=== PATIENT | male | born 1940 | race Caucasian/White ===

== ENCOUNTER 2017-10-04 17:34 | Inpatient (IN) | payer OTHER ==
[2017-10-04 19:08] LABS: BASO % 0.5 % (0-2.0); EOS % 2.7 % (0-4.5); HEMATOCRIT 28.8 % (35.4-49); HEMOGLOBIN 9.5 GM/dL (11.7-16.9); LYMPH % 7.9 % (8-40); MCH 29.4 pg (25.7-33.7); MCHC 32.9 g/dl (32.0-35.9); MEAN CELL VOLUME 89.5 fl (80-96); MEAN PLT VOLUME 11.4 fl (7.5-11.1); MONO % 5.2 % (3.8-10.2); NEUT % 83.7 % (42.8-82.8); PLATELET COUNT 150 K/MM3 (134-434); RBC 3.22 M/mm3 (4.00-5.60); RDW 16.4 % (11.9-15.9); WHITE BLOOD COUNT 11.2 K/mm3 (4.0-10.0)
[2017-10-04] MEDS ORDERED: SODIUM CHLORIDE 0.9% 500 ML INFUS.BAG IV ONE (19:17)
[2017-10-04] MEDS ORDERED: ONDANSETRON 4 MG/2 ML VIAL IVPUSH ONE (19:17)
[2017-10-04] MEDS ORDERED: ONDANSETRON 4 MG/2 ML VIAL ONE (19:27)
[2017-10-04 19:29] LABS: ALBUMIN 3.8 g/dl (3.4-5.0); ALK PHOS 107 U/L (45-117); ANION GAP 17 (8-16); BILIRUBIN,TOTAL 0.6 mg/dL (0.2-1.0); CALCIUM 8.6 mg/dL (8.5-10.1); CHLORIDE 103 mmol/L (98-107); CO2 15 mmol/L (21-32); GLUCOSE,RANDOM 229 mg/dL (74-106); SGOT/AST 9 U/L (15-37); SGPT/ALT 28 U/L (12-78); SODIUM 135 mmol/L (136-145); TOT PROT 6.6 g/dl (6.4-8.2)
[2017-10-04 19:33] LABS: LIPASE 502 U/L (73-393)
[2017-10-04 19:35] LABS: BLOOD UREA NITROGEN 137 mg/dL (7-18); CREATININE 8.1 mg/dL (0.7-1.3); POTASSIUM 6.2 mmol/L (3.5-5.1)
--- NOTE | 2017-10-04 19:49 | PDOC ---
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 Pt states he has had heartburn, worse during the nights, which has improved with OTC Prilosec. He has also had RUQ abdominal pain , over the same time period, with associated abdominal distension. The pain is mild, constant, but has worsened with the increasing distension. The pain is worsened with palpation, and there are no alleviating factors. He has not experienced this pain before. He denies fevers/chills, headache, chest pain, SOB , nausea/vomiting, diarrhea/constipation, rectal bleeding, urinary symptoms, joint pain, or leg swelling. Pt initially did not tell us about renal history. Son-in-law came to bedside and gave us additional history. Pt sees Dr. Parada ([facility] [[email or web address] for renal care, and was previously in transplant list. He has not received dialysis in the past. 10/05/17 00:09 Past History - Travel Traveled outside of the country in the last 30 days: No Close contact w/someone who was outside of country & ill: No - Past Medical History Allergies/Adverse Reactions: Allergies Allergy/AdvReac Type Severity Reaction Status Date / Time No Known Allergies Allergy Verified 10/04/17 17:44 Home Medications: Ambulatory Orders Alfuzosin HCl [Alfuzosin HCl ER] 10 mg PO DAILY 10/04/17 Amlodipine Besylate 10 mg PO DAILY 10/04/17 Aspirin [ASA -] 81 mg PO DAILY 10/04/17 Bumetanide 0.5 mg PO DAILY 10/04/17 Carvedilol [Coreg -] 6.25 mg PO ONCE 10/04/17 Glipizide [Glipizide ER] 2.5 mg PO DAILY 10/04/17 Levothyroxine [Synthroid -] 75 mcg PO DAILY 10/04/17 Losartan Potassium 100 mg PO DAILY 10/04/17 Saxagliptin HCl [Onglyza] 2.5 mg PO DAILY 10/04/17 Cardiac Disorders: Yes COPD: No Diabetes: Yes HTN: Yes Hypercholesterolemia: Yes Thyroid Disease: Yes - Surgical History Cardiac Surgery: Yes (4 vessel CABG) - Suicide/Smoking/Psychosocial Hx Smoking History: Never smoked Review of Systems - Review of Systems Able to Perform ROS?: Yes Is the patient limited Hungarian proficient: No Constitutional: Yes: Weight Stable. No: Chills, Diaphoresis, Fever, Loss of Appetite, Weakness HEENTM: No: Recent change in vision, Nose Congestion, Difficulty Swallowing Respiratory: No: Cough, Orthopnea, Shortness of Breath Cardiac (ROS): No: Chest Pain, Edema, Irregular Heart Rate, Lightheadedness, Palpitations, Syncope, Chest Tightness ABD/GI: Yes: Abdominal Distended, Indigestion. No: Abd. Pain w/ defecation, Blood Streaked Bowels, Constipated, Diarrhea, Difficulty Swallowing, Nausea, Poor Appetite, Poor Fluid Intake, Rectal Bleeding, Vomiting, Abdominal cramping , Tarry Stools : No: Burning, Dysuria, Frequency, Flank Pain, Hematuria, Pain, Urgency Integumentary: No: Change in Color, Rash Neurological: No: Headache, Numbness, Seizure, Weakness, Unsteady Gait, Ataxia, Dizziness Psychiatric: No: Sleep Pattern Change, Change in Appetite Endocrine: No: Increased Thirst, Increased Urine, Change in Weight Hematologic/Lymphatic: No: Anemia, Blood Clots, Easy Bleeding All Other Systems: Reviewed and Negative *Physical Exam - Vital Signs Last Vital Signs Temp Pulse Resp BP Pulse Ox 98.7 F 49 L 18 113/50 98 10/04/17 17:44 10/04/17 17:44 10/04/17 17:44 10/04/17 17:44 10/04/17 18:19 - Physical Exam General Appearance: Yes: Nourished, Appropriately Dressed. No: Apparent Distress HEENT: positive: EOMI, ELISEO, Normal ENT Inspection, Normal Voice, Symmetrical, Pharynx Normal, Hearing Grossly Normal. negative: Scleral Icterus (R), Scleral Icterus (L), Pharyngeal Erythema, Tonsillar Exudate, Tonsillar Erythema, Rhinorrhea Neck: positive: Trachea midline, Normal Thyroid, Supple. negative: Tender, Rigid, Stridor, Lymphadenopathy (R), Lymphadenopathy (L) Respiratory/Chest: positive: Lungs Clear, Normal Breath Sounds. negative: Chest Tender, Respiratory Distress, Accessory Muscle Use, Crackles, Wheezing Cardiovascular: positive: Regular Rhythm, S1, S2, Bradycardia. negative: Regular Rate, Edema, JVD, Murmur Vascular Pulses: Carotid (R): 4+, Carotid (L): 4+ Gastrointestinal/Abdominal: positive: Normal Bowel Sounds, Tender (RUQ tenderness), Soft, Distended (slightly distened. no fluid wave. ). negative: Flat, Organomegaly, Pulsatile Mass, Protuberent, Guarding, Rebound, Hernia, Mass , Hepatomegaly, Spleenomegaly Rectal Exam: positive: deferred Lymphatic: negative: Adenopathy, Tenderness Musculoskeletal: positive: Normal Inspection. negative: CVA Tenderness Extremity: positive: Normal Capillary Refill, Normal Inspection, Normal Range of Motion, Pelvis Stable. negative: Tender Integumentary: positive: Normal Color, Dry, Warm Neurologic: positive: echocardiography technologist II-XII NML intact, Fully Oriented, Alert, Normal Mood/ Affect, Normal Response, Motor Strength 5/5. negative: Numbness, Sensory Deficit Heart Score/ECG Review - History History: Moderately suspicious (4- vessel CABG. No current chest pain.) - Electrocardiogram EKG: Normal - Age Age: >/= 65 - Risk Factors Risk Factors Heart Score: Yes Hx Hypertension Based on the list above the patient has:: 1-2 risk factors - [place]: Normal - P and OK Delta Wave(s) Present: No WPW: No - ECG Impressions Comment:: sinus bradycardia. ST changes look relatively unchanged from prior ECG. No current peaked T waves. Rate 30 bpm, intervals normal. 10/05/17 00:34 ED Treatment Course - LABORATORY CBC & Chemistry Diagram: 10/04/17 19:04 10/04/17 19:04 - ADDITIONAL ORDERS Additional order review: Laboratory Results 10/04/17 19:04 Sodium 135 L Potassium 6.2 H* Chloride 103 Carbon Dioxide 15 L Anion Gap 17 H BUN 137 H* Creatinine 8.1 H* Creat Clearance w eGFR 6.48 Random Glucose 229 H Calcium 8.6 Total Bilirubin 0.6 AST 9 L ALT 28 Alkaline Phosphatase 107 Total Protein 6.6 Albumin 3.8 Lipase 502 H 10/04/17 19:04 RBC 3.22 L MCV 89.5 MCHC 32.9 RDW 16.4 H MPV 11.4 H Neutrophils % 83.7 H Lymphocytes % 7.9 L Monocytes % 5.2 Eosinophils % 2.7 Basophils % 0.5 - Medications Given in the ED: ED Medications Discontinued Medications Generic Name Dose Route Start Last Admin Trade Name Adeel PRN Reason Stop Dose Admin Ondansetron HCl 4 mg 10/04/17 19:17 10/04/17 19:43 Zofran Injection IVPUSH 10/04/17 19:18 4 mg ONCE ONE Administration Sodium Chloride 1,000 ml 10/04/17 19:17 10/04/17 19:42 Normal Saline - IV 10/04/17 19:18 1,000 ml ONCE ONE Administration Medical Decision Making - Medical Decision Making (entered later) Pt was seen at bedside, also seen by Dr. Ly. Pt was complaining of RUQ abdominal pain and distension, along with acid reflux x3 days. No chest pain or palpitations. Ordered basic labs on pt, considering cholelithiasis vs reflux vs pancreatitis. Pt did not mention history of kidney failure in the past. Pt HR in 40s. PCP: Dr. Roque Mold Cutting Machine Operator: Dr. Gan K 6.2, BUN 137, Cr 8.1, Cr Clearance 6.48, Gluc 229, lipase 502 Provided 1 L NS bolus ECG showed sinus bradycardia: provided 1 mg IV glucagon Son-in-law arrived. States pt had renal failure in the past, and was on transplant list at one point. Sees Dr. Parada at [facility]. 10/04/17 20:33 I performed bedside US. No gallstones appreciated, although pt very distended. Dr. Ly speaking to hospitalist now for admission to ICU (for dialysis). Pt continues to be bradycardic in 40s. Will page Dr. Gan again. Provided additional 1 mg glucagon (2 mg total) Spoke to Dr. Gan, who did not recognize pt by name, and was unsure of pt cardiac baseline. Agreed with plan for treatment and admit to ICU. 10/04/17 20:44 Provided 10 units insulin and D5 to improve HR and decrease K. 10/04/17 21:[address] Kulkarni (nephrology) who recommended NS (1 L NS bolus already provided) and maintenance fluid of 84-100 cc per hour. He also suggested UA, urine legionella, and repeat K level. 10/04/17 21:51 Son-in-law insists that pt has psychological component to illness. He states the pt has been irritable and "does not take care of himself, with lots of self- prescribed medications" since his 4-vessel CABG [address] psych consult so they can see him during inpatient stay. 10/04/17 22:00 Pt complaining of acid reflux. Providing 30 mg PO maalox. Sent urine for UA and legionella. 10/04/17 22:47 [id number] CT/ABDOMEN & PELVIS CT W/O CONTR Abdomen and pelvis CT (without contrast) Clinical information: evaluate for ileus, obstruction; right upper quadrant distention, elevated lipase, acute renal insufficiency Multiplanar imaging was performed. No intravenous contrast was administered. A small amount of oral contrast is seen within the gastric lumen. The partially imaged lower chest demonstrate small right-sided and very small left-sided pleural effusions layering posteriorly. There is mild fluid-filled gastric distention. A small amount of perihepatic free fluid is noted. There is also a small amount of free fluid within the paracolic spaces bilaterally and within the rectovesical space of the lower pelvis. A small amount of pericholecystic fluid accumulation is seen without associated gallbladder distention or obvious gallbladder calculi. There is no definite biliary tract dilatation. Mild mesenteric edema is seen. There is also mild bilateral thickening of the pararenal fasciae and mild bilateral perirenal soft tissue stranding. There is no hydronephrosis. The kidneys appear unremarkable in position and size each measuring approximately 9.7 cm in length. No evidence of urolithiasis. There is no definite cortical scarring. No evidence of pneumoperitoneum or bowel obstruction. There is minimal to mild peripancreatic soft tissue stranding. The liver, spleen, and adrenal glands demonstrate no discrete noncontrast pathology. There is no aortic aneurysm. No obvious lymphadenopathy is seen. The appendix is not definitely visualized along their no obvious indirect CT signs of acute appendicitis allowing for partially obstructing nonopacified small bowel loops. Colonic diverticulosis is seen without definite evidence of acute diverticulitis. No gross small bowel pathology is identified. There is marked prostate enlargement. IMPRESSION: No hydronephrosis is identified. The kidneys demonstrate no discrete noncontrast pathology. Prominent prostate enlargement is noted. Small right-sided and very small left-sided pleural effusions are seen. A small amount of free intraperitoneal fluid is noted within the abdomen and pelvis. Note is also made of mild mesenteric soft tissue edema. Note is also made of mild bilateral pararenal and perirenal soft tissue soft tissue thickening probably also on the basis of edema. Minimal to mild peripancreatic soft tissue stranding is seen. On the basis of this exam it is uncertain whether this latter appearance is secondary to mild acute pancreatitis versus representing a part of the more generalized mild mesenteric edema described previously. Consider follow-up CT. Small amount of free fluid, likely from edema (pancreatitis vs acute on chronic RF). Will repeat CMP and lipase. 10/04/17 22:56 Pt HR 40-48. Will receive additional 1 mg glucagon (3 mg given so far). Pt going to US. Sent repeat CMP and lipase labs. 10/04/17 23:21 Repeat lipase 538. Maintenance fluids started by ICU team. CMP pending. Pt awaiting admission. Waiting on official US results. Signed out to Dr. Carty who will check-in until pt admitted. 10/05/17 00:07 *DC/Admit/Observation/Transfer Diagnosis at time of Disposition: Bradycardia Renal failure (ARF), acute on chronic Qualifiers: Acute renal failure type: unspecified Chronic kidney disease stage: unspecified stage Qualified Code(s): N17.9 - Acute kidney failure, unspecified - Discharge Dispostion Condition at time of disposition: Stable Decision to Admit order: Yes - Referrals - Patient Instructions - Post Discharge Activity
[2017-10-04] MEDS ORDERED: GLUCAGON 1 MG KIT IVPUSH ONE ×3 (19:55→23:00)
[2017-10-04] MEDS ORDERED: SODIUM POLYSTYRENE SULFONATE 15 GM/60 ML BOTTLE PO ONE (19:55)
[2017-10-04] MEDS ORDERED: SODIUM POLYSTYRENE SULFONATE 15 GM/60 ML BOTTLE ONE (19:57)
[2017-10-04] MEDS ORDERED: GlUCAGON HUMAN RECOMBINANT 1 MG/VIAL ONE ×4 (19:57→23:17)
--- NOTE | 2017-10-04 20:12 | PDOC ---
Attending Attestation - HPI HPI: 10/04/17 23:11 The patient is a 77 year old male with a significant PMH of diabetes, , hypertension, hypercholesterolemia, and open heart surgery who presents to the emergency department with right upper quadrant abdominal pain for 3 days. The patient reports some associated abdominal distension and acid reflux with his abdominal pain. He states that even with his pain he has been able to eat. He denies any other symptoms. He denies any fever, chills, nausea, vomit, diarrhea , constipation or urinary symptoms. He denies any chest pain, shortness of breath, headache and dizziness. The patient denies any other complaints. PCP: Dr. Crouch Documentation prepared by Luz Marina Graves, acting as medical writer for Licha Ly MD. <Luz Marina Graves - Last Filed: 10/04/17 23:11> - Resident Resident Name: Roseann Miller - ED Attending Attestation I have performed the following: I have examined & evaluated the patient, The case was reviewed & discussed with the resident, I agree w/resident's findings & plan - HPI HPI: 10/04/17 20:10 Pt comes with renal failure and RUQ pain. Kidney tests are elevated. Lipase elevated. Pt has neither gallstones, not alcohol use. Dr. Hightower in [place] is his renal specialist. PMD is Waldo Crouch; hospitalist is gloria CROUCH today. 10/04/17 23:05 Pt has perhepatic fluid and stranding around the pancreas. - Physicial Exam PE: 10/04/17 23:01 Pt has gas in the RUQ and some distension. Afebrile. Pt is in NAD. He appears well. Pt has no SOB and no chest discomfort. Pt has no fluid overload. - Medical Decision Making 10/04/17 20:15 Pt will have sono abd to eval his distension 10/04/17 22:[address] are pending 10/04/17 23:06 Dr. Kulkarni of renal is aware of the patient and his acute renal failure. Pt's strategic planner is in [place] (not affilialted with us) Dr. Gan is aware of the patient. We have been treating the bradycardia with Calcium as well as glucagon, as pt is on beta blockers and calcium channel blockers. 10/05/17 04:44 Patient Name: TAL ASCENCIO THIS IS A PRELIMINARY REPORT FROM [facility] DATE OF SERVICE: 2017-10-04 23:33:58 IMAGES: 46 EXAM: ABDOMEN US -LIMITED HISTORY: Right upper quadrant pain COMPARISON: None. FINDINGS: Right pleural effusion No gallstones. Mild ascites Circumferential gallbladder wall thickening that may be secondary to the ascites No gallstones No echogenic calculi or hydronephrosis within the right kidney Tiny cyst within the superior pole of the left kidney Common bile duct measures 0.8 cm. THIS DOCUMENT HAS BEEN ELECTRONICALLY SIGNED <Licha Ly - Last Filed: 10/05/17 04:46> Heart Score/ECG Review - ST and T Early Repolarization: No Non Specific ST-T Wave changes: No Flattened T Waves: No Prolonged Q-T Interval: No - ECG Impressions Normal ECG: No Non-specific ST Elevation: No Ischemic Changes: No Bradycardia: Yes <Licha Ly - Last Filed: 10/05/17 04:46>
[2017-10-04] MEDS ORDERED: INSULIN REGULAR HUMAN 100 UNITS/ML *VIAL IVPUSH ONE (20:53)
[2017-10-04] MEDS ORDERED: DEXTROSE 50%-WATER - 25 GM/50 ML VIAL IVPUSH ONE (20:53)
--- NOTE | 2017-10-04 20:57 | HP ---
CHIEF COMPLAINT: RUQ Pain PCP: Dr. Roque Nephrology: Dr.Andrew Parada ([facility], ) HISTORY OF PRESENT ILLNESS: This is a 77 y/o man with significant medical history of CKD Stage 4/5, CAD s/p CABG, HTN, HLD, DM. Who presents to the ED with his family for RUQ pain and dizziness x 2 days. Patient is Maori speaking [employer] line used Name Nichole, # [id number], family and son in law were at bedside. Patient reports seeing his churn driller Dr. Sunday Parada, last Saturday and was told that his labs were fine. Patient reports having sharp RUQ pain with nausea, his last BM was today- hard and brown. Patient denies back/flank pain. Patient denies recent NSAID use , Patient denies fall or trauma. Patient denies fever, chills, cough, SOB, CP, vomiting, diarrhea ER course was notable for: (1) ARF- BUN 137, Cr 8.1 (2) K 6.2 (hyperkalemia protocol given) (3) Asymptomatic Bradycardia 30-40s Recent Travel: None PAST MEDICAL HISTORY: See HPI PAST SURGICAL HISTORY: CABG Social History: Smoking: Former 20 yrs ago Alcohol: Denies Drugs: Denies Lives with spouse, Independent Family History: Mother: DM Allergies No Known Allergies Allergy (Verified 10/04/17 17:44) HOME MEDICATIONS: Home Medications Medication Instructions Recorded Alfuzosin HCl [Alfuzosin HCl ER] 10 mg PO DAILY 10/04/17 Amlodipine Besylate 10 mg PO DAILY 10/04/17 Aspirin [ASA -] 81 mg PO DAILY 10/04/17 Bumetanide 0.5 mg PO DAILY 10/04/17 Carvedilol [Coreg -] 6.25 mg PO ONCE 10/04/17 Glipizide [Glipizide ER] 2.5 mg PO DAILY 10/04/17 Levothyroxine [Synthroid -] 75 mcg PO DAILY 10/04/17 Losartan Potassium 100 mg PO DAILY 10/04/17 Saxagliptin HCl [Onglyza] 2.5 mg PO DAILY 10/04/17 REVIEW OF SYSTEMS CONSTITUTIONAL: Absent: fever, chills, diaphoresis, generalized weakness, malaise, loss of appetite, weight change HEENT: Absent: rhinorrhea, nasal congestion, throat pain, throat swelling, difficulty swallowing, mouth swelling, ear pain, eye pain, visual changes CARDIOVASCULAR: Absent: chest pain, syncope, palpitations, irregular heart rate, lightheadedness , peripheral edema RESPIRATORY: Absent: cough, shortness of breath, dyspnea with exertion, orthopnea, wheezing, stridor, hemoptysis GASTROINTESTINAL:abdominal pain, abdominal distension, nausea, Absent: vomiting, diarrhea, constipation, melena, hematochezia GENITOURINARY: Absent: dysuria, frequency, urgency, hesitancy, hematuria, flank pain, genital pain MUSCULOSKELETAL: Absent: myalgia, arthralgia, joint swelling, back pain, neck pain SKIN: Absent: rash, itching, pallor HEMATOLOGIC/IMMUNOLOGIC: Absent: easy bleeding, easy bruising, lymphadenopathy, frequent infections ENDOCRINE: Absent: unexplained weight gain, unexplained weight loss, heat intolerance, cold intolerance NEUROLOGIC: dizziness Absent: headache, focal weakness or paresthesias, unsteady gait, seizure, mental status changes, bladder or bowel incontinence PSYCHIATRIC: Absent: anxiety, depression, suicidal or homicidal ideation, hallucinations. PHYSICAL EXAMINATION Vital Signs - 24 hr 10/04/17 10/04/17 10/04/17 17:44 18:19 20:06 Temperature 98.7 F Pulse Rate 49 L Pulse Rate [ 30 L Left Radial] Respiratory 18 20 Rate Blood Pressure 113/50 Blood Pressure 135/61 [Left Arm] O2 Sat by Pulse 98 98 99 Oximetry (%) 10/04/17 20:23 Temperature Pulse Rate Pulse Rate [ 43 L Left Radial] Respiratory 17 Rate Blood Pressure Blood Pressure 133/57 [Left Arm] O2 Sat by Pulse 98 Oximetry (%) GENERAL: Awake, alert, and fully oriented, in no acute distress. HEAD: Normal with no signs of trauma. EYES: Pupils equal, round and reactive to light, extraocular movements intact, sclera anicteric, conjunctiva clear. No lid lag. EARS, NOSE, THROAT: Ears normal, nares patent, oropharynx clear without exudates. Dry mucous membranes. NECK: Normal range of motion, supple without lymphadenopathy, JVD, or masses. LUNGS: Breath sounds equal, clear to auscultation bilaterally. No wheezes, and no crackles. No accessory muscle use. HEART: Regular rate and rhythm, normal S1 and S2 without murmur, rub or gallop. ABDOMEN: Soft, nontender,+distended, hypoactive bowel sounds, no guarding, no rebound, no masses. No hepatomegaly or splenomegaly. MUSCULOSKELETAL: Normal range of motion at all joints. No bony deformities or tenderness. No CVA tenderness. UPPER EXTREMITIES: 2+ pulses, warm, well-perfused. No cyanosis. No clubbing. No peripheral edema. LOWER EXTREMITIES: 2+ pulses, warm, well-perfused. No calf tenderness. No peripheral edema. NEUROLOGICAL: Cranial nerves II-XII intact. Normal speech. Gait not observed. PSYCHIATRIC: Cooperative. Good eye contact. Appropriate mood and affect. SKIN: Warm, dry, normal turgor, no rashes or lesions noted, normal capillary refill. Laboratory Results - last 24 hr 10/04/17 10/04/17 10/04/17 19:02 19:04 19:04 WBC 11.2 H RBC 3.22 L Hgb 9.5 L Hct 28.8 L MCV 89.5 MCH 29.4 MCHC 32.9 RDW 16.4 H Plt Count 150 MPV 11.4 H Absolute Neuts (auto) 9.4 H Neutrophils % 83.7 H Lymphocytes % 7.9 L Monocytes % 5.2 Eosinophils % 2.7 Basophils % 0.5 Nucleated RBC % 0 Sodium 135 L Potassium 6.2 H* Chloride 103 Carbon Dioxide 15 L Anion Gap 17 H BUN 137 H* Creatinine 8.1 H* Creat Clearance w eGFR 6.48 Random Glucose 229 H Calcium 8.6 Total Bilirubin 0.6 AST 9 L ALT 28 Alkaline Phosphatase 107 Creatine Kinase 117 Troponin I 0.38 H Total Protein 6.6 Albumin 3.8 Lipase 502 H ASSESSMENT/PLAN: This is a 77 y/o man with a PMHx of CKD stage 4/5, DM, CAD s/p CABG, HTN, HLD. Admitted to ICU for Acute on Chronic Renal Failure, Hyperkalemia, Abdominal Pain for further evaluation of their emergent condition. FEN - NS@83ml/hr - Replete lytes, monitor K 6.2~4.2 - NPO DVT ppx - OOB - SCDs - Heparin SQ Code Status: Full Code Dispo: Requires Inpatient Care Problem List - Problem (1) Renal failure (ARF), acute on chronic Assessment/Plan: - BUN 138, Cr 8.1, no other results available to compare - Admit to ICU- for possible emergent dialysis - Appreciate Nephrology consult - Appreciate Fiber Drier Operator consult - Will need to have day team discuss renal function hx, recent labs with Dr. Parada, ([facility]) - NS bolus given in ED - Will continue IVF per Nephrology recommendations - Will trend CMP - Continue cardiac monitoring - Urine lytes, osmo - Renal US - Avoid nephrotoxic agents Code(s): N17.9 - ACUTE KIDNEY FAILURE, UNSPECIFIED; N18.9 - CHRONIC KIDNEY DISEASE, UNSPECIFIED Qualifiers: Acute renal failure type: unspecified Chronic kidney disease stage: unspecified stage Qualified Code(s): N17.9 - Acute kidney failure, unspecified ; N18.9 - Chronic kidney disease, unspecified (2) Bradycardia Assessment/Plan: - Likely secondary to ARF vs Medications - Cardiac monitoring - Glucagon given in ED - HR 50's - Appreciate Cardiology consult - Hold BP meds - On exam patient is asymptomatic - Fall Precautions - Pacer Pads prn Code(s): R00.1 - BRADYCARDIA, UNSPECIFIED (3) HTN (hypertension) Assessment/Plan: - Monitor BP - Hold meds secondary to Bradycardia - Maintain MAP > 65 Code(s): I10 - ESSENTIAL (PRIMARY) HYPERTENSION (4) CAD (coronary artery disease) Assessment/Plan: - s/p CABG - Continue Asa, Statin - Will hold BB, ARB secondary to bradycardia, ARF Code(s): I25.10 - ATHSCL HEART DISEASE OF [place] CORONARY ARTERY W/O ANG PCTRS (5) Diabetes mellitus Assessment/Plan: - stable - BGMs - ISS when diet resumed Code(s): E11.9 - TYPE 2 DIABETES MELLITUS WITHOUT COMPLICATIONS (6) HLD (hyperlipidemia) Assessment/Plan: - Continue statin Code(s): E78.5 - HYPERLIPIDEMIA, UNSPECIFIED (7) Depression Assessment/Plan: - Patient's and son in law report a change in patient's behavior more aggressive, mood swings, and depression since having CABG. - Appreciate Psych consult Code(s): F32.9 - MAJOR DEPRESSIVE DISORDER, SINGLE EPISODE, UNSPECIFIED (8) Agitation Assessment/Plan: - See Above Code(s): R45.1 - RESTLESSNESS AND AGITATION Visit type - Emergency Visit Emergency Visit: Yes ED Registration Date: 10/04/17 Care time: The patient presented to the Emergency Department on the above date and was hospitalized for further evaluation of their emergent condition. - New Patient This patient is new to me today: Yes Date on this admission: 10/04/17 - Critical Care Critical Care patient: Yes Total Critical Care Time (in minutes): 40 Critical Care Statement: The care of this patient involved high complexity decision making to prevent further life threatening deterioration of the patient 's condition and/or to evaluate & treat vital organ system(s) failure or risk of failure. Hospitalist Screening - Colonoscopy Questionnaire Colonoscopy Questionnaire: Colonoscopy Questionnaire - Patient: 50 - 75 years old and never had a screening colonoscopy: Unknown History of colon or rectal polyps, or CA: Unknown History of IBD, Crohn's disease or UC: Unknown History of abdominal radiation therapy as a child: Unknown - Relative: 1 with colon or rectal CA, or polyps at age 60 or younger: Unknown Colon or rectal CA diagnosed at age 45 or younger: Unknown Multiple relatives with colon or rectal CA: Unknown - Outcome: Screening Result: Negative Screen
[2017-10-04] MEDS ORDERED: DEXTROSE 50%-WATER 25 GM/50 ML DISP.SYRIN ONE (21:15)
[2017-10-04] MEDS ORDERED: INSULIN REGULAR HUMAN 100 UNITS/ML *VIAL ONE (21:16)
[2017-10-04] MEDS ORDERED: HEPARIN NA (PORCINE) 5,000 UNITS/ML 1ML VIAL ONE (22:15)
[2017-10-04] MEDS: HEPARIN NA (PORCINE) 5,000 UNITS/ML 1ML VIAL SQ SCH (22:25)
--- NOTE | 2017-10-04 22:30 | CONSULT ---
Consult - text type - Consultation Consultation Note: Renal consult for ROBIN on CKD This is a 77 year old gentleman with hx of CKD Stage 4/5, DM, CAD s/p CABG, Hyperlipidemia, Hypertension who presented with complaints of abd pain and found to have BUN/Cr of 140/8.2 and K of 6. Pt follows with his own manager distribution center Dr. Sunday Parada [phone]. Was seen last week and was told that everything was stable. Denies any NSIAD use. Is on ARB and Bumex at home. Denies any N/V/D or change in diet. No flank pain, hematuria, dysuria. No recent Abx use. No skin rash. No muscle weakness, Abd pain, confusion, lethargy or weakness. PMhx: as above Allergies: NKDA Family Hx: NC Social Hx: No T/A/D ROS: as per HPI Home Medications Medication Instructions Recorded Alfuzosin HCl [Alfuzosin HCl ER] 10 mg PO DAILY 10/04/17 Amlodipine Besylate 10 mg PO DAILY 10/04/17 Aspirin [ASA -] 81 mg PO DAILY 10/04/17 Bumetanide 0.5 mg PO DAILY 10/04/17 Carvedilol [Coreg -] 6.25 mg PO ONCE 10/04/17 Glipizide [Glipizide ER] 2.5 mg PO DAILY 10/04/17 Levothyroxine [Synthroid -] 75 mcg PO DAILY 10/04/17 Losartan Potassium 100 mg PO DAILY 10/04/17 Saxagliptin HCl [Onglyza] 2.5 mg PO DAILY 10/04/17 Vital Signs Temperature 98.7 F 10/04/17 17:44 Pulse Rate 48 L 10/04/17 21:44 Respiratory Rate 15 10/04/17 21:44 Blood Pressure 132/56 10/04/17 21:44 O2 Sat by Pulse Oximetry (%) 99 10/04/17 21:44 Intake & Output 10/02/17 10/03/17 10/04/17 10/05/17 23:59 23:59 23:59 23:59 Weight 66.224 kg NAD awake and alert Neck supple, no JVD RRR, No M/R CTA, no rales or wheeze soft NT/ND No LE edema, clubbing or cyanosis on bladder distension CBC, BMP 10/04/17 19:04 10/04/17 23:05 Current Medications Chlorhexidine Gluconate (Hibiclens For Decolonization -) 1 applic TP HS FABIEN Heparin Sodium (Porcine) (Heparin -) 5,000 unit SQ BID FABIEN Last Admin: 10/04/17 22:25 Dose: 5,000 unit Sodium Chloride (Normal Saline -) 1,000 mls @ 83 mls/hr IV ASDIR FABIEN Last Admin: 10/05/17 00:05 Dose: 83 mls/hr Mupirocin (Bactroban Ointment (For Decolonization) -) 1 applic NS BID [facility] Stop: 10/09/17 21:59 77 year old gentleman with hx of CKD Stage 4/5, DM, CAD s/p CABG, Hyperlipidemia , Hypertension who presented with complaints of abd pain and found to have BUN/ Cr of 140/8.2 and K of 6. #Acute Renal Injury secondary to volume depletion vs. normotensive ATN vs. progressive CKD #CKD Stage 4/5 #CAD s/p CABG #Metabolic acidosis #Hyperkalemia #Anemia Check Urine studies and renal imaging no emergent indication for BUSINESS LEADER as K is improved with medical management Will need to obtain baseline renal function form primary manager distribution center Trial of IV fluid hydration Stat Oral bicarb 650mg BID Trend renal function and electrolytes Check iron studies if no significant improvement in renal function in 24 hours may warrant dialysis thank you Will follow Rambo Kulkarni DO
[2017-10-04] MEDS ORDERED: SODIUM CHLORIDE 1,000 ML IV SCH (22:45)
[2017-10-04] MEDS ORDERED: MAG HYDROX/AL HYDROX/SIMETH 30 ML UNIT-DOSE CUP PO ONE (22:46)
[2017-10-04 22:50] LABS: URINE APPEARANCE SLCLOUDY; URINE BILIRUBIN NEGATIVE (<2.0 mg/dL); URINE COLOR YELLOW; URINE GLUCOSE (UA) 1+ (NEGATIVE); URINE KETONE NEGATIVE (NEGATIVE); URINE LEUK ESTERASE NEGATIVE (NEGATIVE); URINE NITRITE NEGATIVE (NEGATIVE); URINE UROBILINOGEN NEGATIVE mg/dL (0.2-1.0)
[2017-10-04 22:55] LABS: URINE PROTEIN 2+ (NEGATIVE)
[2017-10-04 23:02] LABS: EPI CELLS RARE /HPF (FEW); URINE HYALINE CAST 18 /lpf
[2017-10-04] MEDS ORDERED: MAG HYDROX/AL HYDROX/SIMETH 30 ML UNIT-DOSE CUP ONE (23:35)
[2017-10-05 00:12] LABS: ALBUMIN 3.5 g/dl (3.4-5.0); ALK PHOS 96 U/L (45-117); ANION GAP 17 (8-16); BILIRUBIN,TOTAL 0.6 mg/dL (0.2-1.0); CALCIUM 8.6 mg/dL (8.5-10.1); CHLORIDE 103 mmol/L (98-107); CO2 16 mmol/L (21-32); GLUCOSE,RANDOM 247 mg/dL (74-106); POTASSIUM 4.7 mmol/L (3.5-5.1); SGOT/AST 14 U/L (15-37); SGPT/ALT 28 U/L (12-78); SODIUM 136 mmol/L (136-145); TOT PROT 6.2 g/dl (6.4-8.2)
[2017-10-05 00:24] LABS: BLOOD UREA NITROGEN 141 mg/dL (7-18)
[2017-10-05 00:25] LABS: CREATININE 8.2 mg/dL (0.7-1.3)
--- NOTE | 2017-10-05 02:05 | PN ---
Progress Note (short form) - Note Progress Note: Renal consult for ROBIN on CKD This is a 77 year old gentleman with hx of CKD Stage 4/5, DM, CAD s/p CABG, Hyperlipidemia, Hypertension who presented with complaints of abd pain and found to have BUN/Cr of 140/8.2 and K of 6. Pt follows with his own earth auger operator Dr. Sunday Parada [phone]. Was seen last week and was told that everything was stable. Denies any NSIAD use. Is on ARB and Bumex at home. Denies any N/V/D or change in diet. No flank pain, hematuria, dysuria. No recent Abx use. No skin rash. No muscle weakness, Abd pain, confusion, lethargy or weakness. 77 year old male with a significant PMH of diabetes, ,hypertension, hypercholesterolemia, and open heart surgery who presents to the emergency department with right upper quadrant abdominal pain for 3 days.
--- NOTE | 2017-10-05 04:49 | CONSULT ---
Consultation: REQUESTING PROVIDER: CONSULT REQUEST: We have been asked to medically evaluate this patient for (CKD) . HISTORY OF PRESENT ILLNESS: Pt is a 77 y/o gentleman (B. florenciadocarlos) with a pmh of CKD Stage 4/5, DM, CAD s/p CABG, Hyperlipidemia, Hypertension who initially presented to [facility] c/o RUQ right upper quadrant abdominal pain for the past 3 days. The patient endorses having abdominal distension and acid reflux with his abdominal pain. On admission, pt found to have a Bun/Cr of 137/8.1, potassium was at 6, and a lipase of 502.. Pt is following a Data Analytics Architect in [place], Dr. Sunday Parada [phone], and states that he has never required dialysis. Pt states he does not want to undergo dialysis at this time. Pt in ED had an ECG which showed sinus bradycardia, 2 mg IV glucagon was administered. Bedside ultrasound was negative for any gallstones. 10 units insulin and D5W were given to improve his HR and decrease his K. Pt denies cp, sob, batres, nausea, vomiting, chills, or fever. REVIEW OF SYSTEMS: CONSTITUTIONAL: Absent: fever, chills, diaphoresis, generalized weakness, malaise, loss of appetite, weight change HEENT: Absent: rhinorrhea, nasal congestion, throat pain, throat swelling, difficulty swallowing, mouth swelling, ear pain, eye pain, visual changes CARDIOVASCULAR: PRESENT: palpitations, irregular heart rate RESPIRATORY: Absent: cough, shortness of breath, dyspnea with exertion, orthopnea, wheezing, stridor, hemoptysis GASTROINTESTINAL: PRESENT: abdominal pain, abdominal distension, GENITOURINARY: Absent: dysuria, frequency, urgency, hesitancy, hematuria, flank pain, genital pain MUSCULOSKELETAL: Absent: myalgia, arthralgia, joint swelling, back pain, neck pain SKIN: Absent: rash, itching, pallor HEMATOLOGIC/IMMUNOLOGIC: Absent: easy bleeding, easy bruising, lymphadenopathy, frequent infections ENDOCRINE: Absent: unexplained weight gain, unexplained weight loss, heat intolerance, cold intolerance NEUROLOGIC: Absent: headache, focal weakness or paresthesias, dizziness, unsteady gait, seizure, mental status changes, bladder or bowel incontinence PSYCHIATRIC: Absent: anxiety, depression, suicidal or homicidal ideation, hallucinations. PHYSICAL EXAMINATION Vital Signs - 24 hr 10/04/17 10/04/17 10/04/17 17:44 18:19 20:06 Temperature 98.7 F Pulse Rate 49 L Pulse Rate [ 30 L Left Radial] Respiratory 18 20 Rate Blood Pressure 113/50 Blood Pressure 135/61 [Left Arm] O2 Sat by Pulse 98 98 99 Oximetry (%) 10/04/17 10/04/17 10/05/17 20:23 21:44 02:50 Temperature 98 F Pulse Rate Pulse Rate [ 43 L 48 L 51 L Left Radial] Respiratory 17 15 16 Rate Blood Pressure Blood Pressure 133/57 132/56 127/56 [Left Arm] O2 Sat by Pulse 98 99 96 Oximetry (%) 10/05/17 03:30 Temperature 98.1 F Pulse Rate 47 L Pulse Rate [ Left Radial] Respiratory 16 Rate Blood Pressure 149/56 Blood Pressure [Left Arm] O2 Sat by Pulse 99 Oximetry (%) GENERAL: PLEASENT, NAD HEAD: NC/AT EYES: EOMI. EARS, NOSE, THROAT: MMM NECK: No JVD. Supple LUNGS: CTA B/L HEART: Regular rate and rhythm, normal S1 and S2 without murmur, rub or gallop. ABDOMEN: Tender, slighty distended, MUSCULOSKELETAL: ROM intact throughout UPPER EXTREMITIES: No CCE LOWER EXTREMITIES: No CCE NEUROLOGICAL: No Neuro Deficits PSYCHIATRIC: Cooperative. Good eye contact. Appropriate mood and affect. SKIN: Warm, dry, normal turgor, no rashes or lesions noted. Laboratory Results - last 24 hr 10/04/17 10/04/17 10/04/17 19:02 19:04 19:04 WBC 11.2 H RBC 3.22 L Hgb 9.5 L Hct 28.8 L MCV 89.5 MCH 29.4 MCHC 32.9 RDW 16.4 H Plt Count 150 MPV 11.4 H Absolute Neuts (auto) 9.4 H Neutrophils % 83.7 H Lymphocytes % 7.9 L Monocytes % 5.2 Eosinophils % 2.7 Basophils % 0.5 Nucleated RBC % 0 Sodium 135 L Potassium 6.2 H* Chloride 103 Carbon Dioxide 15 L Anion Gap 17 H BUN 137 H* Creatinine 8.1 H* Creat Clearance w eGFR 6.48 Random Glucose 229 H Calcium 8.6 Total Bilirubin 0.6 AST 9 L ALT 28 Alkaline Phosphatase 107 Creatine Kinase 117 Troponin I 0.38 H Total Protein 6.6 Albumin 3.8 Lipase 502 H Urine Color Urine Appearance Urine pH Ur Specific [place] Urine Protein Urine Glucose (UA) Urine Ketones Urine Blood Urine Nitrite Urine Bilirubin Urine Urobilinogen Ur Leukocyte Esterase Urine WBC (Auto) Urine RBC (Auto) Ur Epithelial Cells Hyaline Casts 10/04/17 10/04/17 10/04/17 22:35 23:05 23:05 WBC RBC Hgb Hct MCV MCH MCHC RDW Plt Count MPV Absolute Neuts (auto) Neutrophils % Lymphocytes % Monocytes % Eosinophils % Basophils % Nucleated RBC % Sodium 136 Potassium 4.7 D Chloride 103 Carbon Dioxide 16 L Anion Gap 17 H BUN 141 H* Creatinine 8.2 H* Creat Clearance w eGFR 6.39 Random Glucose 247 H Calcium 8.6 Total Bilirubin 0.6 AST 14 L D ALT 28 Alkaline Phosphatase 96 D Creatine Kinase Troponin I Total Protein 6.2 L Albumin 3.5 Lipase 538 H Urine Color Yellow Urine Appearance Slcloudy Urine pH 5.0 Ur Specific [place] 1.013 Urine Protein 2+ H Urine Glucose (UA) 1+ H Urine Ketones Negative Urine Blood Negative Urine Nitrite Negative Urine Bilirubin Negative Urine Urobilinogen Negative Ur Leukocyte Esterase Negative Urine WBC (Auto) 3 Urine RBC (Auto) None Ur Epithelial Cells Rare Hyaline Casts 18 10/05/17 00:46 WBC RBC Hgb Hct MCV MCH MCHC RDW Plt Count MPV Absolute Neuts (auto) Neutrophils % Lymphocytes % Monocytes % Eosinophils % Basophils % Nucleated RBC % Sodium Potassium Chloride Carbon Dioxide Anion Gap BUN Creatinine Creat Clearance w eGFR Random Glucose Calcium Total Bilirubin AST ALT Alkaline Phosphatase Creatine Kinase 122 Troponin I 0.33 H Total Protein Albumin Lipase Urine Color Urine Appearance Urine pH Ur Specific [place] Urine Protein Urine Glucose (UA) Urine Ketones Urine Blood Urine Nitrite Urine Bilirubin Urine Urobilinogen Ur Leukocyte Esterase Urine WBC (Auto) Urine RBC (Auto) Ur Epithelial Cells Hyaline Casts Active Medications Generic Name Dose Route Start Last Admin Trade Name Freq PRN Reason Stop Dose Admin Chlorhexidine Gluconate 1 applic 10/05/17 22:00 Hibiclens For Decolonization - TP HS FABIEN Heparin Sodium (Porcine) 5,000 unit 10/04/17 22:00 10/04/17 22:25 Heparin - SQ 5,000 unit BID FABIEN Administration Sodium Chloride 1,000 mls @ 83 mls/hr 10/04/17 22:45 10/05/17 00:05 Normal Saline - IV 83 mls/hr ASDIR FABIEN Administration Mupirocin 1 applic 10/05/17 10:00 Bactroban Ointment (For Decolonization) - NS 10/10/17 09:59 BID FABIEN ASSESSMENT/PLAN: Acute Renal Injury 2/2 volume depletion vs. normotensive ATN vs. progressive CKD -IN FL[employer]W MEMBER not emergent as Potassium has been improving--> 6.2 on admission, now 4.7 - Baseline Cr from Dr Khalil - Oral bicarb 650mg BID -Trend renal function and electrolytes -Monitor Renal fucntion for 24 hr's--> If Bun/Cr continue to rise---> IN FLIGHT CREW MEMBER -Trial of IV fluid hydration HTN, CAD Losartan 100 mg Daily Amlodipine 10 mg Daily Carvedilol 6.25 mg Daily Diabetes Glipizide 5 mg Daily Onglyzia 2.5 mg Daily Hypothyroidism Levothyroxine BPH Alfuzosin FEN No Fluids Monitor Potassium NPO Dispo: We will continue to follow the patient. Thank you for this consultative opportunity. Visit type - Emergency Visit Emergency Visit: Yes ED Registration Date: 10/04/17 Care time: The patient presented to the Emergency Department on the above date and was hospitalized for further evaluation of their emergent condition. - New Patient This patient is new to me today: Yes Date on this admission: 10/05/17 - Critical Care Critical Care patient: Yes Total Critical Care Time (in minutes): 35 Critical Care Statement: The care of this patient involved high complexity decision making to prevent further life threatening deterioration of the patient 's condition and/or to evaluate & treat vital organ system(s) failure or risk of failure.
[2017-10-05 06:13] LABS: BASO % 0.4 % (0-2.0); EOS % 2.5 % (0-4.5); HEMATOCRIT 25.6 % (35.4-49); HEMOGLOBIN 8.7 GM/dL (11.7-16.9); MEAN CELL VOLUME 88.2 fl (80-96); MEAN PLT VOLUME 11.6 fl (7.5-11.1); MONO % 6.7 % (3.8-10.2); NEUT % 83.4 % (42.8-82.8); PLATELET COUNT 123 K/MM3 (134-434); RBC 2.91 M/mm3 (4.00-5.60); RDW 16.7 % (11.9-15.9); WHITE BLOOD COUNT 9.8 K/mm3 (4.0-10.0)
[2017-10-05 06:43] LABS: CHLORIDE 106 mmol/L (98-107); POTASSIUM 4.8 mmol/L (3.5-5.1); SODIUM 139 mmol/L (136-145)
[2017-10-05 06:58] LABS: ALBUMIN 3.4 g/dl (3.4-5.0); ALK PHOS 96 U/L (45-117); AMYLASE 121 U/L (25-115); ANION GAP 17 (8-16); BILIRUBIN,TOTAL 0.6 mg/dL (0.2-1.0); CALCIUM 8.3 mg/dL (8.5-10.1); CO2 16 mmol/L (21-32); GLUCOSE,RANDOM 109 mg/dL (74-106); MAGNESIUM 2.1 mg/dL (1.8-2.4); PHOSPHOROUS 5.5 mg/dL (2.5-4.9); SGOT/AST 11 U/L (15-37); SGPT/ALT 26 U/L (12-78)
[2017-10-05 07:01] LABS: BLOOD UREA NITROGEN 139 mg/dL (7-18)
[2017-10-05 07:02] LABS: CREATININE 7.8 mg/dL (0.7-1.3)
[2017-10-05] MEDS: CALCIUM ACETATE 667 MG CAPSULE (FP) PO SCH ×3 (08:24→17:40)
--- NOTE | 2017-10-05 09:35 | CON.CARD ---
Consult Consult Specialty:: cardio - History of Present Illness Chief Complaint: abd pain History of Present Illness: 77 M here with abd pain. c/o RUQ pain and dizziness x2d. noted to be bradycardic in ER with HR 40s (sinus leeann), no sx's, hemodynamically stable he c/o ongoing RUQ pain though resolves with analgesia here. presently no pain, but remains tender. denies any cp at all, no sob. was a little dizzy at home, no presyncope or syncope no palpit PMH: -s/p CABG -CKD Stage 4/5 -HTN -HLD -DM - Smoking History Smoking history: Never smoked Home Medications - Allergies Allergies/Adverse Reactions: Allergies Allergy/AdvReac Type Severity Reaction Status Date / Time No Known Allergies Allergy Verified 10/04/17 17:44 - Home Medications Home Medications: Ambulatory Orders Alfuzosin HCl [Alfuzosin HCl ER] 10 mg PO DAILY 10/04/17 Amlodipine Besylate 10 mg PO DAILY 10/04/17 Aspirin [ASA -] 81 mg PO DAILY 10/04/17 Bumetanide 0.5 mg PO DAILY 10/04/17 Carvedilol [Coreg -] 6.25 mg PO ONCE 10/04/17 Glipizide [Glipizide ER] 2.5 mg PO DAILY 10/04/17 Levothyroxine [Synthroid -] 75 mcg PO DAILY 10/04/17 Losartan Potassium 100 mg PO DAILY 10/04/17 Saxagliptin HCl [Onglyza] 2.5 mg PO DAILY 10/04/17 Review of Systems - Review of Systems Constitutional: denies: Chills, Fever Eyes: denies: Eye Pain HENT: denies: Nasal Congestion Neck: denies: Stiffness Cardiovascular: denies: Palpitations Respiratory: denies: Orthopnea, PND Gastrointestinal: denies: Diarrhea, Rectal Bleeding Genitourinary: denies: Burning, Hematuria Musculoskeletal: denies: Muscle Pain Integumentary: denies: Rash Neurological: denies: Numbness, Seizure, Syncope Endocrine: denies: Excessive Sweating Hematology/Lymphatic: denies: Excessive Bleeding Vital Signs: Vital Signs Temperature 98.4 F 10/05/17 08:00 Pulse Rate 54 L 10/05/17 08:00 Respiratory Rate 14 10/05/17 08:00 Blood Pressure 121/49 10/05/17 08:00 O2 Sat by Pulse Oximetry (%) 99 10/05/17 03:30 Constitutional: Yes: Well Nourished, No Distress Eyes: No: Sclera Icterus HENT: No: Nasal Congestion Neck: No: Decreased ROM Respiratory: Yes: CTA Bilaterally. No: Accessory Muscle Use, Rales, Wheezes Gastrointestinal: Yes: Normal Bowel Sounds. No: Distention, Hepatomegaly, Palpable Mass, Tenderness Cardiovascular: Yes: Regular Rate and Rhythm JVD: No Carotid Bruit: Yes PMI: Non-Displaced Heart Sounds: Yes: S1, S2. No: Gallop Murmur: No: Systolic Murmur, Diastolic Murmur Musculoskeletal: Yes: Other (No kyphosis) Extremities: No: Cool, Cyanosis Edema: No Peripheral Pulses: 2+ Left Carotid, 2+ Right Carotid, 2+ Left Doralis Pedis, 2+ Right Dorsalis Pedis Integumentary: No: Jaundice Neurological: Yes: Alert, Oriented (x3) Psychiatric: No: Agitated - Other Data Labs, Other Data: CBC, BMP 10/05/17 05:30 10/05/17 05:30 Troponin, BNP 10/04/17 10/05/17 10/05/17 19:02 00:46 05:30 Troponin I 0.38 H 0.33 H 0.32 H Troponin, BNP 10/04/17 10/05/17 10/05/17 19:02 00:46 05:30 Troponin I 0.38 H 0.33 H 0.32 H Laboratory Tests 10/04/17 10/05/17 10/05/17 19:02 00:46 05:30 WBC 9.8 Hgb 8.7 L Plt Count 123 L Sodium Potassium BUN Creatinine AST ALT Troponin I 0.38 H 0.33 H 10/05/17 10/05/17 05:30 05:30 WBC Hgb Plt Count Sodium 139 Potassium 4.8 BUN 139 H* Creatinine 7.8 H* AST 11 L D ALT 26 Troponin I 0.32 H Assessment/Plan ECG: sinus leeann at 30 bpm, normal axis/intervals; no ST-T abn, no q waves tele: sinus leeann 30s-40s RUQ abd pain and tenderness: -w/u per critical care, hospitalist ROBIN on CKD: -creat 8s on admit, with K 6--s/p urgent HD -renal fxn slightly improved, K stable -plans per renal -holding home losartan sinus bradycardia: -in setting of acute metabolic abnormalities--renal failure, hyperkalemia, acidosis -? also related to abdominal process with abd pain -tele stable, HRs 40s this am--expect rates to normalize as metabolic perturbations are corrected -no indication for temporary pacing -holding home carvedilol bilat carotid bruits: -check dopplers h/o CAD s/p CABG, elevated troponin: -trop intermediate range, flat trend (0.3 x 3)--not c/w ACS. no isch ecg changes -cont home aspirin -home meds need reconciliation re: home statin regimen--no change to prior plan HTN: -hold BB, ARB as above -bp currently controlled, observe trend DM: -per crit care, hospitalist
[2017-10-05] MEDS: LEVOTHYROXINE SODIUM 100 MCG VIAL IM SCH (10:02)
[2017-10-05] MEDS: HEPARIN NA (PORCINE) 5,000 UNITS/ML 1ML VIAL SQ SCH ×2 (10:02→22:06)
[2017-10-05] MEDS: MUPIROCIN 2% TOPICAL OINTMENT FOR DECOLONIZATION NS SCH ×2 (10:02→22:06)
--- NOTE | 2017-10-05 10:13 | PN ---
Progress Note, Physician History of Present Illness: 77 y/o man with a PMHx of CKD stage 4/5, DM, CAD s/p CABG, HTN, HLD. Admitted to ICU for Acute on Chronic Renal Failure, Hyperkalemia, Abdominal Pain for further evaluation of their emergent condition. - Current Medication List Current Medications: Active Medications Calcium Acetate (Phoslo -) 667 mg PO TIDCM [facility] Last Admin: 10/05/17 08:24 Dose: Not Given Chlorhexidine Gluconate (Hibiclens For Decolonization -) 1 applic TP HS [facility] Heparin Sodium (Porcine) (Heparin -) 5,000 unit SQ BID [facility] Last Admin: 10/05/17 10:02 Dose: 5,000 unit Sodium Chloride (Normal Saline -) 1,000 mls @ 83 mls/hr IV ASDIR [facility] Last Admin: 10/05/17 00:05 Dose: 83 mls/hr Insulin Aspart (Novolog Vial Sliding Scale -) 1 vial SQ TIDAC [facility]; Protocol Levothyroxine Sodium (Synthroid Injection -) 37 mcg IM DAILY [facility] Last Admin: 10/05/17 10:02 Dose: 37 mcg Mupirocin (Bactroban Ointment (For Decolonization) -) 1 applic NS BID [facility] Stop: 10/10/17 09:59 Last Admin: 10/05/17 10:02 Dose: 1 applic - Objective Vital Signs: Vital Signs Temperature 98.4 F 10/05/17 08:00 Pulse Rate 54 L 10/05/17 08:00 Respiratory Rate 14 10/05/17 08:00 Blood Pressure 121/49 10/05/17 08:00 O2 Sat by Pulse Oximetry (%) 99 10/05/17 09:00 Elderly man comfortable, not in distress HEENT; Mm moist, no anemia, PERRLA EOMI NECK: No JVd No Bruit CHEST: shilley at place, CTA B/L CVS: S1S2 R ABD: No distention, non tender Bs + EXT: Trace edema, Pulses + [employer]: AOx3 non focal Labs: CBC, BMP 10/05/17 05:30 10/05/17 05:30 Problem List - Problems (1) Renal failure (ARF), acute on chronic Assessment/Plan: Evaluted by Renal consult now on HD , F/U BMP rest management as per Renal consult. Code(s): N17.9 - ACUTE KIDNEY FAILURE, UNSPECIFIED; N18.9 - CHRONIC KIDNEY DISEASE, UNSPECIFIED Qualifiers: Acute renal failure type: unspecified Chronic kidney disease stage: unspecified stage Qualified Code(s): N17.9 - Acute kidney failure, unspecified ; N18.9 - Chronic kidney disease, unspecified (2) Bradycardia Assessment/Plan: Resolved in the setting of Hyperkalemia off BP meds and B Blockers Code(s): R00.1 - BRADYCARDIA, UNSPECIFIED (3) Diabetes mellitus Assessment/Plan: Cont current management, optimize Glycemic control. Code(s): E11.9 - TYPE 2 DIABETES MELLITUS WITHOUT COMPLICATIONS (4) HTN (hypertension) Assessment/Plan: Well controlled at present off Meds Code(s): I10 - ESSENTIAL (PRIMARY) HYPERTENSION (5) CAD (coronary artery disease) Assessment/Plan: S/P CABG on ASA off BB due to bradycardia plateau elevation of troponin I F/U Cardiology recommondaytions. Code(s): I25.10 - ATHSCL HEART DISEASE OF [place] CORONARY ARTERY W/O ANG PCTRS (6) HLD (hyperlipidemia) Assessment/Plan: Cont home meds Code(s): E78.5 - HYPERLIPIDEMIA, UNSPECIFIED (7) Agitation Assessment/Plan: Resolved Code(s): R45.1 - RESTLESSNESS AND AGITATION (8) Depression Code(s): F32.9 - MAJOR DEPRESSIVE DISORDER, SINGLE EPISODE, UNSPECIFIED
--- NOTE | 2017-10-05 10:44 | PN ---
Physical Exam: SUBJECTIVE: Patient seen and examined Patient resting in bed nad. aac x 3. no acute events. has been bradycardic overnight 30's-40's but hemodynamically stable. denies cp, sob, cough, dizziness. states abd pain is improved, does complain of diffuse gas pain. reports 6 episodes of watery brown diarrhea since admission. also complains of mild heartburn. OBJECTIVE: Vital Signs Period Temp Pulse Resp BP Sys/Ramos Pulse Ox Last 24 Hr 98 F-98.7 F 30-54 14-20 113-149/47-61 96-99 GENERAL: The patient is awake, alert, and fully oriented, in no acute distress. HEAD: Normal with no signs of trauma. EYES: PERRL, extraocular movements intact, sclera anicteric, conjunctiva clear. No ptosis. ENT:moist mucous membranes. NECK: supple. LUNGS: Breath sounds equal, clear to auscultation bilaterally HEART: leeann rate and regular rhythm, S1, S2 ABDOMEN: Soft, mildly tender RUQ, nondistended, globally reduced bowel sounds, no guarding, no rebound, no masses. EXTREMITIES: 2+ pulses, warm, well-perfused, no edema. NEUROLOGICAL: Cranial nerves II through XII grossly intact. Normal speech, gait not observed. PSYCH: Normal mood, normal affect. SKIN: Warm, dry Laboratory Results - last 24 hr 10/04/17 10/04/17 10/04/17 19:02 19:04 19:04 WBC 11.2 H RBC 3.22 L Hgb 9.5 L Hct 28.8 L MCV 89.5 MCH 29.4 MCHC 32.9 RDW 16.4 H Plt Count 150 MPV 11.4 H Absolute Neuts (auto) 9.4 H Neutrophils % 83.7 H Lymphocytes % 7.9 L Monocytes % 5.2 Eosinophils % 2.7 Basophils % 0.5 Nucleated RBC % 0 Sodium 135 L Potassium 6.2 H* Chloride 103 Carbon Dioxide 15 L Anion Gap 17 H BUN 137 H* Creatinine 8.1 H* Creat Clearance w eGFR 6.48 Random Glucose 229 H Hemoglobin A1c % Calcium 8.6 Phosphorus Magnesium Total Bilirubin 0.6 AST 9 L ALT 28 Alkaline Phosphatase 107 Creatine Kinase 117 Troponin I 0.38 H Total Protein 6.6 Albumin 3.8 Total Amylase Lipase 502 H Urine Color Urine Appearance Urine pH Ur Specific [place] Urine Protein Urine Glucose (UA) Urine Ketones Urine Blood Urine Nitrite Urine Bilirubin Urine Urobilinogen Ur Leukocyte Esterase Urine WBC (Auto) Urine RBC (Auto) Ur Epithelial Cells Hyaline Casts 10/04/17 10/04/17 10/04/17 22:35 23:05 23:05 WBC RBC Hgb Hct MCV MCH MCHC RDW Plt Count MPV Absolute Neuts (auto) Neutrophils % Lymphocytes % Monocytes % Eosinophils % Basophils % Nucleated RBC % Sodium 136 Potassium 4.7 D Chloride 103 Carbon Dioxide 16 L Anion Gap 17 H BUN 141 H* Creatinine 8.2 H* Creat Clearance w eGFR 6.39 Random Glucose 247 H Hemoglobin A1c % Calcium 8.6 Phosphorus Magnesium Total Bilirubin 0.6 AST 14 L D ALT 28 Alkaline Phosphatase 96 D Creatine Kinase Troponin I Total Protein 6.2 L Albumin 3.5 Total Amylase Lipase 538 H Urine Color Yellow Urine Appearance Slcloudy Urine pH 5.0 Ur Specific [place] 1.013 Urine Protein 2+ H Urine Glucose (UA) 1+ H Urine Ketones Negative Urine Blood Negative Urine Nitrite Negative Urine Bilirubin Negative Urine Urobilinogen Negative Ur Leukocyte Esterase Negative Urine WBC (Auto) 3 Urine RBC (Auto) None Ur Epithelial Cells Rare Hyaline Casts 18 10/05/17 10/05/17 10/05/17 00:46 05:30 05:30 WBC 9.8 RBC 2.91 L Hgb 8.7 L Hct 25.6 L MCV 88.2 MCH 30.0 MCHC 34.0 RDW 16.7 H Plt Count 123 L MPV 11.6 H Absolute Neuts (auto) 8.2 H Neutrophils % 83.4 H Lymphocytes % 7.0 L Monocytes % 6.7 Eosinophils % 2.5 Basophils % 0.4 Nucleated RBC % 0 Sodium 139 Potassium 4.8 Chloride 106 Carbon Dioxide 16 L Anion Gap 17 H BUN 139 H* Creatinine 7.8 H* Creat Clearance w eGFR 6.77 Random Glucose 109 H D Hemoglobin A1c % Calcium 8.3 L Phosphorus 5.5 H Magnesium 2.1 Total Bilirubin 0.6 AST 11 L D ALT 26 Alkaline Phosphatase 96 Creatine Kinase 122 Troponin I 0.33 H Total Protein 6.0 L Albumin 3.4 Total Amylase 121 H Lipase Urine Color Urine Appearance Urine pH Ur Specific [place] Urine Protein Urine Glucose (UA) Urine Ketones Urine Blood Urine Nitrite Urine Bilirubin Urine Urobilinogen Ur Leukocyte Esterase Urine WBC (Auto) Urine RBC (Auto) Ur Epithelial Cells Hyaline Casts 10/05/17 10/05/17 05:30 05:30 WBC RBC Hgb Hct MCV MCH MCHC RDW Plt Count MPV Absolute Neuts (auto) Neutrophils % Lymphocytes % Monocytes % Eosinophils % Basophils % Nucleated RBC % Sodium Potassium Chloride Carbon Dioxide Anion Gap BUN Creatinine Creat Clearance w eGFR Random Glucose Hemoglobin A1c % 6.8 H Calcium Phosphorus Magnesium Total Bilirubin AST ALT Alkaline Phosphatase Creatine Kinase 141 Troponin I 0.32 H Total Protein Albumin Total Amylase Lipase Urine Color Urine Appearance Urine pH Ur Specific [place] Urine Protein Urine Glucose (UA) Urine Ketones Urine Blood Urine Nitrite Urine Bilirubin Urine Urobilinogen Ur Leukocyte Esterase Urine WBC (Auto) Urine RBC (Auto) Ur Epithelial Cells Hyaline Casts Active Medications Generic Name Dose Route Start Last Admin Trade Name Freq PRN Reason Stop Dose Admin Calcium Acetate 667 mg 10/05/17 08:00 10/05/17 08:24 Phoslo - PO Not Given TIDCM [facility] Chlorhexidine Gluconate 1 applic 10/05/17 22:00 Hibiclens For Decolonization - TP HS [facility] Heparin Sodium (Porcine) 5,000 unit 10/04/17 22:00 10/05/17 10:02 Heparin - SQ 5,000 unit BID [facility] Administration Lactated Ringer's 1,000 ml in 1,000 mls @ 83 mls/hr 10/05/17 10:45 Lactated Ringers Solution IV ASDIR [facility] Insulin Aspart 1 vial 10/05/17 11:00 Novolog Vial Sliding Scale - SQ TIDAC [facility] Protocol Levothyroxine Sodium 37 mcg 10/05/17 10:00 10/05/17 10:02 Synthroid Injection - IM 37 mcg DAILY [facility] Administration Mupirocin 1 applic 10/05/17 10:00 10/05/17 10:02 Bactroban Ointment (For Decolonization) - NS 10/10/17 09:59 1 applic BID [facility] Administration ASSESSMENT/PLAN: Pt is a 77 y/o gentleman (B[employer]) with a pmh of CKD Stage 4/5, DM, CAD s/p CABG, Hyperlipidemia, Hypertension who initially presented to [facility] c/o RUQ right upper quadrant abdominal pain for the past 3 days, found to be uremic, hyperkalemic, bradycardic neuro -aaox3, improved pulm -stable CV bradycardia -likely due to metabolic derangement, uremia, hyperkalemia. -has received hyper k cocktail and kayexalate in ED CAD s/p CABG -judicious fluid use -troponemia likely due to renal failure Anemia -likley due to renal failure -follow h/h HTN normotensive w/o meds GI possible mild acute pancreatitis as seen in CT -lipase 538, f/u triglycerides -LR @ 82, carefult not to fluid overload -npo now, should feed tomorrow diarrhea -send c diff acid reflux -ppi Renal Acute on Chronic Renal Failure with hyperkalemia, hyperphosphatemia -lyte imbalance treated as above -renal consult appreciated; HD today -monitor urine output, creatinine Endo NIDDM -iss, bgm. hold home meds FEN LR @ 82 f/u labs s/p HD npo scds ppi ICU care Problem List - Problems (1) Bradycardia Code(s): R00.1 - BRADYCARDIA, UNSPECIFIED (2) CAD (coronary artery disease) Code(s): I25.10 - ATHSCL HEART DISEASE OF [place] CORONARY ARTERY W/O ANG PCTRS (3) Diabetes mellitus Code(s): E11.9 - TYPE 2 DIABETES MELLITUS WITHOUT COMPLICATIONS (4) HLD (hyperlipidemia) Code(s): E78.5 - HYPERLIPIDEMIA, UNSPECIFIED (5) HTN (hypertension) Code(s): I10 - ESSENTIAL (PRIMARY) HYPERTENSION (6) Renal failure (ARF), acute on chronic Code(s): N17.9 - ACUTE KIDNEY FAILURE, UNSPECIFIED; N18.9 - CHRONIC KIDNEY DISEASE, UNSPECIFIED Qualifiers: Acute renal failure type: unspecified Chronic kidney disease stage: unspecified stage Qualified Code(s): N17.9 - Acute kidney failure, unspecified ; N18.9 - Chronic kidney disease, unspecified Visit type - Emergency Visit Emergency Visit: Yes ED Registration Date: 10/04/17 Care time: The patient presented to the Emergency Department on the above date and was hospitalized for further evaluation of their emergent condition. - New Patient This patient is new to me today: Yes Date on this admission: 10/05/17 - Critical Care Critical Care patient: Yes Total Critical Care Time (in minutes): 45 Critical Care Statement: The care of this patient involved high complexity decision making to prevent further life threatening deterioration of the patient 's condition and/or to evaluate & treat vital organ system(s) failure or risk of failure. - Discharge Referral Referred to [facility] Med P.C.: No
[2017-10-05] MEDS: LACTATED RINGERS SOLUTION 1,000 ML/1,000 ML INFUS.BAG IV SCH (11:00)
--- NOTE | 2017-10-05 11:21 | PN ---
Teaching Attending Note Name of Resident: Kelsey Garcia ATTENDING PHYSICIAN STATEMENT I saw and evaluated the patient. I reviewed the resident's note and discussed the case with the resident. I agree with the resident's findings and plan as documented. SUBJECTIVE: Pt seen and examined in the ICU. Denies shortness of breath or chest pain. Still with RUQ pain. No nausea or vomiting. Remains bradycardic. OBJECTIVE: Last Vital Signs Temp Pulse Resp BP Pulse Ox 98.0 F 47 L 14 129/49 99 10/05/17 10:00 10/05/17 10:00 10/05/17 10:00 10/05/17 10:00 10/05/17 09:00 Intake & Output 10/02/17 10/03/17 10/04/17 10/05/17 23:59 23:59 23:59 23:59 Intake Total 332 Balance 332 Weight 66.224 kg 66.706 kg Gen: NAD at rest Heart: RRR Lung: decreased breath sounds at the bases Abd: soft, RUQ tenderness, no rebound/guarding Ext: no edema CBC, BMP 10/05/17 05:30 10/05/17 05:30 Active Medications Calcium Acetate (Phoslo -) 667 mg PO TIDCM [facility] Last Admin: 10/05/17 08:24 Dose: Not Given Chlorhexidine Gluconate (Hibiclens For Decolonization -) 1 applic TP HS [facility] Heparin Sodium (Porcine) (Heparin -) 5,000 unit SQ BID [facility] Last Admin: 10/05/17 10:02 Dose: 5,000 unit Lactated Ringer's (Lactated Ringers Solution) 1,000 ml in 1,000 mls @ 83 mls/ hr IV ASDIR [facility] Insulin Aspart (Novolog Vial Sliding Scale -) 1 vial SQ TIDAC [facility]; Protocol Levothyroxine Sodium (Synthroid Injection -) 37 mcg IM DAILY [facility] Last Admin: 10/05/17 10:02 Dose: 37 mcg Mupirocin (Bactroban Ointment (For Decolonization) -) 1 applic NS BID [facility] Stop: 10/10/17 09:59 Last Admin: 10/05/17 10:02 Dose: 1 applic ASSESSMENT AND PLAN: r/o Mild Acute Pancreatitis Acute on Chronic Renal Failure Bradycardia Hyperkalemia resolved CAD s/p CABG +Troponins likely Demand Ischemia Anemia/Thrombocytopenia HTN DM - IVF - monitor urine output, creatinine - NPO - monitor lytes - may need HD - monitor H/H - abdominal ultrasound - DVT prophylaxis - can monitor on telemetry
[2017-10-05] MEDS: INSULIN SLIDING SCALE (NOVOLOG) 1 VIAL SQ SCH ×2 (11:25→17:00)
[2017-10-05] MEDS: PANTOPRAZOLE SODIUM 40 MG VIAL IVPUSH SCH (11:28)
--- NOTE | 2017-10-05 13:10 | PN ---
Progress Note (short form) - Note Progress Note: Renal Follow up for ROBIN on CKD Pt seen in the ICU awake and alert no acute complaints making urine no cp, abd pain, N/V feels tired Vital Signs Temperature 97.9 F 10/05/17 12:00 Pulse Rate 49 L 10/05/17 12:00 Respiratory Rate 16 10/05/17 12:00 Blood Pressure 125/49 10/05/17 12:00 O2 Sat by Pulse Oximetry (%) 99 10/05/17 09:00 Intake & Output 10/02/17 10/03/17 10/04/17 10/05/17 23:59 23:59 23:59 23:59 Intake Total 664 Balance 664 Weight 66.224 kg 66.706 kg NAD awake and alert MMM, no JVD RRR, No M/R CTA soft NT/ND trace LE edema CBC, BMP 10/05/17 05:30 10/05/17 05:30 Current Medications Calcium Acetate (Phoslo -) 667 mg PO TIDCM [facility] Last Admin: 10/05/17 08:24 Dose: Not Given Chlorhexidine Gluconate (Hibiclens For Decolonization -) 1 applic TP HS [facility] Heparin Sodium (Porcine) (Heparin -) 5,000 unit SQ BID [facility] Last Admin: 10/05/17 10:02 Dose: 5,000 unit Lactated Ringer's (Lactated Ringers Solution) 1,000 ml in 1,000 mls @ 83 mls/ hr IV ASDIR [facility] Last Admin: 10/05/17 11:00 Dose: 83 mls/hr Insulin Aspart (Novolog Vial Sliding Scale -) 1 vial SQ TIDAC [facility]; Protocol Last Admin: 10/05/17 11:25 Dose: Not Given Levothyroxine Sodium (Synthroid Injection -) 37 mcg IM DAILY [facility] Last Admin: 10/05/17 10:02 Dose: 37 mcg Mupirocin (Bactroban Ointment (For Decolonization) -) 1 applic NS BID [facility] Stop: 10/10/17 09:59 Last Admin: 10/05/17 10:02 Dose: 1 applic Pantoprazole Sodium (Protonix Iv) 40 mg IVPUSH DAILY [facility] Last Admin: 10/05/17 11:28 Dose: 40 mg 77 year old gentleman with hx of CKD Stage 4/5, DM, CAD s/p CABG, Hyperlipidemia , Hypertension who presented with complaints of abd pain and found to have BUN/ Cr of 140/8.2 and K of 6. #Acute Renal Injury secondary to volume depletion vs. normotensive ATN vs. progressive CKD #CKD Stage 4/5 #CAD s/p CABG #Metabolic acidosis #Hyperkalemia #Anemia Urine studies show sub-nephrotic proteinuira and FeUrea of 19% indicating preserved tubular function However pt w/o any significant improvement in renal function within the first 12 hours Will plan for urgent HD today via temporary catheter in the ICU given Uremia and metabolic acidosis Attempted to contact primary apple sorter but no answer, will attempt again on Saturday continue isotonic IVF at moderate rate iron studies pending Rambo Kulkarni DO
[2017-10-05] MEDS ORDERED: SODIUM CHLORIDE 250 ML IV PRN ×3 (13:12→16:51)
[2017-10-05] MEDS ORDERED: EPOETIN ALFA 20,000 UNIT/1 ML VIAL IVPUSH ONE (13:13)
--- NOTE | 2017-10-05 13:59 | PROC ---
Procedure Note Procedure: R IJ Trialysis cath placed under sterile technique using ultrasound. 1% lidocaine was used. CXR ordered. Done under indirect supervision of Dr Andino
--- NOTE | 2017-10-05 19:01 | EKG ---
Test Reason : Blood Pressure : / mmHG Vent. Rate : 030 BPM Atrial Rate : 030 BPM P-R Int : 146 ms QRS Dur : 084 ms QT Int : 510 ms P-R-T Axes : 002 064 064 degrees QTc Int : 360 ms MARKED SINUS BRADYCARDIA CANNOT RULE OUT ANTERIOR INFARCT , AGE UNDETERMINED ABNORMAL ECG NO PREVIOUS ECGS AVAILABLE Confirmed by MD LAYA, MICH ([id number]) on 10/05/2017 7:01:01 PM Referred By: Confirmed By:MICH ASIF MD
[2017-10-05] MEDS ORDERED: CHLORHEXIDINE GLUCONATE 4% CLEANSER FOR DECOLONIZATION TP SCH (22:00)
[2017-10-06] MEDS: INSULIN SLIDING SCALE (NOVOLOG) 1 VIAL SQ SCH ×3 (06:21→17:30)
[2017-10-06 07:14] LABS: BASO % 0.4 % (0-2.0); EOS % 3.2 % (0-4.5); HEMATOCRIT 25.4 % (35.4-49); HEMOGLOBIN 8.7 GM/dL (11.7-16.9); LYMPH % 8.2 % (8-40); MCHC 34.3 g/dl (32.0-35.9); MEAN CELL VOLUME 87.7 fl (80-96); MEAN PLT VOLUME 12.3 fl (7.5-11.1); MONO % 9.1 % (3.8-10.2); NEUT % 79.1 % (42.8-82.8); PLATELET COUNT 143 K/MM3 (134-434); RDW 17.2 % (11.9-15.9); WHITE BLOOD COUNT 8.1 K/mm3 (4.0-10.0)
[2017-10-06 07:31] LABS: ALK PHOS 91 U/L (45-117); ANION GAP 13 (8-16); BLOOD UREA NITROGEN 69 mg/dL (7-18); CALCIUM 8.1 mg/dL (8.5-10.1); CHLORIDE 108 mmol/L (98-107); CO2 24 mmol/L (21-32); CREATININE 4.7 mg/dL (0.7-1.3); GLUCOSE,RANDOM 58 mg/dL (74-106); MAGNESIUM 1.7 mg/dL (1.8-2.4); PHOSPHOROUS 3.8 mg/dL (2.5-4.9); POTASSIUM 3.9 mmol/L (3.5-5.1); SGOT/AST 12 U/L (15-37); SGPT/ALT 21 U/L (12-78); SODIUM 145 mmol/L (136-145); TOT PROT 5.5 g/dl (6.4-8.2)
[2017-10-06] MEDS: CALCIUM ACETATE 667 MG CAPSULE (FP) PO SCH ×3 (09:00→17:17)
[2017-10-06] MEDS ORDERED: PT OWN MED DRAWER 7, Y5N ONE (09:40)
[2017-10-06] MEDS: LEVOTHYROXINE SODIUM 100 MCG VIAL IM SCH (09:53)
[2017-10-06] MEDS: PANTOPRAZOLE SODIUM 40 MG VIAL IVPUSH SCH (09:53)
[2017-10-06] MEDS: HEPARIN NA (PORCINE) 5,000 UNITS/ML 1ML VIAL SQ SCH ×2 (09:53→22:13)
[2017-10-06] MEDS: MUPIROCIN 2% TOPICAL OINTMENT FOR DECOLONIZATION NS SCH ×2 (09:53→22:12)
[2017-10-06] MEDS: LACTATED RINGERS SOLUTION 1,000 ML/1,000 ML INFUS.BAG IV SCH (10:07)
--- NOTE | 2017-10-06 10:19 | PN ---
Progress Note, Physician Chief Complaint: abd pain History of Present Illness: no more abd pain denies dizziness no cp, sob, palpit no cigs - Current Medication List Current Medications: Active Medications Calcium Acetate (Phoslo -) 667 mg PO TIDCM [facility] Last Admin: 10/06/17 09:00 Dose: 667 mg Chlorhexidine Gluconate (Hibiclens For Decolonization -) 1 applic TP HS [facility] Last Admin: 10/05/17 22:06 Dose: 1 applic Heparin Sodium (Porcine) (Heparin -) 5,000 unit SQ BID [facility] Last Admin: 10/06/17 09:53 Dose: 5,000 unit Lactated Ringer's (Lactated Ringers Solution) 1,000 ml in 1,000 mls @ 83 mls/ hr IV ASDIR [facility] Last Admin: 10/06/17 10:07 Dose: 83 mls/hr Sodium Chloride (Normal Saline -) 250 mls @ 3,000 mls/hr IV PRN PRN PRN Reason: Hypotension during Dialysis Stop: 10/06/17 23:53 Insulin Aspart (Novolog Vial Sliding Scale -) 1 vial SQ TIDAC [facility]; Protocol Last Admin: 10/06/17 06:21 Dose: Not Given Levothyroxine Sodium (Synthroid Injection -) 37 mcg IM DAILY [facility] Last Admin: 10/06/17 09:53 Dose: 37 mcg Mupirocin (Bactroban Ointment (For Decolonization) -) 1 applic NS BID [facility] Stop: 10/10/17 09:59 Last Admin: 10/06/17 09:53 Dose: 1 applic Pantoprazole Sodium (Protonix Iv) 40 mg IVPUSH DAILY [facility] Last Admin: 10/06/17 09:53 Dose: 40 mg - Objective Vital Signs: Vital Signs Temperature 98.4 F 10/06/17 10:14 Pulse Rate 60 10/06/17 10:14 Respiratory Rate 17 10/06/17 10:14 Blood Pressure 153/69 10/06/17 10:14 O2 Sat by Pulse Oximetry (%) 99 10/06/17 08:00 Constitutional: Yes: Well Nourished, No Distress, Calm Eyes: No: Sclera Icterus HENT: No: Nasal Congestion Cardiovascular: Yes: Regular Rate and Rhythm, S1, S2, Other (PMI non diplaced). No: Gallop, Murmur Respiratory: Yes: CTA Bilaterally. No: Accessory Muscle Use, Rales, Wheezes Gastrointestinal: Yes: Normal Bowel Sounds, Soft. No: Tenderness Musculoskeletal: Yes: Other (No kyphosis) Extremities: No: Cold Edema: No Integumentary: No: Jaundice Neurological: Yes: Alert, Oriented (x3) Psychiatric: No: Agitated Labs: CBC, BMP 10/06/17 05:30 10/06/17 05:30 Assessment/Plan ECG: sinus leeann at 30 bpm, normal axis/intervals; no ST-T abn, no q waves CT abdomen: small effusions, small ascites with soft tissue edema, mild fabio- pancreatic soft tissue stranding consider mild pancreatitis tele: sinus leeann 40s-50s RUQ abd pain and tenderness: -mild fabio-pancreatic soft tissue findings on CT, mild amylase/lipase elevations -w/u per critical care, hospitalist ROBIN on CKD: -creat 8s on admit, with K 6--s/p urgent HD -renal fxn slightly improved, K stable -plans per renal -holding home losartan sinus bradycardia: -in setting of acute metabolic abnormalities--renal failure, hyperkalemia, acidosis -? also related to abdominal process with abd pain -tele stable, HR trend improved slightly vs yest (40s-50s now) -holding home carvedilol bilat carotid bruits: -f/u dopplers result h/o CAD s/p CABG, elevated troponin: -trop intermediate range, flat trend (0.3 x 3)--not c/w ACS. no isch ecg changes -cont home aspirin -home meds need reconciliation re: home statin regimen--no change to prior plan HTN: -hold BB, ARB as above -bp ranging to 150s at times -observe trend--start amlodipine 5 if consistently 150s-160s over next 24-48 hrs DM: -per crit care, hospitalist
--- NOTE | 2017-10-06 10:28 | PN ---
Progress Note (short form) - Note Progress Note: Renal Follow up for ROBIN on CKD Pt seen in the ICU awake and alert s/p dialysis yesterday, tolerated it well no acute complaints today denies any sob, cp, abd pain, N/V/D Vital Signs Temperature 98.4 F 10/06/17 10:14 Pulse Rate 60 10/06/17 10:14 Respiratory Rate 17 10/06/17 10:14 Blood Pressure 153/69 10/06/17 10:14 O2 Sat by Pulse Oximetry (%) 99 10/06/17 08:00 Intake & Output 10/03/17 10/04/17 10/05/17 10/06/17 23:59 23:59 23:59 23:59 Intake Total 1328 Output Total 300 200 Balance 1028 -200 Weight 66.224 kg 66.706 kg 68.294 kg NAD awake and alert MMM, no JVD RRR, No M/R CTA soft NT/ND trace LE edema CBC, BMP 10/06/17 05:30 10/06/17 05:30 Laboratory Tests 10/04/17 10/05/17 10/06/17 23:05 00:46 05:30 Calcium 8.6 8.1 L Phosphorus 3.8 D Magnesium 1.7 L Albumin 3.0 L Triglycerides Pending Current Medications Calcium Acetate (Phoslo -) 667 mg PO TIDCM [facility] Last Admin: 10/06/17 09:00 Dose: 667 mg Chlorhexidine Gluconate (Hibiclens For Decolonization -) 1 applic TP HS [facility] Last Admin: 10/05/17 22:06 Dose: 1 applic Heparin Sodium (Porcine) (Heparin -) 5,000 unit SQ BID [facility] Last Admin: 10/06/17 09:53 Dose: 5,000 unit Lactated Ringer's (Lactated Ringers Solution) 1,000 ml in 1,000 mls @ 83 mls/ hr IV ASDIR [facility] Last Admin: 10/06/17 10:07 Dose: 83 mls/hr Sodium Chloride (Normal Saline -) 250 mls @ 3,000 mls/hr IV PRN PRN PRN Reason: Hypotension during Dialysis Stop: 10/06/17 23:53 Insulin Aspart (Novolog Vial Sliding Scale -) 1 vial SQ TIDAC [facility]; Protocol Last Admin: 08/19/18 06:21 Dose: Not Given Levothyroxine Sodium (Synthroid Injection -) 37 mcg IM DAILY [facility] Last Admin: 10/06/17 09:53 Dose: 37 mcg Mupirocin (Bactroban Ointment (For Decolonization) -) 1 applic NS BID [facility] Stop: 10/10/17 09:59 Last Admin: 10/06/17 09:53 Dose: 1 applic Pantoprazole Sodium (Protonix Iv) 40 mg IVPUSH DAILY [facility] Last Admin: 10/06/17 09:53 Dose: 40 mg 77 year old gentleman with hx of CKD Stage 4/5, DM, CAD s/p CABG, Hyperlipidemia , Hypertension who presented with complaints of abd pain and found to have BUN/ Cr of 140/8.2 and K of 6. #Acute Renal Injury secondary to volume depletion vs. normotensive ATN vs. progressive CKD #CKD Stage 4/5 #CAD s/p CABG #Metabolic acidosis #Hyperkalemia #Anemia s/p dialysis yesterday, next session of dialysis today Urine studies show sub-nephrotic proteinuira and FeUrea of 19% indicating preserved tubular function will need to obtain baseline renal function from primary clock and watch hands mounter continue IVF for now Renal diet cardiology follow up Rambo Kulkarni DO
--- NOTE | 2017-10-06 10:38 | PN ---
Progress Note, Physician History of Present Illness: 77 y/o man with a PMHx of CKD stage 4/5, DM, CAD s/p CABG, HTN, HLD. Admitted to ICU for Acute on Chronic Renal Failure, Hyperkalemia, Abdominal Pain for further evaluation of their emergent condition. - Current Medication List Current Medications: Active Medications Calcium Acetate (Phoslo -) 667 mg PO TIDCM [facility] Last Admin: 10/06/17 09:00 Dose: 667 mg Chlorhexidine Gluconate (Hibiclens For Decolonization -) 1 applic TP HS [facility] Last Admin: 10/05/17 22:06 Dose: 1 applic Heparin Sodium (Porcine) (Heparin -) 5,000 unit SQ BID [facility] Last Admin: 10/06/17 09:53 Dose: 5,000 unit Lactated Ringer's (Lactated Ringers Solution) 1,000 ml in 1,000 mls @ 83 mls/ hr IV ASDIR [facility] Last Admin: 10/06/17 10:07 Dose: 83 mls/hr Sodium Chloride (Normal Saline -) 250 mls @ 3,000 mls/hr IV PRN PRN PRN Reason: Hypotension during Dialysis Stop: 10/06/17 23:53 Insulin Aspart (Novolog Vial Sliding Scale -) 1 vial SQ TIDAC [facility]; Protocol Last Admin: 10/06/17 06:21 Dose: Not Given Levothyroxine Sodium (Synthroid Injection -) 37 mcg IM DAILY [facility] Last Admin: 10/06/17 09:53 Dose: 37 mcg Mupirocin (Bactroban Ointment (For Decolonization) -) 1 applic NS BID [facility] Stop: 10/10/17 09:59 Last Admin: 10/06/17 09:53 Dose: 1 applic Pantoprazole Sodium (Protonix Iv) 40 mg IVPUSH DAILY [facility] Last Admin: 10/06/17 09:53 Dose: 40 mg - Objective Vital Signs: Vital Signs Temperature 98.4 F 10/06/17 10:14 Pulse Rate 60 10/06/17 10:14 Respiratory Rate 17 10/06/17 10:14 Blood Pressure 153/69 10/06/17 10:14 O2 Sat by Pulse Oximetry (%) 99 10/06/17 08:00 Elderly man comfortable, not in distress HEENT; Mm moist, no anemia, PERRLA EOMI NECK: No JVd No Bruit CHEST: shilley at place, CTA B/L CVS: S1S2 R ABD: No distention, non tender Bs + EXT: Trace edema, Pulses + IT QUALITY ANALYST: AOx3 non focal Labs: CBC, BMP 10/06/17 05:30 10/06/17 05:30 Problem List - Problems (1) Renal failure (ARF), acute on chronic Assessment/Plan: Evaluted by Renal consult received HD yesterday , F/U BMP rest management as per Renal consult. Code(s): N17.9 - ACUTE KIDNEY FAILURE, UNSPECIFIED; N18.9 - CHRONIC KIDNEY DISEASE, UNSPECIFIED Qualifiers: Acute renal failure type: unspecified Chronic kidney disease stage: unspecified stage Qualified Code(s): N17.9 - Acute kidney failure, unspecified ; N18.9 - Chronic kidney disease, unspecified (2) Bradycardia Assessment/Plan: Resolved in the setting of Hyperkalemia off BP meds and B Blockers Code(s): R00.1 - BRADYCARDIA, UNSPECIFIED (3) Diabetes mellitus Assessment/Plan: Cont current management, optimize Glycemic control. Code(s): E11.9 - TYPE 2 DIABETES MELLITUS WITHOUT COMPLICATIONS (4) HTN (hypertension) Assessment/Plan: Well controlled at present off Meds Code(s): I10 - ESSENTIAL (PRIMARY) HYPERTENSION (5) CAD (coronary artery disease) Assessment/Plan: S/P CABG on ASA off BB due to bradycardia plateau elevation of troponin I F/U Cardiology recommondaytions. Code(s): I25.10 - ATHSCL HEART DISEASE OF [place] CORONARY ARTERY W/O ANG PCTRS (6) HLD (hyperlipidemia) Assessment/Plan: Cont home meds Code(s): E78.5 - HYPERLIPIDEMIA, UNSPECIFIED (7) Agitation Assessment/Plan: Resolved Code(s): R45.1 - RESTLESSNESS AND AGITATION (8) Depression Code(s): F32.9 - MAJOR DEPRESSIVE DISORDER, SINGLE EPISODE, UNSPECIFIED
[2017-10-06] MEDS ORDERED: MAGNESIUM SULF 50% (8.12 MEQ/2 ML-1 GM VIAL) IVPB ONE (11:20)
--- NOTE | 2017-10-06 11:34 | PN ---
Teaching Attending Note Name of Resident: Jerod Jordan ATTENDING PHYSICIAN STATEMENT I saw and evaluated the patient. I reviewed the resident's note and discussed the case with the resident. I agree with the resident's findings and plan as documented. SUBJECTIVE: Pt seen and examined in the ICU. Tolerated HD yesterday. Feels better today. Abdominal pain resolved. Remains bradycardic. OBJECTIVE: Vital Signs Period Temp Pulse Resp BP Sys/Ramos Pulse Ox Last 24 Hr 97.9 F-98.4 F 44-61 10-20 125-164/40-73 97-99 Intake & Output 10/03/17 10/04/17 10/05/17 10/06/17 23:59 23:59 23:59 23:59 Intake Total 1328 Output Total 300 350 Balance 1028 -350 Weight 66.224 kg 66.706 kg 68.294 kg Gen: NAD at rest Heart: RRR Lung: decreased breath sounds at the bases Abd: soft, nontender Ext: no edema CBC, BMP 10/06/17 05:30 10/06/17 05:30 Active Medications Calcium Acetate (Phoslo -) 667 mg PO TIDCM [facility] Last Admin: 10/06/17 09:00 Dose: 667 mg Chlorhexidine Gluconate (Hibiclens For Decolonization -) 1 applic TP HS [facility] Last Admin: 10/05/17 22:06 Dose: 1 applic Heparin Sodium (Porcine) (Heparin -) 5,000 unit SQ BID [facility] Last Admin: 10/06/17 09:53 Dose: 5,000 unit Lactated Ringer's (Lactated Ringers Solution) 1,000 ml in 1,000 mls @ 83 mls/ hr IV ASDIR [facility] Last Admin: 10/06/17 10:07 Dose: 83 mls/hr Sodium Chloride (Normal Saline -) 250 mls @ 3,000 mls/hr IV PRN PRN PRN Reason: Hypotension during Dialysis Stop: 10/06/17 23:53 Insulin Aspart (Novolog Vial Sliding Scale -) 1 vial SQ TIDAC [facility]; Protocol Last Admin: 10/06/17 11:07 Dose: 2 units Levothyroxine Sodium (Synthroid Injection -) 37 mcg IM DAILY [facility] Last Admin: 10/06/17 09:53 Dose: 37 mcg Magnesium Sulfate (Magnesium Sulfate) 2 gm IVPB ONCE ONE Stop: 10/06/17 11:21 Mupirocin (Bactroban Ointment (For Decolonization) -) 1 applic NS BID [facility] Stop: 10/10/17 09:59 Last Admin: 10/06/17 09:53 Dose: 1 applic Pantoprazole Sodium (Protonix Iv) 40 mg IVPUSH DAILY [facility] Last Admin: 10/06/17 09:53 Dose: 40 mg ASSESSMENT AND PLAN: r/o Mild Acute Pancreatitis Acute on Chronic Renal Failure Bradycardia Hyperkalemia resolved CAD s/p CABG +Troponins likely Demand Ischemia Anemia/Thrombocytopenia HTN DM - monitor urine output, creatinine - HD per renal - monitor lytes - monitor H/H - PO as tolerated - DVT prophylaxis - can monitor on telemetry
--- NOTE | 2017-10-06 13:39 | PN ---
Physical Exam: SUBJECTIVE: Patient seen and examined at bedside. Feels better. No pain in abdomen, no fevers, chills, nausea. No acute events overnight. OBJECTIVE: Vital Signs Temperature 98.1 F 10/06/17 12:00 Pulse Rate 51 L 10/06/17 12:00 Respiratory Rate 17 10/06/17 12:00 Blood Pressure 147/60 10/06/17 12:00 O2 Sat by Pulse Oximetry (%) 99 10/06/17 08:00 GENERAL: The patient is awake, alert, and fully oriented, in no acute distress. HEAD: Normal with no signs of trauma. EYES: extraocular movements intact, sclera anicteric, conjunctiva clear. ENT: Ears normal, nares patent NECK: Trachea midline, full range of motion, supple. LUNGS: Breath sounds equal, clear to auscultation bilaterally HEART: Regular rate and rhythm, S1, S2. ABDOMEN: Soft, nontender, nondistended, normoactive bowel sounds EXTREMITIES:warm, well-perfused NEUROLOGICAL: Cranial nerves II through XII grossly intact. Normal speech, gait not observed. PSYCH: Normal mood, normal affect. SKIN: Warm, dry Laboratory Results - last 24 hr 10/05/17 10/05/17 10/05/17 11:25 15:00 17:22 WBC RBC Hgb Hct MCV MCH MCHC RDW Plt Count MPV Absolute Neuts (auto) Neutrophils % Lymphocytes % Monocytes % Eosinophils % Basophils % Nucleated RBC % Sodium Potassium Chloride Carbon Dioxide Anion Gap BUN Creatinine Creat Clearance w eGFR POC Glucometer 88.01896 160.17346 Random Glucose Calcium Phosphorus Magnesium Total Bilirubin AST ALT Alkaline Phosphatase Total Protein Albumin Blood Type A POSITIVE Antibody Screen Negative 10/05/17 10/06/17 10/06/17 20:50 05:30 05:30 WBC 8.1 RBC 2.90 L Hgb 8.7 L Hct 25.4 L MCV 87.7 MCH 30.0 MCHC 34.3 RDW 17.2 H Plt Count 143 MPV 12.3 H Absolute Neuts (auto) 6.4 Neutrophils % 79.1 Lymphocytes % 8.2 Monocytes % 9.1 Eosinophils % 3.2 Basophils % 0.4 Nucleated RBC % 0 Sodium 145 Potassium 3.9 Chloride 108 H Carbon Dioxide 24 D Anion Gap 13 BUN 69 H D Creatinine 4.7 H Creat Clearance w eGFR 12.15 POC Glucometer Random Glucose 58 L D Calcium 8.1 L Phosphorus 3.8 D Magnesium 1.7 L Total Bilirubin 1.0 AST 12 L ALT 21 Alkaline Phosphatase 91 Total Protein 5.5 L Albumin 3.0 L Blood Type A POSITIVE Antibody Screen 10/06/17 06:08 WBC RBC Hgb Hct MCV MCH MCHC RDW Plt Count MPV Absolute Neuts (auto) Neutrophils % Lymphocytes % Monocytes % Eosinophils % Basophils % Nucleated RBC % Sodium Potassium Chloride Carbon Dioxide Anion Gap BUN Creatinine Creat Clearance w eGFR POC Glucometer [phone] Random Glucose Calcium Phosphorus Magnesium Total Bilirubin AST ALT Alkaline Phosphatase Total Protein Albumin Blood Type Antibody Screen Active Medications Generic Name Dose Route Start Last Admin Trade Name Freq PRN Reason Stop Dose Admin Calcium Acetate 667 mg 10/05/17 08:00 10/06/17 13:00 Phoslo - PO 667 mg TIDCM [facility] Administration Chlorhexidine Gluconate 1 applic 10/05/17 22:00 10/05/17 22:06 Hibiclens For Decolonization - TP 1 applic HS [facility] Administration Heparin Sodium (Porcine) 5,000 unit 10/04/17 22:00 10/06/17 09:53 Heparin - SQ 5,000 unit BID [facility] Administration Lactated Ringer's 1,000 ml in 1,000 mls @ 83 mls/hr 10/05/17 10:45 10/06/17 10:07 Lactated Ringers Solution IV 83 mls/hr ASDIR [facility] Administration Sodium Chloride 250 mls @ 3,000 mls/hr 10/05/17 23:53 Normal Saline - IV 10/06/17 23:53 PRN PRN Hypotension during Dialysis Insulin Aspart 1 vial 10/05/17 11:00 10/06/17 11:07 Novolog Vial Sliding Scale - SQ 2 units TIDAC [facility] Administration Protocol Levothyroxine Sodium 37 mcg 10/05/17 10:00 10/06/17 09:53 Synthroid Injection - IM 37 mcg DAILY [facility] Administration Mupirocin 1 applic 10/05/17 10:00 10/06/17 09:53 Bactroban Ointment (For Decolonization) - NS 10/10/17 09:59 1 applic BID [facility] Administration Pantoprazole Sodium 40 mg 10/05/17 11:30 10/06/17 09:53 Protonix Iv IVPUSH 40 mg DAILY [facility] Administration ASSESSMENT/PLAN: 77 y/o M w/ pmh of CKD Stage 4/5, DM, CAD s/p CABG, Hyperlipidemia, Hypertension who initially presented to [facility] c/o RUQ right upper quadrant abdominal pain for the past 3 days, found to be uremic, hyperkalemic, bradycardic and admitted to the ICU Neuro -aaox3 CV bradycardia -likely secondary to electrolyte and metabolic abnl with ESRD. -cardio consulted CAD s/p CABG -troponemia likely due to renal failure -unlikely due to ACS -trops peaked at 0.33 Anemia -likley due to renal failure -monitor h/h HTN -hold antihypertensives, pt is normotensive GI -Abdominal pain -now improving, pt reports no more pain -is hungry and diet restarted -c/w LR @ 83 ml/hr Renal -Acute on chronic kidney failure -HD today as per renal -c/w LR @ 83 ml/hr -monitor urine output -monitor BUN/Cr -c/w phoslo Endo NIDDM -iss, bgm. hold home meds Hypothyroidism -c/w synthroid 37 mg IV qd -DVT ppx -Heparin bid -FEN -LR @ 83 ml/hr -monitor electrolytes -Advanced to renal diet -Dispo: Transfer to tele Visit type - Emergency Visit Emergency Visit: Yes ED Registration Date: 10/04/17 Care time: The patient presented to the Emergency Department on the above date and was hospitalized for further evaluation of their emergent condition. - New Patient This patient is new to me today: No - Critical Care Critical Care patient: Yes Total Critical Care Time (in minutes): 40 Critical Care Statement: The care of this patient involved high complexity decision making to prevent further life threatening deterioration of the patient 's condition and/or to evaluate & treat vital organ system(s) failure or risk of failure.
[2017-10-06] MEDS ORDERED: LACTATED RINGERS SOLUTION 1,000 ML/1,000 ML INFUS.BAG IV SCH (18:19)
[2017-10-06] MEDS ORDERED: CHLORHEXIDINE GLUCONATE 4% CLEANSER FOR DECOLONIZATION TP SCH (22:00)
[2017-10-07 06:27] LABS: BASO % 0.3 % (0-2.0); EOS % 4.7 % (0-4.5); HEMATOCRIT 27.9 % (35.4-49); HEMOGLOBIN 9.7 GM/dL (11.7-16.9); LYMPH % 14.5 % (8-40); MCH 30.6 pg (25.7-33.7); MCHC 34.6 g/dl (32.0-35.9); MEAN CELL VOLUME 88.3 fl (80-96); MEAN PLT VOLUME 11.1 fl (7.5-11.1); MONO % 11.2 % (3.8-10.2); NEUT % 69.3 % (42.8-82.8); PLATELET COUNT 142 K/MM3 (134-434); RBC 3.16 M/mm3 (4.00-5.60); WHITE BLOOD COUNT 10.6 K/mm3 (4.0-10.0)
[2017-10-07] MEDS: INSULIN SLIDING SCALE (NOVOLOG) 1 VIAL SQ SCH ×3 (06:31→18:41)
[2017-10-07] MEDS ORDERED: PT OWN MED DRAWER 7, Y5N ONE (06:32)
[2017-10-07 06:50] LABS: ALBUMIN 3.2 g/dl (3.4-5.0); ANION GAP 11 (8-16); BLOOD UREA NITROGEN 37 mg/dL (7-18); CALCIUM 8.2 mg/dL (8.5-10.1); CHLORIDE 107 mmol/L (98-107); CO2 27 mmol/L (21-32); GLUCOSE,RANDOM 88 mg/dL (74-106); MAGNESIUM 1.8 mg/dL (1.8-2.4); POTASSIUM 3.7 mmol/L (3.5-5.1); SODIUM 145 mmol/L (136-145)
[2017-10-07 06:54] LABS: ALK PHOS 96 U/L (45-117); BILIRUBIN,TOTAL 0.9 mg/dL (0.2-1.0); CREATININE 3.2 mg/dL (0.7-1.3); PHOSPHOROUS 2.3 mg/dL (2.5-4.9); SGOT/AST 14 U/L (15-37); SGPT/ALT 22 U/L (12-78); TOT PROT 5.9 g/dl (6.4-8.2)
[2017-10-07] MEDS ORDERED: LEVOTHYROXINE SODIUM 100 MCG VIAL IVPUSH SCH (07:00)
[2017-10-07] MEDS ORDERED: CALCIUM ACETATE 667 MG CAPSULE (FP) PO SCH (08:00)
--- NOTE | 2017-10-07 09:07 | PN ---
Progress Note, Physician Chief Complaint: abd pain History of Present Illness: no more abd pain. tolerating PO. no cp, sob, dizzy no cigs - Current Medication List Current Medications: Active Medications Calcium Acetate (Phoslo -) 667 mg PO TIDCM [facility] Last Admin: 10/07/17 08:35 Dose: 667 mg Chlorhexidine Gluconate (Hibiclens For Decolonization -) 1 applic TP HS [facility] Last Admin: 10/06/17 22:12 Dose: 1 applic Heparin Sodium (Porcine) (Heparin -) 5,000 unit SQ BID [facility] Last Admin: 10/06/17 22:13 Dose: 5,000 unit Lactated Ringer's (Lactated Ringers Solution) 1,000 ml in 1,000 mls @ 83 mls/ hr IV ASDIR [facility] Last Admin: 10/06/17 18:20 Dose: Not Given Insulin Aspart (Novolog Vial Sliding Scale -) 1 vial SQ TIDAC [facility]; Protocol Last Admin: 10/07/17 06:31 Dose: Not Given Levothyroxine Sodium (Synthroid Injection -) 37 mcg IVPUSH 0700 [facility] Last Admin: 10/07/17 07:01 Dose: 37 mcg Mupirocin (Bactroban Ointment (For Decolonization) -) 1 applic NS BID [facility] Stop: 10/10/17 09:59 Last Admin: 10/06/17 22:12 Dose: 1 applic Pantoprazole Sodium (Protonix Iv) 40 mg IVPUSH DAILY [facility] - Objective Vital Signs: Vital Signs Temperature 8.2 F L 10/07/17 06:00 Pulse Rate 45 L 10/07/17 08:00 Respiratory Rate 14 10/07/17 09:00 Blood Pressure 129/46 10/07/17 08:00 O2 Sat by Pulse Oximetry (%) 99 10/07/17 09:00 Constitutional: Yes: No Distress, Calm Eyes: No: Sclera Icterus HENT: No: Nasal Congestion Cardiovascular: Yes: Regular Rate and Rhythm, S1, S2, Other (PMI non diplaced). No: Gallop, Murmur Respiratory: Yes: CTA Bilaterally. No: Accessory Muscle Use, Rales, Wheezes Gastrointestinal: Yes: Normal Bowel Sounds, Soft. No: Tenderness Musculoskeletal: Yes: Other (No kyphosis) Extremities: No: Cold, Cyanosis Edema: No Integumentary: No: Jaundice Neurological: Yes: Alert, Oriented (x3) Psychiatric: No: Agitated Labs: CBC, BMP 10/07/17 05:30 10/07/17 05:30 Assessment/Plan ECG: sinus leeann at 30 bpm, normal axis/intervals; no ST-T abn, no q waves CT abdomen: small effusions, small ascites with soft tissue edema, mild fabio- pancreatic soft tissue stranding consider mild pancreatitis carotid dopplers: could not be completed due to neck venous catheter tele: sinus leeann 40s-50s RUQ abd pain and tenderness: -mild fabio-pancreatic soft tissue findings on CT, mild amylase/lipase elevations -w/u per critical care, hospitalist ROBIN on CKD: -creat 8s on admit, with K 6--s/p urgent HD -etiology unclear, renal following -renal fxn improved significantly -holding home losartan sinus bradycardia: -in setting of acute metabolic abnormalities--renal failure, hyperkalemia, acidosis -? also related to abdominal process with abd pain -remains with resting HR 40s-50s (sinus leeann) -holding home carvedilol -monitor tele -no attributable sx's. once pt recovers and is ambulatory, will do monitor and ETT--if blunted chronotropic behavior with sx's, will consider elective PPM bilat carotid bruits: -dopplers not able to be completed due to indwelling venous catheter in neck. -pt asymptomatic. -rpt study once recovers from acute illness h/o CAD s/p CABG, elevated troponin: -trop intermediate range, flat trend (0.3 x 3)--not c/w ACS. no isch ecg changes -cont home aspirin -home meds need reconciliation re: home statin regimen--no change to prior plan HTN: -hold BB, ARB as above -bp well controlled at present -observe trend--start amlodipine 5 if consistently 150s-160s over next 24-48 hrs DM: -per crit care, hospitalist
[2017-10-07] MEDS: MUPIROCIN 2% TOPICAL OINTMENT FOR DECOLONIZATION NS SCH (09:18)
[2017-10-07] MEDS: HEPARIN NA (PORCINE) 5,000 UNITS/ML 1ML VIAL SQ SCH ×2 (09:20→22:00)
[2017-10-07] MEDS ORDERED: LEVOTHYROXINE SODIUM 100 MCG VIAL IM SCH (10:00)
[2017-10-07] MEDS ORDERED: PANTOPRAZOLE SODIUM 40 MG VIAL IVPUSH SCH (10:00)
--- NOTE | 2017-10-07 10:50 | PN ---
Teaching Attending Note Name of Resident: Rosendo Banuelos ATTENDING PHYSICIAN STATEMENT I saw and evaluated the patient. I reviewed the resident's note and discussed the case with the resident. I agree with the resident's findings and plan as documented. SUBJECTIVE: Pt seen and examined in the ICU. No current complaints. No abdominal pain. Tolerating HD. OBJECTIVE: Vital Signs Period Temp Pulse Resp BP Sys/Ramos Pulse Ox Last 24 Hr 8.2 F-98.9 F 45-60 14-24 129-164/46-82 99-99 Intake & Output 10/04/17 10/05/17 10/06/17 10/07/17 23:59 23:59 23:59 23:59 Intake Total 1328 1586 640 Output Total 300 350 300 Balance 1028 1236 340 Weight 66.224 kg 66.706 kg 68.039 kg Gen: NAD at rest Heart: RRR Lung: decreased breath sounds at the bases Abd: soft, nontender Ext: no edema CBC, BMP 10/07/17 05:30 10/07/17 05:30 Active Medications Calcium Acetate (Phoslo -) 667 mg PO TIDCM [facility] Last Admin: 10/07/17 08:35 Dose: 667 mg Chlorhexidine Gluconate (Hibiclens For Decolonization -) 1 applic TP HS [facility] Last Admin: 10/06/17 22:12 Dose: 1 applic Heparin Sodium (Porcine) (Heparin -) 5,000 unit SQ BID [facility] Last Admin: 10/07/17 09:20 Dose: 5,000 unit Lactated Ringer's (Lactated Ringers Solution) 1,000 ml in 1,000 mls @ 83 mls/ hr IV ASDIR [facility] Last Admin: 10/06/17 18:20 Dose: Not Given Insulin Aspart (Novolog Vial Sliding Scale -) 1 vial SQ TIDAC [facility]; Protocol Last Admin: 10/07/17 06:31 Dose: Not Given Levothyroxine Sodium (Synthroid Injection -) 37 mcg IVPUSH 0700 [facility] Last Admin: 10/07/17 07:01 Dose: 37 mcg Mupirocin (Bactroban Ointment (For Decolonization) -) 1 applic NS BID [facility] Stop: 10/10/17 09:59 Last Admin: 10/07/17 09:18 Dose: 1 applic Pantoprazole Sodium (Protonix Iv) 40 mg IVPUSH DAILY [facility] Last Admin: 10/07/17 09:17 Dose: 40 mg ASSESSMENT AND PLAN: r/o Mild Acute Pancreatitis Acute on Chronic Renal Failure Bradycardia Hyperkalemia resolved CAD s/p CABG +Troponins likely Demand Ischemia Anemia/Thrombocytopenia HTN DM - monitor urine output, creatinine - HD per renal - monitor lytes - monitor H/H - PO as tolerated - DVT prophylaxis - can monitor on telemetry or floor if heart rates improved
--- NOTE | 2017-10-07 12:39 | PN ---
Progress Note (short form) - Note Progress Note: Renal Follow up for ROBIN on CKD Pt seen in the ICU awake and alert no acute complaints s/p 2nd dialysis yesterday w/o complication remains oliguric despite IVF Vital Signs Temperature 98.9 F 10/07/17 10:00 Pulse Rate 58 L 10/07/17 10:00 Respiratory Rate 24 10/07/17 10:00 Blood Pressure 149/58 10/07/17 10:00 O2 Sat by Pulse Oximetry (%) 99 10/07/17 09:00 Intake & Output 10/04/17 10/05/17 10/06/17 10/07/17 23:59 23:59 23:59 23:59 Intake Total 1328 1586 640 Output Total 300 350 300 Balance 1028 1236 340 Weight 66.224 kg 66.706 kg 68.039 kg NAD awake and alert MMM, no JVD RRR, No M/R CTA soft NT/ND trace LE edema CBC, BMP 10/07/17 05:30 10/07/17 05:30 Current Medications Chlorhexidine Gluconate (Hibiclens For Decolonization -) 1 applic TP HS [facility] Last Admin: 10/06/17 22:12 Dose: 1 applic Heparin Sodium (Porcine) (Heparin -) 5,000 unit SQ BID [facility] Last Admin: 10/07/17 09:20 Dose: 5,000 unit Insulin Aspart (Novolog Vial Sliding Scale -) 1 vial SQ TIDAC [facility]; Protocol Last Admin: 10/07/17 06:31 Dose: Not Given Levothyroxine Sodium (Synthroid Injection -) 37 mcg IVPUSH 0700 [facility] Last Admin: 10/07/17 07:01 Dose: 37 mcg Mupirocin (Bactroban Ointment (For Decolonization) -) 1 applic NS BID [facility] Stop: 10/10/17 09:59 Last Admin: 10/07/17 09:18 Dose: 1 applic Pantoprazole Sodium (Protonix Iv) 40 mg IVPUSH DAILY [facility] Last Admin: 10/07/17 09:17 Dose: 40 mg 77 year old gentleman with hx of CKD Stage 4/5, DM, CAD s/p CABG, Hyperlipidemia , Hypertension who presented with complaints of abd pain and found to have BUN/ Cr of 140/8.2 and K of 6. #Acute Renal Injury secondary to volume depletion vs. normotensive ATN vs. progressive CKD #CKD Stage 4/5 #CAD s/p CABG #Metabolic acidosis #Hyperkalemia #Anemia baseline BUN/Cr as of 09/30 was 107/4.7 from primary kitchen cleaner office his primary kitchen cleaner was not available to discuss case Urine studies show sub-nephrotic proteinuira and FeUrea of 19% indicating preserved tubular function s/p 2 sessions of dialysis, no FACILITY SERVICE ASSOCIATE today will D/c IVF as pt has now shown improved urine output despite the IVF may attempt diuretic trial tomorrow given advanced CKD at baseline will likely need moth exterminator dialysis will discuss with patient and family Rambo Kulkarni DO
[2017-10-07] MEDS ORDERED: INSULIN (NOVOLOG) ASPART 100 UNITS/ML 10ML VIAL ONE (12:46)
--- NOTE | 2017-10-07 15:39 | PN ---
Progress Note, Physician Chief Complaint: Mr Harry is without complaint. No cp, sob, n/v. - Current Medication List Current Medications: Active Medications Chlorhexidine Gluconate (Hibiclens For Decolonization -) 1 applic TP HS [facility] Last Admin: 10/06/17 22:12 Dose: 1 applic Heparin Sodium (Porcine) (Heparin -) 5,000 unit SQ BID [facility] Last Admin: 10/07/17 09:20 Dose: 5,000 unit Insulin Aspart (Novolog Vial Sliding Scale -) 1 vial SQ TIDAC [facility]; Protocol Last Admin: 10/07/17 11:45 Dose: 4 units Levothyroxine Sodium (Synthroid Injection -) 37 mcg IVPUSH 0700 [facility] Last Admin: 10/07/17 07:01 Dose: 37 mcg Mupirocin (Bactroban Ointment (For Decolonization) -) 1 applic NS BID [facility] Stop: 10/10/17 09:59 Last Admin: 10/07/17 09:18 Dose: 1 applic Pantoprazole Sodium (Protonix Iv) 40 mg IVPUSH DAILY [facility] Last Admin: 10/07/17 09:17 Dose: 40 mg - Objective Vital Signs: Vital Signs Temperature 37.2 C 10/07/17 10:00 Pulse Rate 61 10/07/17 14:00 Respiratory Rate 18 10/07/17 14:00 Blood Pressure 150/60 10/07/17 14:00 O2 Sat by Pulse Oximetry (%) 99 10/07/17 09:00 Constitutional: Yes: Well Nourished, No Distress, Calm Cardiovascular: Yes: Regular Rate and Rhythm. No: Gallop, Murmur, Rub Respiratory: Yes: Regular, CTA Bilaterally. No: Rales, Rhonchi, Wheezes Gastrointestinal: Yes: Normal Bowel Sounds, Soft. No: Distention, Tenderness Extremities: Yes: WNL Edema: No Labs: CBC, BMP 10/07/17 05:30 10/07/17 05:30 Problem List - Problems (1) Renal failure (ARF), acute on chronic Assessment/Plan: -appreciate nephrology assistance and note reviewed -s/p HD x2 -no HD today -creatinine at baseline -IVF stopped Code(s): N17.9 - ACUTE KIDNEY FAILURE, UNSPECIFIED; N18.9 - CHRONIC KIDNEY DISEASE, UNSPECIFIED Qualifiers: Acute renal failure type: unspecified Chronic kidney disease stage: stage 4 (severe) Qualified Code(s): N17.9 - Acute kidney failure, unspecified; N18.4 - Chronic kidney disease, stage 4 (severe) (2) Bradycardia Assessment/Plan: -cardiology following -improving -suspect secondary to CKD/hyperkalemia -transfer to telemetry Code(s): R00.1 - BRADYCARDIA, UNSPECIFIED (3) CAD (coronary artery disease) Assessment/Plan: -no chest pain -cardiology following Code(s): I25.10 - ATHSCL HEART DISEASE OF [place] CORONARY ARTERY W/O ANG PCTRS (4) Diabetes mellitus Assessment/Plan: -continue FSBS and SSI Code(s): E11.9 - TYPE 2 DIABETES MELLITUS WITHOUT COMPLICATIONS (5) HTN (hypertension) Assessment/Plan: -elevated as medications are being held -diuretic trial tomorrow Code(s): I10 - ESSENTIAL (PRIMARY) HYPERTENSION (6) Pancreatitis, acute Assessment/Plan: -tolerating diet and no longer having abdominal pain -recheck lipase in am -patient on losartan which is class 1a -losartan stopped secondary to renal failure, multiple reasons not to restart Code(s): K85.90 - ACUTE PANCREATITIS WITHOUT NECROSIS OR INFECTION, UNSP Qualifiers: Pancreatitis type: drug induced Acute pancreatitis complication: no infection or necrosis Qualified Code(s): K85.30 - Drug induced acute pancreatitis without necrosis or infection
--- NOTE | 2017-10-07 19:24 | PN ---
Physical Exam: SUBJECTIVE: Patient seen and examined this am in icu. Pt resting comfortably in bed, denies cp or sob, or abdominal pain. Received HD yesterday. Will most likely require longterm HD per Renal. OBJECTIVE: Vital Signs Period Temp Pulse Resp BP Sys/Ramos Pulse Ox Last 24 Hr 8.2 F-98.9 F 45-61 14-24 129-158/46-81 99-99 GENERAL: PLEASENT, NAD HEAD: NC/AT EYES: EOMI. EARS, NOSE, THROAT: MMM NECK: No JVD. Supple LUNGS: CTA B/L HEART: RRR ABDOMEN: ND, ND MUSCULOSKELETAL: ROM intact throughout UPPER EXTREMITIES: No CCE LOWER EXTREMITIES: No CCE NEUROLOGICAL: No Neuro Deficits SKIN: No Rashes or lesions observed Laboratory Results - last 24 hr 10/05/17 10/05/17 10/06/17 11:00 15:00 11:03 WBC RBC Hgb Hct MCV MCH MCHC RDW Plt Count MPV Absolute Neuts (auto) Neutrophils % Lymphocytes % Monocytes % Eosinophils % Basophils % Nucleated RBC % Sodium Potassium Chloride Carbon Dioxide Anion Gap BUN Creatinine Creat Clearance w eGFR POC Glucometer [phone] Random Glucose Calcium Phosphorus Magnesium Total Bilirubin AST ALT Alkaline Phosphatase Total Protein Albumin Urine Eosinophils None seen Hep C Ab Diagnostic <0.1 Liver Fibrosis Interp 10/06/17 10/07/17 10/07/17 17:25 05:30 05:30 WBC 10.6 H RBC 3.16 L Hgb 9.7 L Hct 27.9 L MCV 88.3 MCH 30.6 MCHC 34.6 RDW 17.0 H Plt Count 142 MPV 11.1 Absolute Neuts (auto) 7.4 Neutrophils % 69.3 Lymphocytes % 14.5 D Monocytes % 11.2 H Eosinophils % 4.7 H Basophils % 0.3 Nucleated RBC % 0 Sodium 145 Potassium 3.7 Chloride 107 Carbon Dioxide 27 Anion Gap 11 BUN 37 H D Creatinine 3.2 H Creat Clearance w eGFR 18.93 POC Glucometer [phone] Random Glucose 88 D Calcium 8.2 L Phosphorus 2.3 L D Magnesium 1.8 Total Bilirubin 0.9 AST 14 L ALT 22 Alkaline Phosphatase 96 Total Protein 5.9 L Albumin 3.2 L Urine Eosinophils Hep C Ab Diagnostic Liver Fibrosis Interp 10/07/17 10/07/17 10/07/17 06:14 11:38 17:31 WBC RBC Hgb Hct MCV MCH MCHC RDW Plt Count MPV Absolute Neuts (auto) Neutrophils % Lymphocytes % Monocytes % Eosinophils % Basophils % Nucleated RBC % Sodium Potassium Chloride Carbon Dioxide Anion Gap BUN Creatinine Creat Clearance w eGFR POC Glucometer [phone] 192 Random Glucose Calcium Phosphorus Magnesium Total Bilirubin AST ALT Alkaline Phosphatase Total Protein Albumin Urine Eosinophils Hep C Ab Diagnostic Liver Fibrosis Interp Active Medications Generic Name Dose Route Start Last Admin Trade Name Freq PRN Reason Stop Dose Admin Heparin Sodium (Porcine) 5,000 unit 10/07/17 22:00 Heparin - SQ BID [facility] Insulin Aspart 1 vial 10/07/17 16:30 10/07/17 18:41 Novolog Vial Sliding Scale - SQ Not Given TIDAC [facility] Protocol Levothyroxine Sodium 37 mcg 10/08/17 07:00 Synthroid Injection - IVPUSH 0700 [facility] Pantoprazole Sodium 40 mg 10/08/17 10:00 Protonix Iv IVPUSH DAILY [facility] ASSESSMENT/PLAN: Acute Renal Injury 2/2 volume depletion vs. normotensive ATN vs. progressive CKD -S/P 2 sessions HD - Baseline Cr from Dr Khalil---> 107/4.7 -Trend renal function and electrolytes -Dr Kulkarni on board - Urine studies--> sub-nephrotic proteinuira. FeUrea --> 19%. Tubular function preserved. BUN/Cr today---> 37/3.2 CV: -Dr Gan on board -Bradycardia likely 2.2 electrolytes abnormalities with ESRD-->renal failure, hyperkalemia, acidosis -Carvedilol on hold HTN, CAD Losartan 100 mg Daily Amlodipine 10 mg Daily Carvedilol 6.25 mg Daily-on hold Diabetes Glipizide 5 mg Daily Onglyzia 2.5 mg Daily Hypothyroidism Levothyroxine BPH Alfuzosin FEN No Fluids Monitor Electrolytes Renal Diet Visit type - Emergency Visit Emergency Visit: Yes ED Registration Date: 10/04/17 Care time: The patient presented to the Emergency Department on the above date and was hospitalized for further evaluation of their emergent condition. - New Patient This patient is new to me today: No - Critical Care Critical Care patient: Yes Total Critical Care Time (in minutes): 35 Critical Care Statement: The care of this patient involved high complexity decision making to prevent further life threatening deterioration of the patient 's condition and/or to evaluate & treat vital organ system(s) failure or risk of failure.
[2017-10-08] MEDS: INSULIN SLIDING SCALE (NOVOLOG) 1 VIAL SQ SCH ×3 (06:41→17:17)
[2017-10-08 06:43] LABS: BASO % 0.3 % (0-2.0); EOS % 3.2 % (0-4.5); HEMATOCRIT 26.9 % (35.4-49); HEMOGLOBIN 8.9 GM/dL (11.7-16.9); LYMPH % 12.6 % (8-40); MCH 29.2 pg (25.7-33.7); MCHC 33.1 g/dl (32.0-35.9); MEAN CELL VOLUME 88.1 fl (80-96); MEAN PLT VOLUME 10.8 fl (7.5-11.1); NEUT % 73.9 % (42.8-82.8); PLATELET COUNT 134 K/MM3 (134-434); RBC 3.05 M/mm3 (4.00-5.60); RDW 16.9 % (11.9-15.9); WHITE BLOOD COUNT 13.5 K/mm3 (4.0-10.0)
[2017-10-08] MEDS: LEVOTHYROXINE SODIUM 100 MCG VIAL IVPUSH SCH (06:48)
[2017-10-08 07:24] LABS: ANION GAP 11 (8-16); BLOOD UREA NITROGEN 38 mg/dL (7-18); CALCIUM 8.2 mg/dL (8.5-10.1); CHLORIDE 105 mmol/L (98-107); CO2 27 mmol/L (21-32); CREATININE 3.2 mg/dL (0.7-1.3); GLUCOSE,RANDOM 118 mg/dL (74-106); MAGNESIUM 1.7 mg/dL (1.8-2.4); POTASSIUM 3.7 mmol/L (3.5-5.1); SODIUM 143 mmol/L (136-145)
[2017-10-08 07:25] LABS: LIPASE 402 U/L (73-393)
[2017-10-08] MEDS: HEPARIN NA (PORCINE) 5,000 UNITS/ML 1ML VIAL SQ SCH ×2 (09:19→21:20)
[2017-10-08] MEDS: PANTOPRAZOLE SODIUM 40 MG VIAL IVPUSH SCH (09:20)
--- NOTE | 2017-10-08 10:51 | PN ---
Progress Note (short form) - Note Progress Note: cc: abd pain s: no abd pain, cp, sob, dizzy no cigs tele;sinus 60s-70s, overnight high 40s-50s Current Medications Heparin Sodium (Porcine) (Heparin -) 5,000 unit SQ BID [facility] Last Admin: 10/08/17 09:19 Dose: 5,000 unit Insulin Aspart (Novolog Vial Sliding Scale -) 1 vial SQ TIDAC [facility]; Protocol Last Admin: 10/08/17 06:41 Dose: Not Given Levothyroxine Sodium (Synthroid Injection -) 37 mcg IVPUSH 0700 [facility] Last Admin: 10/08/17 06:48 Dose: 37 mcg Pantoprazole Sodium (Protonix Iv) 40 mg IVPUSH DAILY [facility] Last Admin: 10/08/17 09:20 Dose: 40 mg - Objective Vital Signs Period Temp Pulse Resp BP Sys/Ramos Pulse Ox Last 24 Hr 97.8 F-100.7 F 57-74 18-19 140-167/58-70 98-98 Constitutional: Yes: No Distress, Calm Eyes: No: Sclera Icterus HENT: No: Nasal Congestion Cardiovascular: Yes: Regular Rate and Rhythm, S1, S2, Other (PMI non diplaced). No: Gallop, Murmur Respiratory: Yes: CTA Bilaterally. No: Accessory Muscle Use, Rales, Wheezes Gastrointestinal: Yes: Normal Bowel Sounds, Soft. No: Tenderness Musculoskeletal: Yes: Other (No kyphosis) Extremities: No: Cold, Cyanosis Edema: No Integumentary: No: Jaundice Neurological: Yes: Alert, Oriented (x3) Psychiatric: No: Agitated Labs: CBC, BMP 10/07/17 05:30 10/07/17 05:30 Assessment/Plan ECG: sinus leeann at 30 bpm, normal axis/intervals; no ST-T abn, no q waves CT abdomen: small effusions, small ascites with soft tissue edema, mild fabio- pancreatic soft tissue stranding consider mild pancreatitis carotid dopplers: could not be completed due to neck venous catheter RUQ abd pain and tenderness: -mild fabio-pancreatic soft tissue findings on CT, mild amylase/lipase elevations -w/u per critical care, hospitalist ROBIN on CKD: -creat 8s on admit, with K 6--s/p urgent HD, Cr improved -etiology unclear, renal following -renal fxn improved significantly -holding home losartan sinus bradycardia: -likely was in setting of acute metabolic abnormalities--renal failure, hyperkalemia, acidosis, may also be related to acute abd process, abd pain -HR now 60s-70s, bradycardia during sleep -holding home carvedilol, if continues to have episodes will consider ETT to monitor chronotropic response -continue to monitor tele bilat carotid bruits: -dopplers not able to be completed due to indwelling venous catheter in neck. -pt asymptomatic. -rpt study once recovers from acute illness h/o CAD s/p CABG, elevated troponin: -trop intermediate range, flat trend (0.3 x 3)--not c/w ACS. no isch ecg changes -cont home aspirin -home meds need reconciliation re: home statin regimen--no change to prior plan HTN: -hold BB, ARB as above -bp well controlled at present -observe trend--start amlodipine 5 if consistently 150s-160s over next 24-48 hrs DM: -per crit care, hospitalist
--- NOTE | 2017-10-08 12:14 | PN ---
Progress Note (short form) - Note Progress Note: Renal Follow up for ROBIN on CKD Pt seen at the bedside awake and alert no acute complaints making urine, deneis any sob, cp, abd pain, N/V/D Vital Signs Temperature 99.4 F 10/08/17 09:00 Pulse Rate 74 10/08/17 09:00 Respiratory Rate 18 10/08/17 09:00 Blood Pressure 156/70 10/08/17 09:00 O2 Sat by Pulse Oximetry (%) 98 10/08/17 09:00 Intake & Output 10/05/17 10/06/17 10/07/17 10/08/17 23:59 23:59 23:59 23:59 Intake Total 1328 1586 1489 100 Output Total 300 350 800 150 Balance 1028 1236 689 -50 Weight 66.706 kg 68.039 kg 70.579 kg NAD awake and alert MMM, no JVD RRR, No M/R CTA soft NT/ND trace LE edema CBC, BMP 10/08/17 05:30 10/08/17 05:30 Current Medications Heparin Sodium (Porcine) (Heparin -) 5,000 unit SQ BID [facility] Last Admin: 10/08/17 09:19 Dose: 5,000 unit Insulin Aspart (Novolog Vial Sliding Scale -) 1 vial SQ TIDAC [facility]; Protocol Last Admin: 10/08/17 11:18 Dose: Not Given Levothyroxine Sodium (Synthroid Injection -) 37 mcg IVPUSH 0700 [facility] Last Admin: 10/08/17 06:48 Dose: 37 mcg Pantoprazole Sodium (Protonix Iv) 40 mg IVPUSH DAILY [facility] Last Admin: 10/08/17 09:20 Dose: 40 mg 77 year old gentleman with hx of CKD Stage 4/5, DM, CAD s/p CABG, Hyperlipidemia , Hypertension who presented with complaints of abd pain and found to have BUN/ Cr of 140/8.2 and K of 6. #Acute Renal Injury secondary to volume depletion vs. normotensive ATN vs. progressive CKD #CKD Stage 4/5 #CAD s/p CABG #Metabolic acidosis #Hyperkalemia #Anemia Renal function improved and stable s/p dialyiss no indication for CERTIFIED NURSE AIDE today will remove dialysis catheter today as pt with fever this am to have blood cultures drawn from catheter continue renal diet Trend H/H, s/p EPOGEN with HD this weekend still attempting to discuss case with primary tram operator Rambo Kulkarni DO
--- NOTE | 2017-10-08 12:18 | PN ---
Progress Note, Physician Chief Complaint: Mr Harry says he is feeling much better. Denies cp, sob, n/v. However confirms he had a fever and is having gas pain. - Current Medication List Current Medications: Active Medications Heparin Sodium (Porcine) (Heparin -) 5,000 unit SQ BID [facility] Last Admin: 10/08/17 09:19 Dose: 5,000 unit Insulin Aspart (Novolog Vial Sliding Scale -) 1 vial SQ TIDAC [facility]; Protocol Last Admin: 10/08/17 11:18 Dose: Not Given Levothyroxine Sodium (Synthroid Injection -) 37 mcg IVPUSH 0700 [facility] Last Admin: 10/08/17 06:48 Dose: 37 mcg Pantoprazole Sodium (Protonix Iv) 40 mg IVPUSH DAILY [facility] Last Admin: 10/08/17 09:20 Dose: 40 mg - Objective Vital Signs: Vital Signs Temperature 37.4 C 10/08/17 09:00 Pulse Rate 74 10/08/17 09:00 Respiratory Rate 18 10/08/17 09:00 Blood Pressure 156/70 10/08/17 09:00 O2 Sat by Pulse Oximetry (%) 98 10/08/17 09:00 Constitutional: Yes: Well Nourished, No Distress, Calm Cardiovascular: Yes: Regular Rate and Rhythm. No: Gallop, Murmur, Rub Respiratory: Yes: Regular, CTA Bilaterally. No: Rales, Rhonchi, Wheezes Gastrointestinal: Yes: Normal Bowel Sounds, Soft. No: Distention, Tenderness Extremities: Yes: WNL Edema: No Labs: CBC, BMP 10/08/17 05:30 10/08/17 05:30 Problem List - Problems (1) Renal failure (ARF), acute on chronic Code(s): N17.9 - ACUTE KIDNEY FAILURE, UNSPECIFIED; N18.9 - CHRONIC KIDNEY DISEASE, UNSPECIFIED Qualifiers: Acute renal failure type: unspecified Chronic kidney disease stage: stage 4 (severe) Qualified Code(s): N17.9 - Acute kidney failure, unspecified; N18.4 - Chronic kidney disease, stage 4 (severe) (2) Bradycardia Code(s): R00.1 - BRADYCARDIA, UNSPECIFIED (3) CAD (coronary artery disease) Code(s): I25.10 - ATHSCL HEART DISEASE OF [place] CORONARY ARTERY W/O ANG PCTRS (4) Diabetes mellitus Code(s): E11.9 - TYPE 2 DIABETES MELLITUS WITHOUT COMPLICATIONS (5) HTN (hypertension) Code(s): I10 - ESSENTIAL (PRIMARY) HYPERTENSION (6) Pancreatitis, acute Code(s): K85.90 - ACUTE PANCREATITIS WITHOUT NECROSIS OR INFECTION, UNSP Qualifiers: Pancreatitis type: drug induced Acute pancreatitis complication: no infection or necrosis Qualified Code(s): K85.30 - Drug induced acute pancreatitis without necrosis or infection Assessment/Plan (1) Renal failure (ARF), acute on chronic Assessment/Plan: -case d/w nephrology -at baseline -restart diuretics -monitor Code(s): N17.9 - ACUTE KIDNEY FAILURE, UNSPECIFIED; N18.9 - CHRONIC KIDNEY DISEASE, UNSPECIFIED Qualifiers: Acute renal failure type: unspecified Chronic kidney disease stage: stage 4 (severe) Qualified Code(s): N17.9 - Acute kidney failure, unspecified; N18.4 - Chronic kidney disease, stage 4 (severe) (2) Bradycardia Assessment/Plan -resolved -cardiology following -continue telemetry Code(s): R00.1 - BRADYCARDIA, UNSPECIFIED (3) CAD (coronary artery disease) Assessment/Plan: -no chest pain -cardiology following Code(s): I25.10 - ATHSCL HEART DISEASE OF [place] CORONARY ARTERY W/O ANG PCTRS (4) Diabetes mellitus Assessment/Plan: -continue FSBS and SSI Code(s): E11.9 - TYPE 2 DIABETES MELLITUS WITHOUT COMPLICATIONS (5) HTN (hypertension) Assessment/Plan: -diuretic trial today -will d/w nephrology better blood pressure control Code(s): I10 - ESSENTIAL (PRIMARY) HYPERTENSION (6) Pancreatitis, acute Assessment/Plan: -tolerating diet and no longer having abdominal pain but with gas pain -lipase still elevated -patient on losartan as an outpatient which is class 1a -losartan stopped secondary to renal failure, multiple reasons not to restart -consult GI Code(s): K85.90 - ACUTE PANCREATITIS WITHOUT NECROSIS OR INFECTION, UNSP Qualifiers: Pancreatitis type: drug induced Acute pancreatitis complication: no infection or necrosis Qualified Code(s): K85.30 - Drug induced acute pancreatitis without necrosis or infection (7) Fever -unclear source -however with leukocytosis -check blood cultures, urinalysis and culture, and chest x-ray
[2017-10-08 15:01] LABS: URINE APPEARANCE CLEAR; URINE BILIRUBIN NEGATIVE (<2.0 mg/dL); URINE COLOR YELLOW; URINE GLUCOSE (UA) 1+ (NEGATIVE); URINE KETONE NEGATIVE (NEGATIVE); URINE LEUK ESTERASE NEGATIVE (NEGATIVE); URINE NITRITE NEGATIVE (NEGATIVE); URINE UROBILINOGEN NEGATIVE mg/dL (0.2-1.0)
[2017-10-08 15:05] LABS: URINE PROTEIN 3+ (NEGATIVE)
[2017-10-08 15:17] LABS: EPI CELLS RARE /HPF (FEW); GRANULAR CASTS 5 /lpf
[2017-10-08] MEDS: ACETAMINOPHEN 325 MG TABLET (FP) PO PRN (15:55)
--- NOTE | 2017-10-08 21:24 | CON.GI ---
Consult Consult Specialty:: Gastroenterology Referred by:: Dr Duong Reason for Consultation:: Pancreatitis - History of Present Illness Chief Complaint: RUQ pain, abdominal bloating and acid reflux History of Present Illness: 77M diabetic presents with ARF with c/o RUQ pain, abdominal distension, nausea and acid reflux. Despite this he was able to eat and has been moving his bowels. He denies vomiting. The pain radiated to the right flank but not directly into his back. He denies any h/o pancreatitis, gallstone disease, regular alcohol usage. He has passed renal stones in the past. He denies any preceding weight loss. He reminds me that he had a colonoscopy with me remotely and believes that it was normal. His CT scan reveals fluid in the mesentery, perihepatically, in the paracolic gutters and rectovesical space. Only mild stranding is found in the peripancreatic region. The GB is not thickened. There is no blood in his urine. He has CKD. Despite this his amylase is normal alongside elevated lipase levels. His TGY was 90. - History Source History Provided By: Patient Limitations to Obtaining History: No Limitations - Past Medical History Cardio/Vascular: Yes: CAD (s/p CABG 2009 at [facility]), HTN, Hyperlipdemia Renal/: Yes: Renal Failure, Renal Calculi Heme/Onc: Yes: Anemia Endocrine: Yes: Diabetes Mellitus, Hypothyroidism - Past Surgical History Past Surgical History: Yes: None, CABG (2009 at [facility]) - Alcohol/Substance Use Hx Alcohol Use: Yes (rare) History of Substance Use: reports: None - Smoking History Smoking history: Never smoked - Social History Usual Living Arrangement: With Spouse ADL: Independent 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 (year[place] age 25 History of Recent Travel: No Home Medications - Allergies Allergies/Adverse Reactions: Allergies Allergy/AdvReac Type Severity Reaction Status Date / Time No Known Allergies Allergy Verified 10/04/17 17:44 - Home Medications Home Medications: Ambulatory Orders Alfuzosin HCl [Alfuzosin HCl ER] 10 mg PO DAILY 10/04/17 Amlodipine Besylate 10 mg PO DAILY 10/04/17 Aspirin [ASA -] 81 mg PO DAILY 10/04/17 Bumetanide 0.5 mg PO DAILY 10/04/17 Carvedilol [Coreg -] 6.25 mg PO ONCE 10/04/17 Glipizide [Glipizide ER] 2.5 mg PO DAILY 10/04/17 Levothyroxine [Synthroid -] 75 mcg PO DAILY 10/04/17 Losartan Potassium 100 mg PO DAILY 10/04/17 Saxagliptin HCl [Onglyza] 2.5 mg PO DAILY 10/04/17 Family Disease History - Family Disease History Family Disease History: Diabetes: Mother (lived to 84,. had asthma), Other: Father (lived to 96) Other Family History: no cancer, pancreatitis, liver or GB disease Review of Systems - Review of Systems Constitutional: reports: No Symptoms Eyes: reports: No Symptoms HENT: reports: No Symptoms Neck: reports: No Symptoms Cardiovascular: reports: No Symptoms Respiratory: reports: No Symptoms Gastrointestinal: reports: No Symptoms Genitourinary: reports: No Symptoms Musculoskeletal: reports: No Symptoms Physical Exam-GI Vital Signs: Vital Signs Temperature 100.2 F H 10/08/17 17:00 Pulse Rate 65 10/08/17 17:00 Respiratory Rate 18 10/08/17 17:00 Blood Pressure 153/60 10/08/17 17:00 O2 Sat by Pulse Oximetry (%) 98 10/08/17 09:00 CBC,CMP WBC 13.5 K/mm3 (4.0-10.0) H 10/08/17 05:30 RBC 3.05 M/mm3 (4.00-5.60) L 10/08/17 05:30 Hgb 8.9 GM/dL (11.7-16.9) L 10/08/17 05:30 Hct 26.9 % (35.4-49) L 10/08/17 05:30 MCV 88.1 fl (80-96) 10/08/17 05:30 MCH 29.2 pg (25.7-33.7) 10/08/17 05:30 MCHC 33.1 g/dl (32.0-35.9) 10/08/17 05:30 RDW 16.9 % (11.9-15.9) H 10/08/17 05:30 Plt Count 134 K/MM3 (134-434) 10/08/17 05:30 MPV 10.8 fl (7.5-11.1) 10/08/17 05:30 Absolute Neuts (auto) 10.0 K/mm3 (1.5-8.0) H 10/08/17 05:30 Neutrophils % 73.9 % (42.8-82.8) 10/08/17 05:30 Lymphocytes % 12.6 % (8-40) 10/08/17 05:30 Monocytes % 10.0 % (3.8-10.2) 10/08/17 05:30 Eosinophils % 3.2 % (0-4.5) 10/08/17 05:30 Basophils % 0.3 % (0-2.0) 10/08/17 05:30 Nucleated RBC % 0 % (0-0) 10/08/17 05:30 Sodium 143 mmol/L (136-145) 10/08/17 05:30 Potassium 3.7 mmol/L (3.5-5.1) 10/08/17 05:30 Chloride 105 mmol/L (98-107) 10/08/17 05:30 Carbon Dioxide 27 mmol/L (21-32) 10/08/17 05:30 Anion Gap 11 (8-16) 10/08/17 05:30 BUN 38 mg/dL (7-18) H 10/08/17 05:30 Creatinine 3.2 mg/dL (0.7-1.3) H 10/08/17 05:30 Creat Clearance w eGFR 18.93 (>60) 10/08/17 05:30 POC Glucometer 211 UNITS (80-120) 10/08/17 17:16 Random Glucose 118 mg/dL (74-106) H D 10/08/17 05:30 Hemoglobin A1c % 6.8 % (4.8-6.0) H 10/05/17 05:30 Calcium 8.2 mg/dL (8.5-10.1) L 10/08/17 05:30 Phosphorus 2.0 mg/dL (2.5-4.9) L 10/08/17 05:30 Magnesium 1.7 mg/dL (1.8-2.4) L 10/08/17 05:30 Total Bilirubin 0.9 mg/dL (0.2-1.0) 10/07/17 05:30 AST 14 U/L (15-37) L 10/07/17 05:30 ALT 22 U/L (12-78) 10/07/17 05:30 Alkaline Phosphatase 96 U/L (45-117) 10/07/17 05:30 Creatine Kinase 141 IU/L (39-308) 10/05/17 05:30 Troponin I 0.32 ng/ml (0.00-0.05) H 10/05/17 05:30 Total Protein 5.9 g/dl (6.4-8.2) L 10/07/17 05:30 Albumin 3.2 g/dl (3.4-5.0) L 10/07/17 05:30 Triglycerides Cancelled 10/05/17 05:30 Total Amylase 121 U/L (25-115) H 10/05/17 05:30 Lipase 402 U/L (73-393) H 10/08/17 05:30 Current Medications Generic Name Dose Route Start Last Admin Trade Name Freq PRN Reason Stop Dose Admin Acetaminophen 650 mg 10/08/17 14:54 10/08/17 15:55 Tylenol - PO 650 mg Q4H PRN Administration FEVER Heparin Sodium (Porcine) 5,000 unit 10/07/17 22:00 10/08/17 21:20 Heparin - SQ 5,000 unit BID FABIEN Administration Insulin Aspart 1 vial 10/07/17 16:30 10/08/17 17:17 Novolog Vial Sliding Scale - SQ 4 units TIDAC FABIEN Administration Protocol Levothyroxine Sodium 37 mcg 10/08/17 07:00 10/08/17 06:48 Synthroid Injection - IVPUSH 37 mcg 0700 FABIEN Administration Pantoprazole Sodium 40 mg 10/08/17 10:00 10/08/17 09:20 Protonix Iv IVPUSH 40 mg DAILY FABIEN Administration Constitutional: Yes: Calm Eyes: Yes: Conjunctiva Clear HENT: Yes: Atraumatic Neck: Yes: Supple, Other (RIJ catheter) Cardiovascular: Yes: Regular Rate and Rhythm, S1 (WNL), S2 (WNL), Other (healed median sternotomy incision) Respiratory: Yes: CTA Bilaterally Gastrointestinal Inspection: Yes: Distention (softly distended) ...Auscultate: Yes: Normoactive Bowel Sounds ...Palpate: Yes: Soft, Other (nontender) ...Percussion: Yes: Tympanitic ...Rectal Exam: Yes: Guaiac Negative (no rectal mass, 2+ prostate) Edema: No Peripheral Pulses WNL: Yes Neurological: Yes: Alert, Oriented Labs: CBC, BMP 10/08/17 05:30 10/08/17 05:30 Laboratory Tests 10/04/17 10/04/17 10/05/17 19:04 23:05 05:30 Creatinine 8.1 H* Total Bilirubin AST ALT Alkaline Phosphatase Albumin 3.8 Total Amylase 121 H Lipase 502 H 538 H 10/07/17 10/08/17 05:30 05:30 Creatinine 3.2 H Total Bilirubin 0.9 AST 14 L ALT 22 Alkaline Phosphatase 96 Albumin 3.2 L Total Amylase Lipase 402 H Imaging - Results Cat Scan: Report Reviewed (Christin Masters Name: [facility] DEPARTMENT OF RADIOLOGY Phys: Licha Ly MD : 1940 Age: 77 Sex: M [facility] Acct: [id number] Loc: [address] Exam Date: 10/04/17 Status: [place] [address] Unit Number: [id number] EXAM#: TYPE/EXAM: RESULT: [id number] CT/ABDOMEN PELVIS CT W/O CONTR Abdomen and pelvis CT (without contrast) Clinical information: evaluate for ileus, obstruction; right upper quadrant distention, elevated lipase, acute renal insufficiency Multiplanar imaging was performed. No intravenous contrast was administered. A small amount of oral contrast is seen within the gastric lumen. The partially imaged lower chest demonstrate small right-sided and very small left- sided pleural effusions layering posteriorly. There is mild fluid-filled gastric distention. A small amount of perihepatic free fluid is noted. There is also a small amount of free fluid within the paracolic spaces bilaterally and within the rectovesical space of the lower pelvis. A small amount of pericholecystic fluid accumulation is seen without associated gallbladder distention or obvious gallbladder calculi. There is no definite biliary tract dilatation. Mild mesenteric edema is seen. There is also mild bilateral thickening of the pararenal fasciae and mild bilateral perirenal soft tissue stranding. There is no hydronephrosis. The kidneys appear unremarkable in position and size each measuring approximately 9.7 cm in length. No evidence of urolithiasis. There is no definite cortical scarring. No evidence of pneumoperitoneum or bowel obstruction. There is minimal to mild peripancreatic soft tissue stranding. The liver, spleen, and adrenal glands demonstrate no discrete noncontrast pathology. There is no aortic aneurysm. No obvious lymphadenopathy is seen. The appendix is not definitely visualized along their no obvious indirect CT signs of acute appendicitis allowing for partially obstructing nonopacified small bowel loops. Colonic diverticulosis is seen without definite evidence of acute diverticulitis. No gross small bowel pathology is identified. There is marked prostate enlargement. The urinary bladder demonstrates no obvious intrinsic CT abnormality. IMPRESSION: No hydronephrosis is identified. The kidneys demonstrate no discrete noncontrast pathology. Prominent prostate enlargement is noted. Small right-sided and very small left-sided pleural effusions are seen. A small amount of free intraperitoneal fluid is noted within the abdomen and pelvis. Note is also made of mild mesenteric soft tissue edema. Note is also made of mild bilateral pararenal and perirenal soft tissue soft tissue thickening probably also on the basis of edema. Minimal to mild peripancreatic soft tissue stranding is seen. On the basis of this exam it is uncertain whether this latter appearance is secondary to mild acute pancreatitis versus representing a part of the more generalized mild mesenteric edema described previously. Consider follow-up CT. Reported By: Candelario Arreola MD 10/04/172223 Licha Ly Technologist: Tamiko Schwarz Transcribed Date/Time: 10/04/172223 [employer] Home Economist: Candelario Arreola) Problem List - Problems (1) Abdominal pain Assessment/Plan: If it weren't for the lack of microscopic hematuria given his h/o nephrolithiasis and the RUQ/flank pain I would have suspected a urinoma due to a stone penetrating the right ureter as the cause of this presentation. The case for pancreatitis is difficult to make given his lack of vomiting, his ability to eat, rapid pain resolution, the paucity of CT pancreatic findings and the normal amylase despite CKD and normal triglyceride level. A pancreatic neoplasm could however present in this fashion. I will order a noncontrast MRI/ MRCP to absolutely exclude gallstone passage and to look for evidence of a pancreatic neoplasm. He does not appear to have cirrhosis or right sided heart failure to explain his abdominal fluid and there is not enough for an easy aspiration. If the fluid increases a paracentesis for chemical analysis, cell count, AFB and cytology should be pursued. Mesenteric ischemia cannot be excluded in the setting of ATN perhaps due to a bradycardic hypotensive episode. His TFTs will be checked. Consider a urology consultation. Code(s): R10.9 - UNSPECIFIED ABDOMINAL PAIN Qualifiers: Abdominal location: right lower quadrant Qualified Code(s): R10.31 - Right lower quadrant pain (2) Ascites Assessment/Plan: see above discussion Code(s): R18.8 - OTHER ASCITES Qualifiers: Ascites type: other type Qualified Code(s): R18.8 - Other ascites (3) History of nephrolithiasis Code(s): Z87.442 - PERSONAL HISTORY OF URINARY CALCULI (4) Acid reflux Code(s): K21.9 - GASTRO-ESOPHAGEAL REFLUX DISEASE WITHOUT ESOPHAGITIS Qualifiers: Esophagitis presence: esophagitis presence not specified Qualified Code(s) : K21.9 - Gastro-esophageal reflux disease without esophagitis (5) History of coronary artery bypass graft Code(s): Z95.1 - PRESENCE OF AORTOCORONARY BYPASS GRAFT (6) Renal failure (ARF), acute on chronic Code(s): N17.9 - ACUTE KIDNEY FAILURE, UNSPECIFIED; N18.9 - CHRONIC KIDNEY DISEASE, UNSPECIFIED Qualifiers: Acute renal failure type: unspecified Chronic kidney disease stage: stage 4 (severe) Qualified Code(s): N17.9 - Acute kidney failure, unspecified; N18.4 - Chronic kidney disease, stage 4 (severe)
[2017-10-09 00:07] LABS: HBSAG SCREEN Negative (Negative); HEP A AB, IGM Negative (Negative); HEP B CORE AB, TOT Negative (Negative)
[2017-10-09] MEDS: LEVOTHYROXINE SODIUM 100 MCG VIAL IVPUSH SCH (06:25)
[2017-10-09] MEDS: INSULIN SLIDING SCALE (NOVOLOG) 1 VIAL SQ SCH ×3 (06:27→17:36)
[2017-10-09 06:59] LABS: BASO % 0.4 % (0-2.0); EOS % 1.2 % (0-4.5); HEMATOCRIT 24.9 % (35.4-49); HEMOGLOBIN 8.2 GM/dL (11.7-16.9); LYMPH % 9.2 % (8-40); MCH 29.5 pg (25.7-33.7); MCHC 32.9 g/dl (32.0-35.9); MEAN CELL VOLUME 89.6 fl (80-96); MEAN PLT VOLUME 10.8 fl (7.5-11.1); NEUT % 79.2 % (42.8-82.8); PLATELET COUNT 134 K/MM3 (134-434); RBC 2.78 M/mm3 (4.00-5.60); RDW 17.3 % (11.9-15.9); WHITE BLOOD COUNT 14.1 K/mm3 (4.0-10.0)
[2017-10-09 07:36] LABS: ANION GAP 11 MMOL/L (8-16); BLOOD UREA NITROGEN 41 mg/dL (7-18); CALCIUM 8.2 mg/dL (8.5-10.1); CHLORIDE 104 mmol/L (98-107); CO2 27 mmol/L (21-32); CREATININE 3.4 mg/dL (0.7-1.3); GLUCOSE,RANDOM 122 mg/dL (74-106); LDH 225 U/L (87-241); MAGNESIUM 1.8 mg/dL (1.8-2.4); PHOSPHOROUS 1.9 mg/dL (2.5-4.9); POTASSIUM 3.8 mmol/L (3.5-5.1); SODIUM 142 mmol/L (136-145)
[2017-10-09 07:40] LABS: LIPASE 283 U/L (73-393)
[2017-10-09] MEDS: ACETAMINOPHEN 325 MG TABLET (FP) PO PRN (08:20)
--- NOTE | 2017-10-09 09:19 | PN ---
Progress Note (short form) - Note Progress Note: cc: abd pain s: no abd pain, cp, sob, dizzy no cigs tele;sinus 60s-70s, no episodes bradycardia Current Medications Acetaminophen (Tylenol -) 650 mg PO Q4H PRN PRN Reason: FEVER Last Admin: 10/09/17 08:20 Dose: 650 mg Heparin Sodium (Porcine) (Heparin -) 5,000 unit SQ BID [facility] Last Admin: 10/08/17 21:20 Dose: 5,000 unit Insulin Aspart (Novolog Vial Sliding Scale -) 1 vial SQ TIDAC [facility]; Protocol Last Admin: 10/09/17 06:27 Dose: Not Given Levothyroxine Sodium (Synthroid Injection -) 37 mcg IVPUSH 0700 [facility] Last Admin: 10/09/17 06:25 Dose: 37 mcg Pantoprazole Sodium (Protonix Iv) 40 mg IVPUSH DAILY [facility] Last Admin: 10/08/17 09:20 Dose: 40 mg - Objective Vital Signs Period Temp Pulse Resp BP Sys/Ramos Pulse Ox Last 24 Hr 98.1 F-100.2 F 58-69 18-18 147-161/60-72 98 Constitutional: Yes: No Distress, Calm Eyes: No: Sclera Icterus HENT: No: Nasal Congestion Cardiovascular: Yes: Regular Rate and Rhythm, S1, S2, Other (PMI non diplaced). No: Gallop, Murmur Respiratory: Yes: CTA Bilaterally. No: Accessory Muscle Use, Rales, Wheezes Gastrointestinal: Yes: Normal Bowel Sounds, Soft. No: Tenderness Musculoskeletal: Yes: Other (No kyphosis) Extremities: No: Cold, Cyanosis Edema: No Integumentary: No: Jaundice Neurological: Yes: Alert, Oriented (x3) Psychiatric: No: Agitated Assessment/Plan ECG: sinus leeann at 30 bpm, normal axis/intervals; no ST-T abn, no q waves CT abdomen: small effusions, small ascites with soft tissue edema, mild fabio- pancreatic soft tissue stranding consider mild pancreatitis carotid dopplers: could not be completed due to neck venous catheter RUQ abd pain and tenderness: - per GI will undergo MRI/MRCP to exclude gallstones, pancreatic neoplasm ROBIN on CKD: -creat 8s on admit, with K 6--s/p urgent HD, Cr improved -etiology unclear, renal following -renal fxn improved significantly, Cr remains elevated 3.4 -holding home losartan sinus bradycardia: -likely was in setting of acute metabolic abnormalities--renal failure, hyperkalemia, acidosis, may also be related to acute abd process, abd pain - resolved with holding carvedilol bilat carotid bruits: -dopplers not able to be completed due to indwelling venous catheter in neck. -pt asymptomatic. -rpt study once recovers from acute illness h/o CAD s/p CABG, elevated troponin: -trop intermediate range, flat trend (0.3 x 3)--not c/w ACS. no isch ecg changes -cont home aspirin -home meds need reconciliation re: home statin regimen--no change to prior plan HTN: -hold BB, ARB as above -bp well controlled at present -observe trend--start amlodipine 5 if consistently 150s-160s over next 24-48 hrs DM: -per hospitalist
[2017-10-09] MEDS: HEPARIN NA (PORCINE) 5,000 UNITS/ML 1ML VIAL SQ SCH ×2 (10:10→22:24)
[2017-10-09] MEDS: PANTOPRAZOLE SODIUM 40 MG VIAL IVPUSH SCH (10:10)
--- NOTE | 2017-10-09 12:08 | PN ---
Progress Note, Physician Chief Complaint: Mr Harry is without complaint and saying he feels well. Denies cp, sob, n/v, or gas pain. RN says he is having arthritic pain in his legs and ? history of gout. - Current Medication List Current Medications: Active Medications Acetaminophen (Tylenol -) 650 mg PO Q4H PRN PRN Reason: FEVER Last Admin: 10/09/17 08:20 Dose: 650 mg Heparin Sodium (Porcine) (Heparin -) 5,000 unit SQ BID [facility] Last Admin: 10/09/17 10:10 Dose: 5,000 unit Insulin Aspart (Novolog Vial Sliding Scale -) 1 vial SQ TIDAC [facility]; Protocol Last Admin: 10/09/17 11:43 Dose: 4 units Pantoprazole Sodium (Protonix Iv) 40 mg IVPUSH DAILY [facility] Last Admin: 10/09/17 10:10 Dose: 40 mg - Objective Vital Signs: Vital Signs Temperature 37.1 C 10/09/17 05:00 Pulse Rate 68 10/09/17 05:00 Respiratory Rate 18 10/09/17 05:00 Blood Pressure 161/72 10/09/17 05:00 O2 Sat by Pulse Oximetry (%) 98 10/08/17 21:00 Constitutional: Yes: Well Nourished, No Distress, Calm Cardiovascular: Yes: Regular Rate and Rhythm. No: Gallop, Murmur, Rub Respiratory: Yes: Regular, CTA Bilaterally. No: Rales, Rhonchi, Wheezes Gastrointestinal: Yes: Normal Bowel Sounds, Soft. No: Tenderness Extremities: Yes: WNL Edema: No Labs: CBC, BMP 10/09/17 06:30 10/09/17 06:30 Problem List - Problems (1) Renal failure (ARF), acute on chronic Code(s): N17.9 - ACUTE KIDNEY FAILURE, UNSPECIFIED; N18.9 - CHRONIC KIDNEY DISEASE, UNSPECIFIED Qualifiers: Acute renal failure type: unspecified Chronic kidney disease stage: stage 4 (severe) Qualified Code(s): N17.9 - Acute kidney failure, unspecified; N18.4 - Chronic kidney disease, stage 4 (severe) (2) Bradycardia Code(s): R00.1 - BRADYCARDIA, UNSPECIFIED (3) CAD (coronary artery disease) Code(s): I25.10 - ATHSCL HEART DISEASE OF [place] CORONARY ARTERY W/O [facility] PCTRS (4) Diabetes mellitus Code(s): E11.9 - TYPE 2 DIABETES MELLITUS WITHOUT COMPLICATIONS (5) HTN (hypertension) Code(s): I10 - ESSENTIAL (PRIMARY) HYPERTENSION (6) Pancreatitis, acute Code(s): K85.90 - ACUTE PANCREATITIS WITHOUT NECROSIS OR INFECTION, UNSP Qualifiers: Pancreatitis type: drug induced Acute pancreatitis complication: no infection or necrosis Qualified Code(s): K85.30 - Drug induced acute pancreatitis without necrosis or infection Assessment/Plan (1) Renal failure (ARF), acute on chronic Assessment/Plan: -at baseline -defer to nephrology when to restart diuretics Code(s): N17.9 - ACUTE KIDNEY FAILURE, UNSPECIFIED; N18.9 - CHRONIC KIDNEY DISEASE, UNSPECIFIED Qualifiers: Acute renal failure type: unspecified Chronic kidney disease stage: stage 4 (severe) Qualified Code(s): N17.9 - Acute kidney failure, unspecified; N18.4 - Chronic kidney disease, stage 4 (severe) (2) Bradycardia Assessment/Plan -resolved -cardiology following -continue telemetry Code(s): R00.1 - BRADYCARDIA, UNSPECIFIED (3) CAD (coronary artery disease) Assessment/Plan: -no chest pain -cardiology following Code(s): I25.10 - ATHSCL HEART DISEASE OF [place] CORONARY ARTERY W/O [facility] PCTRS (4) Diabetes mellitus Assessment/Plan: -continue FSBS and SSI -add back glipizide and onglyza Code(s): E11.9 - TYPE 2 DIABETES MELLITUS WITHOUT COMPLICATIONS (5) HTN (hypertension) Assessment/Plan: -will restart amlodipine Code(s): I10 - ESSENTIAL (PRIMARY) HYPERTENSION (6) Pancreatitis, acute Assessment/Plan: -appreciate GI assistance -agree with MRCP -much improved today and tolerating diet Code(s): K85.90 - ACUTE PANCREATITIS WITHOUT NECROSIS OR INFECTION, UNSP Qualifiers: Pancreatitis type: drug induced Acute pancreatitis complication: no infection or necrosis Qualified Code(s): K85.30 - Drug induced acute pancreatitis without necrosis or infection (7) Fever -awaiting blood and urine cultures (8) Arthritis -RN says has possible history of gout -will check uric acid -may need prednisone (9) Hypothyroidism -change levothyroxine to oral
--- NOTE | 2017-10-09 13:00 | PN ---
GI Progress Note Subjective: GI NOte: Tolerating solids. No pain or vomiting. MRCP pending. I have told Jose and his family that he should ideally undergo an EHD and colonoscopy to exclude a GI contributor to his anemia but that this will need to be deferred until his renal function stabilizes. He is willing to followup as an outpatient. - Objective Vital Signs: Vital Signs Temperature 101 F H 10/09/17 09:00 Pulse Rate 70 10/09/17 09:00 Respiratory Rate 18 10/09/17 09:00 Blood Pressure 143/50 10/09/17 09:00 O2 Sat by Pulse Oximetry (%) 98 10/09/17 09:00 Laboratory Tests 10/08/17 10/09/17 10/09/17 14:13 06:30 06:30 WBC 14.1 H Hgb 8.2 L LD Total 225 C-Reactive Protein Total Amylase Lipase 283 CA 19-9 Antigen TSH 3.95 H Urine Blood 1+ H 10/09/17 10/09/17 06:30 06:30 WBC Hgb LD Total C-Reactive Protein 5.8 H Total Amylase 72 D Lipase CA 19-9 Antigen Pending TSH Urine Blood Constitutional: Calm ...Auscultate: Yes: Normoactive Bowel Sounds ...Palpate: Yes: Soft, Other (nontender) Labs: CBC, BMP 10/09/17 06:30 10/09/17 06:30 Problem List - Problems (1) Abdominal pain Assessment/Plan: No symptoms of pancreatitis at this time. Await MRCP and doppler studies. Code(s): R10.9 - UNSPECIFIED ABDOMINAL PAIN Qualifiers: Abdominal location: right lower quadrant Qualified Code(s): R10.31 - Right lower quadrant pain (2) Ascites Code(s): R18.8 - OTHER ASCITES Qualifiers: Ascites type: other type Qualified Code(s): R18.8 - Other ascites (3) History of nephrolithiasis Code(s): Z87.442 - PERSONAL HISTORY OF URINARY CALCULI (4) Acid reflux Code(s): K21.9 - GASTRO-ESOPHAGEAL REFLUX DISEASE WITHOUT ESOPHAGITIS Qualifiers: Esophagitis presence: esophagitis presence not specified Qualified Code(s) : K21.9 - Gastro-esophageal reflux disease without esophagitis (5) History of coronary artery bypass graft Code(s): Z95.1 - PRESENCE OF AORTOCORONARY BYPASS GRAFT (6) Renal failure (ARF), acute on chronic Code(s): N17.9 - ACUTE KIDNEY FAILURE, UNSPECIFIED; N18.9 - CHRONIC KIDNEY DISEASE, UNSPECIFIED Qualifiers: Acute renal failure type: unspecified Chronic kidney disease stage: stage 4 (severe) Qualified Code(s): N17.9 - Acute kidney failure, unspecified; N18.4 - Chronic kidney disease, stage 4 (severe) (7) Anemia Assessment/Plan: GI tract evaluation deferred until more stable Code(s): D64.9 - ANEMIA, UNSPECIFIED
--- NOTE | 2017-10-09 13:24 | PN ---
Progress Note (short form) - Note Progress Note: Renal Follow up for ROBIN on CKD Pt seen at the bedside complains of pain on the base of both his feet no cp, sob, abd pain, N/V/D making urine Vital Signs Temperature 101 F H 10/09/17 09:00 Pulse Rate 70 10/09/17 09:00 Respiratory Rate 18 10/09/17 09:00 Blood Pressure 143/50 10/09/17 09:00 O2 Sat by Pulse Oximetry (%) 98 10/09/17 09:00 Intake & Output 10/06/17 10/07/17 10/08/17 10/09/17 23:59 23:59 23:59 23:59 Intake Total 1586 1489 460 400 Output Total 350 800 350 Balance 1236 689 110 400 Weight 68.039 kg 70.579 kg 71.214 kg NAD awake and alert MMM, no JVD RRR, No M/R CTA soft NT/ND trace LE edema CBC, BMP 10/09/17 06:30 10/09/17 06:30 Current Medications Acetaminophen (Tylenol -) 650 mg PO Q4H PRN PRN Reason: FEVER Last Admin: 10/09/17 08:20 Dose: 650 mg Amlodipine Besylate (Norvasc -) 10 mg PO DAILY [facility] Glipizide (Glucotrol Xl -) 2.5 mg PO ACBK [facility] Heparin Sodium (Porcine) (Heparin -) 5,000 unit SQ BID [facility] Last Admin: 10/09/17 10:10 Dose: 5,000 unit Insulin Aspart (Novolog Vial Sliding Scale -) 1 vial SQ TIDAC [facility]; Protocol Last Admin: 10/09/17 11:43 Dose: 4 units Levothyroxine Sodium (Synthroid -) 75 mcg PO ACBK [facility] Pantoprazole Sodium (Protonix Iv) 40 mg IVPUSH DAILY [facility] Last Admin: 10/09/17 10:10 Dose: 40 mg Sitagliptin Phosphate (Januvia -) 25 mg PO ACBK [facility] 77 year old gentleman with hx of CKD Stage 4/5, DM, CAD s/p CABG, Hyperlipidemia , Hypertension who presented with complaints of abd pain and found to have BUN/ Cr of 140/8.2 and K of 6. #Acute Renal Injury secondary to volume depletion vs. normotensive ATN vs. progressive CKD #CKD Stage 4/5 #CAD s/p CABG #Metabolic acidosis #Hyperkalemia #Anemia Renal function stable at this time no indication for further dialysis right IJ dialysis catheter removed using trendelenburg position. Pressure held over site for 5 minutes. No overt bleeding noted. will start Lasix 40mg PO daily, can titrate as needed as outpatient would not restart ARB or HCTZ at this time f/u cultures, no growth thus far Renal diet Rambo Kulkarni DO
[2017-10-09] MEDS: GABAPENTIN 100 MG CAPSULE (FP) PO SCH (14:20)
[2017-10-09] MEDS: FUROSEMIDE 40 MG TABLET (FP) PO SCH (14:20)
[2017-10-09] MEDS ORDERED: EPOETIN ALFA 20,000 UNIT/1 ML VIAL SQ ONE (14:45)
[2017-10-10] MEDS ORDERED: PT OWN MED DRAWER 7, Y5N ONE (05:33)
[2017-10-10] MEDS: LEVOTHYROXINE NA 75 MCG TABLET (FP) PO SCH (06:08)
[2017-10-10] MEDS: sitaGLIPtin PHOSPHATE 25 MG TABLET (FP) PO SCH (06:08)
[2017-10-10] MEDS: glipiZIDE-XL 2.5 MG TAB.ER.24 PO SCH (06:08)
[2017-10-10] MEDS: INSULIN SLIDING SCALE (NOVOLOG) 1 VIAL SQ SCH ×3 (06:08→18:42)
[2017-10-10 07:46] LABS: HEMATOCRIT 23.2 % (35.4-49); HEMOGLOBIN 7.7 GM/dL (11.7-16.9); MCH 29.7 pg (25.7-33.7); MCHC 33.3 g/dl (32.0-35.9); MEAN CELL VOLUME 89.2 fl (80-96); MEAN PLT VOLUME 10.3 fl (7.5-11.1); PLATELET COUNT 127 K/MM3 (134-434); RDW 17.3 % (11.9-15.9); WHITE BLOOD COUNT 11.8 K/mm3 (4.0-10.0)
[2017-10-10 08:19] LABS: ANION GAP 9 MMOL/L (8-16); BLOOD UREA NITROGEN 46 mg/dL (7-18); CALCIUM 7.8 mg/dL (8.5-10.1); CHLORIDE 102 mmol/L (98-107); CO2 28 mmol/L (21-32); CREATININE 3.7 mg/dL (0.7-1.3); GLUCOSE,RANDOM 113 mg/dL (74-106); MAGNESIUM 1.6 mg/dL (1.8-2.4); PHOSPHOROUS 2.8 mg/dL (2.5-4.9); POTASSIUM 3.6 mmol/L (3.5-5.1); SODIUM 139 mmol/L (136-145)
[2017-10-10 10:23] LABS: ANISOCYTOSIS 1+; MACROCYTOSIS 0; OVALOCYTE 1+; PLATELET ESTIMATE DECREASED; TEAR DROP CELLS 1+
[2017-10-10] MEDS: HEPARIN NA (PORCINE) 5,000 UNITS/ML 1ML VIAL SQ SCH ×2 (10:55→22:40)
[2017-10-10] MEDS: PANTOPRAZOLE SODIUM 40 MG VIAL IVPUSH SCH (10:56)
[2017-10-10] MEDS: amLODIPine BESYLATE 10 MG TABLET (FP) PO SCH (10:56)
[2017-10-10] MEDS: GABAPENTIN 100 MG CAPSULE (FP) PO SCH (10:56)
[2017-10-10] MEDS: FUROSEMIDE 40 MG TABLET (FP) PO SCH (10:56)
[2017-10-10] MEDS ORDERED: POTASSIUM CHLORIDE TABS 20 MEQ TABLET.ER (FP) PO ONE (11:00)
[2017-10-10] MEDS ORDERED: MAGNESIUM SULF 50% (8.12 MEQ/2 ML-1 GM VIAL) IVPB ONE (11:00)
[2017-10-10] MEDS: ACETAMINOPHEN 325 MG TABLET (FP) PO PRN (11:30)
[2017-10-10] MEDS ORDERED: PATIENT'S OWN MEDICATION (NON-FORMULARY) (Alfuzosin Hcl [Alfuzosin Hcl Er] 10 MG) PO SCH (11:45)
[2017-10-10] MEDS ORDERED: PIPERACILLIN/TAZOB 2.25 GM 2.25 GM in DEXTROSE 5%-WATER - 50 ML IVPB ONE (12:30)
[2017-10-10] MEDS ORDERED: VANCOMYCIN 1 GM PREMIX - 1 GM/200 ML BAG IVPB ONE (12:30)
--- NOTE | 2017-10-10 12:38 | PN ---
Progress Note, Physician Chief Complaint: abd pain History of Present Illness: no abd pain. no cp, sob, palpitations. obstruction last night--menchaca placed - Current Medication List Current Medications: Active Medications Acetaminophen (Tylenol -) 650 mg PO Q4H PRN PRN Reason: FEVER Last Admin: 10/10/17 11:30 Dose: 650 mg Amlodipine Besylate (Norvasc -) 10 mg PO DAILY [facility] Last Admin: 10/10/17 10:56 Dose: 10 mg Furosemide (Lasix -) 40 mg PO DAILY [facility] Last Admin: 10/10/17 10:56 Dose: 40 mg Gabapentin (Neurontin -) 100 mg PO DAILY [facility] Last Admin: 10/10/17 10:56 Dose: 100 mg Glipizide (Glucotrol Xl -) 2.5 mg PO ACBK [facility] Last Admin: 10/10/17 06:08 Dose: 2.5 mg Heparin Sodium (Porcine) (Heparin -) 5,000 unit SQ BID [facility] Last Admin: 10/10/17 10:55 Dose: 5,000 unit Vancomycin HCl (Vancomycin 1 Gm Premix -) 1 gm in 200 mls @ 133.333 mls/hr IVPB ONCE ONE; Protocol Stop: 10/10/17 13:59 Piperacillin Sod/Tazobactam (Sod 2.25 gm/ Dextrose) 50 mls @ 100 mls/hr IVPB 1230 ONE; Protocol Stop: 10/10/17 12:59 Insulin Aspart (Novolog Vial Sliding Scale -) 1 vial SQ TIDAC [facility]; Protocol Last Admin: 10/10/17 06:08 Dose: Not Given Levothyroxine Sodium (Synthroid -) 75 mcg PO ACBK [facility] Last Admin: 10/10/17 06:08 Dose: 75 mcg Non-Formulary Medication (Alfuzosin Hcl [Alfuzosin Hcl Er]) 10 mg PO DAILY [facility] Pantoprazole Sodium (Protonix Iv) 40 mg IVPUSH DAILY [facility] Last Admin: 10/10/17 10:56 Dose: 40 mg Sitagliptin Phosphate (Januvia -) 25 mg PO ACBK [facility] Last Admin: 10/10/17 06:08 Dose: 25 mg - Objective Vital Signs: Vital Signs Temperature 98.5 F 10/10/17 06:00 Pulse Rate 70 10/10/17 06:00 Respiratory Rate 17 10/10/17 06:00 Blood Pressure 153/70 10/10/17 06:00 O2 Sat by Pulse Oximetry (%) 98 10/09/17 21:00 Constitutional: Yes: Well Nourished, No Distress, Calm Cardiovascular: Yes: Regular Rate and Rhythm, S1, S2. No: Gallop, Murmur Respiratory: Yes: Regular. No: CTA Bilaterally, Accessory Muscle Use, Rales, Wheezes Extremities: No: Cold Edema: No Neurological: Yes: Alert, Oriented Psychiatric: No: Agitated Labs: CBC, BMP 10/10/17 07:00 10/10/17 07:00 Assessment/Plan ECG: sinus leeann at 30 bpm, normal axis/intervals; no ST-T abn, no q waves CT abdomen: small effusions, small ascites with soft tissue edema, mild fabio- pancreatic soft tissue stranding consider mild pancreatitis carotid dopplers: could not be completed due to neck venous catheter tele: NSR 50s-70s RUQ abd pain and tenderness: - GI eval ongoing, no etiology found/suspected yet. - to have MRI/MRCP to exclude gallstones, pancreatic neoplasm ROBIN on CKD: -creat 8s on admit, with K 6--s/p urgent HD, Cr improved -etiology unclear, renal following--? progression of advanced CKD at baseline, per d/w dr hankins -renal fxn improved significantly, Cr remains elevated 3.4 -holding home losartan sinus bradycardia: -likely was in setting of acute metabolic abnormalities--renal failure, hyperkalemia, acidosis, may also be related to acute abd process, abd pain -resolved -carvedilol held (of note: this agent is not felt to accumulate significantly in the bloodstream in low GFR pts) -if tele remains WNL tomorrow will plan to d/c tele bilat carotid bruits: -dopplers not able to be completed due to indwelling venous catheter in neck. -pt asymptomatic. -rpt study as outpt h/o CAD s/p CABG, elevated troponin: -trop intermediate range, flat trend (0.3 x 3)--not c/w ACS. no isch ecg changes -cont home aspirin -home meds need reconciliation re: home statin regimen--no change to prior plan HTN: -held BB, ARB as above -bp 150s-170s the past 24 hrs, amlodipine 10mg qd to start today DM: -per hospitalist
--- NOTE | 2017-10-10 12:40 | PN ---
Progress Note, Physician Chief Complaint: Mr Harry says he is having urinary retention and burning on urination that started last night. Denies cp, sob, n/v. - Current Medication List Current Medications: Active Medications Acetaminophen (Tylenol -) 650 mg PO Q4H PRN PRN Reason: FEVER Last Admin: 10/10/17 11:30 Dose: 650 mg Amlodipine Besylate (Norvasc -) 10 mg PO DAILY [facility] Last Admin: 10/10/17 10:56 Dose: 10 mg Furosemide (Lasix -) 40 mg PO DAILY [facility] Last Admin: 10/10/17 10:56 Dose: 40 mg Gabapentin (Neurontin -) 100 mg PO DAILY [facility] Last Admin: 10/10/17 10:56 Dose: 100 mg Glipizide (Glucotrol Xl -) 2.5 mg PO ACBK [facility] Last Admin: 10/10/17 06:08 Dose: 2.5 mg Heparin Sodium (Porcine) (Heparin -) 5,000 unit SQ BID [facility] Last Admin: 10/10/17 10:55 Dose: 5,000 unit Vancomycin HCl (Vancomycin 1 Gm Premix -) 1 gm in 200 mls @ 133.333 mls/hr IVPB ONCE ONE; Protocol Stop: 10/10/17 13:59 Piperacillin Sod/Tazobactam (Sod 2.25 gm/ Dextrose) 50 mls @ 100 mls/hr IVPB 1230 ONE; Protocol Stop: 10/10/17 12:59 Insulin Aspart (Novolog Vial Sliding Scale -) 1 vial SQ TIDAC [facility]; Protocol Last Admin: 10/10/17 06:08 Dose: Not Given Levothyroxine Sodium (Synthroid -) 75 mcg PO ACBK [facility] Last Admin: 10/10/17 06:08 Dose: 75 mcg Non-Formulary Medication (Alfuzosin Hcl [Alfuzosin Hcl Er]) 10 mg PO DAILY [facility] Pantoprazole Sodium (Protonix Iv) 40 mg IVPUSH DAILY [facility] Last Admin: 10/10/17 10:56 Dose: 40 mg Sitagliptin Phosphate (Januvia -) 25 mg PO ACBK [facility] Last Admin: 10/10/17 06:08 Dose: 25 mg - Objective Vital Signs: Vital Signs Temperature 36.9 C 10/10/17 06:00 Pulse Rate 70 10/10/17 06:00 Respiratory Rate 17 10/10/17 06:00 Blood Pressure 153/70 10/10/17 06:00 O2 Sat by Pulse Oximetry (%) 98 10/09/17 21:00 Constitutional: Yes: Well Nourished, No Distress, Calm Cardiovascular: Yes: Regular Rate and Rhythm. No: Gallop, Murmur, Rub Respiratory: Yes: Regular, CTA Bilaterally. No: Rales, Rhonchi, Wheezes Gastrointestinal: Yes: Normal Bowel Sounds, Soft. No: Distention, Tenderness Extremities: Yes: WNL Edema: No Labs: CBC, BMP 10/10/17 07:00 10/10/17 07:00 Problem List - Problems (1) Renal failure (ARF), acute on chronic Code(s): N17.9 - ACUTE KIDNEY FAILURE, UNSPECIFIED; N18.9 - CHRONIC KIDNEY DISEASE, UNSPECIFIED Qualifiers: Qualified Code(s): N17.9 - Acute kidney failure, unspecified; N18.4 - Chronic kidney disease, stage 4 (severe) (2) Bradycardia Code(s): R00.1 - BRADYCARDIA, UNSPECIFIED (3) CAD (coronary artery disease) Code(s): I25.10 - ATHSCL HEART DISEASE OF [place] CORONARY ARTERY W/O ANG PCTRS (4) Diabetes mellitus Code(s): E11.9 - TYPE 2 DIABETES MELLITUS WITHOUT COMPLICATIONS (5) HTN (hypertension) Code(s): I10 - ESSENTIAL (PRIMARY) HYPERTENSION (6) Pancreatitis, acute Code(s): K85.90 - ACUTE PANCREATITIS WITHOUT NECROSIS OR INFECTION, UNSP Qualifiers: Qualified Code(s): K85.30 - Drug induced acute pancreatitis without necrosis or infection Assessment/Plan (1) Renal failure (ARF), acute on chronic Assessment/Plan: -still at baseline -diuretics restarted -monitor Code(s): N17.9 - ACUTE KIDNEY FAILURE, UNSPECIFIED; N18.9 - CHRONIC KIDNEY DISEASE, UNSPECIFIED Qualifiers: Acute renal failure type: unspecified Chronic kidney disease stage: stage 4 (severe) Qualified Code(s): N17.9 - Acute kidney failure, unspecified; N18.4 - Chronic kidney disease, stage 4 (severe) (2) Bradycardia Assessment/Plan -resolved -cardiology following -continue telemetry Code(s): R00.1 - BRADYCARDIA, UNSPECIFIED (3) CAD (coronary artery disease) Assessment/Plan: -no chest pain -cardiology following Code(s): I25.10 - ATHSCL HEART DISEASE OF [place] CORONARY ARTERY W/O ANG PCTRS (4) Diabetes mellitus Assessment/Plan: -continue FSBS and SSI -continue glipizide and onglyza -well controlled Code(s): E11.9 - TYPE 2 DIABETES MELLITUS WITHOUT COMPLICATIONS (5) HTN (hypertension) Assessment/Plan: -continue lasix and amlodipine -remains elevated -may need further addition Code(s): I10 - ESSENTIAL (PRIMARY) HYPERTENSION (6) Pancreatitis, acute Assessment/Plan: -appreciate GI assistance -MRCP done and reviewed Code(s): K85.90 - ACUTE PANCREATITIS WITHOUT NECROSIS OR INFECTION, UNSP Qualifiers: Pancreatitis type: drug induced Acute pancreatitis complication: no infection or necrosis Qualified Code(s): K85.30 - Drug induced acute pancreatitis without necrosis or infection (7) Sepsis -one set from the central line sent, peripheral cultures not obtained -aerobic bottle growing bacteria -will recheck cultures today -? if staph from line, give dose of vancomycin -with retention and dysuria, could be UTI -also with changes on CT/MRCP, ? abdominal source -will also give dose of zosyn -ID consulted (8) Arthritis -uric acid normal -no complaints of pain today (9) Hypothyroidism -oral levothyroxine
[2017-10-10] MEDS ORDERED: PIPERACILLIN/TAZOBACTAM 2.25 GM VIAL IVPB ONE (14:41)
[2017-10-10] MEDS ORDERED: DEXTROSE 5%-WATER - 50 ML IVPB ONE (14:41)
--- NOTE | 2017-10-10 15:45 | CON.ID ---
Consult Consult Specialty:: infectious diseases Reason for Consultation:: positive blood cx - History of Present Illness Chief Complaint: weakness History of Present Illness: This is a 77 year old gentleman with hx of CKD Stage 4/5, DM, CAD s/p CABG, Hyperlipidemia, Hypertension who presented with complaints of abd pain and found to have BUN/Cr of 140/8.2 and K of 6. Pt follows with his own biomedical equipment tech Dr. Sunday Parada [phone]. Was seen last week and was told that everything was stable. Denies any NSIAD use. Is on ARB and Bumex at home. Denies any N/V/D or change in diet. No flank pain, hematuria, dysuria. No recent Abx use. No skin rash. No muscle weakness, Abd pain, confusion, lethargy or weaknes patient then was c/o of back pain and was worked up by gi.currently when asked patient does not have any complaints says he is 80 percent better i was called in because patient is growing gm positive bacteria from his central line patient denies any fever or chills or any other issues except pain at the penile site and he has foleys in place patients central line was removed and he got one dose of vanco and recx have been ordered - History Source History Provided By: Patient, Family Member Limitations to Obtaining History: Language Barrier - Past Medical History Cardio/Vascular: Yes: CAD (s/p CABG 2009 at [facility]), HTN, Hyperlipdemia Renal/: Yes: Renal Failure, Renal Calculi Endocrine: Yes: Diabetes Mellitus, Hypothyroidism - Past Surgical History Past Surgical History: Yes: None, CABG (2009 at [facility]) - Alcohol/Substance Use Hx Alcohol Use: Yes (rare) History of Substance Use: reports: None - Smoking History Smoking history: Never smoked - Social History Usual Living Arrangement: With Spouse ADL: Independent 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) ) History of Recent Travel: No Home Medications - Allergies Allergies/Adverse Reactions: Allergies Allergy/AdvReac Type Severity Reaction Status Date / Time No Known Allergies Allergy Verified 10/04/17 17:44 - Home Medications Home Medications: Ambulatory Orders Alfuzosin HCl [Alfuzosin HCl ER] 10 mg PO DAILY 10/04/17 Aspirin [ASA -] 81 mg PO DAILY 10/04/17 Carvedilol [Coreg -] 6.25 mg PO ONCE 10/04/17 Glipizide [Glipizide ER] 2.5 mg PO DAILY 10/04/17 Levothyroxine [Synthroid -] 75 mcg PO DAILY 10/04/17 RX: Amlodipine Besylate 10 mg PO DAILY 10/04/17 RX: Bumetanide 0.5 mg PO DAILY 10/04/17 RX: Losartan Potassium 100 mg PO DAILY 10/04/17 Saxagliptin HCl [Onglyza] 2.5 mg PO DAILY 10/04/17 Family Disease History - Family Disease History Family Disease History: Diabetes: Mother (lived to 84,. had asthma), Other: Father (lived to 96) Other Family History: no cancer, pancreatitis, liver or GB disease Review of Systems - Review of Systems Constitutional: reports: No Symptoms Eyes: reports: No Symptoms HENT: reports: No Symptoms Neck: reports: No Symptoms Cardiovascular: reports: No Symptoms Respiratory: reports: No Symptoms Gastrointestinal: reports: No Symptoms Genitourinary: reports: No Symptoms Musculoskeletal: reports: No Symptoms Integumentary: reports: No Symptoms Neurological: reports: No Symptoms Endocrine: reports: No Symptoms Hematology/Lymphatic: reports: No Symptoms Psychiatric: reports: No Symptoms Physical Exam Vital Signs: Vital Signs Temperature 98.3 F 10/10/17 14:00 Pulse Rate 66 10/10/17 14:00 Respiratory Rate 20 10/10/17 14:00 Blood Pressure 134/69 10/10/17 14:00 O2 Sat by Pulse Oximetry (%) 98 10/09/17 21:00 Constitutional: Yes: Well Nourished, No Distress, Calm Eyes: Yes: Conjunctiva Clear Cardiovascular: Yes: Regular Rate and Rhythm Respiratory: Yes: Regular, CTA Bilaterally Gastrointestinal: Yes: Normal Bowel Sounds, Soft Renal/: Yes: Johnston Present Musculoskeletal: Yes: WNL Extremities: Yes: WNL Wound/Incision: Yes: Clean/Dry Neurological: Yes: Alert, Oriented Labs: CBC, BMP 10/10/17 07:00 10/10/17 07:00 Imaging - Results Chest X-ray: Report Reviewed, Image Reviewed Cat Scan: Report Reviewed, Image Reviewed MRI: Report Reviewed, Image Reviewed Assessment/Plan Problem List - Problems (1) Renal failure (ARF), acute on chronic Code(s): N17.9 - ACUTE KIDNEY FAILURE, UNSPECIFIED; N18.9 - CHRONIC KIDNEY DISEASE, UNSPECIFIED Qualifiers: Acute renal failure type: unspecified Chronic kidney disease stage: stage 4 (severe) Qualified Code(s): N17.9 - Acute kidney failure, unspecified; N18.4 - Chronic kidney disease, stage 4 (severe) (2) Bradycardia Code(s): R00.1 - BRADYCARDIA, UNSPECIFIED (3) CAD (coronary artery disease) Code(s): I25.10 - ATHSCL HEART DISEASE OF [place] CORONARY ARTERY W/O ANG PCTRS (4) Diabetes mellitus Code(s): E11.9 - TYPE 2 DIABETES MELLITUS WITHOUT COMPLICATIONS (5) HTN (hypertension) Code(s): I10 - ESSENTIAL (PRIMARY) HYPERTENSION (6) Pancreatitis, acute Code(s): K85.90 - ACUTE PANCREATITIS WITHOUT NECROSIS OR INFECTION, UNSP Qualifiers: Pancreatitis type: drug induced Acute pancreatitis complication: no infection or necrosis Qualified Code(s): K85.30 - Drug induced acute pancreatitis without necrosis or infection (7) Urinary retention Code(s): R33.9 - RETENTION OF URINE, UNSPECIFIED Assessment/Plan will continue patient on vanco will await for repeat blood cx once we have all the cx reports then we will decide the final plan patient stable
--- NOTE | 2017-10-10 17:40 | PN ---
Progress Note (short form) - Note Progress Note: Renal Follow up for ROBIN on CKD Pt seen at the bedside no fevers, chills, sob, abd pain had menchaca inserted overnight for urinary retention no dysuria no sob Vital Signs Temperature 98.3 F 10/10/17 14:00 Pulse Rate 66 10/10/17 14:00 Respiratory Rate 20 10/10/17 14:00 Blood Pressure 134/69 10/10/17 14:00 O2 Sat by Pulse Oximetry (%) 98 10/09/17 21:00 Intake & Output 10/07/17 10/08/17 10/09/17 10/10/17 23:59 23:59 23:59 23:59 Intake Total 1489 460 760 250 Output Total 800 843 061 9123 Balance 689 110 510 -1030 Weight 70.579 kg 71.214 kg 70.398 kg NAD awake and alert MMM, no JVD RRR, No M/R CTA soft NT/ND trace LE edema CBC, BMP 10/10/17 07:00 10/10/17 07:00 Current Medications Acetaminophen (Tylenol -) 650 mg PO Q4H PRN PRN Reason: FEVER Last Admin: 10/10/17 11:30 Dose: 650 mg Amlodipine Besylate (Norvasc -) 10 mg PO DAILY [facility] Last Admin: 10/10/17 10:56 Dose: 10 mg Furosemide (Lasix -) 40 mg PO DAILY [facility] Last Admin: 10/10/17 10:56 Dose: 40 mg Gabapentin (Neurontin -) 100 mg PO DAILY [facility] Last Admin: 10/10/17 10:56 Dose: 100 mg Glipizide (Glucotrol Xl -) 2.5 mg PO ACBK [facility] Last Admin: 10/10/17 06:08 Dose: 2.5 mg Heparin Sodium (Porcine) (Heparin -) 5,000 unit SQ BID [facility] Last Admin: 10/10/17 10:55 Dose: 5,000 unit Vancomycin HCl (Vancomycin 1 Gm Premix -) 1 gm in 200 mls @ 133.333 mls/hr IVPB Q24H [facility]; Protocol Insulin Aspart (Novolog Vial Sliding Scale -) 1 vial SQ TIDAC [facility]; Protocol Last Admin: 10/10/17 12:48 Dose: Not Given Levothyroxine Sodium (Synthroid -) 75 mcg PO ACBK [facility] Last Admin: 10/10/17 06:08 Dose: 75 mcg Pantoprazole Sodium (Protonix -) 40 mg PO DAILY [facility] Sitagliptin Phosphate (Januvia -) 25 mg PO ACBK [facility] Last Admin: 10/10/17 06:08 Dose: 25 mg Tamsulosin HCl (Flomax -) 0.4 mg PO DAILY@0830 [facility] 77 year old gentleman with hx of CKD Stage 4/5, DM, CAD s/p CABG, Hyperlipidemia , Hypertension who presented with complaints of abd pain and found to have BUN/ Cr of 140/8.2 and K of 6. #Acute Renal Injury secondary to volume depletion vs. normotensive ATN vs. progressive CKD #CKD Stage 4/5 #CAD s/p CABG #Metabolic acidosis #Hyperkalemia #Anemia #Fever/Bacteremia Renal function stable thus far no need for additional HD continue Menchaca, add proscar and titrate flomax blood culture positive, ? due to catheter related infection Abx as per ID repeat cultures collected Trend CBC, s/p epogen yesterday would defer IV iron given bacteremia Rambo Kulkarni DO
--- NOTE | 2017-10-10 23:11 | PN ---
GI Progress Note Subjective: GI NOte; MRI reveals no evidence of stones that would cause biliary pancreatitis. The pancreas is unremarkable on MRI. - Objective Vital Signs: Vital Signs Temperature 98.2 F 10/10/17 17:00 Pulse Rate 62 10/10/17 17:00 Respiratory Rate 18 10/10/17 17:00 Blood Pressure 140/65 10/10/17 17:00 O2 Sat by Pulse Oximetry (%) 98 10/09/17 21:00 Laboratory Tests 10/05/17 10/05/17 10/09/17 15:00 15:00 06:30 CA 19-9 Antigen 17 Hep A IgM Ab Confirm Negative Hepatitis A Ab Total Positive H Hep Bs Antigen Negative Hep Bs Antibody Non reactive Hep B Core Total Ab Negative Hep C Ab Diagnostic <0.1 Constitutional: No Distress ...Auscultate: Yes: Normoactive Bowel Sounds ...Palpate: Yes: Soft, Other (nontender) Labs: CBC, BMP 10/10/17 07:00 10/10/17 07:00 Problem List - Problems (1) Abdominal pain Assessment/Plan: No symptoms of pancreatitis at this time. No MRCP evidence for pancreatitis. NO evidence for Budd Chiari syndrome by Doppler. Tolerating diet Code(s): R10.9 - UNSPECIFIED ABDOMINAL PAIN Qualifiers: Abdominal location: right lower quadrant Qualified Code(s): R10.31 - Right lower quadrant pain (2) Ascites Code(s): R18.8 - OTHER ASCITES Qualifiers: Ascites type: other type Qualified Code(s): R18.8 - Other ascites (3) History of nephrolithiasis Code(s): Z87.442 - PERSONAL HISTORY OF URINARY CALCULI (4) Acid reflux Code(s): K21.9 - GASTRO-ESOPHAGEAL REFLUX DISEASE WITHOUT ESOPHAGITIS Qualifiers: Esophagitis presence: esophagitis presence not specified Qualified Code(s) : K21.9 - Gastro-esophageal reflux disease without esophagitis (5) History of coronary artery bypass graft Code(s): Z95.1 - PRESENCE OF AORTOCORONARY BYPASS GRAFT (6) Renal failure (ARF), acute on chronic Code(s): N17.9 - ACUTE KIDNEY FAILURE, UNSPECIFIED; N18.9 - CHRONIC KIDNEY DISEASE, UNSPECIFIED Qualifiers: Acute renal failure type: unspecified Chronic kidney disease stage: stage 4 (severe) Qualified Code(s): N17.9 - Acute kidney failure, unspecified; N18.4 - Chronic kidney disease, stage 4 (severe) (7) Anemia Code(s): D64.9 - ANEMIA, UNSPECIFIED
[2017-10-11] MEDS ORDERED: PT OWN MED DRAWER 7, Y5N ONE ×2 (06:01→09:28)
[2017-10-11] MEDS: LEVOTHYROXINE NA 75 MCG TABLET (FP) PO SCH (06:51)
[2017-10-11] MEDS: INSULIN SLIDING SCALE (NOVOLOG) 1 VIAL SQ SCH ×3 (06:52→17:49)
[2017-10-11] MEDS: sitaGLIPtin PHOSPHATE 25 MG TABLET (FP) PO SCH (06:52)
[2017-10-11] MEDS: glipiZIDE-XL 2.5 MG TAB.ER.24 PO SCH (06:52)
[2017-10-11 07:57] LABS: BASO % 0.5 % (0-2.0); EOS % 3.8 % (0-4.5); HEMATOCRIT 23.4 % (35.4-49); HEMOGLOBIN 7.7 GM/dL (11.7-16.9); LYMPH % 7.1 % (8-40); MCH 29.4 pg (25.7-33.7); MCHC 33.1 g/dl (32.0-35.9); MEAN CELL VOLUME 88.9 fl (80-96); MEAN PLT VOLUME 10.7 fl (7.5-11.1); MONO % 8.5 % (3.8-10.2); NEUT % 80.1 % (42.8-82.8); PLATELET COUNT 152 K/MM3 (134-434); RBC 2.63 M/mm3 (4.00-5.60); RDW 17.2 % (11.9-15.9); WHITE BLOOD COUNT 12.3 K/mm3 (4.0-10.0)
[2017-10-11 08:46] LABS: ANION GAP 8 MMOL/L (8-16); BLOOD UREA NITROGEN 53 mg/dL (7-18); CALCIUM 7.9 mg/dL (8.5-10.1); CHLORIDE 102 mmol/L (98-107); CO2 28 mmol/L (21-32); GLUCOSE,RANDOM 66 mg/dL (74-106); POTASSIUM 3.8 mmol/L (3.5-5.1); SODIUM 138 mmol/L (136-145)
[2017-10-11 08:49] LABS: CREATININE 3.7 mg/dL (0.7-1.3); MAGNESIUM 1.7 mg/dL (1.8-2.4); PHOSPHOROUS 2.9 mg/dL (2.5-4.9)
[2017-10-11] MEDS: FUROSEMIDE 40 MG TABLET (FP) PO SCH (09:29)
[2017-10-11] MEDS: TAMSULOSIN HCL 0.4 MG CAP.ER.24H (FP) PO SCH (09:29)
[2017-10-11] MEDS: GABAPENTIN 100 MG CAPSULE (FP) PO SCH (09:29)
[2017-10-11] MEDS: HEPARIN NA (PORCINE) 5,000 UNITS/ML 1ML VIAL SQ SCH ×2 (09:29→21:20)
[2017-10-11] MEDS: amLODIPine BESYLATE 10 MG TABLET (FP) PO SCH (09:29)
[2017-10-11] MEDS: PANTOPRAZOLE 40 MG TABLET (FP) PO SCH (09:29)
--- NOTE | 2017-10-11 09:50 | PN ---
Progress Note (short form) - Note Progress Note: cc: abd pain s: no abd pain, cp, sob, palps. has bilateral lower ext edema since yesterday afternoon Current Medications Acetaminophen (Tylenol -) 650 mg PO Q4H PRN PRN Reason: FEVER Last Admin: 10/10/17 11:30 Dose: 650 mg Amlodipine Besylate (Norvasc -) 10 mg PO DAILY [facility] Last Admin: 10/11/17 09:29 Dose: 10 mg Furosemide (Lasix -) 40 mg PO DAILY [facility] Last Admin: 10/11/17 09:29 Dose: 40 mg Gabapentin (Neurontin -) 100 mg PO DAILY [facility] Last Admin: 10/11/17 09:29 Dose: 100 mg Glipizide (Glucotrol Xl -) 2.5 mg PO ACBK [facility] Last Admin: 10/11/17 06:52 Dose: 2.5 mg Heparin Sodium (Porcine) (Heparin -) 5,000 unit SQ BID [facility] Last Admin: 10/11/17 09:29 Dose: 5,000 unit Vancomycin HCl (Vancomycin 1 Gm Premix -) 1 gm in 200 mls @ 133.333 mls/hr IVPB Q24H [facility]; Protocol Insulin Aspart (Novolog Vial Sliding Scale -) 1 vial SQ TIDAC [facility]; Protocol Last Admin: 10/11/17 06:52 Dose: Not Given Levothyroxine Sodium (Synthroid -) 75 mcg PO ACBK [facility] Last Admin: 10/11/17 06:51 Dose: 75 mcg Magnesium Sulfate (Magnesium Sulfate) 2 gm IVPB ONCE ONE Stop: 10/11/17 09:52 Pantoprazole Sodium (Protonix -) 40 mg PO DAILY [facility] Last Admin: 10/11/17 09:29 Dose: 40 mg Sitagliptin Phosphate (Januvia -) 25 mg PO ACBK [facility] Last Admin: 10/11/17 06:52 Dose: 25 mg Tamsulosin HCl (Flomax -) 0.4 mg PO DAILY@0830 [facility] Last Admin: 10/11/17 09:29 Dose: 0.4 mg - Objective Vital Signs Period Temp Pulse Resp BP Sys/Ramos Pulse Ox Last 24 Hr 97.6 F-100.1 F 62-86 18-20 134-172/56-94 96 Constitutional: Yes: Well Nourished, No Distress, Calm Cardiovascular: Yes: Regular Rate and Rhythm, S1, S2. No: Gallop, Murmur Respiratory: Yes: Regular. No: CTA Bilaterally, Accessory Muscle Use, Rales, Wheezes Extremities: No: Cold Edema: No Neurological: Yes: Alert, Oriented Psychiatric: No: Agitated Assessment/Plan ECG: sinus leeann at 30 bpm, normal axis/intervals; no ST-T abn, no q waves CT abdomen: small effusions, small ascites with soft tissue edema, mild fabio- pancreatic soft tissue stranding consider mild pancreatitis carotid dopplers: could not be completed due to neck venous catheter tele: NSR 50s-70s RUQ abd pain and tenderness: - GI eval ongoing, no etiology found/suspected yet. - MRI/MRCP no gallstones ROBIN on CKD: -creat 8s on admit, with K 6--s/p urgent HD, Cr improved -etiology unclear, renal following--? progression of advanced CKD at baseline, per d/w dr hankins -renal fxn improved significantly, Cr remains elevated, menchaca placed for obstruction, -holding home losartan - lasix 40 mg daily restarted, appreciate renal recs sinus bradycardia: -likely was in setting of acute metabolic abnormalities--renal failure, hyperkalemia, acidosis, may also be related to acute abd process, abd pain -resolved, carvedilol was stopped - DC tele edema - may be in setting of ROBIN - now back on home lasix per renal, weight decreasing, no dyspnea, has been stable - also recently started amlodipine which may cause edema - monitor, would consider IV lasix if develops dyspnea bilat carotid bruits: -dopplers not able to be completed due to indwelling venous catheter in neck. -pt asymptomatic. -rpt study as outpt h/o CAD s/p CABG, elevated troponin: -trop intermediate range, flat trend (0.3 x 3)--not c/w ACS. no isch ecg changes -cont home aspirin -home meds need reconciliation re: home statin regimen--no change to prior plan HTN: -held BB, ARB as above -bp 150s-170s the past 24 hrs, continue amlodipine DM: -per hospitalist
--- NOTE | 2017-10-11 09:53 | PN ---
Progress Note, Physician Chief Complaint: Pt sitting in chair in no acute distress. Reports feeling well. Denies any chest pain, sob, n/v/d - Current Medication List Current Medications: Active Medications Acetaminophen (Tylenol -) 650 mg PO Q4H PRN PRN Reason: FEVER Last Admin: 10/10/17 11:30 Dose: 650 mg Amlodipine Besylate (Norvasc -) 10 mg PO DAILY [facility] Last Admin: 10/11/17 09:29 Dose: 10 mg Furosemide (Lasix -) 40 mg PO DAILY [facility] Last Admin: 10/11/17 09:29 Dose: 40 mg Gabapentin (Neurontin -) 100 mg PO DAILY [facility] Last Admin: 10/11/17 09:29 Dose: 100 mg Glipizide (Glucotrol Xl -) 2.5 mg PO ACBK [facility] Last Admin: 10/11/17 06:52 Dose: 2.5 mg Heparin Sodium (Porcine) (Heparin -) 5,000 unit SQ BID [facility] Last Admin: 10/11/17 09:29 Dose: 5,000 unit Vancomycin HCl (Vancomycin 1 Gm Premix -) 1 gm in 200 mls @ 133.333 mls/hr IVPB Q24H [facility]; Protocol Insulin Aspart (Novolog Vial Sliding Scale -) 1 vial SQ TIDAC [facility]; Protocol Last Admin: 10/11/17 06:52 Dose: Not Given Levothyroxine Sodium (Synthroid -) 75 mcg PO ACBK [facility] Last Admin: 10/11/17 06:51 Dose: 75 mcg Magnesium Sulfate (Magnesium Sulfate) 2 gm IVPB ONCE ONE Stop: 10/11/17 09:52 Pantoprazole Sodium (Protonix -) 40 mg PO DAILY [facility] Last Admin: 10/11/17 09:29 Dose: 40 mg Sitagliptin Phosphate (Januvia -) 25 mg PO ACBK [facility] Last Admin: 10/11/17 06:52 Dose: 25 mg Tamsulosin HCl (Flomax -) 0.4 mg PO DAILY@0830 [facility] Last Admin: 10/11/17 09:29 Dose: 0.4 mg - Objective Vital Signs: Vital Signs Temperature 99.0 F 10/11/17 08:52 Pulse Rate 74 10/11/17 08:52 Respiratory Rate 20 10/11/17 08:52 Blood Pressure 137/70 10/11/17 08:52 O2 Sat by Pulse Oximetry (%) 96 08/23/18 21:00 Constitutional: Yes: Well Nourished, No Distress, Calm Cardiovascular: Yes: WNL, Regular Rate and Rhythm. No: Gallop, Murmur Respiratory: Yes: WNL, Regular, CTA Bilaterally. No: Rhonchi, SOB, Tachypnea, Wheezes Gastrointestinal: Yes: WNL, Normal Bowel Sounds, Soft. No: Distention, Tenderness Genitourinary: Yes: [place] Present Edema: Yes (pedal ankle edema ) Edema: LLE: 1+, RLE: 1+ Neurological: Yes: WNL, Alert, Oriented Psychiatric: Yes: WNL, Alert, Oriented Labs: CBC, BMP 10/11/17 06:30 10/11/17 06:30 Assessment/Plan (1) Renal failure (ARF), acute on chronic Assessment/Plan: -improved, at baseline -continue lasix per nephrology -monitor Code(s): N17.9 - ACUTE KIDNEY FAILURE, UNSPECIFIED; N18.9 - CHRONIC KIDNEY DISEASE, UNSPECIFIED Qualifiers: Acute renal failure type: unspecified Chronic kidney disease stage: stage 4 (severe) Qualified Code(s): N17.9 - Acute kidney failure, unspecified; N18.4 - Chronic kidney disease, stage 4 (severe) (2) Bradycardia Assessment/Plan -resolved -tele monitoring -cardiology following Code(s): R00.1 - BRADYCARDIA, UNSPECIFIED (3) CAD (coronary artery disease) Assessment/Plan: -no acute ACS -cardiology following Code(s): I25.10 - ATHSCL HEART DISEASE OF [place] CORONARY ARTERY W/O ANG PCTRS (4) Diabetes mellitus Assessment/Plan: -controlled -continue BGM -Insulin sliding scale -continue glipizide and onglyza Code(s): E11.9 - TYPE 2 DIABETES MELLITUS WITHOUT COMPLICATIONS (5) HTN (hypertension) Assessment/Plan: - mild elevation trends - continue lasix, amlodipine - monitor Code(s): I10 - ESSENTIAL (PRIMARY) HYPERTENSION (6) Pancreatitis, acute Assessment/Plan: -ruled out by GI -No MRCP evidence for pancreatitis. Code(s): K85.90 - ACUTE PANCREATITIS WITHOUT NECROSIS OR INFECTION, UNSP Qualifiers: Pancreatitis type: drug induced Acute pancreatitis complication: no infection or necrosis Qualified Code(s): K85.30 - Drug induced acute pancreatitis without necrosis or infection (7) Sepsis -aerobic bottle growing bacteria -repeat blood cultures pending -febrile overnight, UA neg, source unknown -ID following -Antibx per ID (8) Arthritis Assessment/Plan: stable (9) Hypothyroidism Assessment/Plan: stable continue levothyroxine (10)Acute urinary retention Assessment/Plan: denies any dysuria today menchaca in place TOV per nephrology monitor
[2017-10-11] MEDS ORDERED: PATIENT'S OWN MEDICATION (NON-FORMULARY) (Alfuzosin Hcl [Alfuzosin Hcl Er] 10 MG) PO SCH (10:00)
[2017-10-11] MEDS ORDERED: BISACODYL 10 MG SUPP.RECT PR PRN (10:04)
[2017-10-11] MEDS ORDERED: MAGNESIUM 2GM/50ML STERILE WATER IVPB IVPB ONE (10:15)
[2017-10-11] MEDS: POLYETHYLENE GLYCOL 3350 119 GM BTL PO SCH ×2 (11:43→21:20)
[2017-10-11] MEDS ORDERED: INSULIN (NOVOLOG) ASPART 100 UNITS/ML 10ML VIAL ONE (12:59)
--- NOTE | 2017-10-11 14:41 | PN ---
Progress Note, Physician History of Present Illness: patient doing well stable no new - Current Medication List Current Medications: Active Medications Acetaminophen (Tylenol -) 650 mg PO Q4H PRN PRN Reason: FEVER Last Admin: 10/10/17 11:30 Dose: 650 mg Amlodipine Besylate (Norvasc -) 10 mg PO DAILY [facility] Last Admin: 10/11/17 09:29 Dose: 10 mg Bisacodyl (Dulcolax Suppository -) 10 mg [place] PRN PRN PRN Reason: CONSTIPATION Docusate Sodium (Colace -) 100 mg PO TID [facility] Furosemide (Lasix -) 40 mg PO DAILY [facility] Last Admin: 10/11/17 09:29 Dose: 40 mg Gabapentin (Neurontin -) 100 mg PO DAILY [facility] Last Admin: 10/11/17 09:29 Dose: 100 mg Glipizide (Glucotrol Xl -) 2.5 mg PO ACBK [facility] Last Admin: 10/11/17 06:52 Dose: 2.5 mg Heparin Sodium (Porcine) (Heparin -) 5,000 unit SQ BID [facility] Last Admin: 10/11/17 09:29 Dose: 5,000 unit Vancomycin HCl (Vancomycin 1 Gm Premix -) 1 gm in 200 mls @ 133.333 mls/hr IVPB Q24H [facility]; Protocol Insulin Aspart (Novolog Vial Sliding Scale -) 1 vial SQ TIDAC [facility]; Protocol Last Admin: 10/11/17 11:44 Dose: Not Given Levothyroxine Sodium (Synthroid -) 75 mcg PO ACBK [facility] Last Admin: 10/11/17 06:51 Dose: 75 mcg Pantoprazole Sodium (Protonix -) 40 mg PO DAILY [facility] Last Admin: 10/11/17 09:29 Dose: 40 mg Polyethylene Glycol (Miralax (For Daily Use) -) 17 gm PO BID [facility] Last Admin: 10/11/17 11:43 Dose: 17 grams Senna (Senna -) 2 tab PO HS [facility] Sitagliptin Phosphate (Januvia -) 25 mg PO ACBK [facility] Last Admin: 10/11/17 06:52 Dose: 25 mg Tamsulosin HCl (Flomax -) 0.4 mg PO DAILY@0830 [facility] Last Admin: 10/11/17 09:29 Dose: 0.4 mg - Objective Vital Signs: Vital Signs Temperature 98.8 F 10/11/17 13:53 Pulse Rate 68 10/11/17 13:53 Respiratory Rate 20 10/11/17 13:53 Blood Pressure 133/63 10/11/17 13:53 O2 Sat by Pulse Oximetry (%) 96 10/10/17 21:00 Constitutional: Yes: No Distress, Calm Cardiovascular: Yes: Regular Rate and Rhythm Respiratory: Yes: Regular, CTA Bilaterally Gastrointestinal: Yes: Normal Bowel Sounds, Soft Musculoskeletal: Yes: WNL Extremities: Yes: WNL Neurological: Yes: Alert, Oriented Psychiatric: Yes: Alert, Oriented Labs: CBC, BMP 10/11/17 06:30 10/11/17 06:30 Assessment/Plan Problem List - Problems (1) Renal failure (ARF), acute on chronic Code(s): N17.9 - ACUTE KIDNEY FAILURE, UNSPECIFIED; N18.9 - CHRONIC KIDNEY DISEASE, UNSPECIFIED Qualifiers: Acute renal failure type: unspecified Chronic kidney disease stage: stage 4 (severe) Qualified Code(s): N17.9 - Acute kidney failure, unspecified; N18.4 - Chronic kidney disease, stage 4 (severe) (2) Bradycardia Code(s): R00.1 - BRADYCARDIA, UNSPECIFIED (3) CAD (coronary artery disease) Code(s): I25.10 - ATHSCL HEART DISEASE OF [place] CORONARY ARTERY W/O ANG PCTRS (4) Diabetes mellitus Code(s): E11.9 - TYPE 2 DIABETES MELLITUS WITHOUT COMPLICATIONS (5) HTN (hypertension) Code(s): I10 - ESSENTIAL (PRIMARY) HYPERTENSION (6) Pancreatitis, acute Code(s): K85.90 - ACUTE PANCREATITIS WITHOUT NECROSIS OR INFECTION, UNSP Qualifiers: Pancreatitis type: drug induced Acute pancreatitis complication: no infection or necrosis Qualified Code(s): K85.30 - Drug induced acute pancreatitis without necrosis or infection (7) Urinary retention Code(s): R33.9 - RETENTION OF URINE, UNSPECIFIED Assessment/Plan cx report noted will stop vanco will await for repeat cx rest as per the team
[2017-10-11] MEDS: DOCUSATE SODIUM 100 MG CAPSULE (FP) PO SCH ×2 (15:11→21:20)
[2017-10-11] MEDS ORDERED: VANCOMYCIN 1 GM PREMIX - 1 GM/200 ML BAG IVPB SCH (17:00)
--- NOTE | 2017-10-11 17:32 | PN ---
Progress Note (short form) - Note Progress Note: Renal Follow up for ROBIN on CKD Pt seen at the bedside no acute complaints no sob, cp, abd pain, fever, chills Vital Signs Temperature 98.8 F 10/11/17 13:53 Pulse Rate 68 10/11/17 13:53 Respiratory Rate 20 10/11/17 13:53 Blood Pressure 133/63 10/11/17 13:53 O2 Sat by Pulse Oximetry (%) 96 10/10/17 21:00 Intake & Output 10/08/17 10/09/17 10/10/17 10/11/17 23:59 23:59 23:59 23:59 Intake Total 376 939 3315 250 Output Total 445 345 0527 800 Balance 110 510 -1150 -550 Weight 70.579 kg 71.214 kg 70.398 kg 70.035 kg NAD awake and alert MMM, no JVD RRR, No M/R CTA soft NT/ND trace LE edema CBC, BMP 10/11/17 06:30 10/11/17 06:30 Current Medications Acetaminophen (Tylenol -) 650 mg PO Q4H PRN PRN Reason: FEVER Last Admin: 10/10/17 11:30 Dose: 650 mg Amlodipine Besylate (Norvasc -) 10 mg PO DAILY [facility] Last Admin: 10/11/17 09:29 Dose: 10 mg Bisacodyl (Dulcolax Suppository -) 10 mg [place] PRN PRN PRN Reason: CONSTIPATION Docusate Sodium (Colace -) 100 mg PO TID [facility] Last Admin: 10/11/17 15:11 Dose: 100 mg Furosemide (Lasix -) 40 mg PO DAILY [facility] Last Admin: 10/11/17 09:29 Dose: 40 mg Gabapentin (Neurontin -) 100 mg PO DAILY [facility] Last Admin: 10/11/17 09:29 Dose: 100 mg Glipizide (Glucotrol Xl -) 2.5 mg PO ACBK [facility] Last Admin: 10/11/17 06:52 Dose: 2.5 mg Heparin Sodium (Porcine) (Heparin -) 5,000 unit SQ BID [facility] Last Admin: 10/11/17 09:29 Dose: 5,000 unit Insulin Aspart (Novolog Vial Sliding Scale -) 1 vial SQ TIDAC [facility]; Protocol Last Admin: 10/11/17 11:44 Dose: Not Given Levothyroxine Sodium (Synthroid -) 75 mcg PO ACBK [facility] Last Admin: 10/11/17 06:51 Dose: 75 mcg Pantoprazole Sodium (Protonix -) 40 mg PO DAILY [facility] Last Admin: 10/11/17 09:29 Dose: 40 mg Polyethylene Glycol (Miralax (For Daily Use) -) 17 gm PO BID [facility] Last Admin: 10/11/17 11:43 Dose: 17 grams Senna (Senna -) 2 tab PO [facility] Sitagliptin Phosphate (Januvia -) 25 mg PO ACBK [facility] Last Admin: 10/11/17 06:52 Dose: 25 mg Tamsulosin HCl (Flomax -) 0.4 mg PO DAILY@0830 [facility] Last Admin: 10/11/17 09:29 Dose: 0.4 mg 77 year old gentleman with hx of CKD Stage 4/5, DM, CAD s/p CABG, Hyperlipidemia , Hypertension who presented with complaints of abd pain and found to have BUN/ Cr of 140/8.2 and K of 6. #Acute Renal Injury secondary to volume depletion vs. normotensive ATN vs. 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
[2017-10-11] MEDS ORDERED: Darbepoetin Alfa in Polysorbat 40 MCG/0.4 DISP.SYRIN SQ SCH (18:30)
[2017-10-11] MEDS: SENNOSIDES 8.6MG TABLET (FP) PO SCH (21:20)
[2017-10-12] MEDS: DOCUSATE SODIUM 100 MG CAPSULE (FP) PO SCH ×3 (06:25→21:48)
[2017-10-12] MEDS: INSULIN SLIDING SCALE (NOVOLOG) 1 VIAL SQ SCH ×3 (06:28→17:29)
[2017-10-12] MEDS: LEVOTHYROXINE NA 75 MCG TABLET (FP) PO SCH (06:28)
[2017-10-12] MEDS ORDERED: INSULIN (NOVOLOG) ASPART 100 UNITS/ML 10ML VIAL ONE ×3 (07:12→18:13)
[2017-10-12 07:32] LABS: BASO % 0.6 % (0-2.0); EOS % 5.4 % (0-4.5); LYMPH % 6.8 % (8-40); MCH 29.7 pg (25.7-33.7); MCHC 33.1 g/dl (32.0-35.9); MEAN CELL VOLUME 89.7 fl (80-96); MEAN PLT VOLUME 10.2 fl (7.5-11.1); MONO % 8.4 % (3.8-10.2); NEUT % 78.8 % (42.8-82.8); PLATELET COUNT 176 K/MM3 (134-434); RBC 2.68 M/mm3 (4.00-5.60); RDW 17.6 % (11.9-15.9); WHITE BLOOD COUNT 9.9 K/mm3 (4.0-10.0)
[2017-10-12 07:56] LABS: ALBUMIN 2.6 g/dl (3.4-5.0); ANION GAP 11 MMOL/L (8-16); BLOOD UREA NITROGEN 59 mg/dL (7-18); CALCIUM 8.1 mg/dL (8.5-10.1); CHLORIDE 103 mmol/L (98-107); CO2 27 mmol/L (21-32); CREATININE 3.7 mg/dL (0.7-1.3); GLUCOSE,RANDOM 99 mg/dL (74-106); MAGNESIUM 2.2 mg/dL (1.8-2.4); PHOSPHOROUS 3.4 mg/dL (2.5-4.9); POTASSIUM 3.9 mmol/L (3.5-5.1); SGOT/AST 26 U/L (15-37); SGPT/ALT 33 U/L (12-78); SODIUM 141 mmol/L (136-145)
[2017-10-12 07:58] LABS: ALK PHOS 103 U/L (45-117); BILIRUBIN,TOTAL 1.2 mg/dL (0.2-1.0); TOT PROT 5.3 g/dl (6.4-8.2)
[2017-10-12] MEDS: TAMSULOSIN HCL 0.4 MG CAP.ER.24H (FP) PO SCH (08:28)
[2017-10-12] MEDS: glipiZIDE-XL 2.5 MG TAB.ER.24 PO SCH (08:28)
[2017-10-12] MEDS: sitaGLIPtin PHOSPHATE 25 MG TABLET (FP) PO SCH (08:29)
[2017-10-12] MEDS: GABAPENTIN 100 MG CAPSULE (FP) PO SCH (09:33)
[2017-10-12] MEDS: amLODIPine BESYLATE 10 MG TABLET (FP) PO SCH (09:33)
[2017-10-12] MEDS: HEPARIN NA (PORCINE) 5,000 UNITS/ML 1ML VIAL SQ SCH ×2 (09:33→21:49)
[2017-10-12] MEDS: PANTOPRAZOLE 40 MG TABLET (FP) PO SCH (09:33)
[2017-10-12] MEDS: FUROSEMIDE 40 MG TABLET (FP) PO SCH (09:33)
[2017-10-12] MEDS: FINASTERIDE 5 MG TABLET (FP) PO SCH (09:36)
[2017-10-12] MEDS: POLYETHYLENE GLYCOL 3350 119 GM BTL PO SCH ×2 (09:36→21:48)
--- NOTE | 2017-10-12 11:56 | PN ---
Progress Note, Physician History of Present Illness: 77 y/o man with a PMHx of CKD stage 4/5, DM, CAD s/p CABG, HTN, HLD. Admitted to ICU for Acute on Chronic Renal Failure, Hyperkalemia, Abdominal Pain for further evaluation of their emergent condition. recived HD , ROBIN resolved - Current Medication List Current Medications: Active Medications Acetaminophen (Tylenol -) 650 mg PO Q4H PRN PRN Reason: FEVER Last Admin: 10/10/17 11:30 Dose: 650 mg Amlodipine Besylate (Norvasc -) 10 mg PO DAILY [facility] Last Admin: 10/12/17 09:33 Dose: 10 mg Bisacodyl (Dulcolax Suppository -) 10 mg [place] PRN PRN PRN Reason: CONSTIPATION Darbepoetin Sam (Aranesp -) 40 mcg SQ Q7D@1000 [facility] Last Admin: 10/11/17 21:19 Dose: 40 mcg Docusate Sodium (Colace -) 100 mg PO TID [facility] Last Admin: 10/12/17 06:25 Dose: 100 mg Finasteride (Proscar -) 5 mg PO DAILY [facility] Last Admin: 10/12/17 09:36 Dose: 5 mg Furosemide (Lasix -) 40 mg PO DAILY [facility] Last Admin: 10/12/17 09:33 Dose: 40 mg Gabapentin (Neurontin -) 100 mg PO DAILY [facility] Last Admin: 10/12/17 09:33 Dose: 100 mg Glipizide (Glucotrol Xl -) 2.5 mg PO ACBK [facility] Last Admin: 10/12/17 08:28 Dose: 2.5 mg Heparin Sodium (Porcine) (Heparin -) 5,000 unit SQ BID [facility] Last Admin: 10/12/17 09:33 Dose: 5,000 unit Insulin Aspart (Novolog Vial Sliding Scale -) 1 vial SQ TIDAC [facility]; Protocol Last Admin: 10/12/17 06:28 Dose: Not Given Levothyroxine Sodium (Synthroid -) 75 mcg PO ACBK [facility] Last Admin: 10/12/17 06:28 Dose: 75 mcg Pantoprazole Sodium (Protonix -) 40 mg PO DAILY [facility] Last Admin: 10/12/17 09:33 Dose: 40 mg Polyethylene Glycol (Miralax (For Daily Use) -) 17 gm PO BID [facility] Last Admin: 10/12/17 09:36 Dose: 17 grams Senna (Senna -) 2 tab PO HS [facility] Last Admin: 10/11/17 21:20 Dose: 2 tab Sitagliptin Phosphate (Januvia -) 25 mg PO ACBK [facility] Last Admin: 10/12/17 08:29 Dose: 25 mg Tamsulosin HCl (Flomax -) 0.4 mg PO DAILY@0830 [facility] Last Admin: 10/12/17 08:28 Dose: 0.4 mg - Objective Vital Signs: Vital Signs Temperature 98.4 F 10/12/17 09:00 Pulse Rate 61 10/12/17 09:00 Respiratory Rate 18 10/12/17 09:00 Blood Pressure 117/59 10/12/17 09:00 O2 Sat by Pulse Oximetry (%) 96 10/11/17 21:00 Elderly man comfortable, not in distress HEENT: Mm moist, no anemia, PERRLA EOMI NECK: No JVd No Bruit CHEST: CTA B/L CVS: S1S2 R ABD: No distention, non tender Bs + EXT: Trace edema, Pulses + 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 Code(s): N17.9 - ACUTE KIDNEY FAILURE, UNSPECIFIED; N18.9 - CHRONIC KIDNEY DISEASE, UNSPECIFIED Qualifiers: Acute renal failure type: unspecified Chronic kidney disease stage: stage 4 (severe) Qualified Code(s): N17.9 - Acute kidney failure, unspecified; N18.4 - Chronic kidney disease, stage 4 (severe) (2) Bradycardia Assessment/Plan: Resolved in the setting of Hyperkalemia off B Blockers Code(s): R00.1 - BRADYCARDIA, UNSPECIFIED (3) Diabetes mellitus Assessment/Plan: Cont current management, optimize Glycemic control. Code(s): E11.9 - TYPE 2 DIABETES MELLITUS WITHOUT COMPLICATIONS (4) HTN (hypertension) Assessment/Plan: Well controlled at present off Meds Code(s): I10 - ESSENTIAL (PRIMARY) HYPERTENSION (5) CAD (coronary artery disease) Assessment/Plan: S/P CABG on ASA off BB due to bradycardia plateau elevation of troponin I Code(s): I25.10 - ATHSCL HEART DISEASE OF [place] CORONARY ARTERY W/O ANG PCTRS (6) HLD (hyperlipidemia) Assessment/Plan: Cont home meds Code(s): E78.5 - HYPERLIPIDEMIA, UNSPECIFIED (7) Depression Code(s): F32.9 - MAJOR DEPRESSIVE DISORDER, SINGLE EPISODE, UNSPECIFIED (8) Sepsis Assessment/Plan: Unknown Grew Staphlococcus on Vanco by level Code(s): A41.9 - SEPSIS, UNSPECIFIED ORGANISM
--- NOTE | 2017-10-12 15:04 | PN ---
Progress Note (short form) - Note Progress Note: ckd 4/5 s/p alison 2/2 volume depletion pancreatitis s/p bacteremia 2/2 catheter Current Medications Acetaminophen (Tylenol -) 650 mg PO Q4H PRN PRN Reason: FEVER Last Admin: 10/10/17 11:30 Dose: 650 mg Amlodipine Besylate (Norvasc -) 10 mg PO DAILY [facility] Last Admin: 10/12/17 09:33 Dose: 10 mg Bisacodyl (Dulcolax Suppository -) 10 mg [place] PRN PRN PRN Reason: CONSTIPATION Darbepoetin Sam (Aranesp -) 40 mcg SQ Q7D@1000 [facility] Last Admin: 10/11/17 21:19 Dose: 40 mcg Docusate Sodium (Colace -) 100 mg PO TID [facility] Last Admin: 10/12/17 14:47 Dose: 100 mg Finasteride (Proscar -) 5 mg PO DAILY [facility] Last Admin: 10/12/17 09:36 Dose: 5 mg Furosemide (Lasix -) 40 mg PO DAILY [facility] Last Admin: 10/12/17 09:33 Dose: 40 mg Gabapentin (Neurontin -) 100 mg PO DAILY [facility] Last Admin: 10/12/17 09:33 Dose: 100 mg Glipizide (Glucotrol Xl -) 2.5 mg PO ACBK [facility] Last Admin: 10/12/17 08:28 Dose: 2.5 mg Heparin Sodium (Porcine) (Heparin -) 5,000 unit SQ BID [facility] Last Admin: 10/12/17 09:33 Dose: 5,000 unit Insulin Aspart (Novolog Vial Sliding Scale -) 1 vial SQ TIDAC [facility]; Protocol Last Admin: 10/12/17 12:09 Dose: Not Given Levothyroxine Sodium (Synthroid -) 75 mcg PO ACBK [facility] Last Admin: 10/12/17 06:28 Dose: 75 mcg Pantoprazole Sodium (Protonix -) 40 mg PO DAILY [facility] Last Admin: 10/12/17 09:33 Dose: 40 mg Polyethylene Glycol (Miralax (For Daily Use) -) 17 gm PO BID [facility] Last Admin: 10/12/17 09:36 Dose: 17 grams Senna (Senna -) 2 tab PO HS [facility] Last Admin: 10/11/17 21:20 Dose: 2 tab Sitagliptin Phosphate (Januvia -) 25 mg PO ACBK [facility] Last Admin: 10/12/17 08:29 Dose: 25 mg Tamsulosin HCl (Flomax -) 0.4 mg PO DAILY@0830 [facility] Last Admin: 10/12/17 08:28 Dose: 0.4 mg Last Vital Signs Temp Pulse Resp BP Pulse Ox 98.4 F 61 18 117/59 95 10/12/17 09:00 10/12/17 09:00 10/12/17 09:00 10/12/17 09:00 10/12/17 10:00 CBC, BMP 10/12/17 06:00 10/12/17 06:00 IMP- s/p alison requiring HD recovering renal function Plan- monitor labs hydrate
[2017-10-12] MEDS ORDERED: PT OWN MED DRAWER 7, Y5N ONE (18:14)
[2017-10-12] MEDS: SENNOSIDES 8.6MG TABLET (FP) PO SCH (21:48)
[2017-10-13] MEDS: INSULIN SLIDING SCALE (NOVOLOG) 1 VIAL SQ SCH ×3 (06:16→16:47)
[2017-10-13] MEDS: DOCUSATE SODIUM 100 MG CAPSULE (FP) PO SCH ×3 (06:16→21:34)
[2017-10-13] MEDS: LEVOTHYROXINE NA 75 MCG TABLET (FP) PO SCH (06:18)
[2017-10-13 07:30] LABS: BASO % 0.5 % (0-2.0); EOS % 6.1 % (0-4.5); HEMATOCRIT 23.3 % (35.4-49); HEMOGLOBIN 7.8 GM/dL (11.7-16.9); MCH 29.8 pg (25.7-33.7); MCHC 33.4 g/dl (32.0-35.9); MEAN CELL VOLUME 89.2 fl (80-96); MEAN PLT VOLUME 9.9 fl (7.5-11.1); MONO % 10.9 % (3.8-10.2); NEUT % 71.5 % (42.8-82.8); PLATELET COUNT 181 K/MM3 (134-434); RBC 2.61 M/mm3 (4.00-5.60); RDW 17.4 % (11.9-15.9); WHITE BLOOD COUNT 8.9 K/mm3 (4.0-10.0)
[2017-10-13 07:48] LABS: ALBUMIN 2.6 g/dl (3.4-5.0); ANION GAP 11 MMOL/L (8-16); BLOOD UREA NITROGEN 66 mg/dL (7-18); CALCIUM 8.4 mg/dL (8.5-10.1); CHLORIDE 103 mmol/L (98-107); CO2 27 mmol/L (21-32); GLUCOSE,RANDOM 64 mg/dL (74-106); POTASSIUM 3.9 mmol/L (3.5-5.1); SODIUM 141 mmol/L (136-145)
[2017-10-13 07:51] LABS: ALK PHOS 111 U/L (45-117); BILIRUBIN,TOTAL 0.9 mg/dL (0.2-1.0); CREATININE 3.8 mg/dL (0.7-1.3); SGOT/AST 25 U/L (15-37); SGPT/ALT 34 U/L (12-78); TOT PROT 5.3 g/dl (6.4-8.2)
[2017-10-13] MEDS ORDERED: PT OWN MED DRAWER 7, Y5N ONE (08:44)
[2017-10-13] MEDS: TAMSULOSIN HCL 0.4 MG CAP.ER.24H (FP) PO SCH (08:46)
[2017-10-13] MEDS: sitaGLIPtin PHOSPHATE 25 MG TABLET (FP) PO SCH (08:46)
[2017-10-13] MEDS: glipiZIDE-XL 2.5 MG TAB.ER.24 PO SCH (08:47)
[2017-10-13] MEDS: FINASTERIDE 5 MG TABLET (FP) PO SCH (09:31)
[2017-10-13] MEDS: HEPARIN NA (PORCINE) 5,000 UNITS/ML 1ML VIAL SQ SCH ×2 (09:31→21:33)
[2017-10-13] MEDS: amLODIPine BESYLATE 10 MG TABLET (FP) PO SCH (09:31)
[2017-10-13] MEDS: GABAPENTIN 100 MG CAPSULE (FP) PO SCH (09:31)
[2017-10-13] MEDS: FUROSEMIDE 40 MG TABLET (FP) PO SCH (09:31)
[2017-10-13] MEDS: PANTOPRAZOLE 40 MG TABLET (FP) PO SCH (09:31)
[2017-10-13] MEDS: POLYETHYLENE GLYCOL 3350 119 GM BTL PO SCH ×2 (09:32→21:34)
--- NOTE | 2017-10-13 11:30 | PN ---
Progress Note, Physician - Current Medication List Current Medications: Active Medications Acetaminophen (Tylenol -) 650 mg PO Q4H PRN PRN Reason: FEVER Last Admin: 10/10/17 11:30 Dose: 650 mg Amlodipine Besylate (Norvasc -) 10 mg PO DAILY [facility] Last Admin: 10/13/17 09:31 Dose: 10 mg Bisacodyl (Dulcolax Suppository -) 10 mg [place] PRN PRN PRN Reason: CONSTIPATION Darbepoetin Sam (Aranesp -) 40 mcg SQ Q7D@1000 [facility] Last Admin: 10/11/17 21:19 Dose: 40 mcg Docusate Sodium (Colace -) 100 mg PO TID [facility] Last Admin: 10/13/17 06:16 Dose: Not Given Finasteride (Proscar -) 5 mg PO DAILY [facility] Last Admin: 10/13/17 09:31 Dose: 5 mg Furosemide (Lasix -) 40 mg PO DAILY [facility] Last Admin: 10/13/17 09:31 Dose: 40 mg Gabapentin (Neurontin -) 100 mg PO DAILY [facility] Last Admin: 10/13/17 09:31 Dose: 100 mg Glipizide (Glucotrol Xl -) 2.5 mg PO ACBK [facility] Last Admin: 10/13/17 08:47 Dose: 2.5 mg Heparin Sodium (Porcine) (Heparin -) 5,000 unit SQ BID [facility] Last Admin: 10/13/17 09:31 Dose: 5,000 unit Insulin Aspart (Novolog Vial Sliding Scale -) 1 vial SQ TIDAC [facility]; Protocol Last Admin: 10/13/17 06:16 Dose: Not Given Levothyroxine Sodium (Synthroid -) 75 mcg PO ACBK [facility] Last Admin: 10/13/17 06:18 Dose: 75 mcg Pantoprazole Sodium (Protonix -) 40 mg PO DAILY [facility] Last Admin: 10/13/17 09:31 Dose: 40 mg Polyethylene Glycol (Miralax (For Daily Use) -) 17 gm PO BID [facility] Last Admin: 10/13/17 09:32 Dose: Not Given Senna (Senna -) 2 tab PO HS [facility] Last Admin: 10/12/17 21:48 Dose: Not Given Sitagliptin Phosphate (Januvia -) 25 mg PO ACBK [facility] Last Admin: 10/13/17 08:46 Dose: 25 mg Tamsulosin HCl (Flomax -) 0.4 mg PO DAILY@0830 [facility] Last Admin: 10/13/17 08:46 Dose: 0.4 mg - Objective Vital Signs: Vital Signs Temperature 99.3 F 10/13/17 09:00 Pulse Rate 66 10/13/17 09:00 Respiratory Rate 18 10/13/17 09:00 Blood Pressure 137/62 10/13/17 09:00 O2 Sat by Pulse Oximetry (%) 93 L 10/13/17 09:00 Labs: CBC, BMP 10/13/17 06:00 10/13/17 06:00 Problem List - Problems (1) Renal failure (ARF), acute on chronic Assessment/Plan: Improved Renal functions are at base line/U BMP rest management as per Renal consult. Code(s): N17.9 - ACUTE KIDNEY FAILURE, UNSPECIFIED; N18.9 - CHRONIC KIDNEY DISEASE, UNSPECIFIED Qualifiers: Acute renal failure type: unspecified Chronic kidney disease stage: stage 4 (severe) Qualified Code(s): N17.9 - Acute kidney failure, unspecified; N18.4 - Chronic kidney disease, stage 4 (severe) (2) Bradycardia Assessment/Plan: Resolved in the setting of Hyperkalemia off B Blockers Code(s): R00.1 - BRADYCARDIA, UNSPECIFIED (3) Diabetes mellitus Assessment/Plan: Cont current management, optimize Glycemic control. Code(s): E11.9 - TYPE 2 DIABETES MELLITUS WITHOUT COMPLICATIONS (4) HTN (hypertension) Assessment/Plan: Well controlled at present off Meds Code(s): I10 - ESSENTIAL (PRIMARY) HYPERTENSION (5) CAD (coronary artery disease) Assessment/Plan: S/P CABG on ASA off BB due to bradycardia plateau elevation of troponin I Code(s): I25.10 - ATHSCL HEART DISEASE OF [place] CORONARY ARTERY W/O ANG PCTRS (6) HLD (hyperlipidemia) Assessment/Plan: Cont home meds Code(s): E78.5 - HYPERLIPIDEMIA, UNSPECIFIED (7) Depression Code(s): F32.9 - MAJOR DEPRESSIVE DISORDER, SINGLE EPISODE, UNSPECIFIED (8) Sepsis Assessment/Plan: Unknown Grew Staphlococcus completed abx. Code(s): A41.9 - SEPSIS, UNSPECIFIED ORGANISM
--- NOTE | 2017-10-13 11:41 | PN ---
Progress Note, Physician History of Present Illness: patient doing well stable no new issues repeat blood cx result noted - Current Medication List Current Medications: Active Medications Acetaminophen (Tylenol -) 650 mg PO Q4H PRN PRN Reason: FEVER Last Admin: 10/10/17 11:30 Dose: 650 mg Amlodipine Besylate (Norvasc -) 10 mg PO DAILY [facility] Last Admin: 10/13/17 09:31 Dose: 10 mg Bisacodyl (Dulcolax Suppository -) 10 mg [place] PRN PRN PRN Reason: CONSTIPATION Darbepoetin Sam (Aranesp -) 40 mcg SQ Q7D@1000 [facility] Last Admin: 10/11/17 21:19 Dose: 40 mcg Docusate Sodium (Colace -) 100 mg PO TID [facility] Last Admin: 10/13/17 06:16 Dose: Not Given Finasteride (Proscar -) 5 mg PO DAILY [facility] Last Admin: 10/13/17 09:31 Dose: 5 mg Furosemide (Lasix -) 40 mg PO DAILY [facility] Last Admin: 10/13/17 09:31 Dose: 40 mg Gabapentin (Neurontin -) 100 mg PO DAILY [facility] Last Admin: 10/13/17 09:31 Dose: 100 mg Glipizide (Glucotrol Xl -) 2.5 mg PO ACBK [facility] Last Admin: 10/13/17 08:47 Dose: 2.5 mg Heparin Sodium (Porcine) (Heparin -) 5,000 unit SQ BID [facility] Last Admin: 10/13/17 09:31 Dose: 5,000 unit Insulin Aspart (Novolog Vial Sliding Scale -) [facility]; Protocol Last Admin: 10/13/17 06:16 Dose: Not Given Levothyroxine Sodium (Synthroid -) 75 mcg PO ACBK [facility] Last Admin: 10/13/17 06:18 Dose: 75 mcg Pantoprazole Sodium (Protonix -) 40 mg PO DAILY [facility] Last Admin: 10/13/17 09:31 Dose: 40 mg Polyethylene Glycol (Miralax (For Daily Use) -) 17 gm PO BID [facility] Last Admin: 10/13/17 09:32 Dose: Not Given Senna (Senna -) 2 tab PO [facility] Last Admin: 10/12/17 21:48 Dose: Not Given Sitagliptin Phosphate (Januvia -) 25 mg PO ACBK [facility] Last Admin: 10/13/17 08:46 Dose: 25 mg Tamsulosin HCl (Flomax -) 0.4 mg PO DAILY@0830 [facility] Last Admin: 10/13/17 08:46 Dose: 0.4 mg - Objective Vital Signs: Vital Signs Temperature 99.3 F 10/13/17 09:00 Pulse Rate 66 10/13/17 09:00 Respiratory Rate 18 10/13/17 09:00 Blood Pressure 137/62 10/13/17 09:00 O2 Sat by Pulse Oximetry (%) 93 L 10/13/17 09:00 Constitutional: Yes: No Distress, Calm Eyes: Yes: Conjunctiva Clear HENT: Yes: Atraumatic, Normocephalic Neck: Yes: Supple, Trachea Midline Cardiovascular: Yes: Regular Rate and Rhythm Respiratory: Yes: Regular, CTA Bilaterally Gastrointestinal: Yes: Normal Bowel Sounds, Soft Musculoskeletal: Yes: WNL Extremities: Yes: WNL Neurological: Yes: Alert, Oriented Psychiatric: Yes: Alert, Oriented Labs: CBC, BMP 10/13/17 06:00 10/13/17 06:00 Assessment/Plan Problem List - Problems (1) Renal failure (ARF), acute on chronic Code(s): N17.9 - ACUTE KIDNEY FAILURE, UNSPECIFIED; N18.9 - CHRONIC KIDNEY DISEASE, UNSPECIFIED Qualifiers: Acute renal failure type: unspecified Chronic kidney disease stage: stage 4 (severe) Qualified Code(s): N17.9 - Acute kidney failure, unspecified; N18.4 - Chronic kidney disease, stage 4 (severe) (2) Bradycardia Code(s): R00.1 - BRADYCARDIA, UNSPECIFIED (3) CAD (coronary artery disease) Code(s): I25.10 - ATHSCL HEART DISEASE OF [place] CORONARY ARTERY W/O ANG PCTRS (4) Diabetes mellitus Code(s): E11.9 - TYPE 2 DIABETES MELLITUS WITHOUT COMPLICATIONS (5) HTN (hypertension) Code(s): I10 - ESSENTIAL (PRIMARY) HYPERTENSION (6) Pancreatitis, acute Code(s): K85.90 - ACUTE PANCREATITIS WITHOUT NECROSIS OR INFECTION, UNSP Qualifiers: Pancreatitis type: drug induced Acute pancreatitis complication: no infection or necrosis Qualified Code(s): K85.30 - Drug induced acute pancreatitis without necrosis or infection (7) Urinary retention Code(s): R33.9 - RETENTION OF URINE, UNSPECIFIED Assessment/Plan continue current mgmt patient stable no new issues doing well
[2017-10-13] MEDS ORDERED: INSULIN (NOVOLOG) ASPART 100 UNITS/ML 10ML VIAL ONE (12:09)
--- NOTE | 2017-10-13 14:00 | CON.PSY ---
Psychiatry Consult Chief Complaint: 77 year old male with a history of SEvere chronic medical problems, been in ICU. Patient seen for Faye nam for behaviour disturbances. staff report that patients behaviouir has improved significantly. Symptoms: reports: Memory Impairment - Previous Psychiatric Treatment Outpatient: None Inpatient: None - Previous Substance Abuse Treatment Outpatient: None - Reason for Previous Treatment Reason for Previous Treatment: Major Depression - Current Medications Current Medications: Active Medications Acetaminophen (Tylenol -) 650 mg PO Q4H PRN PRN Reason: FEVER Last Admin: 10/10/17 11:30 Dose: 650 mg Amlodipine Besylate (Norvasc -) 10 mg PO DAILY [facility] Last Admin: 10/13/17 09:31 Dose: 10 mg Bisacodyl (Dulcolax Suppository -) 10 mg [place] PRN PRN PRN Reason: CONSTIPATION Darbepoetin Sam (Aranesp -) 40 mcg SQ Q7D@1000 [facility] Last Admin: 10/11/17 21:19 Dose: 40 mcg Docusate Sodium (Colace -) 100 mg PO TID [facility] Last Admin: 10/13/17 06:16 Dose: Not Given Finasteride (Proscar -) 5 mg PO DAILY [facility] Last Admin: 10/13/17 09:31 Dose: 5 mg Furosemide (Lasix -) 40 mg PO DAILY [facility] Last Admin: 10/13/17 09:31 Dose: 40 mg Gabapentin (Neurontin -) 100 mg PO DAILY [facility] Last Admin: 10/13/17 09:31 Dose: 100 mg Glipizide (Glucotrol Xl -) 2.5 mg PO ACBK [facility] Last Admin: 10/13/17 08:47 Dose: 2.5 mg Heparin Sodium (Porcine) (Heparin -) 5,000 unit SQ BID [facility] Last Admin: 10/13/17 09:31 Dose: 5,000 unit Insulin Aspart (Novolog Vial Sliding Scale -) 1 vial SQ TIDAC [facility]; Protocol Last Admin: 10/13/17 12:11 Dose: 2 units Levothyroxine Sodium (Synthroid -) 75 mcg PO ACBK [facility] Last Admin: 10/13/17 06:18 Dose: 75 mcg Pantoprazole Sodium (Protonix -) 40 mg PO DAILY [facility] Last Admin: 10/13/17 09:31 Dose: 40 mg Polyethylene Glycol (Miralax (For Daily Use) -) 17 gm PO BID [facility] Last Admin: 10/13/17 09:32 Dose: Not Given Senna (Senna -) 2 tab PO HS [facility] Last Admin: 10/12/17 21:48 Dose: Not Given Sitagliptin Phosphate (Januvia -) 25 mg PO ACBK [facility] Last Admin: 10/13/17 08:46 Dose: 25 mg Tamsulosin HCl (Flomax -) 0.4 mg PO DAILY@0830 [facility] Last Admin: 10/13/17 08:46 Dose: 0.4 mg - Allergies Allergies: Allergies Allergy/AdvReac Type Severity Reaction Status Date / Time No Known Allergies Allergy Verified 10/04/17 17:44 - Current Living Status Usual Living Arrangement: With Significant Other - Current Mental Status Evaluation Appearance: Well Groomed Attitude: Cooperative - Affect Affect: Constrictive Appropriateness: Appropriate to Content - Mood Mood: Euthymic - Speech/Language Expressive: Delayed - Psychomotor Activity Psychomotor Activity: Normal - Thought Process Thought Process: Intact - Thought Content Hallucinations: Absent Delusions: Absent - Self Perception Self Perception: No Impairment - Cognition Attention: Alert Orientation: Time Memory, Short Term: 2/3 Memory, Remote with Promptin/3 - Concentration Serial Sevens Intact: No Simple Calculations Intact: No - Abstraction Proverb Interpretation: [place] Judgement: Intact - Insight Insight: Impaired - Impulse Control Impulse Control: Minimally Impaired - Suicidal Ideation Suicidal Ideation: No - Homicidal Ideation Homicidal Ideation: No Assessment/Plan 1) No need for any psych meds for Behaviour problems. 2) Discharge home when medically stable.
--- NOTE | 2017-10-13 20:35 | PN ---
Progress Note (short form) - Note Progress Note: problems ckd 4/5 s/p alison 2/2 volume depletion pancreatitis s/p bacteremia 2/2 catheter Current Medications Acetaminophen (Tylenol -) 650 mg PO Q4H PRN PRN Reason: FEVER Last Admin: 10/10/17 11:30 Dose: 650 mg Amlodipine Besylate (Norvasc -) 10 mg PO DAILY [facility] Last Admin: 10/13/17 09:31 Dose: 10 mg Bisacodyl (Dulcolax Suppository -) 10 mg [place] PRN PRN PRN Reason: CONSTIPATION Darbepoetin Sam (Aranesp -) 40 mcg SQ Q7D@1000 [facility] Last Admin: 10/11/17 21:19 Dose: 40 mcg Docusate Sodium (Colace -) 100 mg PO TID [facility] Last Admin: 10/13/17 14:25 Dose: Not Given Finasteride (Proscar -) 5 mg PO DAILY [facility] Last Admin: 10/13/17 09:31 Dose: 5 mg Furosemide (Lasix -) 40 mg PO DAILY [facility] Last Admin: 10/13/17 09:31 Dose: 40 mg Gabapentin (Neurontin -) 100 mg PO DAILY [facility] Last Admin: 10/13/17 09:31 Dose: 100 mg Glipizide (Glucotrol Xl -) 2.5 mg PO ACBK [facility] Last Admin: 10/13/17 08:47 Dose: 2.5 mg Heparin Sodium (Porcine) (Heparin -) 5,000 unit SQ BID [facility] Last Admin: 10/13/17 09:31 Dose: 5,000 unit Insulin Aspart (Novolog Vial Sliding Scale -) 1 vial SQ TIDAC [facility]; Protocol Last Admin: 10/13/17 16:47 Dose: Not Given Levothyroxine Sodium (Synthroid -) 75 mcg PO ACBK [facility] Last Admin: 10/13/17 06:18 Dose: 75 mcg Pantoprazole Sodium (Protonix -) 40 mg PO DAILY [facility] Last Admin: 10/13/17 09:31 Dose: 40 mg Polyethylene Glycol (Miralax (For Daily Use) -) 17 gm PO BID [facility] Last Admin: 10/13/17 09:32 Dose: Not Given Senna (Senna -) 2 tab PO HS [facility] Last Admin: 10/12/17 21:48 Dose: Not Given Sitagliptin Phosphate (Januvia -) 25 mg PO ACBK [facility] Last Admin: 10/13/17 08:46 Dose: 25 mg Tamsulosin HCl (Flomax -) 0.4 mg PO DAILY@0830 [facility] Last Admin: 10/13/17 08:46 Dose: 0.4 mg Last Vital Signs Temp Pulse Resp BP Pulse Ox 98.5 F 66 18 137/60 93 L 10/13/17 18:00 10/13/17 18:00 10/13/17 18:00 10/13/17 18:00 10/13/17 09:00 lungs clear heart reg abd soft nontender ext no edema CBC, BMP 10/13/17 06:00 10/13/17 06:00 IMP- s/p alison requiring HD recovering renal function Plan- monitor labs hydrate
[2017-10-13] MEDS: SENNOSIDES 8.6MG TABLET (FP) PO SCH (21:34)
[2017-10-14] MEDS: LEVOTHYROXINE NA 75 MCG TABLET (FP) PO SCH (06:28)
[2017-10-14] MEDS: ACETAMINOPHEN 325 MG TABLET (FP) PO PRN ×2 (06:28→22:32)
[2017-10-14] MEDS: DOCUSATE SODIUM 100 MG CAPSULE (FP) PO SCH ×3 (06:28→22:27)
[2017-10-14] MEDS: INSULIN SLIDING SCALE (NOVOLOG) 1 VIAL SQ SCH ×3 (06:29→16:44)
[2017-10-14] MEDS ORDERED: PT OWN MED DRAWER 7, Y5N ONE (08:55)
[2017-10-14] MEDS: TAMSULOSIN HCL 0.4 MG CAP.ER.24H (FP) PO SCH (08:59)
[2017-10-14] MEDS: glipiZIDE-XL 2.5 MG TAB.ER.24 PO SCH (09:00)
[2017-10-14] MEDS: sitaGLIPtin PHOSPHATE 25 MG TABLET (FP) PO SCH (09:00)
[2017-10-14] MEDS: FUROSEMIDE 40 MG TABLET (FP) PO SCH (09:03)
[2017-10-14] MEDS: PANTOPRAZOLE 40 MG TABLET (FP) PO SCH (09:03)
[2017-10-14] MEDS: GABAPENTIN 100 MG CAPSULE (FP) PO SCH (09:03)
[2017-10-14] MEDS: amLODIPine BESYLATE 10 MG TABLET (FP) PO SCH (09:03)
[2017-10-14] MEDS: FINASTERIDE 5 MG TABLET (FP) PO SCH (09:03)
[2017-10-14] MEDS: POLYETHYLENE GLYCOL 3350 119 GM BTL PO SCH ×2 (09:09→22:27)
[2017-10-14] MEDS: HEPARIN NA (PORCINE) 5,000 UNITS/ML 1ML VIAL SQ SCH (11:47)
--- NOTE | 2017-10-14 13:34 | PN ---
Progress Note, Physician History of Present Illness: patient doing well stable no new issues repeat blood cx result noted - Current Medication List Current Medications: Active Medications Acetaminophen (Tylenol -) 650 mg PO Q4H PRN PRN Reason: FEVER Last Admin: 10/14/17 06:28 Dose: 650 mg Amlodipine Besylate (Norvasc -) 10 mg PO DAILY [facility] Last Admin: 10/14/17 09:03 Dose: 10 mg Bisacodyl (Dulcolax Suppository -) 10 mg [place] PRN PRN PRN Reason: CONSTIPATION Darbepoetin Sam (Aranesp -) 40 mcg SQ Q7D@1000 [facility] Last Admin: 10/11/17 21:19 Dose: 40 mcg Docusate Sodium (Colace -) 100 mg PO TID [facility] Last Admin: 10/14/17 06:28 Dose: 100 mg Finasteride (Proscar -) 5 mg PO DAILY [facility] Last Admin: 10/14/17 09:03 Dose: 5 mg Furosemide (Lasix -) 40 mg PO DAILY [facility] Last Admin: 10/14/17 09:03 Dose: 40 mg Gabapentin (Neurontin -) 100 mg PO DAILY [facility] Last Admin: 10/14/17 09:03 Dose: 100 mg Glipizide (Glucotrol Xl -) 2.5 mg PO ACBK [facility] Last Admin: 10/14/17 09:00 Dose: 2.5 mg Heparin Sodium (Porcine) (Heparin -) 5,000 unit SQ BID [facility] Last Admin: 10/14/17 11:47 Dose: 5,000 unit Insulin Aspart (Novolog Vial Sliding Scale -) [facility]; Protocol Last Admin: 10/14/17 11:51 Dose: 2 units Levothyroxine Sodium (Synthroid -) 75 mcg PO ACBK [facility] Last Admin: 10/14/17 06:28 Dose: 75 mcg Pantoprazole Sodium (Protonix -) 40 mg PO DAILY [facility] Last Admin: 10/14/17 09:03 Dose: 40 mg Polyethylene Glycol (Miralax (For Daily Use) -) 17 gm PO BID [facility] Last Admin: 10/14/17 09:09 Dose: Not Given Senna (Senna -) 2 tab PO [facility] Last Admin: 10/13/17 21:34 Dose: Not Given Sitagliptin Phosphate (Januvia -) 25 mg PO ACBK [facility] Last Admin: 10/14/17 09:00 Dose: 25 mg Tamsulosin HCl (Flomax -) 0.4 mg PO DAILY@0830 [facility] Last Admin: 10/14/17 08:59 Dose: 0.4 mg - Objective Vital Signs: Vital Signs Temperature 98.8 F 10/14/17 10:00 Pulse Rate 68 10/14/17 10:00 Respiratory Rate 18 10/14/17 10:00 Blood Pressure 141/66 10/14/17 10:00 O2 Sat by Pulse Oximetry (%) 96 10/13/17 21:00 Constitutional: Yes: No Distress, Calm Cardiovascular: Yes: Regular Rate and Rhythm Respiratory: Yes: Regular, CTA Bilaterally Gastrointestinal: Yes: Normal Bowel Sounds, Soft Musculoskeletal: Yes: WNL Extremities: Yes: WNL Neurological: Yes: Alert, Oriented Psychiatric: Yes: Alert, Oriented Labs: CBC, BMP 10/13/17 06:00 10/13/17 06:00 Assessment/Plan Problem List - Problems (1) Renal failure (ARF), acute on chronic Code(s): N17.9 - ACUTE KIDNEY FAILURE, UNSPECIFIED; N18.9 - CHRONIC KIDNEY DISEASE, UNSPECIFIED Qualifiers: Acute renal failure type: unspecified Chronic kidney disease stage: stage 4 (severe) Qualified Code(s): N17.9 - Acute kidney failure, unspecified; N18.4 - Chronic kidney disease, stage 4 (severe) (2) Bradycardia Code(s): R00.1 - BRADYCARDIA, UNSPECIFIED (3) CAD (coronary artery disease) Code(s): I25.10 - ATHSCL HEART DISEASE OF [place] CORONARY ARTERY W/O ANG PCTRS (4) Diabetes mellitus Code(s): E11.9 - TYPE 2 DIABETES MELLITUS WITHOUT COMPLICATIONS (5) HTN (hypertension) Code(s): I10 - ESSENTIAL (PRIMARY) HYPERTENSION (6) Pancreatitis, acute Code(s): K85.90 - ACUTE PANCREATITIS WITHOUT NECROSIS OR INFECTION, UNSP Qualifiers: Pancreatitis type: drug induced Acute pancreatitis complication: no infection or necrosis Qualified Code(s): K85.30 - Drug induced acute pancreatitis without necrosis or infection (7) Urinary retention Code(s): R33.9 - RETENTION OF URINE, UNSPECIFIED Assessment/Plan continue current mgmt patient stable no new issues doing well
--- NOTE | 2017-10-14 14:28 | PN ---
Progress Note, Physician Chief Complaint: Mr Harry says he had gas pain last night but it has resolved. No cp, sob, n/v. - Current Medication List Current Medications: Active Medications Acetaminophen (Tylenol -) 650 mg PO Q4H PRN PRN Reason: FEVER Last Admin: 10/14/17 06:28 Dose: 650 mg Amlodipine Besylate (Norvasc -) 10 mg PO DAILY [facility] Last Admin: 10/14/17 09:03 Dose: 10 mg Bisacodyl (Dulcolax Suppository -) 10 mg [place] PRN PRN PRN Reason: CONSTIPATION Darbepoetin Sam (Aranesp -) 40 mcg SQ Q7D@1000 [facility] Last Admin: 10/11/17 21:19 Dose: 40 mcg Docusate Sodium (Colace -) 100 mg PO TID [facility] Last Admin: 10/14/17 13:49 Dose: 100 mg Finasteride (Proscar -) 5 mg PO DAILY [facility] Last Admin: 10/14/17 09:03 Dose: 5 mg Furosemide (Lasix -) 40 mg PO DAILY [facility] Last Admin: 10/14/17 09:03 Dose: 40 mg Gabapentin (Neurontin -) 100 mg PO DAILY [facility] Last Admin: 10/14/17 09:03 Dose: 100 mg Glipizide (Glucotrol Xl -) 2.5 mg PO ACBK [facility] Last Admin: 10/14/17 09:00 Dose: 2.5 mg Heparin Sodium (Porcine) (Heparin -) 5,000 unit SQ BID [facility] Last Admin: 10/14/17 11:47 Dose: 5,000 unit Insulin Aspart (Novolog Vial Sliding Scale -) 1 vial SQ TIDAC [facility]; Protocol Last Admin: 10/14/17 11:51 Dose: 2 units Levothyroxine Sodium (Synthroid -) 75 mcg PO ACBK [facility] Last Admin: 10/14/17 06:28 Dose: 75 mcg Pantoprazole Sodium (Protonix -) 40 mg PO DAILY [facility] Last Admin: 10/14/17 09:03 Dose: 40 mg Polyethylene Glycol (Miralax (For Daily Use) -) 17 gm PO BID [facility] Last Admin: 10/14/17 09:09 Dose: Not Given Senna (Senna -) 2 tab PO HS [facility] Last Admin: 10/13/17 21:34 Dose: Not Given Sitagliptin Phosphate (Januvia -) 25 mg PO ACBK [facility] Last Admin: 10/14/17 09:00 Dose: 25 mg Tamsulosin HCl (Flomax -) 0.4 mg PO DAILY@0830 [facility] Last Admin: 10/14/17 08:59 Dose: 0.4 mg - Objective Vital Signs: Vital Signs Temperature 36.9 C 10/14/17 14:16 Pulse Rate 71 10/14/17 14:16 Respiratory Rate 18 10/14/17 14:16 Blood Pressure 142/58 10/14/17 14:16 O2 Sat by Pulse Oximetry (%) 96 10/13/17 21:00 Constitutional: Yes: Well Nourished, No Distress, Calm Cardiovascular: Yes: Regular Rate and Rhythm. No: Gallop, Murmur, Rub Respiratory: Yes: Regular, CTA Bilaterally. No: Rales, Rhonchi, Wheezes Gastrointestinal: Yes: Normal Bowel Sounds, Soft. No: Distention, Tenderness Genitourinary: Yes: [place] Present Extremities: Yes: WNL Edema: No Labs: CBC, BMP 10/13/17 06:00 10/13/17 06:00 Problem List - Problems (1) Renal failure (ARF), acute on chronic Code(s): N17.9 - ACUTE KIDNEY FAILURE, UNSPECIFIED; N18.9 - CHRONIC KIDNEY DISEASE, UNSPECIFIED Qualifiers: Acute renal failure type: unspecified Chronic kidney disease stage: stage 4 (severe) Qualified Code(s): N17.9 - Acute kidney failure, unspecified; N18.4 - Chronic kidney disease, stage 4 (severe) (2) Bradycardia Code(s): R00.1 - BRADYCARDIA, UNSPECIFIED (3) CAD (coronary artery disease) Code(s): I25.10 - ATHSCL HEART DISEASE OF [place] CORONARY ARTERY W/O ANG PCTRS (4) Diabetes mellitus Code(s): E11.9 - TYPE 2 DIABETES MELLITUS WITHOUT COMPLICATIONS (5) HTN (hypertension) Code(s): I10 - ESSENTIAL (PRIMARY) HYPERTENSION (6) Pancreatitis, acute Code(s): K85.90 - ACUTE PANCREATITIS WITHOUT NECROSIS OR INFECTION, UNSP Qualifiers: Pancreatitis type: drug induced Acute pancreatitis complication: no infection or necrosis Qualified Code(s): K85.30 - Drug induced acute pancreatitis without necrosis or infection (7) Urinary retention Code(s): R33.9 - RETENTION OF URINE, UNSPECIFIED Assessment/Plan (1) Renal failure (ARF), acute on chronic Assessment/Plan: -continue lasix -at baseline Code(s): N17.9 - ACUTE KIDNEY FAILURE, UNSPECIFIED; N18.9 - CHRONIC KIDNEY DISEASE, UNSPECIFIED Qualifiers: Acute renal failure type: unspecified Chronic kidney disease stage: stage 4 (severe) Qualified Code(s): N17.9 - Acute kidney failure, unspecified; N18.4 - Chronic kidney disease, stage 4 (severe) (2) Bradycardia Assessment/Plan -resolved -cardiology following -continue telemetry Code(s): R00.1 - BRADYCARDIA, UNSPECIFIED (3) CAD (coronary artery disease) Assessment/Plan: -no chest pain -cardiology following Code(s): I25.10 - ATHSCL HEART DISEASE OF [place] CORONARY [place] W/O ANG PCTRS (4) Diabetes mellitus Assessment/Plan: -continue FSBS and SSI -continue glipizide and onglyza -well controlled Code(s): E11.9 - TYPE 2 DIABETES MELLITUS WITHOUT COMPLICATIONS (5) HTN (hypertension) Assessment/Plan: -continue current management Code(s): I10 - ESSENTIAL (PRIMARY) HYPERTENSION (6) Pancreatitis, acute Assessment/Plan: -appreciate GI assistance -MRCP done and reviewed -resolved Code(s): K85.90 - ACUTE PANCREATITIS WITHOUT NECROSIS OR INFECTION, UNSP Qualifiers: Pancreatitis type: drug induced Acute pancreatitis complication: no infection or necrosis Qualified Code(s): K85.30 - Drug induced acute pancreatitis without necrosis or infection (7) Sepsis -repeat blood cultures negative -off antibiotics (8) Arthritis -PT consult to evaluate ambulation (9) Hypothyroidism -oral levothyroxine (10) Urinary retention -menchaca placed over weekend -consult urology for further recommendations
--- NOTE | 2017-10-14 14:55 | PN ---
Progress Note (short form) - Note Progress Note: cc: abd pain s: no abd pain, cp, sob, palps. Current Medications Acetaminophen (Tylenol -) 650 mg PO Q4H PRN PRN Reason: FEVER Last Admin: 10/14/17 06:28 Dose: 650 mg Amlodipine Besylate (Norvasc -) 10 mg PO DAILY [facility] Last Admin: 10/14/17 09:03 Dose: 10 mg Bisacodyl (Dulcolax Suppository -) [address] PRN PRN PRN Reason: CONSTIPATION Darbepoetin Sam (Aranesp -) 40 mcg SQ Q7D@1000 [facility] Last Admin: 10/11/17 21:19 Dose: 40 mcg Docusate Sodium (Colace -) 100 mg PO TID [facility] Last Admin: 10/14/17 13:49 Dose: 100 mg Finasteride (Proscar -) 5 mg PO DAILY [facility] Last Admin: 10/14/17 09:03 Dose: 5 mg Furosemide (Lasix -) 40 mg PO DAILY [facility] Last Admin: 10/14/17 09:03 Dose: 40 mg Gabapentin (Neurontin -) 100 mg PO DAILY [facility] Last Admin: 10/14/17 09:03 Dose: 100 mg Glipizide (Glucotrol Xl -) 2.5 mg PO ACBK [facility] Last Admin: 10/14/17 09:00 Dose: 2.5 mg Heparin Sodium (Porcine) (Heparin -) 5,000 unit SQ BID [facility] Last Admin: 10/14/17 11:47 Dose: 5,000 unit Insulin Aspart (Novolog Vial Sliding Scale -) 1 vial SQ TIDAC [facility]; Protocol Last Admin: 10/14/17 11:51 Dose: 2 units Levothyroxine Sodium (Synthroid -) 75 mcg PO ACBK [facility] Last Admin: 10/14/17 06:28 Dose: 75 mcg Pantoprazole Sodium (Protonix -) 40 mg PO DAILY [facility] Last Admin: 10/14/17 09:03 Dose: 40 mg Polyethylene Glycol (Miralax (For Daily Use) -) 17 gm PO BID [facility] Last Admin: 10/14/17 09:09 Dose: Not Given Senna (Senna -) 2 tab PO HS [facility] Last Admin: 10/13/17 21:34 Dose: Not Given Sitagliptin Phosphate (Januvia -) 25 mg PO ACBK [facility] Last Admin: 10/14/17 09:00 Dose: 25 mg Tamsulosin HCl (Flomax -) 0.4 mg PO DAILY@0830 [facility] Last Admin: 10/14/17 08:59 Dose: 0.4 mg - Objective Vital Signs Period Temp Pulse Resp BP Sys/Ramos Pulse Ox Last 24 Hr 98.5 F-99.7 F 66-74 17-18 137-147/58-67 96 Constitutional: Yes: Well Nourished, No Distress, Calm Cardiovascular: Yes: Regular Rate and Rhythm, S1, S2. No: Gallop, Murmur Respiratory: Yes: Regular. No: CTA Bilaterally, Accessory Muscle Use, Rales, Wheezes Extremities: No: Cold Edema: No Neurological: Yes: Alert, Oriented Psychiatric: No: Agitated Assessment/Plan ECG: sinus leeann at 30 bpm, normal axis/intervals; no ST-T abn, no q waves CT abdomen: small effusions, small ascites with soft tissue edema, mild fabio- pancreatic soft tissue stranding consider mild pancreatitis carotid dopplers: could not be completed due to neck venous catheter tele: NSR 50s-70s RUQ abd pain and tenderness: - GI eval ongoing, no etiology found/suspected yet. - MRI/MRCP no gallstones ROBIN on CKD: -creat 8s on admit, with K 6-s/p urgent HD, Cr improved -etiology unclear, renal following--? progression of advanced CKD at baseline, per d/w dr hankins -renal fxn improved significantly, Cr remains elevated, mnechaca placed for obstruction, Cr at baseline -holding home losartan -cont lasix 40 mg daily per renal sinus bradycardia: -likely was in setting of acute metabolic abnormalities--renal failure, hyperkalemia, acidosis, may also be related to acute abd process, abd pain -resolved with dc carvedilol bilat carotid bruits: -dopplers not able to be completed due to indwelling venous catheter in neck. -pt asymptomatic. -rpt study as outpt h/o CAD s/p CABG, elevated troponin: -trop intermediate range, flat trend (0.3 x 3)--not c/w ACS. no isch ecg changes -cont home aspirin -home meds need reconciliation re: home statin regimen--no change to prior plan HTN: -held BB, ARB as above -bp 150s-170s the past 24 hrs, continue amlodipine DM: -per hospitalist
--- NOTE | 2017-10-14 14:59 | PN ---
Progress Note (short form) - Note Progress Note: Renal Follow up for ROBIN on CKD Pt seen at the bedside no acute complaints no sob, cp, abd pain, fever, chills has menchaca in place Vital Signs Temperature 98.5 F 10/14/17 14:16 Pulse Rate 71 10/14/17 14:16 Respiratory Rate 18 10/14/17 14:16 Blood Pressure 142/58 10/14/17 14:16 O2 Sat by Pulse Oximetry (%) 96 10/13/17 21:00 Intake & Output 10/11/17 10/12/17 10/13/17 10/14/17 23:59 23:59 23:59 23:59 Intake Total 1050 400 970 Output Total 1700 1700 2400 1850 Balance -650 -1300 -1430 -1850 Weight 70.035 kg 69.059 kg NAD awake and alert MMM, no JVD RRR, No M/R CTA soft NT/ND trace LE edema CBC, BMP 10/13/17 06:00 10/13/17 06:00 Current Medications Acetaminophen (Tylenol -) 650 mg PO Q4H PRN PRN Reason: FEVER Last Admin: 10/14/17 06:28 Dose: 650 mg Amlodipine Besylate (Norvasc -) 10 mg PO DAILY [facility] Last Admin: 10/14/17 09:03 Dose: 10 mg Bisacodyl (Dulcolax Suppository -) 10 mg [place] PRN PRN PRN Reason: CONSTIPATION Darbepoetin Sam (Aranesp -) 40 mcg SQ Q7D@1000 [facility] Last Admin: 10/11/17 21:19 Dose: 40 mcg Docusate Sodium (Colace -) 100 mg PO TID [facility] Last Admin: 10/14/17 13:49 Dose: 100 mg Finasteride (Proscar -) 5 mg PO DAILY [facility] Last Admin: 10/14/17 09:03 Dose: 5 mg Furosemide (Lasix -) 40 mg PO DAILY [facility] Last Admin: 10/14/17 09:03 Dose: 40 mg Gabapentin (Neurontin -) 100 mg PO DAILY [facility] Last Admin: 10/14/17 09:03 Dose: 100 mg Glipizide (Glucotrol Xl -) 2.5 mg PO ACBK [facility] Last Admin: 10/14/17 09:00 Dose: 2.5 mg Heparin Sodium (Porcine) (Heparin -) 5,000 unit SQ BID [facility] Last Admin: 10/14/17 11:47 Dose: 5,000 unit Insulin Aspart (Novolog Vial Sliding Scale -) 1 vial SQ TIDAC [facility]; Protocol Last Admin: 10/14/17 11:51 Dose: 2 units Levothyroxine Sodium (Synthroid -) 75 mcg PO ACBK [facility] Last Admin: 10/14/17 06:28 Dose: 75 mcg Pantoprazole Sodium (Protonix -) 40 mg PO DAILY [facility] Last Admin: 10/14/17 09:03 Dose: 40 mg Polyethylene Glycol (Miralax (For Daily Use) -) 17 gm PO BID [facility] Last Admin: 10/14/17 09:09 Dose: Not Given Senna (Senna -) 2 tab PO HS [facility] Last Admin: 10/13/17 21:34 Dose: Not Given Sitagliptin Phosphate (Januvia -) 25 mg PO ACBK [facility] Last Admin: 10/14/17 09:00 Dose: 25 mg Tamsulosin HCl (Flomax -) 0.4 mg PO DAILY@0830 [facility] Last Admin: 10/14/17 08:59 Dose: 0.4 mg 77 year old gentleman with hx of CKD Stage 4/5, DM, CAD s/p CABG, Hyperlipidemia , Hypertension who presented with complaints of abd pain and found to have BUN/ Cr of 140/8.2 and K of 6. #Acute Renal Injury secondary to volume depletion vs. normotensive ATN vs. progressive CKD #CKD Stage 4/5 #CAD s/p CABG #Metabolic acidosis #Hyperkalemia #Anemia #Fever/Bacteremia (Staph Epi) Renal function stable no need for [employer] Continue Lasix 40mg daily Abx as per ID urology follow up menchaca management trend renal function and electrolytes Rambo Kulkarni DO
[2017-10-14] MEDS: SENNOSIDES 8.6MG TABLET (FP) PO SCH (22:27)
[2017-10-15] MEDS: DOCUSATE SODIUM 100 MG CAPSULE (FP) PO SCH ×3 (06:37→21:55)
[2017-10-15] MEDS: INSULIN SLIDING SCALE (NOVOLOG) 1 VIAL SQ SCH ×3 (06:39→17:10)
[2017-10-15] MEDS: LEVOTHYROXINE NA 75 MCG TABLET (FP) PO SCH (06:40)
[2017-10-15 08:22] LABS: BASO % 0.3 % (0-2.0); HEMATOCRIT 22.6 % (35.4-49); HEMOGLOBIN 7.5 GM/dL (11.7-16.9); LYMPH % 6.7 % (8-40); MCH 29.6 pg (25.7-33.7); MEAN CELL VOLUME 89.5 fl (80-96); MEAN PLT VOLUME 9.3 fl (7.5-11.1); PLATELET COUNT 231 K/MM3 (134-434); RBC 2.52 M/mm3 (4.00-5.60); RDW 17.2 % (11.9-15.9); WHITE BLOOD COUNT 10.4 K/mm3 (4.0-10.0)
[2017-10-15] MEDS ORDERED: PT OWN MED DRAWER 7, Y5N ONE ×2 (08:35→10:13)
[2017-10-15] MEDS: sitaGLIPtin PHOSPHATE 25 MG TABLET (FP) PO SCH (08:39)
[2017-10-15] MEDS: glipiZIDE-XL 2.5 MG TAB.ER.24 PO SCH (08:40)
[2017-10-15] MEDS: TAMSULOSIN HCL 0.4 MG CAP.ER.24H (FP) PO SCH (08:40)
[2017-10-15 09:19] LABS: ANION GAP 10 MMOL/L (8-16); BLOOD UREA NITROGEN 68 mg/dL (7-18); CALCIUM 8.2 mg/dL (8.5-10.1); CHLORIDE 103 mmol/L (98-107); CO2 27 mmol/L (21-32); CREATININE 3.7 mg/dL (0.7-1.3); GLUCOSE,RANDOM 74 mg/dL (74-106); MAGNESIUM 1.8 mg/dL (1.8-2.4); SODIUM 140 mmol/L (136-145)
[2017-10-15] MEDS: FINASTERIDE 5 MG TABLET (FP) PO SCH (10:17)
[2017-10-15] MEDS: amLODIPine BESYLATE 10 MG TABLET (FP) PO SCH (10:17)
[2017-10-15] MEDS: GABAPENTIN 100 MG CAPSULE (FP) PO SCH (10:17)
[2017-10-15] MEDS: PANTOPRAZOLE 40 MG TABLET (FP) PO SCH (10:17)
[2017-10-15] MEDS: FUROSEMIDE 40 MG TABLET (FP) PO SCH (10:17)
[2017-10-15] MEDS: POLYETHYLENE GLYCOL 3350 119 GM BTL PO SCH ×2 (10:18→21:56)
[2017-10-15] MEDS ORDERED: INSULIN (NOVOLOG) ASPART 100 UNITS/ML 10ML VIAL ONE (11:40)
--- NOTE | 2017-10-15 12:18 | CON.GU ---
Consult Consult Specialty:: Referred by:: medicine Reason for Consultation:: urinary retention and renal failure - History of Present Illness Chief Complaint: urinary retention and renal failure History of Present Illness: 77 year old male admitted with urinary retention and renal failure He reports that he was voiding prior to admission. suffered from severe constipation and urinary retention. His creatinine was as high as 8, is now settled at 3.7 - History Source History Provided By: Patient - Past Medical History Cardio/Vascular: Yes: CAD (s/p CABG 2009 at [facility]), HTN, Hyperlipdemia Renal/: Yes: Renal Failure, BPH, Renal Calculi Endocrine: Yes: Diabetes Mellitus, Hypothyroidism - Past Surgical History Past Surgical History: Yes: None, CABG (2009 at [facility]) - Alcohol/Substance Use Hx Alcohol Use: Yes (rare) History of Substance Use: reports: None - Smoking History Smoking history: Never smoked - Social History Usual Living Arrangement: With Spouse ADL: Independent 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) ) History of Recent Travel: No Home Medications - Allergies Allergies/Adverse Reactions: Allergies Allergy/AdvReac Type Severity Reaction Status Date / Time No Known Allergies Allergy Verified 10/04/17 17:44 - Home Medications Home Medications: Ambulatory Orders Alfuzosin HCl [Alfuzosin HCl ER] 10 mg PO DAILY 10/04/17 Amlodipine Besylate 10 mg PO DAILY 10/04/17 Aspirin [ASA -] 81 mg PO DAILY 10/04/17 Bumetanide 0.5 mg PO DAILY 10/04/17 Carvedilol [Coreg -] 6.25 mg PO ONCE 10/04/17 Glipizide [Glipizide ER] 2.5 mg PO DAILY 10/04/17 Levothyroxine [Synthroid -] 75 mcg PO DAILY 10/04/17 Losartan Potassium 100 mg PO DAILY 10/04/17 Saxagliptin HCl [Onglyza] 2.5 mg PO DAILY 10/04/17 Family Disease History - Family Disease History Family Disease History: Diabetes: Mother (lived to 84,. had asthma), Other: Father (lived to 96) Other Family History: no cancer, pancreatitis, liver or GB disease Review of Systems - Review of Systems Gastrointestinal: reports: Constipation Genitourinary: reports: Frequency, Incontinence Physical Exam- Vital Signs: Vital Signs Temperature 99.9 F H 10/15/17 10:00 Pulse Rate 80 10/15/17 10:00 Respiratory Rate 18 10/15/17 10:00 Blood Pressure 146/69 10/15/17 10:00 O2 Sat by Pulse Oximetry (%) 98 10/15/17 09:00 Gastrointestinal: Yes: WNL, Normal Bowel Sounds Renal/: Yes: Johnston Present. No: Bladder Distention, CVA Tenderness - Left, CVA Tenderness - Right, Hematuria Labs: CBC, BMP 10/15/17 07:45 10/15/17 07:45 Problem List - Problems (1) Renal failure (ARF), acute on chronic Code(s): N17.9 - ACUTE KIDNEY FAILURE, UNSPECIFIED; N18.9 - CHRONIC KIDNEY DISEASE, UNSPECIFIED Qualifiers: Acute renal failure type: unspecified Chronic kidney disease stage: stage 4 (severe) Qualified Code(s): N17.9 - Acute kidney failure, unspecified; N18.4 - Chronic kidney disease, stage 4 (severe) (2) Urinary retention Assessment/Plan: trial of void. Code(s): R33.9 - RETENTION OF URINE, UNSPECIFIED
[2017-10-15 13:13] LABS: LDH 239 U/L (87-241)
[2017-10-15] MEDS: predniSONE 20 MG TABLET (UD) PO SCH (13:54)
[2017-10-15] MEDS: ACETAMINOPHEN 325 MG TABLET (FP) PO PRN (13:57)
--- NOTE | 2017-10-15 14:36 | PN ---
Progress Note, Physician Chief Complaint: Mr Harry says he has pain in his feet, feels just like his gout pain. No cp, sob , n/v. - Current Medication List Current Medications: Active Medications Acetaminophen (Tylenol -) 650 mg PO Q4H PRN PRN Reason: FEVER Last Admin: 10/15/17 13:57 Dose: 650 mg Amlodipine Besylate (Norvasc -) 10 mg PO DAILY [facility] Last Admin: 10/15/17 10:17 Dose: 10 mg Bisacodyl (Dulcolax Suppository -) 10 mg [place] PRN PRN PRN Reason: CONSTIPATION Darbepoetin Sam (Aranesp -) 40 mcg SQ Q7D@1000 [facility] Last Admin: 10/11/17 21:19 Dose: 40 mcg Docusate Sodium (Colace -) 100 mg PO TID [facility] Last Admin: 10/15/17 13:58 Dose: 100 mg Finasteride (Proscar -) 5 mg PO DAILY [facility] Last Admin: 10/15/17 10:17 Dose: 5 mg Furosemide (Lasix -) 40 mg PO DAILY [facility] Last Admin: 10/15/17 10:17 Dose: 40 mg Gabapentin (Neurontin -) 100 mg PO DAILY [facility] Last Admin: 10/15/17 10:17 Dose: 100 mg Glipizide (Glucotrol Xl -) 2.5 mg PO ACBK [facility] Last Admin: 10/15/17 08:40 Dose: 2.5 mg Insulin Aspart (Novolog Vial Sliding Scale -) 1 vial SQ TIDAC [facility]; Protocol Last Admin: 10/15/17 11:42 Dose: 2 units Levothyroxine Sodium (Synthroid -) 75 mcg PO ACBK [facility] Last Admin: 10/15/17 06:40 Dose: 75 mcg Pantoprazole Sodium (Protonix -) 40 mg PO DAILY [facility] Last Admin: 10/15/17 10:17 Dose: 40 mg Polyethylene Glycol (Miralax (For Daily Use) -) 17 gm PO BID [facility] Last Admin: 10/15/17 10:18 Dose: 17 grams Prednisone (Deltasone -) 20 mg PO DAILY [facility] Last Admin: 10/15/17 13:54 Dose: 20 mg Senna (Senna -) 2 tab PO HS [facility] Last Admin: 10/14/17 22:27 Dose: 2 tab Sitagliptin Phosphate (Januvia -) 25 mg PO ACBK [facility] Last Admin: 10/15/17 08:39 Dose: 25 mg Tamsulosin HCl (Flomax -) 0.4 mg PO DAILY@0830 [facility] Last Admin: 10/15/17 08:40 Dose: 0.4 mg - Objective Vital Signs: Vital Signs Temperature 37.8 C H 10/15/17 14:00 Pulse Rate 80 10/15/17 10:00 Respiratory Rate 18 10/15/17 10:00 Blood Pressure 146/69 10/15/17 10:00 O2 Sat by Pulse Oximetry (%) 98 10/15/17 09:00 Constitutional: Yes: Well Nourished, No Distress, Calm Cardiovascular: Yes: Regular Rate and Rhythm. No: Gallop, Murmur, Rub Respiratory: Yes: Regular, CTA Bilaterally. No: Rales, Rhonchi, Wheezes Gastrointestinal: Yes: Normal Bowel Sounds, Soft. No: Distention, Tenderness Extremities: Yes: WNL Edema: No Labs: CBC, BMP 10/15/17 07:45 10/15/17 07:45 Problem List - Problems (1) Renal failure (ARF), acute on chronic Code(s): N17.9 - ACUTE KIDNEY FAILURE, UNSPECIFIED; N18.9 - CHRONIC KIDNEY DISEASE, UNSPECIFIED Qualifiers: Acute renal failure type: unspecified Chronic kidney disease stage: stage 4 (severe) Qualified Code(s): N17.9 - Acute kidney failure, unspecified; N18.4 - Chronic kidney disease, stage 4 (severe) (2) Bradycardia Code(s): R00.1 - BRADYCARDIA, UNSPECIFIED (3) CAD (coronary artery disease) Code(s): I25.10 - ATHSCL HEART DISEASE OF [place] CORONARY ARTERY W/O ANG PCTRS (4) Diabetes mellitus Code(s): E11.9 - TYPE 2 DIABETES MELLITUS WITHOUT COMPLICATIONS (5) HTN (hypertension) Code(s): I10 - ESSENTIAL (PRIMARY) HYPERTENSION (6) Pancreatitis, acute Code(s): K85.90 - ACUTE PANCREATITIS WITHOUT NECROSIS OR INFECTION, UNSP Qualifiers: Pancreatitis type: drug induced Acute pancreatitis complication: no infection or necrosis Qualified Code(s): K85.30 - Drug induced acute pancreatitis without necrosis or infection (7) Urinary retention Code(s): R33.9 - RETENTION OF URINE, UNSPECIFIED Assessment/Plan (1) Renal failure (ARF), acute on chronic Assessment/Plan: -continue lasix -at baseline Code(s): N17.9 - ACUTE KIDNEY FAILURE, UNSPECIFIED; N18.9 - CHRONIC KIDNEY DISEASE, UNSPECIFIED Qualifiers: Acute renal failure type: unspecified Chronic kidney disease stage: stage 4 (severe) Qualified Code(s): N17.9 - Acute kidney failure, unspecified; N18.4 - Chronic kidney disease, stage 4 (severe) (2) Bradycardia Assessment/Plan -resolved -cardiology following -continue telemetry Code(s): R00.1 - BRADYCARDIA, UNSPECIFIED (3) CAD (coronary artery disease) Assessment/Plan: -no chest pain -cardiology following Code(s): I25.10 - ATHSCL HEART DISEASE OF [place] CORONARY ARTERY W/O ANG PCTRS (4) Diabetes mellitus Assessment/Plan: -continue FSBS and SSI -continue glipizide and onglyza -well controlled Code(s): E11.9 - TYPE 2 DIABETES MELLITUS WITHOUT COMPLICATIONS (5) HTN (hypertension) Assessment/Plan: -continue current management Code(s): I10 - ESSENTIAL (PRIMARY) HYPERTENSION (6) Pancreatitis, acute Assessment/Plan: -appreciate GI assistance -MRCP done and reviewed -resolved Code(s): K85.90 - ACUTE PANCREATITIS WITHOUT NECROSIS OR INFECTION, UNSP Qualifiers: Pancreatitis type: drug induced Acute pancreatitis complication: no infection or necrosis Qualified Code(s): K85.30 - Drug induced acute pancreatitis without necrosis or infection (7) Fevers -now with fevers -since with urine retention and menhcaca, will check u/a and urine cultures -check sputum cultures and chest x-ray (8) Gout -had elevated uric acid on previous visits -will start prednisone -? if cause of fevers (9) Hypothyroidism -oral levothyroxine (10) Urinary retention -appreciate urology consult -remove menchaca today (11) Anemia -suspect AOCD -planned for 1 unit, however now with fever -cannot transfuse at this time -anemia workup
--- NOTE | 2017-10-15 14:47 | PN ---
Progress Note, Physician History of Present Illness: patients foleys removed spiked a fever otherwise stable no complaints - Current Medication List Current Medications: Active Medications Acetaminophen (Tylenol -) 650 mg PO Q4H PRN PRN Reason: FEVER Last Admin: 10/15/17 13:57 Dose: 650 mg Amlodipine Besylate (Norvasc -) 10 mg PO DAILY [facility] Last Admin: 10/15/17 10:17 Dose: 10 mg Bisacodyl (Dulcolax Suppository -) 10 mg [place] PRN PRN PRN Reason: CONSTIPATION Darbepoetin Sam (Aranesp -) 40 mcg SQ Q7D@1000 [facility] Last Admin: 10/11/17 21:19 Dose: 40 mcg Docusate Sodium (Colace -) 100 mg PO TID [facility] Last Admin: 10/15/17 13:58 Dose: 100 mg Finasteride (Proscar -) 5 mg PO DAILY [facility] Last Admin: 10/15/17 10:17 Dose: 5 mg Furosemide (Lasix -) 40 mg PO DAILY [facility] Last Admin: 10/15/17 10:17 Dose: 40 mg Gabapentin (Neurontin -) 100 mg PO DAILY [facility] Last Admin: 10/15/17 10:17 Dose: 100 mg Glipizide (Glucotrol Xl -) 2.5 mg PO [facility] Last Admin: 10/15/17 08:40 Dose: 2.5 mg Insulin Aspart (Novolog Vial Sliding Scale -) [facility]; Protocol Last Admin: 10/15/17 11:42 Dose: 2 units Levothyroxine Sodium (Synthroid -) [facility]cg [facility] Last Admin: 10/15/17 06:40 Dose: 75 mcg Pantoprazole Sodium (Protonix -) 40 mg PO DAILY [facility] Last Admin: 10/15/17 10:17 Dose: 40 mg Polyethylene Glycol (Miralax (For Daily Use) -) 17 gm PO BID [facility] Last Admin: 10/15/17 10:18 Dose: 17 grams Prednisone (Deltasone -) 20 mg PO DAILY [facility] Last Admin: 10/15/17 13:54 Dose: 20 mg Senna (Senna -) 2 tab PO [facility] Last Admin: 10/14/17 22:27 Dose: 2 tab Sitagliptin Phosphate (Januvia -) 25 mg PO ACBK [facility] Last Admin: 10/15/17 08:39 Dose: 25 mg Tamsulosin HCl (Flomax -) 0.4 mg PO DAILY@0830 [facility] Last Admin: 10/15/17 08:40 Dose: 0.4 mg - Objective Vital Signs: Vital Signs Temperature 100.0 F H 10/15/17 14:00 Pulse Rate 80 10/15/17 10:00 Respiratory Rate 18 10/15/17 10:00 Blood Pressure 146/69 10/15/17 10:00 O2 Sat by Pulse Oximetry (%) 98 10/15/17 09:00 Constitutional: Yes: No Distress, Calm Cardiovascular: Yes: Regular Rate and Rhythm Respiratory: Yes: Regular, CTA Bilaterally Gastrointestinal: Yes: Normal Bowel Sounds, Soft Musculoskeletal: Yes: WNL Extremities: Yes: WNL Neurological: Yes: Alert, Oriented Psychiatric: Yes: Alert, Oriented Labs: CBC, BMP 10/15/17 07:45 10/15/17 07:45 Assessment/Plan Problem List - Problems (1) Renal failure (ARF), acute on chronic Code(s): N17.9 - ACUTE KIDNEY FAILURE, UNSPECIFIED; N18.9 - CHRONIC KIDNEY DISEASE, UNSPECIFIED Qualifiers: Acute renal failure type: unspecified Chronic kidney disease stage: stage 4 (severe) Qualified Code(s): N17.9 - Acute kidney failure, unspecified; N18.4 - Chronic kidney disease, stage 4 (severe) (2) Bradycardia Code(s): R00.1 - BRADYCARDIA, UNSPECIFIED (3) CAD (coronary artery disease) Code(s): I25.10 - ATHSCL HEART DISEASE OF [place] CORONARY ARTERY W/O ANG PCTRS (4) Diabetes mellitus Code(s): E11.9 - TYPE 2 DIABETES MELLITUS WITHOUT COMPLICATIONS (5) HTN (hypertension) Code(s): I10 - ESSENTIAL (PRIMARY) HYPERTENSION (6) Pancreatitis, acute Code(s): K85.90 - ACUTE PANCREATITIS WITHOUT NECROSIS OR INFECTION, UNSP Qualifiers: Pancreatitis type: drug induced Acute pancreatitis complication: no infection or necrosis Qualified Code(s): K85.30 - Drug induced acute pancreatitis without necrosis or infection (7) Urinary retention Code(s): R33.9 - RETENTION OF URINE, UNSPECIFIED Assessment/Plan continue current mgmt patient stable no new issues doing well will monitor for fevers watch for voiding
--- NOTE | 2017-10-15 15:59 | PN ---
Progress Note (short form) - Note Progress Note: Renal Follow up for ROBIN on CKD Pt seen at the bedside complains of pain on bottom of both feet no sob, cp, abd pain, voiding w/o catheter Vital Signs Temperature 100.0 F H 10/15/17 14:00 Pulse Rate 82 10/15/17 14:45 Respiratory Rate 22 10/15/17 14:45 Blood Pressure 152/75 10/15/17 14:45 O2 Sat by Pulse Oximetry (%) 98 10/15/17 09:00 Intake & Output 10/12/17 10/13/17 10/14/17 10/15/17 23:59 23:59 23:59 23:59 Intake Total 400 970 520 790 Output Total 1700 2400 1850 2000 Balance -1300 -1430 -1330 -1210 Weight 69.059 kg NAD awake and alert MMM, no JVD RRR, No M/R CTA soft NT/ND trace LE edema CBC, BMP 10/15/17 07:45 10/15/17 07:45 Current Medications Acetaminophen (Tylenol -) 650 mg PO Q4H PRN PRN Reason: FEVER Last Admin: 10/15/17 13:57 Dose: 650 mg Amlodipine Besylate (Norvasc -) 10 mg PO DAILY [facility] Last Admin: 10/15/17 10:17 Dose: 10 mg Bisacodyl (Dulcolax Suppository -) 10 mg IN PRN PRN PRN Reason: CONSTIPATION Darbepoetin Sam (Aranesp -) 40 mcg SQ Q7D@1000 [facility] Last Admin: 10/11/17 21:19 Dose: 40 mcg Docusate Sodium (Colace -) 100 mg PO TID [facility] Last Admin: 10/15/17 13:58 Dose: 100 mg Finasteride (Proscar -) 5 mg PO DAILY [facility] Last Admin: 10/15/17 10:17 Dose: 5 mg Furosemide (Lasix -) 40 mg PO DAILY [facility] Last Admin: 10/15/17 10:17 Dose: 40 mg Gabapentin (Neurontin -) 100 mg PO DAILY [facility] Last Admin: 10/15/17 10:17 Dose: 100 mg Glipizide (Glucotrol Xl -) 2.5 mg PO ACBK [facility] Last Admin: 10/15/17 08:40 Dose: 2.5 mg Insulin Aspart (Novolog Vial Sliding Scale -) 1 vial SQ TIDAC [facility]; Protocol Last Admin: 10/15/17 11:42 Dose: 2 units Levothyroxine Sodium (Synthroid -) 75 mcg PO ACBK [facility] Last Admin: 10/15/17 06:40 Dose: 75 mcg Pantoprazole Sodium (Protonix -) 40 mg PO DAILY [facility] Last Admin: 10/15/17 10:17 Dose: 40 mg Polyethylene Glycol (Miralax (For Daily Use) -) 17 gm PO BID [facility] Last Admin: 10/15/17 10:18 Dose: 17 grams Prednisone (Deltasone -) 20 mg PO DAILY [facility] Last Admin: 10/15/17 13:54 Dose: 20 mg Senna (Senna -) 2 tab PO HS [facility] Last Admin: 10/14/17 22:27 Dose: 2 tab Sitagliptin Phosphate (Januvia -) 25 mg PO ACBK [facility] Last Admin: 10/15/17 08:39 Dose: 25 mg Tamsulosin HCl (Flomax -) 0.4 mg PO DAILY@0830 [facility] Last Admin: 10/15/17 08:40 Dose: 0.4 mg 77 year old gentleman with hx of CKD Stage 4/5, DM, CAD s/p CABG, Hyperlipidemia , Hypertension who presented with complaints of abd pain and found to have BUN/ Cr of 140/8.2 and K of 6. #Acute Renal Injury secondary to volume depletion vs. normotensive ATN vs. progressive CKD #CKD Stage 4/5 #CAD s/p CABG #Metabolic acidosis #Hyperkalemia #Anemia #Fever/Bacteremia (Staph Epi) Renal function stable continue Lasix daily trial of void on going to start prednisone for possible gout trend renal function and electrolytes stable for discharge from renal perspective would not restart ARB on discharge Rambo Kulkarni DO
[2017-10-15 16:08] VITALS: BMI 25.2
[2017-10-15 16:32] LABS: URINE APPEARANCE CLEAR; URINE BILIRUBIN NEGATIVE (<2.0 mg/dL); URINE COLOR LTYELLOW; URINE GLUCOSE (UA) NEGATIVE (NEGATIVE); URINE KETONE NEGATIVE (NEGATIVE); URINE LEUK ESTERASE TRACE (NEGATIVE); URINE NITRITE NEGATIVE (NEGATIVE); URINE PROTEIN 2+ (NEGATIVE); URINE UROBILINOGEN NEGATIVE mg/dL (0.2-1.0)
[2017-10-15 16:35] LABS: EPI CELLS RARE /HPF (FEW); URINE BACTERIA RARE /hpf (NONE SEEN); URINE MUCUS RARE
[2017-10-15] MEDS: SENNOSIDES 8.6MG TABLET (FP) PO SCH (21:55)
[2017-10-16 06:06] LABS: SERUM IRON SATURATION 6 % (15-55); TOTAL IRON BINDING CAPACITY 262 ug/dL (250-450); UIBC 245 ug/dL (111-343)
[2017-10-16] MEDS: DOCUSATE SODIUM 100 MG CAPSULE (FP) PO SCH ×2 (06:53→13:53)
[2017-10-16] MEDS: LEVOTHYROXINE NA 75 MCG TABLET (FP) PO SCH (06:53)
[2017-10-16] MEDS: glipiZIDE-XL 2.5 MG TAB.ER.24 PO SCH (06:53)
[2017-10-16] MEDS: INSULIN SLIDING SCALE (NOVOLOG) 1 VIAL SQ SCH ×2 (06:54→11:20)
[2017-10-16] MEDS: sitaGLIPtin PHOSPHATE 25 MG TABLET (FP) PO SCH (06:54)
[2017-10-16] MEDS ORDERED: INSULIN (NOVOLOG) ASPART 100 UNITS/ML 10ML VIAL ONE (06:58)
[2017-10-16 07:05] LABS: BASO % 0.2 % (0-2.0); HEMATOCRIT 26.8 % (35.4-49); HEMOGLOBIN 8.9 GM/dL (11.7-16.9); LYMPH % 4.5 % (8-40); MCH 29.1 pg (25.7-33.7); MCHC 33.3 g/dl (32.0-35.9); MEAN CELL VOLUME 87.3 fl (80-96); MONO % 8.4 % (3.8-10.2); NEUT % 86.9 % (42.8-82.8); PLATELET COUNT 251 K/MM3 (134-434); RBC 3.07 M/mm3 (4.00-5.60); RDW 17.1 % (11.9-15.9); WHITE BLOOD COUNT 10.7 K/mm3 (4.0-10.0)
[2017-10-16 07:31] LABS: ANION GAP 12 MMOL/L (8-16); BLOOD UREA NITROGEN 72 mg/dL (7-18); CALCIUM 8.3 mg/dL (8.5-10.1); CHLORIDE 101 mmol/L (98-107); CO2 25 mmol/L (21-32); CREATININE 3.8 mg/dL (0.7-1.3); GLUCOSE,RANDOM 283 mg/dL (74-106); MAGNESIUM 2.1 mg/dL (1.8-2.4); PHOSPHOROUS 4.1 mg/dL (2.5-4.9); POTASSIUM 4.2 mmol/L (3.5-5.1); SODIUM 138 mmol/L (136-145)
[2017-10-16] MEDS: TAMSULOSIN HCL 0.4 MG CAP.ER.24H (FP) PO SCH (09:29)
[2017-10-16] MEDS: predniSONE 20 MG TABLET (UD) PO SCH (11:10)
[2017-10-16] MEDS: amLODIPine BESYLATE 10 MG TABLET (FP) PO SCH (11:10)
[2017-10-16] MEDS: PANTOPRAZOLE 40 MG TABLET (FP) PO SCH (11:10)
[2017-10-16] MEDS: FUROSEMIDE 40 MG TABLET (FP) PO SCH (11:10)
[2017-10-16] MEDS: FINASTERIDE 5 MG TABLET (FP) PO SCH (11:10)
[2017-10-16] MEDS: POLYETHYLENE GLYCOL 3350 119 GM BTL PO SCH (11:10)
[2017-10-16] MEDS: GABAPENTIN 100 MG CAPSULE (FP) PO SCH (11:11)
--- NOTE | 2017-10-16 12:57 | DS ---
Physical Examination Vital Signs: Vital Signs Temperature 36.5 C 10/16/17 09:28 Pulse Rate 74 10/16/17 09:28 Respiratory Rate 20 10/16/17 09:28 Blood Pressure 147/76 10/16/17 09:28 O2 Sat by Pulse Oximetry (%) 98 10/15/17 21:00 Constitutional: Yes: Well Nourished, No Distress, Calm Cardiovascular: Yes: Regular Rate and Rhythm. No: Gallop, Murmur, Rub Respiratory: Yes: Regular, CTA Bilaterally. No: Rales, Rhonchi, Wheezes Gastrointestinal: Yes: Normal Bowel Sounds, Soft. No: Distention, Tenderness Extremities: Yes: WNL Edema: No Labs: CBC, BMP 10/16/17 06:00 10/16/17 06:00 Discharge Summary Reason For Visit: BRADYCARIDA,ACUTE RENAL FAILURE SUPERIMPOSED ON Current Active Problems Abdominal pain (Acute) Acid reflux (Acute) Agitation (Acute) Anemia (Acute) Ascites (Acute) Bradycardia (Acute) CAD (coronary artery disease) (Acute) Depression (Acute) Diabetes mellitus (Acute) HLD (hyperlipidemia) (Acute) HTN (hypertension) (Acute) History of coronary artery bypass graft (Acute) History of nephrolithiasis (Acute) Pancreatitis, acute (Acute) Renal failure (ARF), acute on chronic (Acute) Sepsis (Acute) Urinary retention (Acute) Hospital Course: (1) Renal failure (ARF), acute on chronic Code(s): N17.9 - ACUTE KIDNEY FAILURE, UNSPECIFIED; N18.9 - CHRONIC KIDNEY DISEASE, UNSPECIFIED Qualifiers: Acute renal failure type: unspecified Chronic kidney disease stage: stage 4 (severe) Qualified Code(s): N17.9 - Acute kidney failure, unspecified; N18.4 - Chronic kidney disease, stage 4 (severe) (2) Bradycardia Code(s): R00.1 - BRADYCARDIA, UNSPECIFIED (3) CAD (coronary artery disease) Code(s): I25.10 - ATHSCL HEART DISEASE OF [place] CORONARY ARTERY W/O ANG PCTRS (4) Diabetes mellitus Code(s): E11.9 - TYPE 2 DIABETES MELLITUS WITHOUT COMPLICATIONS (5) HTN (hypertension) Code(s): I10 - ESSENTIAL (PRIMARY) HYPERTENSION (6) Pancreatitis, acute Code(s): K85.90 - ACUTE PANCREATITIS WITHOUT NECROSIS OR INFECTION, UNSP Qualifiers: Pancreatitis type: drug induced Acute pancreatitis complication: no infection or necrosis Qualified Code(s): K85.30 - Drug induced acute pancreatitis without necrosis or infection (7) Fevers (8) Gout (9) Hypothyroidism (10) Urinary retention (11) Anemia Mr Harry is a very pleasant 77 year old male who came in with severe ROBIN on CKD with hyperkalemia. He was admitted to the hospital and emergently dialyzed. He only needed two treatments before his renal function returned to normal. He was bradycardic and beta blockers were stopped. Bradycardia resolved after this. he was thought to have pancreatitis. GI consulted and MRCP was negative. He had fevers and a full infectious work up, further fevers should be evaluated as and outpatient. He had urinary retention with menchaca placement. He was seen by urology and medications adjusted. Menchaca removed and he is urinating. He also had a gout flare, controlled with short course of prednisone. He required 1 unit pRBCs and will be discharged on aranesp with close follow up. He is safe for discharge home. 37 minutes spent in preparation of this discharge Condition: Stable - Instructions Diet, Activity, Other Instructions: resume previous diet and activity Referrals: Rambo Kulkarni MD [Staff Physician] - Salma Vital MD [Staff Physician] - Waldo Roque MD [Primary Care Provider] - 1 Week Lee Ayala MD [Staff Physician] - Disposition: HOME - Home Medications Comprehensive Discharge Medication List: Ambulatory Orders Alfuzosin HCl [Alfuzosin HCl ER] 10 mg PO DAILY 10/04/17 Amlodipine Besylate 10 mg PO DAILY 10/04/17 Aspirin [ASA -] 81 mg PO DAILY 10/04/17 Glipizide [Glipizide ER] 2.5 mg PO DAILY 10/04/17 Levothyroxine [Synthroid -] 75 mcg PO DAILY 10/04/17 Saxagliptin HCl [Onglyza] 2.5 mg PO DAILY 10/04/17 Darbepoetin Sam [Aranesp -] 40 mcg SQ Q7D@1000 #4 disp.syrin 10/16/17 Finasteride [Proscar -] 5 mg PO DAILY #30 tablet 10/16/17 Furosemide [Lasix -] 40 mg PO DAILY #30 tablet 10/16/17 Gabapentin [Neurontin -] 100 mg PO DAILY #30 capsule 10/16/17 Tamsulosin HCl [Flomax -] 0.4 mg PO DAILY@829 #30 cap.er.24h 10/16/17 predniSONE [Deltasone -] 20 mg PO DAILY #2 tablet 10/16/17
--- NOTE | 2017-10-16 14:17 | PN ---
Progress Note, Physician History of Present Illness: patient doing well stable no new issues no complaints - Current Medication List Current Medications: Active Medications Acetaminophen (Tylenol -) 650 mg PO Q4H PRN PRN Reason: FEVER Last Admin: 10/15/17 13:57 Dose: 650 mg Amlodipine Besylate (Norvasc -) 10 mg PO DAILY [facility] Last Admin: 10/16/17 11:10 Dose: 10 mg Bisacodyl (Dulcolax Suppository -) 10 mg PA PRN PRN PRN Reason: CONSTIPATION Darbepoetin Sam (Aranesp -) 40 mcg SQ Q7D@1000 [facility] Last Admin: 10/11/17 21:19 Dose: 40 mcg Docusate Sodium (Colace -) 100 mg PO TID [facility] Last Admin: 10/16/17 13:53 Dose: 100 mg Finasteride (Proscar -) 5 mg PO DAILY [facility] Last Admin: 10/16/17 11:10 Dose: 5 mg Furosemide (Lasix -) 40 mg PO DAILY [facility] Last Admin: 10/16/17 11:10 Dose: 40 mg Gabapentin (Neurontin -) 100 mg PO DAILY [facility] Last Admin: 10/16/17 11:11 Dose: 100 mg Glipizide (Glucotrol Xl -) 2.5 mg PO [facility] Last Admin: 10/16/17 06:53 Dose: 2.5 mg Insulin Aspart (Novolog Vial Sliding Scale -) [facility] Last Admin: 10/16/17 11:20 Dose: Not Given Levothyroxine [facility] -) [facility] Last Admin: 10/16/17 06:53 Dose: 75 mcg Pantoprazole Sodium (Protonix -) 40 mg PO DAILY [facility] Last Admin: 10/16/17 11:10 Dose: 40 mg Polyethylene Glycol (Miralax (For Daily Use) -) 17 gm PO BID [facility] Last Admin: 10/16/17 11:10 Dose: 17 grams Prednisone (Deltasone -) 20 mg PO DAILY [facility] Last Admin: 10/16/17 11:10 Dose: 20 mg Senna (Senna -) 2 tab PO [facility] Last Admin: 10/15/17 21:55 Dose: 2 tab Sitagliptin Phosphate (Januvia -) 25 mg PO ACBK [facility] Last Admin: 10/16/17 06:54 Dose: 25 mg Tamsulosin HCl (Flomax -) 0.4 mg PO DAILY@0830 [facility] Last Admin: 10/16/17 09:29 Dose: 0.4 mg - Objective Vital Signs: Vital Signs Temperature 97.7 F 10/16/17 09:28 Pulse Rate 74 10/16/17 09:28 Respiratory Rate 20 10/16/17 09:28 Blood Pressure 147/76 10/16/17 09:28 O2 Sat by Pulse Oximetry (%) 98 10/15/17 21:00 Constitutional: Yes: No Distress, Calm Cardiovascular: Yes: Regular Rate and Rhythm Respiratory: Yes: Regular, CTA Bilaterally Gastrointestinal: Yes: Normal Bowel Sounds, Soft Musculoskeletal: Yes: WNL Extremities: Yes: WNL Neurological: Yes: Alert, Oriented Psychiatric: Yes: Alert, Oriented Labs: CBC, BMP 10/16/17 06:00 10/16/17 06:00 Assessment/Plan Problem List - Problems (1) Renal failure (ARF), acute on chronic Code(s): N17.9 - ACUTE KIDNEY FAILURE, UNSPECIFIED; N18.9 - CHRONIC KIDNEY DISEASE, UNSPECIFIED Qualifiers: Acute renal failure type: unspecified Chronic kidney disease stage: stage 4 (severe) Qualified Code(s): N17.9 - Acute kidney failure, unspecified; N18.4 - Chronic kidney disease, stage 4 (severe) (2) Bradycardia Code(s): R00.1 - BRADYCARDIA, UNSPECIFIED (3) CAD (coronary artery disease) Code(s): I25.10 - ATHSCL HEART DISEASE OF [place] CORONARY ARTERY W/O ANG PCTRS (4) Diabetes mellitus Code(s): E11.9 - TYPE 2 DIABETES MELLITUS WITHOUT COMPLICATIONS (5) HTN (hypertension) Code(s): I10 - ESSENTIAL (PRIMARY) HYPERTENSION (6) Pancreatitis, acute Code(s): K85.90 - ACUTE PANCREATITIS WITHOUT NECROSIS OR INFECTION, UNSP Qualifiers: Pancreatitis type: drug induced Acute pancreatitis complication: no infection or necrosis Qualified Code(s): K85.30 - Drug induced acute pancreatitis without necrosis or infection (7) Urinary retention Code(s): R33.9 - RETENTION OF URINE, UNSPECIFIED Assessment/Plan continue current mgmt patient stable no new issues doing well follow up with urology
[2017-10-16 14:23] VITALS: BP 154/80; PULSE 80; TEMP 98.6
== END 2017-10-16 15:26 | disposition home health service (06) | DRG 682 ==
LOC: JER 17:34 → JERBED 21:53 → JICU 10-05 03:07 → J4W 10-07 15:26 → J5S 10-11 20:09
PROVIDERS: ADMIT Internal Medicine; ATTEND Internal Medicine
PROC: 05HM33Z Insertion of Infusion Device into Right Internal Jugular Vein, Percutaneous Approach (ICD-10-PCS; principal; 2017-10-05)
PROC: 30233N1 Transfusion of Nonautologous Red Blood Cells into Peripheral Vein, Percutaneous Approach (ICD-10-PCS; 2017-10-05)
DX: N17.9 Acute kidney failure, unspecified (principal); K85.90 Acute pancreatitis without necrosis or infection, unspecified; E87.2 Acidosis; I24.8 Other forms of acute ischemic heart disease; R18.8 Other ascites; I12.9 Hypertensive chronic kidney disease with stage 1 through stage 4 chronic kidney disease, or unspecified chronic kidney disease; I25.10 Atherosclerotic heart disease of native coronary artery without angina pectoris; Z95.1 Presence of aortocoronary bypass graft; E78.5 Hyperlipidemia, unspecified; R00.1 Bradycardia, unspecified; E11.9 Type 2 diabetes mellitus without complications; F32.9 Major depressive disorder, single episode, unspecified; R45.1 Restlessness and agitation; D64.9 Anemia, unspecified; R33.9 Retention of urine, unspecified; N18.4 Chronic kidney disease, stage 4 (severe); M10.9 Gout, unspecified; E03.9 Hypothyroidism, unspecified; E87.5 Hyperkalemia; E11.22 Type 2 diabetes mellitus with diabetic chronic kidney disease; E86.9 Volume depletion, unspecified; N40.0 Benign prostatic hyperplasia without lower urinary tract symptoms; D69.6 Thrombocytopenia, unspecified; E83.39 Other disorders of phosphorus metabolism
CPT/HCPCS: 36415; 36430; 71045-TC-FY; 74176-TC; 74181-TC; 76705-TC; 80048; 80053; 81003; 81015; 82150; 82272; 82550; 82570; 82607; 82728; 82746; 82962; 83010; 83036; 83540; 83550; 83615; 83690; 83735; 84100; 84156; 84436; 84443; 84466; 84478; 84484; 84540; 84550; 85025; 86140; 86301; 86704; 86706; 86708; 86803; 86850; 86900; 86901; 86922; 87040; 87086; 87186; 87205; 87340; 93005; 93010; 93880-TC; 93975; 97116-GP; 97161-GP; 99284-25; J0881; J0885; J1644; J7030; P9038; P9058

== ENCOUNTER 2018-07-02 14:25 | Inpatient (IN) | payer OTHER ==
--- NOTE | 2018-07-02 14:35 | PDOC ---
Rapid Medical Evaluation Time Seen by Provider: 07/02/18 14:32 Medical Evaluation: Allergies Allergy/AdvReac Type Severity Reaction Status Date / Time No Known Allergies Allergy Verified 10/04/17 17:44 07/02/18 14:33 HPI: Sent for dialysis PE: No gross deficits Orders: Nothing pt has blood with him 07/02/18 14:34 Discharge Disposition - Diagnosis Renal failure (ARF), acute on chronic - Referrals - Patient Instructions - Post Discharge Activity
--- NOTE | 2018-07-02 15:27 | PDOC ---
History of Present Illness - General Chief Complaint: Revisit, Lab Variance Stated Complaint: LAB VARIANCE Time Seen by Provider: 07/02/18 14:32 History Source: Patient Exam Limitations: No Limitations - History of Present Illness Initial Comments: 07/02/18 15:30 PCP: Dr. Roque Mr. Harry is a 77 y/o M h/o CKD Stage 4/5, CAD s/p CABG, HTN, HLD, DM who was referred to the ER due to elevated creatinine. Pt has been in his usual state of health. He is seen by his PMD every 3 months , labs are drawn every 3 months. Pt was called because creatinine has increased He denies pain He denies fevers or chills He denies changes in medication He reports normal urine output No nausea or vomiting No diarrhea or dehydration Patient denies recent NSAID use Patient denies fall or trauma. PAST MEDICAL HISTORY: See HPI PAST SURGICAL HISTORY: CABG Social History: Smoking: Former 20 yrs ago Alcohol: Denies Drugs: Denies Lives with spouse, Independent Family History: Mother: DM Allergies: NKDA ROS: GENERAL/CONSTITUTIONAL: No: fever, chills, weakness, (+) loss of appetite. HEAD, EYES, EARS, NOSE AND THROAT: No: change in vision, ear pain, discharge, sore throat CARDIOVASCULAR: No: chest pain, lightheadedness, palpitations RESPIRATORY: No: cough, shortness of breath, wheezing GASTROINTESTINAL: No: nausea, vomiting, diarrhea, abdominal pain GENITOURINARY: No: dysuria, hematuria, frequency, urgency, flank pain. MUSCULOSKELETAL: No: back pain SKIN: No: lesions, pallor, rash or easy bruising. NEUROLOGIC: No: headache, vertigo, paresthesias, weakness ENDOCRINE: No: unexplained weight gain or loss HEMATOLOGIC/LYMPHATIC: No: anemia, easy bleeding, swelling nodes. PE: GENERAL: The patient is in no acute distress. HEAD: Normal EYES: PERRLA, EOMI, sclera anicteric, conjunctiva clear. ENT: Ears normal, nares patent, oropharynx clear without exudates. Moist mucous membranes. NECK: Normal range of motion, supple LUNGS: Breath sounds equal, clear to auscultation bilaterally. No wheezes, and no crackles. HEART:Regular rate and rhythm, normal S1 and S2 without murmur, rub or gallop. ABDOMEN: Soft, nontender, normoactive bowel sounds. No guarding, no rebound. EXTREMITIES: Normal range of motion, (+) bilateral lower extremity edema L>R NEUROLOGICAL: Cranial nerves II through XII grossly intact. Normal speech. No focal neurological deficits. MUSCULOSKELETAL: Back non-tender to palpation SKIN: Warm, Dry, normal turgor, no rashes or lesions noted. Past History - Past Medical History Allergies/Adverse Reactions: Allergies Allergy/AdvReac Type Severity Reaction Status Date / Time No Known Allergies Allergy Verified 10/04/17 17:44 Home Medications: Ambulatory Orders Amlodipine Besylate [Norvasc -] 10 mg PO DAILY 08/02/13 Glipizide [Glipizide ER] 2.5 mg PO DAILY 08/02/13 Levothyroxine [Synthroid -] 75 mcg PO DAILY 08/02/13 Rosuvastatin Calcium [Crestor] 15 mg PO DAILY 08/02/13 Tamsulosin HCl [Flomax -] 0.4 mg PO DAILY 08/02/13 Aspirin [ASA -] 81 mg PO DAILY 10/04/17 Finasteride [Proscar -] 5 mg PO DAILY #30 tablet 10/16/17 Furosemide [Lasix -] 40 mg PO DAILY #30 tablet 10/16/17 Allopurinol [Zyloprim -] 100 mg PO DAILY 07/02/18 Carvedilol [Coreg -] 12.5 mg PO BID 07/02/18 Gabapentin [Neurontin] 100 mg PO DAILY 07/02/18 Asthma: No Cancer: No Cardiac Disorders: Yes CVA: No COPD: No CHF: No Dementia: No Diabetes: Yes GI Disorders: No Disorders: No HTN: Yes Hypercholesterolemia: Yes Liver Disease: No Seizures: No Thyroid Disease: Yes - Surgical History Abdominal Surgery: No Appendectomy: No Cardiac Surgery: Yes (bypass) Cholecystectomy: No Lung Surgery: No Neurologic Surgery: No Orthopedic Surgery: No - Immunization History Td Vaccination: (unknown) Immunization Up to Date: Yes (unknown) - Suicide/Smoking/Psychosocial Hx Smoking Status: No Smoking History: Never smoked Years of Tobacco Use: 15 Have you smoked in the past 12 months: No Number of Cigarettes Smoked Daily: 2 Cigars Per Day: 0 Information on smoking cessation initiated: No Hx Alcohol Use: No Drug/Substance Use Hx: No Substance Use Type: None *Physical Exam - Vital Signs Last Vital Signs Temp Pulse Resp BP Pulse Ox 98.2 F 66 16 127/58 L 99 07/02/18 14:33 07/02/18 14:33 07/02/18 14:33 07/02/18 14:33 07/02/18 14:33 ED Treatment Course - LABORATORY CBC & Chemistry Diagram: 07/02/18 15:38 07/02/18 15:30 - RADIOLOGY Radiology Studies Ordered: Category Date Time Status CHEST X-RAY PORTABLE* [RAD] Stat Radiology 07/02/18 15:24 Ordered Medical Decision Making - Medical Decision Making 07/02/18 15:57 EKG - NSR rate of 67 bpm, axis nml, intervals nml, no ST elevation or depression , t wave flattening laterally Will do: Labs EKG CXR Consult renal 07/02/18 16:55 Laboratory Tests 07/02/18 07/02/18 07/02/18 15:30 15:38 15:38 WBC 9.5 Hgb 8.4 L Hct 26.0 L Plt Count 143 D INR 1.26 H Sodium 139 Potassium 4.2 Chloride 103 Carbon Dioxide 24 BUN 112 H* Creatinine 7.3 H Random Glucose 129 H 07/02/18 17:[address] Kulkarni Will plan to give IVF (1 L NS), obtain renal/bladder US Will re assess Will admit to hospitalist service *DC/Admit/Observation/Transfer Diagnosis at time of Disposition: Renal failure (ARF), acute on chronic Qualifiers: Acute renal failure type: unspecified Chronic kidney disease stage: unspecified stage Qualified Code(s): N17.9 - Acute kidney failure, unspecified - Discharge Dispostion Condition at time of disposition: Stable Decision to Admit order: Yes - Referrals - Patient Instructions - Post Discharge Activity
[2018-07-02 16:04] LABS: BASO % 0.5 % (0-2.0); EOS % 1.2 % (0-4.5); HEMOGLOBIN 8.4 GM/dL (11.7-16.9); LYMPH % 7.5 % (8-40); MCH 29.7 pg (25.7-33.7); MCHC 32.4 g/dl (32.0-35.9); MEAN CELL VOLUME 91.6 fl (80-96); MEAN PLT VOLUME 11.3 fl (7.5-11.1); MONO % 8.9 % (3.8-10.2); NEUT % 81.9 % (42.8-82.8); PLATELET COUNT 143 K/MM3 (134-434); RBC 2.84 M/mm3 (4.00-5.60); RDW 16.3 % (11.9-15.9); WHITE BLOOD COUNT 9.5 K/mm3 (4.0-10.0)
[2018-07-02 16:26] LABS: INR 1.26 (0.83-1.09); PROTHROMBIN TIME (PATIENT) 14.9 SEC (9.7-13.0)
[2018-07-02 16:44] LABS: ALBUMIN 3.6 g/dl (3.4-5.0); BILIRUBIN,TOTAL 1.7 mg/dL (0.2-1); CREATININE 7.3 mg/dL (0.55-1.3); MAGNESIUM 1.9 mg/dL (1.8-2.4); PHOSPHOROUS 4.1 mg/dL (2.5-4.9); POTASSIUM 4.2 mmol/L (3.5-5.1); TOT PROT 6.5 g/dl (6.4-8.2)
[2018-07-02] MEDS ORDERED: SODIUM CHLORIDE 1,000 ML IV STA (16:47)
[2018-07-02 17:36] LABS: EPI CELLS 1.5 /HPF (0-5/HPF); URINE APPEARANCE CLEAR; URINE BACTERIA 0.2 /hpf (NEGATIVE); URINE BILIRUBIN NEGATIVE (NEGATIVE); URINE CASTS 14 /lpf (0-8); URINE COLOR YELLOW; URINE GLUCOSE (UA) NEGATIVE (NEGATIVE); URINE KETONE NEGATIVE (NEGATIVE); URINE LEUK ESTERASE NEGATIVE (NEGATIVE); URINE NITRITE NEGATIVE (NEGATIVE); URINE PROTEIN 3+ (NEGATIVE); URINE RBC 2 /hpf (0-4); URINE WBC 3 /hpf (0-5)
--- NOTE | 2018-07-02 18:20 | HP ---
CHIEF COMPLAINT: Elevated Cr PCP: Dr. Roque HISTORY OF PRESENT ILLNESS: 77 y/o M w/PMH of CKD, CAD s/p CABG, HTN, HLD, DM presented to the ER after being found to have elevated Cr on routine labs. 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 He was switched from ongliza to januvia approx 3-4 weeks ago and developed abd distension and rash and was taken off januvia approx 2 weeks ago when he developed those symptoms and changed to regentra. His abd distension has decreased and his rash has improved. Over the last 2 weeks he has also noted increased LE edema and dyspnea on exertion. Denies CP, palpitations, light- headedness, dizziness, abd pain, change in urinary or bowel habits, dysuria, change in color of urine, blood in urine, sick contacts, NSAID use, recent travel. ER course was notable for: (1) NS, CXR, renal US (2) (3) Recent Travel: denies PAST MEDICAL HISTORY:CKD, CAD s/p CABG, HTN, HLD, DM PAST SURGICAL HISTORY: CABG Social History: Smoking: quit over 20 years ago Alcohol: denies Drugs: denies Family History: n-c Allergies Allergy/AdvReac Type Severity Reaction Status Date / Time sitagliptin [From ] Allergy Verified 07/02/18 20:06 HOME MEDICATIONS: Home Medications Medication Instructions Recorded Amlodipine Besylate [Norvasc -] 10 mg PO DAILY 08/02/13 Glipizide [Glipizide ER] 2.5 mg PO DAILY 08/02/13 Levothyroxine [Synthroid -] 75 mcg PO DAILY 08/02/13 Rosuvastatin Calcium [Crestor] 15 mg PO DAILY 08/02/13 Tamsulosin HCl [Flomax -] 0.4 mg PO DAILY 08/02/13 Aspirin [ASA -] 81 mg PO DAILY 10/04/17 Finasteride [Proscar -] 5 mg PO DAILY #30 tablet 10/16/17 Furosemide [Lasix -] 40 mg PO DAILY #30 tablet 10/16/17 Allopurinol [Zyloprim -] 100 mg PO DAILY 07/02/18 Carvedilol [Coreg -] 12.5 mg PO BID 07/02/18 Gabapentin [Neurontin] 100 mg PO DAILY 07/02/18 REVIEW OF SYSTEMS CONSTITUTIONAL: Absent: fever, chills, generalized weakness CARDIOVASCULAR: +peripheral edema Absent: chest pain, syncope, palpitations, lightheadedness RESPIRATORY: +BASS Absent: cough GASTROINTESTINAL: +abd distension (improving) Absent: abdominal pain, nausea, vomiting, hematochezia GENITOURINARY: Absent: dysuria, frequency, hematuria NEUROLOGIC: Absent: headache, dizziness PHYSICAL EXAMINATION Vital Signs - 24 hr 07/02/18 07/02/18 14:33 17:38 Temperature 98.2 F 98.3 F Pulse Rate 66 Pulse Rate [ 67 Left] Respiratory 16 18 Rate Blood Pressure 127/58 L Blood Pressure 129/52 L [Right Arm] O2 Sat by Pulse 99 98 Oximetry (%) GENERAL: Awake, alert, and fully oriented, in no acute distress. EYES:extraocular movements intact, sclera anicteric, conjunctiva clear. LUNGS: Breath sounds equal, clear to auscultation bilaterally. HEART: Regular rate and rhythm, normal S1 and S2 ABDOMEN: +abd distension. Soft, nontender, normoactive bowel sounds. tympanic to percussion. MUSCULOSKELETAL: No CVA tenderness. LOWER EXTREMITIES:warm, well-perfused. No calf tenderness. 1+ LLE edema. Trace RLE edema. NEUROLOGICAL: Cranial nerves II-XII intact. Normal speech. Gait not observed. PSYCHIATRIC: Cooperative. Good eye contact. Appropriate mood and affect. SKIN: Warm, dry Laboratory Results - last 24 hr 07/02/18 07/02/18 07/02/18 15:30 15:30 15:38 WBC 9.5 RBC 2.84 L Hgb 8.4 L Hct 26.0 L MCV 91.6 MCH 29.7 MCHC 32.4 RDW 16.3 H Plt Count 143 D MPV 11.3 H D Absolute Neuts (auto) 7.8 Neutrophils % 81.9 Lymphocytes % 7.5 L D Monocytes % 8.9 Eosinophils % 1.2 D Basophils % 0.5 Nucleated RBC % 0 PT with INR INR Sodium 139 Potassium 4.2 Chloride 103 Carbon Dioxide 24 Anion Gap 12 BUN 112 H* Creatinine 7.3 H Est GFR (CKD-EPI)AfAm 7.57 Est GFR (CKD-EPI)NonAf 6.53 Random Glucose 129 H Calcium 9.0 Phosphorus 4.1 Magnesium 1.9 Total Bilirubin 1.7 H AST 20 ALT 20 Alkaline Phosphatase 109 Total Protein 6.5 Albumin 3.6 Urine Color Urine Appearance Urine pH Ur Specific [place] Urine Protein Urine Glucose (UA) Urine Ketones Urine Blood Urine Nitrite Urine Bilirubin Urine Urobilinogen Ur Leukocyte Esterase Urine WBC (Auto) Urine RBC (Auto) Urine Casts (Auto) U Pathogenic Cast Auto U Epithel Cells (Auto) Urine Bacteria (Auto) Blood Type A POSITIVE Antibody Screen Negative 07/02/18 07/02/18 15:38 17:15 WBC RBC Hgb Hct MCV MCH MCHC RDW Plt Count MPV Absolute Neuts (auto) Neutrophils % Lymphocytes % Monocytes % Eosinophils % Basophils % Nucleated RBC % PT with INR 14.90 H INR 1.26 H Sodium Potassium Chloride Carbon Dioxide Anion Gap BUN Creatinine Est GFR (CKD-EPI)AfAm Est GFR (CKD-EPI)NonAf Random Glucose Calcium Phosphorus Magnesium Total Bilirubin AST ALT Alkaline Phosphatase Total Protein Albumin Urine Color Yellow Urine Appearance Clear Urine pH 5.0 Ur Specific [place] 1.013 Urine Protein 3+ H Urine Glucose (UA) Negative Urine Ketones Negative Urine Blood Trace Urine Nitrite Negative Urine Bilirubin Negative Urine Urobilinogen 1.0 Ur Leukocyte Esterase Negative Urine WBC (Auto) 3 Urine RBC (Auto) 2 Urine Casts (Auto) 14 U Pathogenic Cast Auto Review A* U Epithel Cells (Auto) 1.5 Urine Bacteria (Auto) 0.2 Blood Type Antibody Screen RENAL U/S 07/02: No hydronephrosis is seen. The kidneys demonstrate no definite sonographic abnormality. No definite interval change is identified in comparison to a prior ultrasound study of 2015. Perihepatic free intraperitoneal fluid is seen. There is also partial imaging of bilateral pleural effusions ASSESSMENT/PLAN: 77 y/o M w/PMH of CKD, CAD s/p CABG, HTN, HLD, DM presented to the ER after being found to have elevated Cr on routine labs. Admitted for ROBIN on CKD -ROBIN on CKD -Renal U/S as noted above -Januvia in recent hx with adverse effect of ARF -Urine eosinophils -FeNa -NS @ 83ml/hr -States he does not take lasix -Nephrology consulted -Hold allopurinol, avoid nephrotoxic agents -Echo -HTN -c/w norvasc 10mg, carvedilol 12.5mg -DM -ISS, BGMs ACHS -c/w gabapentin 100 mg po qd -BPH -c/w finasteride, floax -Hypothyroidism -Levothyroxine 75 mcg -Gout -no acute flare -hold allopurinol -HLD -c/w crestor 7.5mg -DVT ppx -Heparin 5000 units sq q8h -FEN -NS @ 83 ml/hr -Monitor electrolytes -Diabetic, renal diet -Dispo: Visit type - Emergency Visit Emergency Visit: Yes ED Registration Date: 07/02/18 Care time: The patient presented to the Emergency Department on the above date and was hospitalized for further evaluation of their emergent condition. - New Patient This patient is new to me today: Yes Date on this admission: 07/02/18 - Critical Care Critical Care patient: No
--- NOTE | 2018-07-02 18:22 | PN ---
Teaching Attending Note Name of Resident: Jerod Jordan ATTENDING PHYSICIAN STATEMENT I saw and evaluated the patient. I reviewed the resident's note and discussed the case with the resident. I agree with the resident's findings and plan as documented. SUBJECTIVE: Mr Harry is a very pleasant 77 year old male who was sent in from the office with elevated BUN/Cr. He had this happen last year where he received 1 round of HD and it resolved. He says that he was recently changed to januvia, but after being on it for approximately 2 weeks he had an allergic reaction including a rash and abdominal swelling. He was changed to tradjenta and the rash went away, but the swelling remained. Aside from this he is without complaints. He denies fevers, chills, lightheadedness, dizziness, passing out, chest pain, shortness of breath, nausea, vomiting, diarrhea, constipation, difficulty or pain on urination, or decreased urination. He still has abdominal and leg swelling. He went for his routine follow up appointment and was found to have a severely decreased renal function and was sent in. 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) ) FHx: noncontributory ROS: full review of systems obtained, as per HPI and otherwise negative OBJECTIVE: Gen: nad HEENT: perrla, eomi, moist mucous membranes Pulm: ctab w/o w/r/r CV: rrr w/o m/r/g Abd: +bs, s/nt/nd Ext: trace edema ASSESSMENT AND PLAN: -admit to med/surg -does not need telemetry since no electrolyte abnormalities -consult Dr Kulkarni -will hydrate overnight -continue home medications -diabetic diet -monitor for improvement Problem List - Problems (1) Renal failure (ARF), acute on chronic Code(s): N17.9 - ACUTE KIDNEY FAILURE, UNSPECIFIED; N18.9 - CHRONIC KIDNEY DISEASE, UNSPECIFIED Qualifiers: Acute renal failure type: unspecified Chronic kidney disease stage: unspecified stage Qualified Code(s): N17.9 - Acute kidney failure, unspecified ; N18.9 - Chronic kidney disease, unspecified (2) CAD (coronary artery disease) Code(s): I25.10 - ATHSCL HEART DISEASE OF [place] CORONARY ARTERY W/O ANG PCTRS (3) Diabetes mellitus Code(s): E11.9 - TYPE 2 DIABETES MELLITUS WITHOUT COMPLICATIONS (4) Gout Code(s): M10.9 - GOUT, UNSPECIFIED (5) HLD (hyperlipidemia) Code(s): E78.5 - HYPERLIPIDEMIA, UNSPECIFIED (6) HTN (hypertension) Code(s): I10 - ESSENTIAL (PRIMARY) HYPERTENSION
[2018-07-02] MEDS: SODIUM CHLORIDE 1,000 ML IV SCH (19:15)
[2018-07-02] MEDS: HEPARIN NA (PORCINE) 5,000 UNITS/ML 1ML VIAL SQ SCH (22:32)
[2018-07-02] MEDS: CARVEDILOL 12.5 MG TABLET (FP) PO SCH (22:32)
[2018-07-02] MEDS: ROSUVASTATIN CA 5 MG TABLET (FP) PO SCH (22:32)
[2018-07-02] MEDS: INSULIN SLIDING SCALE (NOVOLOG) 1 VIAL SQ SCH (22:44)
[2018-07-02 23:10] VITALS: BMI 25.2
[2018-07-03] MEDS: INSULIN SLIDING SCALE (NOVOLOG) 1 VIAL SQ SCH ×4 (06:48→21:29)
[2018-07-03] MEDS: SODIUM CHLORIDE 1,000 ML IV SCH (06:50)
[2018-07-03] MEDS: LEVOTHYROXINE NA 75 MCG TABLET (FP) PO SCH (06:50)
[2018-07-03] MEDS: HEPARIN NA (PORCINE) 5,000 UNITS/ML 1ML VIAL SQ SCH ×3 (06:50→21:29)
[2018-07-03 07:58] LABS: BASO % 0.4 % (0-2.0); EOS % 2.5 % (0-4.5); HEMATOCRIT 22.9 % (35.4-49); HEMOGLOBIN 7.7 GM/dL (11.7-16.9); LYMPH % 8.7 % (8-40); MCH 30.2 pg (25.7-33.7); MCHC 33.5 g/dl (32.0-35.9); MEAN PLT VOLUME 10.4 fl (7.5-11.1); MONO % 9.8 % (3.8-10.2); NEUT % 78.6 % (42.8-82.8); PLATELET COUNT 141 K/MM3 (134-434); RBC 2.55 M/mm3 (4.00-5.60); RDW 15.8 % (11.9-15.9); WHITE BLOOD COUNT 7.1 K/mm3 (4.0-10.0)
[2018-07-03 08:48] LABS: CALCIUM 8.5 mg/dL (8.5-10.1); CREATININE 6.8 mg/dL (0.55-1.3); PHOSPHOROUS 4.3 mg/dL (2.5-4.9); POTASSIUM 3.7 mmol/L (3.5-5.1)
[2018-07-03] MEDS ORDERED: ROSUVASTATIN CA 10 MG TABLET (FP) PO SCH (10:00)
[2018-07-03] MEDS: CARVEDILOL 12.5 MG TABLET (FP) PO SCH ×2 (10:52→21:29)
[2018-07-03] MEDS: GABAPENTIN 100 MG CAPSULE (FP) PO SCH (10:52)
[2018-07-03] MEDS: TAMSULOSIN HCL 0.4 MG CAP PO SCH (10:52)
[2018-07-03] MEDS: ASPIRIN 81 MG CHEWABLE TABLETS PO SCH (10:52)
[2018-07-03] MEDS: FINASTERIDE 5 MG TABLET (FP) PO SCH (10:52)
[2018-07-03] MEDS: amLODIPine BESYLATE 10 MG TABLET (FP) PO SCH (10:52)
--- NOTE | 2018-07-03 12:41 | CONSULT ---
Consult - text type - Consultation Consultation Note: Renal consult for ROBIN on CKD This is a 77 year old gentleman with hx of CKD stage 4 (eGFR 15), CAD s/p CABG, Hypertension, HLD, DM who presented with worsening renal function on laboratory studies. Pt only complaint is that his abd is swollen. Denies any N/V, confusion , lethargy, extremity weakness or metallic taste in the mouth. Is making urine. Was recently started on Januvia for DM but developed rash and was taken off. Was also recently started on protonix. Skin rash now improved. Denies any flank pain, dysuria, frequency or retention. PMHx: as above Allergies: januvia Family hx: NC Social Hx: No T/A/D ROS: as per HPI Home Medications Medication Instructions Recorded Amlodipine Besylate [Norvasc -] 10 mg PO DAILY 08/02/13 Glipizide [Glipizide ER] 2.5 mg PO DAILY 08/02/13 Levothyroxine [Synthroid -] 75 mcg PO DAILY 08/02/13 Rosuvastatin Calcium [Crestor] 7.5 mg PO DAILY 08/02/13 Tamsulosin HCl [Flomax -] 0.4 mg PO DAILY 08/02/13 Aspirin [ASA -] 81 mg PO DAILY 10/04/17 Finasteride [Proscar -] 5 mg PO DAILY #30 tablet 10/16/17 Furosemide [Lasix -] 40 mg PO DAILY #30 tablet 10/16/17 Allopurinol [Zyloprim -] 100 mg PO DAILY 07/02/18 Carvedilol [Coreg -] 12.5 mg PO BID 07/02/18 Gabapentin [Neurontin] 100 mg PO DAILY 07/02/18 Vital Signs Temperature 97.4 F L 07/03/18 09:48 Pulse Rate 62 07/03/18 09:48 Respiratory Rate 20 07/03/18 09:48 Blood Pressure 130/64 07/03/18 09:48 O2 Sat by Pulse Oximetry (%) 98 07/02/18 22:11 Intake & Output 06/30/18 07/01/18 07/02/18 07/03/18 23:59 23:59 23:59 23:59 Intake Total 996 Output Total 150 400 Balance -150 596 Weight 68.946 kg NAD awake and alert neck supple, no JVD RRR, no M/R CTA, no rales or wheeze soft NT, + ascities Trace LE edema, no clubbing or edema no bladder distension no asterxsis CBC, BMP 07/03/18 07:00 07/03/18 07:00 Laboratory Tests 07/02/18 07/03/18 15:30 07:00 BUN 112 H* 106 H* Creatinine 7.3 H 6.8 H Est GFR (CKD-EPI)AfAm 7.57 8.25 Current Medications Amlodipine Besylate (Norvasc -) 10 mg PO DAILY [facility] Last Admin: 07/03/18 10:52 Dose: 10 mg Aspirin (Asa -) 81 mg PO DAILY [facility] Last Admin: 07/03/18 10:52 Dose: 81 mg Carvedilol (Coreg -) 12.5 mg PO BID [facility] Last Admin: 07/03/18 10:52 Dose: 12.5 mg Finasteride (Proscar -) 5 mg PO DAILY [facility] Last Admin: 07/03/18 10:52 Dose: 5 mg Gabapentin (Neurontin -) 100 mg PO DAILY [facility] Last Admin: 07/03/18 10:52 Dose: 100 mg Heparin Sodium (Porcine) (Heparin -) 5,000 unit SQ TID [facility] Last Admin: 07/03/18 06:50 Dose: 5,000 unit Sodium Chloride (Normal Saline -) 1,000 mls @ 83 mls/hr IV ASDIR [facility] Last Admin: 07/03/18 06:50 Dose: 83 mls/hr Insulin Aspart (Novolog Vial Sliding Scale -) 1 vial SQ ACHS [facility]; Protocol Last Admin: 07/03/18 11:11 Dose: Not Given Levothyroxine Sodium (Synthroid -) 75 mcg PO DAILY@0700 [facility] Last Admin: 07/03/18 06:50 Dose: 75 mcg Rosuvastatin Calcium (Crestor -) 5 mg PO HS [facility] Last Admin: 07/02/18 22:32 Dose: 5 mg Tamsulosin HCl (Flomax -) 0.4 mg PO DAILY@0830 [facility] Last Admin: 07/03/18 10:52 Dose: 0.4 mg 77 year old gentleman with hx of CKD stage 4 (eGFR 15), CAD s/p CABG, Hypertension, HLD, DM who presented with worsening renal function on laboratory studies. #ROBIN on CKD secondary to AIN (Januvia/Protonix) vs. progressive CKD #CKD stage 4 #Abd ascities #CAD #DM UA w/o significant WBC's to correspond to AIN however reaction may be resolving and renal recovery may be slowed given he had signifncat underlying CKD. At this there is no urgent indication for LOGISTICS SOLUTION MANAGER as pt is w/o acidosis/uremia/ hyperkalemia/volume overload Urine Eosinophils pending Check Abd US to quantify ascities and also look at the liver echotexture Will give Lasix 40mg IV x 1 today Trend renal function and electrolytes would avoid Januvia or PPI's can use H2 blockers as there are unlikely to cause AIN Dose all meds for CrCl < 10 if renal function is stable and pt w/o sympotms in 24hours can consider d/c with outpatient monitoring Thank you Will follow Rambo Kulkarni DO
[2018-07-03] MEDS ORDERED: FUROSEMIDE 40 MG/4 ML INJECTABLE VIAL IVPUSH ONE (12:45)
--- NOTE | 2018-07-03 13:33 | ECHO ---
Name: ASCENCIO TAL Exam:Adult Echocardiogram Study Date: 07/03/2018 09:20 AM Age: 77 yrs Reason For Study: DYSPNEA ON EXERTION Height: 65 in Weight: 151 lb BSA: 1.8 m2 MMode/2D Measurements & Calculations IVSd: 1.1 cm Ao root diam: 3.1 cm LVIDd: 3.5 cm LA dimension: 3.8 cm LVIDs: 2.0 cm LVPWd: 0.93 cm EDV(Teich): 52.3 ml LVOT diam: 2.0 cm ESV(Teich): 12.0 ml LAV (MOD-bp): 50.0 ml Doppler Measurements & Calculations MV E max bob: 149.0 cm/sec Ao V2 max: 150.7 cm/sec MV A max bob: 101.2 cm/sec Ao max P.1 mmHg MV E/A: 1.5 MV dec time: 0.20 sec MYRIAM(V,D): 2.2 cm2 LV V1 max P.7 mmHg MR max bob: 400.4 cm/sec LV V1 max: 108.2 cm/sec MR max P.6 mmHg TR max bob: 288.6 cm/sec PA V2 max: 130.3 cm/sec TR max P.4 mmHg PA max P.8 mmHg Med Peak E' Bob: 9.5 cm/sec PI Vmax: 165.6 cm/sec Med E/e': 15.7 Lat Peak E' Bob: 8.7 cm/sec Lat E/e': 17.1 Procedure A complete two-dimensional transthoracic echocardiogram was performed (2D, M-mode, Doppler and color flow Doppler). Left Ventricle The left ventricular size, thickness and function are normal. The left ventricular ejection fraction is normal. Ejection Fraction = 55-60%. The left ventricular wall motion is normal. Right Ventricle The right ventricle is normal in size and function. Atria Normal left and right atrial size and function. Mitral Valve There is no mitral regurgitation noted. Tricuspid Valve There is mild tricuspid regurgitation. Right ventricular systolic pressure is normal. Aortic Valve No hemodynamically significant valvular aortic stenosis. No aortic regurgitation is present. Pulmonic Valve There is no pulmonic valvular regurgitation. Great Vessels The aortic root is normal size. Pericardium/Pleura There is no pericardial effusion. Interpretation Summary The left ventricular size, thickness and function are normal The right ventricle is normal in size and function. There is mild tricuspid regurgitation. MD Tony Rivera 07/03/2018 01:32 PM
--- NOTE | 2018-07-03 14:26 | EKG ---
Test Reason : Blood Pressure : / mmHG Vent. Rate : 067 BPM Atrial Rate : 067 BPM P-R Int : 140 ms QRS Dur : 076 ms QT Int : 380 ms P-R-T Axes : 059 041 054 degrees QTc Int : 401 ms NORMAL SINUS RHYTHM POSSIBLE LEFT ATRIAL ENLARGEMENT POSSIBLE INFERIOR INFARCT , AGE UNDETERMINED ABNORMAL ECG WHEN COMPARED WITH ECG OF 04-OCT-2017 19:37, VENT. RATE HAS INCREASED BY 37 BPM T WAVE INVERSION NOW EVIDENT IN ANTERIOR LEADS QT HAS LENGTHENED Confirmed by BRANDY GARRETT MD ([id number]) on 07/03/2018 2:26:18 PM Referred By: Confirmed By:BRANDY GARRETT MD
--- NOTE | 2018-07-03 18:28 | PN ---
Physical Exam: SUBJECTIVE: Patient seen and examined at bedside. Offers no complaints. OBJECTIVE: Vital Signs Temperature 98.4 F 07/03/18 17:33 Pulse Rate 64 07/03/18 17:33 Respiratory Rate 18 07/03/18 17:33 Blood Pressure 121/60 07/03/18 17:33 O2 Sat by Pulse Oximetry (%) 93 L 07/03/18 09:00 GENERAL: Awake, alert, and fully oriented, in no acute distress. EYES:extraocular movements intact, sclera anicteric, conjunctiva clear. LUNGS: Breath sounds equal, clear to auscultation bilaterally. HEART: Regular rate and rhythm, normal S1 and S2 ABDOMEN: +abd distension. Soft, nontender, normoactive bowel sounds. tympanic to percussion. MUSCULOSKELETAL: No CVA tenderness. LOWER EXTREMITIES:warm, well-perfused. No calf tenderness. 1+ LLE edema. Trace RLE edema. NEUROLOGICAL: Cranial nerves II-XII intact. Normal speech. Gait not observed. PSYCHIATRIC: Cooperative. Good eye contact. Appropriate mood and affect. SKIN: Warm, dry Laboratory Results - last 24 hr 07/02/18 07/02/18 07/02/18 17:15 17:15 22:37 WBC RBC Hgb Hct MCV MCH MCHC RDW Plt Count MPV Absolute Neuts (auto) Neutrophils % Lymphocytes % Monocytes % Eosinophils % Basophils % Nucleated RBC % Sodium Potassium Chloride Carbon Dioxide Anion Gap BUN Creatinine Est GFR (CKD-EPI)AfAm Est GFR (CKD-EPI)NonAf POC Glucometer 217 Random Glucose Calcium Phosphorus Magnesium TSH U Pathogenic Cast Auto None seen Ur Random Creatinine 116.0 Ur Random Sodium 43 Ur Random Potassium 30.0 Ur Random Chloride 48 L 07/03/18 07/03/18 07/03/18 06:47 07:00 07:00 WBC 7.1 RBC 2.55 L Hgb 7.7 L Hct 22.9 L MCV 90.0 MCH 30.2 MCHC 33.5 RDW 15.8 Plt Count 141 MPV 10.4 Absolute Neuts (auto) 5.6 Neutrophils % 78.6 Lymphocytes % 8.7 Monocytes % 9.8 Eosinophils % 2.5 D Basophils % 0.4 Nucleated RBC % 0 Sodium 140 Potassium 3.7 Chloride 106 Carbon Dioxide 22 Anion Gap 13 BUN 106 H* Creatinine 6.8 H Est GFR (CKD-EPI)AfAm 8.25 Est GFR (CKD-EPI)NonAf 7.12 POC Glucometer 74 Random Glucose 86 Calcium 8.5 Phosphorus 4.3 Magnesium 2.0 TSH 7.85 H D U Pathogenic Cast Auto Ur Random Creatinine Ur Random Sodium Ur Random Potassium Ur Random Chloride 07/03/18 07/03/18 11:09 15:59 WBC RBC Hgb Hct MCV MCH MCHC RDW Plt Count MPV Absolute Neuts (auto) Neutrophils % Lymphocytes % Monocytes % Eosinophils % Basophils % Nucleated RBC % Sodium Potassium Chloride Carbon Dioxide Anion Gap BUN Creatinine Est GFR (CKD-EPI)AfAm Est GFR (CKD-EPI)NonAf POC Glucometer 120 166 Random Glucose Calcium Phosphorus Magnesium TSH U Pathogenic Cast Auto Ur Random Creatinine Ur Random Sodium Ur Random Potassium Ur Random Chloride Active Medications Generic Name Dose Route Start Last Admin Trade Name Freq PRN Reason Stop Dose Admin Amlodipine Besylate 10 mg 07/03/18 10:00 07/03/18 10:52 Norvasc - PO 10 mg DAILY FABIEN Administration Aspirin 81 mg 07/03/18 10:00 07/03/18 10:52 Asa - PO 81 mg DAILY FABIEN Administration Carvedilol 12.5 mg 07/02/18 22:00 07/03/18 10:52 Coreg - PO 12.5 mg BID FABIEN Administration Finasteride 5 mg 07/03/18 10:00 07/03/18 10:52 Proscar - PO 5 mg DAILY FABIEN Administration Gabapentin 100 mg 07/03/18 10:00 07/03/18 10:52 Neurontin - PO 100 mg DAILY FABIEN Administration Heparin Sodium (Porcine) 5,000 unit 07/02/18 22:00 07/03/18 14:35 Heparin - SQ 5,000 unit TID FABIEN Administration Insulin Aspart 1 vial 07/02/18 22:00 07/03/18 16:10 Novolog Vial Sliding Scale - SQ 2 units ACHS FABIEN Administration Protocol Levothyroxine Sodium 75 mcg 07/03/18 07:00 07/03/18 06:50 Synthroid - PO 75 mcg DAILY@0700 FABIEN Administration Rosuvastatin Calcium 5 mg 07/02/18 22:00 07/02/18 22:32 Crestor - PO 5 mg HS FABIEN Administration Tamsulosin HCl 0.4 mg 07/03/18 08:30 07/03/18 10:52 Flomax - PO 0.4 mg DAILY@0830 FABIEN Administration ASSESSMENT/PLAN: 77 y/o M w/PMH of CKD, CAD s/p CABG, HTN, HLD, DM presented to the ER after being found to have elevated Cr on routine labs. Admitted for ROBIN on CKD -ROBIN on CKD -IV lasix 40 mg once -Januvia in recent hx with adverse effect of ARF. Avoid PPIs -Urine eosinophils -Off fluids -States he does not take lasix -Nephrology consulted -Hold allopurinol, avoid nephrotoxic agents -Echo: 07/03 Interpretation Summary The left ventricular size, thickness and function are normal The right ventricle is normal in size and function. There is mild tricuspid regurgitation -Abd distension -f/u Abd u/s -HTN -c/w norvasc 10mg, carvedilol 12.5mg -DM -ISS, BGMs ACHS -c/w gabapentin 100 mg po qd -BPH -c/w finasteride, floax -Hypothyroidism -Levothyroxine 75 mcg -Gout -no acute flare -hold allopurinol -HLD -c/w crestor 7.5mg -DVT ppx -Heparin 5000 units sq q8h -FEN -no fluids currently -Monitor electrolytes -Diabetic, renal diet -Dispo: M/S. Possible d/c tomorrow if kidney function stable and asymptomatic Visit type - Emergency Visit Emergency Visit: Yes ED Registration Date: 07/02/18 Care time: The patient presented to the Emergency Department on the above date and was hospitalized for further evaluation of their emergent condition. - New Patient This patient is new to me today: No - Critical Care Critical Care patient: No
--- NOTE | 2018-07-03 20:54 | PN ---
Teaching Attending Note Name of Resident: Jerod Jordan ATTENDING PHYSICIAN STATEMENT I saw and evaluated the patient. I reviewed the resident's note and discussed the case with the resident. I agree with the resident's findings and plan as documented. SUBJECTIVE: Mr Harry complains of swelling, particularly in his abdomen. Otherwise he is without complaint and denies cp, sob, n/v. OBJECTIVE: Gen: nad Pulm: ctab w/o w/r/r CV: rrr w/o m/r/g Abd: +bs, s/nt, slight distention Ext: trace edema ASSESSMENT AND PLAN: Problem List - Problems (1) Renal failure (ARF), acute on chronic Assessment/Plan: -improves with IVF -however still with swelling -case d/w Dr Kulkarni -will continue fluid and give a dose of lasix to help with diuresis Code(s): N17.9 - ACUTE KIDNEY FAILURE, UNSPECIFIED; N18.9 - CHRONIC KIDNEY DISEASE, UNSPECIFIED Qualifiers: Acute renal failure type: unspecified Chronic kidney disease stage: unspecified stage Qualified Code(s): N17.9 - Acute kidney failure, unspecified ; N18.9 - Chronic kidney disease, unspecified (2) CAD (coronary artery disease) Assessment/Plan: -quiescent -continue current management Code(s): I25.10 - ATHSCL HEART DISEASE OF [place] CORONARY ARTERY W/O ANG PCTRS (3) Diabetes mellitus Assessment/Plan: -continue diabetic diet and SSI Code(s): E11.9 - TYPE 2 DIABETES MELLITUS WITHOUT COMPLICATIONS (4) Gout Assessment/Plan: -no exacerbation Code(s): M10.9 - GOUT, UNSPECIFIED (5) HLD (hyperlipidemia) Assessment/Plan: -continue crestor Code(s): E78.5 - HYPERLIPIDEMIA, UNSPECIFIED (6) HTN (hypertension) Assessment/Plan: -continue current management Code(s): I10 - ESSENTIAL (PRIMARY) HYPERTENSION
[2018-07-03] MEDS ORDERED: INSULIN (NOVOLOG) ASPART 100 UNITS/ML 10ML VIAL ONE (21:07)
[2018-07-03] MEDS: ROSUVASTATIN CA 5 MG TABLET (FP) PO SCH (21:29)
[2018-07-04] MEDS: HEPARIN NA (PORCINE) 5,000 UNITS/ML 1ML VIAL SQ SCH ×2 (06:30→14:21)
[2018-07-04] MEDS: LEVOTHYROXINE NA 75 MCG TABLET (FP) PO SCH (06:31)
[2018-07-04] MEDS: INSULIN SLIDING SCALE (NOVOLOG) 1 VIAL SQ SCH ×2 (06:59→11:19)
[2018-07-04 08:02] LABS: HEMATOCRIT 22.4 % (35.4-49); HEMOGLOBIN 7.5 GM/dL (11.7-16.9); MCH 30.1 pg (25.7-33.7); MCHC 33.5 g/dl (32.0-35.9); MEAN CELL VOLUME 89.9 fl (80-96); MEAN PLT VOLUME 10.8 fl (7.5-11.1); PLATELET COUNT 146 K/MM3 (134-434); RBC 2.49 M/mm3 (4.00-5.60); RDW 15.9 % (11.9-15.9); WHITE BLOOD COUNT 6.8 K/mm3 (4.0-10.0)
[2018-07-04 08:12] LABS: ALBUMIN 3.1 g/dl (3.4-5.0); BILIRUBIN,TOTAL 1.1 mg/dL (0.2-1); CALCIUM 8.3 mg/dL (8.5-10.1); CREATININE 6.3 mg/dL (0.55-1.3); PHOSPHOROUS 3.7 mg/dL (2.5-4.9); POTASSIUM 3.7 mmol/L (3.5-5.1); TOT PROT 5.8 g/dl (6.4-8.2)
[2018-07-04] MEDS: TAMSULOSIN HCL 0.4 MG CAP PO SCH (09:29)
[2018-07-04] MEDS ORDERED: PT OWN MED DRAWER 7, Y5N ONE (10:27)
[2018-07-04] MEDS: GABAPENTIN 100 MG CAPSULE (FP) PO SCH (10:33)
[2018-07-04] MEDS: FINASTERIDE 5 MG TABLET (FP) PO SCH (10:33)
[2018-07-04] MEDS: CARVEDILOL 12.5 MG TABLET (FP) PO SCH (11:20)
[2018-07-04] MEDS: amLODIPine BESYLATE 10 MG TABLET (FP) PO SCH (11:20)
[2018-07-04] MEDS: ASPIRIN 81 MG CHEWABLE TABLETS PO SCH (12:17)
--- NOTE | 2018-07-04 14:25 | DS ---
Physical Examination Vital Signs: Vital Signs Temperature 37.3 C 07/04/18 10:00 Pulse Rate 66 07/04/18 11:26 Respiratory Rate 18 07/04/18 11:26 Blood Pressure 130/65 07/04/18 11:26 O2 Sat by Pulse Oximetry (%) 94 L 07/04/18 09:00 Constitutional: Yes: Well Nourished, No Distress, Calm Cardiovascular: Yes: Regular Rate and Rhythm. No: Gallop, Murmur, Rub Respiratory: Yes: Regular, CTA Bilaterally. No: Rales, Rhonchi, Wheezes Gastrointestinal: Yes: Normal Bowel Sounds, Soft. No: Distention, Tenderness Extremities: Yes: WNL Edema: No Labs: CBC, BMP 07/04/18 07:00 07/04/18 07:00 Discharge Summary Reason For Visit: ACUTE RENAL FAILURE; CHRONIC KIDNEY DISEASE Current Active Problems Renal failure (ARF), acute on chronic (Acute) Hospital Course: (1) Renal failure (ARF), acute on chronic Code(s): N17.9 - ACUTE KIDNEY FAILURE, UNSPECIFIED; N18.9 - CHRONIC KIDNEY DISEASE, UNSPECIFIED Qualifiers: Acute renal failure type: unspecified Chronic kidney disease stage: unspecified stage Qualified Code(s): N17.9 - Acute kidney failure, unspecified ; N18.9 - Chronic kidney disease, unspecified (2) CAD (coronary artery disease) Code(s): I25.10 - ATHSCL HEART DISEASE OF [place] CORONARY ARTERY W/O ANG PCTRS (3) Diabetes mellitus Code(s): E11.9 - TYPE 2 DIABETES MELLITUS WITHOUT COMPLICATIONS (4) Gout Code(s): M10.9 - GOUT, UNSPECIFIED (5) HLD (hyperlipidemia) Code(s): E78.5 - HYPERLIPIDEMIA, UNSPECIFIED (6) HTN (hypertension) Code(s): I10 - ESSENTIAL (PRIMARY) HYPERTENSION Mr Harry is a very pleasant 77 year old male who comes in ROBIN on CKD. He was admitted to the hospital and seen by nephrology. He was hydrated and his renal function improved, however he developed more edema. He was given a 1 time dose of IV lasix, his BUN remained elevated but his creatinine improved. Dr Kulkarni recommends that Mr Harry not use tradjenta/onglyza/januvia and also avoid PPIs. He is currently stable for discharge home with very close follow up with Dr Roque and his clinical pharmacy specialist as he made need HD in the future. 32 minutes spent in preparation of this discharge Condition: Stable - Instructions Diet, Activity, Other Instructions: resume previous activity. Diabetic/renal diet. Referrals: Waldo Roque MD [Staff Physician] - Disposition: HOME - Home Medications Comprehensive Discharge Medication List: Ambulatory Orders Amlodipine Besylate [Norvasc -] 10 mg PO DAILY 08/02/13 Glipizide [Glipizide ER] 2.5 mg PO DAILY 08/02/13 Levothyroxine [Synthroid -] 75 mcg PO DAILY 08/02/13 Rosuvastatin Calcium [Crestor] 7.5 mg PO DAILY 08/02/13 Tamsulosin HCl [Flomax -] 0.4 mg PO DAILY 08/02/13 Aspirin [ASA -] 81 mg PO DAILY 10/04/17 Finasteride [Proscar -] 5 mg PO DAILY #30 tablet 10/16/17 Allopurinol [Zyloprim -] 100 mg PO DAILY 07/02/18 Carvedilol [Coreg -] 12.5 mg PO BID 07/02/18 Gabapentin [Neurontin] 100 mg PO DAILY 07/02/18
--- NOTE | 2018-07-04 14:37 | PN ---
Progress Note (short form) - Note Progress Note: Renal follow up for ROBIN on CKD Pt seen and examined at the bedside awake and alert reports seeing spots of blood in urine last night, now resolved no flank pain, sob, cp, fever or chills Vital Signs Temperature 99.1 F 07/04/18 10:00 Pulse Rate 66 07/04/18 11:26 Respiratory Rate 18 07/04/18 11:26 Blood Pressure 130/65 07/04/18 11:26 O2 Sat by Pulse Oximetry (%) 94 L 07/04/18 09:00 Intake & Output 07/01/18 07/02/18 07/03/18 07/04/18 23:59 23:59 23:59 23:59 Intake Total 2025 210 Output Total 150 700 600 Balance -150 1326 -390 Weight 68.946 kg 68.946 kg 68.266 kg NAD RRR, no M/R CTA, no rales or wheeze soft NT, + ascities Trace LE edema, no clubbing or edema CBC, BMP 07/04/18 07:00 07/04/18 07:00 Current Medications Amlodipine Besylate (Norvasc -) 10 mg PO DAILY [facility] Last Admin: 07/04/18 11:20 Dose: 10 mg Aspirin (Asa -) 81 mg PO DAILY [facility] Last Admin: 07/04/18 12:17 Dose: 81 mg Carvedilol (Coreg -) 12.5 mg PO BID [facility] Last Admin: 07/04/18 11:20 Dose: 12.5 mg Finasteride (Proscar -) 5 mg PO DAILY [facility] Last Admin: 07/04/18 10:33 Dose: 5 mg Gabapentin (Neurontin -) 100 mg PO DAILY [facility] Last Admin: 07/04/18 10:33 Dose: 100 mg Heparin Sodium (Porcine) (Heparin -) 5,000 unit SQ TID [facility] Last Admin: 07/04/18 14:21 Dose: 5,000 unit Insulin Aspart (Novolog Vial Sliding Scale -) 1 vial SQ ACHS [facility]; Protocol Last Admin: 07/04/18 11:19 Dose: Not Given Levothyroxine Sodium (Synthroid -) 75 mcg PO DAILY@0700 [facility] Last Admin: 07/04/18 06:31 Dose: Not Given Rosuvastatin Calcium (Crestor -) 5 mg PO HS [facility] Last Admin: 07/03/18 21:29 Dose: 5 mg Tamsulosin HCl (Flomax -) 0.4 mg PO DAILY@0830 [facility] Last Admin: 07/04/18 09:29 Dose: 0.4 mg CBC, BMP 07/04/18 07:00 07/04/18 07:00 Current Medications Amlodipine Besylate (Norvasc -) 10 mg PO DAILY [facility] Last Admin: 07/04/18 11:20 Dose: 10 mg Aspirin (Asa -) 81 mg PO DAILY [facility] Last Admin: 07/04/18 12:17 Dose: 81 mg Carvedilol (Coreg -) 12.5 mg PO BID [facility] Last Admin: 07/04/18 11:20 Dose: 12.5 mg Finasteride (Proscar -) 5 mg PO DAILY [facility] Last Admin: 07/04/18 10:33 Dose: 5 mg Gabapentin (Neurontin -) 100 mg PO DAILY [facility] Last Admin: 07/04/18 10:33 Dose: 100 mg Heparin Sodium (Porcine) (Heparin -) 5,000 unit SQ TID [facility] Last Admin: 07/04/18 14:21 Dose: 5,000 unit Insulin Aspart (Novolog Vial Sliding Scale -) 1 vial SQ [facility]; Protocol Last Admin: 07/04/18 11:19 Dose: Not Given Levothyroxine Sodium (Synthroid -) 75 mcg PO DAILY@0700 [facility] Last Admin: 07/04/18 06:31 Dose: Not Given Rosuvastatin Calcium (Crestor -) 5 mg PO HS [facility] Last Admin: 07/03/18 21:29 Dose: 5 mg Tamsulosin HCl (Flomax -) 0.4 mg PO DAILY@0830 [facility] Last Admin: 07/04/18 09:29 Dose: 0.4 mg 77 year old gentleman with hx of CKD stage 4 (eGFR 15), CAD s/p CABG, Hypertension, HLD, DM who presented with worsening renal function on laboratory studies. #ROBIN on CKD secondary to AIN (Januvia/Protonix) vs. progressive CKD #CKD stage 4 #Abd ascities #CAD #DM Renal function with continued improvement. BUN slightly up due to IV diuretics no acute need for TEST GRADER at this time suspect that renal function should continue to improve over time check UA to check for hematuria can be discharged with close outpatient follow up with pmd and primary survey compiler would avoid NSAIDs, Januvia and PPI's Abd US showed no acute liver pathology can try trial of oral diuretics as outpatient Thank you Rambo Watkins DO
[2018-07-04 14:46] VITALS: BP 117/55; PULSE 63; TEMP 98.9
[2018-07-04 17:27] LABS: EPI CELLS 0.7 /HPF (0-5/HPF); URINE APPEARANCE CLEAR; URINE BACTERIA 2.2 /hpf (NEGATIVE); URINE BILIRUBIN NEGATIVE (NEGATIVE); URINE CASTS 4 /lpf (0-8); URINE COLOR YELLOW; URINE GLUCOSE (UA) NEGATIVE (NEGATIVE); URINE KETONE NEGATIVE (NEGATIVE); URINE LEUK ESTERASE NEGATIVE (NEGATIVE); URINE NITRITE NEGATIVE (NEGATIVE); URINE PROTEIN 2+ (NEGATIVE); URINE RBC 16 /hpf (0-4); URINE WBC 3 /hpf (0-5)
== END 2018-07-04 15:46 | disposition home or self-care (01) | DRG 683 ==
LOC: JER 14:25 → JERBED 17:04 → J5S 19:08
PROVIDERS: ADMIT Internal Medicine; ATTEND Internal Medicine
DX: N17.9 Acute kidney failure, unspecified (principal); R18.8 Other ascites; E11.22 Type 2 diabetes mellitus with diabetic chronic kidney disease; I12.9 Hypertensive chronic kidney disease with stage 1 through stage 4 chronic kidney disease, or unspecified chronic kidney disease; N18.4 Chronic kidney disease, stage 4 (severe); I25.10 Atherosclerotic heart disease of native coronary artery without angina pectoris; Z95.1 Presence of aortocoronary bypass graft; E78.5 Hyperlipidemia, unspecified; Z87.891 Personal history of nicotine dependence; Z79.84 Long term (current) use of oral hypoglycemic drugs; E03.9 Hypothyroidism, unspecified; M10.9 Gout, unspecified; N40.0 Benign prostatic hyperplasia without lower urinary tract symptoms
CPT/HCPCS: 36415; 71045-TC-FY; 76700-TC; 76775-TC; 80048; 80053; 81003; 82436; 82565; 82962; 83735; 84100; 84133; 84300; 84443; 85025; 85027; 85610; 86850; 86900; 86901; 87086; 87205; 93005; 93010; 93306-TC; 99283-25; J1644; J7030

== ENCOUNTER 2018-08-29 11:51 | Inpatient (IN) | payer OTHER ==
--- NOTE | 2018-08-29 12:03 | PDOC ---
Rapid Medical Evaluation Time Seen by Provider: 08/29/18 11:58 Medical Evaluation: Allergies Allergy/AdvReac Type Severity Reaction Status Date / Time sitagliptin [From Sagarmilind] Allergy Verified 07/02/18 20:06 08/29/18 11:58 I have performed a brief in-person evaluation of this patient. The patient presents with a chief complaint of: dizziness x4 days Pertinent physical exam findings: +slurred speech. -droop. -facial droop. Slurred speech present since awaking this AM. Duck footed gait. I have ordered the following: CTH, labs, urine The patient will proceed to the ED for further evaluation. 08/29/18 12:03 08/29/18 12:05 Discharge Disposition - Diagnosis Dizziness - Referrals - Patient Instructions - Post Discharge Activity
[2018-08-29 12:44] LABS: BASO % 0.5 % (0-2.0); EOS % 2.5 % (0-4.5); HEMATOCRIT 26.9 % (35.4-49); MCHC 33.3 g/dl (32.0-35.9); MEAN CELL VOLUME 87.1 fl (80-96); MEAN PLT VOLUME 11.2 fl (7.5-11.1); MONO % 4.1 % (3.8-10.2); NEUT % 84.9 % (42.8-82.8); PLATELET COUNT 161 K/MM3 (134-434); RBC 3.09 M/mm3 (4.00-5.60); RDW 16.9 % (11.9-15.9); WHITE BLOOD COUNT 7.3 K/mm3 (4.0-10.0)
[2018-08-29 12:47] LABS: INR 1.24 (0.83-1.09); PROTHROMBIN TIME (PATIENT) 14.7 SEC (9.7-13.0)
--- NOTE | 2018-08-29 13:05 | PDOC ---
History of Present Illness - General Chief Complaint: CVA/TIA Stated Complaint: DIZZINESS Time Seen by Provider: 08/29/18 11:58 History Source: Patient Exam Limitations: No Limitations - History of Present Illness Initial Comments: Pt is a 77 yo M, with PMH of 4 vessel CABG (~10 years prior), NIDDM, HTN, hypothyroidism, and CRF (previously on transplant list), presents with abdominal swelling and rash x2 weeks, and worsening light-headedness over 4 days. Pt states this AM the light-headedness worsened when he was trying to walk from lying on the bed. Pt denies any recent trauma, falls, or hitting his head. He denies fevers/chills, LOC, headache, chest pain, SOB, nausea/vomiting, diarrhea/constipation, rectal bleeding, urinary symptoms, joint pain, or leg swelling. Pt sees Dr. Parada ([facility]) and Dr. Kulkarni for renal care, and was previously on transplant list. He has received dialysis twice about 1.5 years ago. 08/29/18 13:01 08/29/18 14:27 Past History - Travel Traveled outside of the country in the last 30 days: No Close contact w/someone who was outside of country & ill: No - Past Medical History Allergies/Adverse Reactions: Allergies Allergy/AdvReac Type Severity Reaction Status Date / Time sitagliptin [From ] Allergy Verified 07/02/18 20:06 Home Medications: Ambulatory Orders Amlodipine Besylate [Norvasc -] 10 mg PO DAILY 08/02/13 Glipizide [Glipizide ER] 2.5 mg PO DAILY 08/02/13 Levothyroxine [Synthroid -] 75 mcg PO DAILY 08/02/13 Rosuvastatin Calcium [Crestor] 7.5 mg PO DAILY 08/02/13 Tamsulosin HCl [Flomax -] 0.4 mg PO DAILY 08/02/13 Aspirin [ASA -] 81 mg PO DAILY 10/04/17 Finasteride [Proscar -] 5 mg PO DAILY #30 tablet 10/16/17 Allopurinol [Zyloprim -] 100 mg PO DAILY 07/02/18 Carvedilol [Coreg -] 12.5 mg PO BID 07/02/18 Gabapentin [Neurontin] 100 mg PO DAILY 07/02/18 Asthma: No Cancer: No Cardiac Disorders: Yes CVA: No COPD: No CHF: No Dementia: No Diabetes: Yes GI Disorders: No Disorders: No HTN: Yes Hypercholesterolemia: Yes Liver Disease: No Seizures: No Thyroid Disease: Yes - Surgical History Abdominal Surgery: No Appendectomy: No Cardiac Surgery: Yes (bypass) Cholecystectomy: No Lung Surgery: No Neurologic Surgery: No Orthopedic Surgery: No - Immunization History Td Vaccination: (unknown) Immunization Up to Date: Yes (unknown) - Suicide/Smoking/Psychosocial Hx Smoking Status: No Smoking History: Never smoked Years of Tobacco Use: 15 Have you smoked in the past 12 months: No Number of Cigarettes Smoked Daily: 2 Cigars Per Day: 0 Hx Alcohol Use: No Drug/Substance Use Hx: No Substance Use Type: None Review of Systems - Review of Systems Able to Perform ROS?: Yes Is the patient limited Japanese proficient: No *Physical Exam - Vital Signs Last Vital Signs Temp Pulse Resp BP Pulse Ox 97.2 F L 51 L 20 122/55 L 100 08/29/18 12:03 08/29/18 12:03 08/29/18 12:03 08/29/18 12:03 08/29/18 12:03 ED Treatment Course - LABORATORY CBC & Chemistry Diagram: 08/29/18 12:20 08/29/18 12:20 - ADDITIONAL ORDERS Additional order review: Laboratory Results 08/29/18 12:20 PT with INR 14.70 H INR 1.24 H 08/29/18 12:20 RBC 3.09 L MCV 87.1 MCHC 33.3 RDW 16.9 H MPV 11.2 H Neutrophils % 84.9 H Lymphocytes % 8.0 Monocytes % 4.1 Eosinophils % 2.5 Basophils % 0.5 *DC/Admit/Observation/Transfer Diagnosis at time of Disposition: Dizziness - Referrals - Patient Instructions - Post Discharge Activity
[2018-08-29] MEDS ORDERED: SODIUM CHLORIDE 1,000 ML IV STA (13:10)
[2018-08-29 13:11] LABS: CHOLESTEROL 124 mg/dL (50-200); HDL CHOLESTEROL 28 mg/dL (40-60); TRIGLYCERIDES 173 mg/dL (0-150)
[2018-08-29 13:20] LABS: ALBUMIN 3.8 g/dl (3.4-5.0); ALK PHOS 134 U/L (45-117); ANION GAP 22 MMOL/L (8-16); CHLORIDE 89 mmol/L (98-107); CO2 18 mmol/L (21-32); GLUCOSE,RANDOM 117 mg/dL (74-106); SGOT/AST 12 U/L (15-37); SGPT/ALT 21 U/L (13-61); SODIUM 130 mmol/L (136-145); TOT PROT 6.8 g/dl (6.4-8.2)
[2018-08-29 13:22] LABS: BLOOD UREA NITROGEN 214.4 mg/dL (7-18); CREATININE 12.3 mg/dL (0.55-1.3)
[2018-08-29] MEDS ORDERED: SODIUM CHLORIDE 250 ML IV PRN ×3 (14:12→18:26)
--- NOTE | 2018-08-29 14:28 | CONSULT ---
Consult - text type - Consultation Consultation Note: Renal consult for ROBIN on CKD This is a 77 year old gentleman with hx of CKD stage 5(eGFR 7), CAD s/p CABG, Hypertension, HLD, DM who presented with weakness and dizziness and found to have BUN/Cr of 214/12.9. Pt was last seen in the office 08/06 and BUN/Cr was 99/ 6.9 at that time. He was referred to dialysis planning but was hesitant about starting. Reprots 4-5 days of dizziness and weakness. No N/V. + Anorexia. No muscle weakness. No diarrhea. No dysuria. Urine output is decreased. Also had diffuse body itching. PMHx: as above Allergies: januvia Family hx: NC Social Hx: No T/A/D ROS: as per HPI Home Medications Medication Instructions Recorded Amlodipine Besylate [Norvasc -] 10 mg PO DAILY 08/02/13 Glipizide [Glipizide ER] 2.5 mg PO DAILY 08/02/13 Levothyroxine [Synthroid -] 75 mcg PO DAILY 08/02/13 Rosuvastatin Calcium [Crestor] 7.5 mg PO DAILY 08/02/13 Tamsulosin HCl [Flomax -] 0.4 mg PO DAILY 08/02/13 Aspirin [ASA -] 81 mg PO DAILY 10/04/17 Finasteride [Proscar -] 5 mg PO DAILY #30 tablet 10/16/17 Allopurinol [Zyloprim -] 100 mg PO DAILY 07/02/18 Carvedilol [Coreg -] 12.5 mg PO BID 07/02/18 Gabapentin [Neurontin] 100 mg PO DAILY 07/02/18 Vital Signs Temperature 97.2 F L 08/29/18 12:03 Pulse Rate 50 L 08/29/18 13:54 Respiratory Rate 20 08/29/18 12:03 Blood Pressure 121/52 L 08/29/18 13:54 O2 Sat by Pulse Oximetry (%) 100 08/29/18 12:03 Intake & Output 08/26/18 08/27/18 08/28/18 08/29/18 23:59 23:59 23:59 23:59 Weight 140 kg awake and alert neck supple Dry MM RRR, no M/R Dec BS + ascities/distended abd + trace LE edema, clubbing or cyanosis no overt bladder distension CBC, BMP 08/29/18 12:20 08/29/18 12:20 Current Medications Albumin Human (Albumin Human 25%) 12.5 gm IVPB Q30M FABIEN Epoetin Sam (Epogen -) 20,000 unit IVPUSH ONCE ONE Stop: 08/29/18 14:15 Sodium Chloride (Normal Saline -) 250 mls @ 3,000 mls/hr IV PRN PRN PRN Reason: Hypotension during Dialysis Stop: 08/30/18 14:12 Sodium Chloride (Normal Saline -) 250 mls @ 3,000 mls/hr IV PRN PRN PRN Reason: Hypotension during Dialysis Stop: 08/30/18 14:14 77 year old gentleman with hx of CKD stage 5 (eGFR 7), CAD s/p CABG, Hypertension, HLD, DM who presented with weakness and dizziness and found to have BUN/Cr of 214/12.9. #Acute on chronic renal insufficiency with uremia #Anemia #Metabolic acidosis #Hyponatremia #Weakness from uremia #Uremic pruritus Will need urgent HD today for uremia risks and benefits of dialysis discussed with patient and family and they are agreeable will give DDAVP prior to catheter insertion Insert Johnston catheter will need additional dialysis tomorrow will need ICU monitoring NAYLA to be given with HD check iron stores, no emergent indication for transfusion. Thank you Rambo Kulkarni DO
--- NOTE | 2018-08-29 15:11 | PN ---
Teaching Attending Note Name of Resident: Elan Lawrence ATTENDING PHYSICIAN STATEMENT I saw and evaluated the patient. I reviewed the resident's note and discussed the case with the resident. I agree with the resident's findings and plan as documented. SUBJECTIVE: 77 M, CKD stage 5, CAD s/p CABG, Hypertension, HLD, and DM. admitted via the ER due to weakness and dizziness. Laboratory data revealed ROBIN:BUN/Cr of 214/ 12.9. Patient denies CP or SOB. There is no known recent history of NSAID use or nephrotoxic agents. He does report a history of decreased frequency of urination and diffuse body pruritus. Home Medications Medication Instructions Recorded Amlodipine Besylate [Norvasc -] 10 mg PO DAILY 08/02/13 Glipizide [Glipizide ER] 2.5 mg PO DAILY 08/02/13 Levothyroxine [Synthroid -] 75 mcg PO DAILY 08/02/13 Rosuvastatin Calcium [Crestor] 7.5 mg PO DAILY 08/02/13 Tamsulosin HCl [Flomax -] 0.4 mg PO DAILY 08/02/13 Aspirin [ASA -] 81 mg PO DAILY 10/04/17 Finasteride [Proscar -] 5 mg PO DAILY #30 tablet 10/16/17 Allopurinol [Zyloprim -] 100 mg PO DAILY 07/02/18 Carvedilol [Coreg -] 12.5 mg PO BID 07/02/18 Gabapentin [Neurontin] 100 mg PO DAILY 07/02/18 Vital Signs Temperature 97.2 F L 08/29/18 12:03 Pulse Rate 50 L 08/29/18 13:54 Respiratory Rate 20 08/29/18 12:03 Blood Pressure 121/52 L 08/29/18 13:54 O2 Sat by Pulse Oximetry (%) 100 08/29/18 12:03 Intake & Output 08/26/18 08/27/18 08/28/18 08/29/18 23:59 23:59 23:59 23:59 Weight 140 kg Active Medications Albumin Human (Albumin Human 25%) 12.5 gm IVPB Q30M [facility] Epoetin Sam (Epogen -) 20,000 unit IVPUSH ONCE ONE Stop: 08/29/18 14:15 Sodium Chloride (Normal Saline -) 250 mls @ 3,000 mls/hr IV PRN PRN PRN Reason: Hypotension during Dialysis Stop: 08/30/18 14:12 Sodium Chloride (Normal Saline -) 250 mls @ 3,000 mls/hr IV PRN PRN PRN Reason: Hypotension during Dialysis Stop: 08/30/18 14:14 Constitutional: Yes: awake and alert, NAD, mildly confused, no asterixis Eyes: Yes: WNL HENT: Yes: Atraumatic Neck: Yes: WNL, Supple Cardiovascular: Yes: Regular Rate and Rhythm Respiratory: Yes: Clear. No: Cough, SOB, SOB on Exertion, Tachypnea Gastrointestinal: Yes: (+) Bowel Sounds, (+) ascites ...Rectal Exam: Yes: Deferred Renal/: Yes: WNL Breast(s): Yes: WNL Musculoskeletal: Yes: WNL Edema: Yes Edema: LLE: 1+, RLE: 1+ Integumentary: Yes: WNL Neurological: Yes: Alert, Oriented Psychiatric: Yes: Alert, Oriented Labs: Laboratory Results - last 24 hr 08/29/18 08/29/18 08/29/18 12:20 12:20 12:20 WBC 7.3 RBC 3.09 L Hgb 9.0 L Hct 26.9 L D MCV 87.1 MCH 29.0 MCHC 33.3 RDW 16.9 H Plt Count 161 MPV 11.2 H Absolute Neuts (auto) 6.2 Neutrophils % 84.9 H Lymphocytes % 8.0 Monocytes % 4.1 Eosinophils % 2.5 Basophils % 0.5 Nucleated RBC % 0 PT with INR 14.70 H INR 1.24 H Sodium 130 L Potassium 5.0 Chloride 89 L Carbon Dioxide 18 L Anion Gap 22 H BUN 214.4 H* Creatinine 12.3 H* Est GFR (CKD-EPI)AfAm 4.03 Est GFR (CKD-EPI)NonAf 3.48 Random Glucose 117 H Calcium 8.0 L Total Bilirubin 1.0 AST 12 L ALT 21 Alkaline Phosphatase 134 H Creatine Kinase 164 Creatine Kinase Index 2.1 CK-MB (CK-2) 3.6 Troponin I < 0.02 Total Protein 6.8 Albumin 3.8 Triglycerides Cholesterol Total LDL Cholesterol HDL Cholesterol Blood Type Antibody Screen 08/29/18 08/29/18 12:20 12:20 WBC RBC Hgb Hct MCV MCH MCHC RDW Plt Count MPV Absolute Neuts (auto) Neutrophils % Lymphocytes % Monocytes % Eosinophils % Basophils % Nucleated RBC % PT with INR INR Sodium Potassium Chloride Carbon Dioxide Anion Gap BUN Creatinine Est GFR (CKD-EPI)AfAm Est GFR (CKD-EPI)NonAf Random Glucose Calcium Total Bilirubin AST ALT Alkaline Phosphatase Creatine Kinase Creatine Kinase Index CK-MB (CK-2) Troponin I Total Protein Albumin Triglycerides 173 H Cholesterol 124 Total LDL Cholesterol 75 HDL Cholesterol 28 L Blood Type A POSITIVE Antibody Screen Negative IMP: Acute on chronic renal failure History of CKD 5 Acute Uremia (Contributing to mild confusion) Anemia Metabolic acidosis Hyponatremia Uremic pruritus CAD CABG HTN HLD Hypothermia DM PLAN: Access will be placed for urgent HD for uremia: Risks and benefits were explained to the patient and family Insert Johnston catheter for strict I & O O2 as needed Hunter buckner Normal transfusion threshold Obtain official read of CT imaging ECHO Requires ICU monitoring Dr Soler Critical care time spent in reviewing chart, evaluating patient and formulating plan - 36 minutes.
[2018-08-29] MEDS ORDERED: DESMOPRESSIN ACETATE 4 MCG/ML AMP IVPB ONE (15:20)
[2018-08-29] MEDS ORDERED: PNEUMOC 13-VAL CONJ-DIP CRM/PF 0.5 ML DISP.SYRIN IM ONE (15:29)
[2018-08-29] MEDS ORDERED: amLODIPine BESYLATE 10 MG TABLET (FP) PO SCH (16:00)
--- NOTE | 2018-08-29 16:20 | PROC ---
Central Line Insertion Indication: Other (Dialysis) Risks and Benefits Explained: Yes Consent on Chart: Yes Central Line: Dialysis Cath, Tri Lumen Anesthesia: 1% Lidocaine Sterile Technique: Yes Ultrasound Guided Assistance: Yes Position: Right Internal Jugular Post Insertion: Yes: Bilateral Breath Sounds, Bilateral Chest Expansion, Chest X-Ray Ordered Sterile Dressing Applied: Yes
--- NOTE | 2018-08-29 16:28 | CONSULT ---
Consultation: Service ICU Resident HISTORY OF PRESENT ILLNESS: 77M with pmh of CKD stage 5(eGFR 7), CAD s/p CABG, Hypertension, HLD, DM who presented to the ED with weakness, lightheadedness, abdominal swelling, rash and pruritus worsening for the past 2 weeks, worse that morning and found in the ED to have BUN/Cr of 214/12.9. As per Dr. Kulkarni, patient was last seen in the office 08/06 and BUN/Cr was 99/ 6.9 at that time. He was referred to dialysis planning but never started. Had dialysis 1.5 years ago. Denies trauma, falls, or hitting his head. He denies fevers/chills, LOC, headache, chest pain, SOB, nausea/vomiting, diarrhea/constipation, rectal bleeding, urinary symptoms, joint pain, or leg swelling. REVIEW OF SYSTEMS: CONSTITUTIONAL: Generalized weakness Absent: fever, chills, diaphoresis, malaise, loss of appetite, weight change HEENT: Absent: rhinorrhea, nasal congestion, throat pain, throat swelling, difficulty swallowing, mouth swelling, ear pain, eye pain, visual changes CARDIOVASCULAR: Absent: chest pain, syncope, palpitations, irregular heart rate, lightheadedness , peripheral edema RESPIRATORY: Absent: cough, shortness of breath, dyspnea with exertion, orthopnea, wheezing, stridor, hemoptysis GASTROINTESTINAL: Distended, bloated. Absent: abdominal pain, nausea, vomiting, diarrhea, constipation, melena, hematochezia GENITOURINARY: Absent: dysuria, frequency, urgency, hesitancy, hematuria, flank pain, genital pain MUSCULOSKELETAL: Distended Absent: myalgia, arthralgia, joint swelling, back pain, neck pain SKIN: See HPI Absent: pallor HEMATOLOGIC/IMMUNOLOGIC: Absent: easy bleeding, easy bruising, lymphadenopathy, frequent infections ENDOCRINE: Absent: unexplained weight gain, unexplained weight loss, heat intolerance, cold intolerance NEUROLOGIC: Absent: headache, focal weakness or paresthesias, dizziness, unsteady gait, seizure, mental status changes, bladder or bowel incontinence PSYCHIATRIC: Absent: anxiety, depression, suicidal or homicidal ideation, hallucinations. PHYSICAL EXAMINATION Vital Signs - 24 hr 08/29/18 08/29/18 08/29/18 12:03 13:54 15:07 Temperature 97.2 F L Pulse Rate 51 L Pulse Rate [ 50 L Left] Pulse Rate [ 50 L Sitting] Pulse Rate [ 51 L Standing] Pulse Rate [ 48 L Supine] Respiratory 20 18 Rate Blood Pressure 122/55 L Blood Pressure 115/56 L [Left Arm] Blood Pressure 121/52 L [Sitting] Blood Pressure 111/49 L [Standing] Blood Pressure 118/57 L [Supine] O2 Sat by Pulse 100 97 Oximetry (%) 08/29/18 08/29/18 15:24 15:30 Temperature 94.6 F L Pulse Rate 48 L Pulse Rate [ Left] Pulse Rate [ Sitting] Pulse Rate [ Standing] Pulse Rate [ Supine] Respiratory 18 Rate Blood Pressure 113/62 Blood Pressure [Left Arm] Blood Pressure [Sitting] Blood Pressure [Standing] Blood Pressure [Supine] O2 Sat by Pulse 95 Oximetry (%) GENERAL: Awake, alert, and fully oriented, in no acute distress. EYES: Pupils equal, round and reactive to light LUNGS: B/l crackles at the bases HEART: Bradycardia, no murmurs ABDOMEN: Soft, distended, hypoactive bowel sounds MUSCULOSKELETAL: Normal range of motion at all joints. No bony deformities or tenderness. No CVA tenderness. LOWER EXTREMITIES: 2+ pulses, warm, well-perfused. No calf tenderness. No peripheral edema. NEUROLOGICAL: Cranial nerves II-XII intact. Normal speech. No lateralizing signs, strength 5/5 SKIN: Scratches over his arms, legs from scratching itch. Laboratory Results - last 24 hr 08/29/18 08/29/18 08/29/18 12:20 12:20 12:20 WBC 7.3 RBC 3.09 L Hgb 9.0 L Hct 26.9 L D MCV 87.1 MCH 29.0 MCHC 33.3 RDW 16.9 H Plt Count 161 MPV 11.2 H Absolute Neuts (auto) 6.2 Neutrophils % 84.9 H Lymphocytes % 8.0 Monocytes % 4.1 Eosinophils % 2.5 Basophils % 0.5 Nucleated RBC % 0 PT with INR 14.70 H INR 1.24 H Sodium 130 L Potassium 5.0 Chloride 89 L Carbon Dioxide 18 L Anion Gap 22 H BUN 214.4 H* Creatinine 12.3 H* Est GFR (CKD-EPI)AfAm 4.03 Est GFR (CKD-EPI)NonAf 3.48 Random Glucose 117 H Calcium 8.0 L Total Bilirubin 1.0 AST 12 L ALT 21 Alkaline Phosphatase 134 H Creatine Kinase 164 Creatine Kinase Index 2.1 CK-MB (CK-2) 3.6 Troponin I < 0.02 Total Protein 6.8 Albumin 3.8 Triglycerides Cholesterol Total LDL Cholesterol HDL Cholesterol Blood Type Antibody Screen 08/29/18 08/29/18 12:20 12:20 WBC RBC Hgb Hct MCV MCH MCHC RDW Plt Count MPV Absolute Neuts (auto) Neutrophils % Lymphocytes % Monocytes % Eosinophils % Basophils % Nucleated RBC % PT with INR INR Sodium Potassium Chloride Carbon Dioxide Anion Gap BUN Creatinine Est GFR (CKD-EPI)AfAm Est GFR (CKD-EPI)NonAf Random Glucose Calcium Total Bilirubin AST ALT Alkaline Phosphatase Creatine Kinase Creatine Kinase Index CK-MB (CK-2) Troponin I Total Protein Albumin Triglycerides 173 H Cholesterol 124 Total LDL Cholesterol 75 HDL Cholesterol 28 L Blood Type A POSITIVE Antibody Screen Negative Active Medications Generic Name Dose Route Start Last Admin Trade Name Freq PRN Reason Stop Dose Admin Albumin Human 12.5 gm 08/29/18 14:15 Albumin Human 25% IVPB Q30M [facility] Allopurinol 100 mg 08/29/18 16:00 Zyloprim - PO DAILY [facility] Amlodipine Besylate 10 mg 08/29/18 16:00 Norvasc - PO DAILY [facility] Aspirin 81 mg 08/29/18 16:00 Asa - PO DAILY [facility] Carvedilol 12.5 mg 08/29/18 22:00 Coreg - PO BID [facility] Chlorhexidine Gluconate 1 applic 08/29/18 22:00 Hibiclens For Decolonization - TP HS [facility] Epoetin Sam 20,000 unit 08/29/18 14:14 Epogen - IVPUSH 08/29/18 14:15 ONCE ONE Finasteride 5 mg 08/29/18 16:00 Proscar - PO DAILY [facility] Sodium Chloride 250 mls @ 3,000 mls/hr 08/29/18 14:12 Normal Saline - IV 08/30/18 14:12 PRN PRN Hypotension during Dialysis Sodium Chloride 250 mls @ 3,000 mls/hr 08/29/18 14:14 Normal Saline - IV 08/30/18 14:14 PRN PRN Hypotension during Dialysis Insulin Aspart 1 vial 08/29/18 16:30 Novolog Vial Sliding Scale - SQ ACHS [facility] Protocol Levothyroxine Sodium 75 mcg 08/30/18 07:00 Synthroid - PO DAILY@0700 [facility] Mupirocin 1 applic 08/29/18 22:00 Bactroban Ointment (For Decolonization) - NS 09/03/18 21:59 BID [facility] Rosuvastatin Calcium 7.5 mg 08/29/18 22:00 Crestor - PO HS [facility] Tamsulosin HCl 0.4 mg 08/30/18 08:30 Flomax - PO DAILY@0830 [facility] Head CT: Moderate volume loss without CT evidence of acute intracranial pathology. Abdomen and pelvis CT: 1. Moderate bilateral pleural effusions and lower lobe atelectasis. 2. Moderate ascites. 3. Prostatic enlargement. 4. No acute pathology within the abdomen or pelvis. Please see above discussion. ASSESSMENT/PLAN: Pt is a 77 yo M with PMHx of NIDDM, HTN, HLD, Hypothyroidism, BPH, CKD, S/p CABG brought to the ICU for trialysis catheter placement and dialysis treatment of advanced renal failure. ESRD with uremia, hyponatremia - Trialysis catheter placed. ok to dialyze. No pneumothorax on CXR. - Pending Dialysis - Followed by Dr. Kulkarni - DDAVP - All consents charted and signed. - f/u Electrolytes normalization. - EPO - Repeat dialysis tomorrow as per dr. Kulkarni. Possible Urinary retention - Johnston in place - monitor in's and out's Pleural effusion and ascites: - Symptoms should resolve after dialysis. HTN - Hold hypertensive as pressure will lower during and after dialysis. Hypothyroidism, Cont levothyroxine 0.175 Dispo: We will continue to follow the patient. Thank you for this consultative opportunity. Elan Lawrence, PGY3 Visit type - Emergency Visit Emergency Visit: Yes ED Registration Date: 08/29/18 Care time: The patient presented to the Emergency Department on the above date and was hospitalized for further evaluation of their emergent condition. - New Patient This patient is new to me today: Yes Date on this admission: 08/29/18 - Critical Care Critical Care patient: Yes Total Critical Care Time (in minutes): 45 Critical Care Statement: The care of this patient involved high complexity decision making to prevent further life threatening deterioration of the patient 's condition and/or to evaluate & treat vital organ system(s) failure or risk of failure. ATTENDING PHYSICIAN STATEMENT I saw and evaluated the patient. I reviewed the resident's note and discussed the case with the resident. I agree with the resident's findings and plan as documented. SUBJECTIVE: OBJECTIVE: ASSESSMENT AND PLAN:
[2018-08-29] MEDS ORDERED: PT OWN MED DRAWER 7, Y5N ONE ×4 (17:05→20:59)
[2018-08-29] MEDS: ASPIRIN 81 MG CHEWABLE TABLETS PO SCH (17:06)
[2018-08-29] MEDS: ALLOPURINOL 100 MG TABLET (FP) PO SCH (17:06)
[2018-08-29] MEDS: FINASTERIDE 5 MG TABLET (FP) PO SCH (17:06)
--- NOTE | 2018-08-29 17:16 | PDOC ---
Documentation entered by Minal Sierra SCRIBE, acting as scribe for Derick Romano MD. Derick Romano MD: This documentation has been prepared by the Mariela ramirez Mackenzie, SCRIBE, under my direction and personally reviewed by me in its entirety. I confirm that the documentation accurately reflects all work , treatment, procedures, and medical decision making performed by me. Attending Attestation - Resident Resident Name: Roseann Miller - ED Attending Attestation I have performed the following: I have examined & evaluated the patient, The case was reviewed & discussed with the resident, I agree w/resident's findings & plan - HPI HPI: The patient is a 77 year old male, with a significant PMH of NIDDM, HTN, hypothyroidism, CRF (previously on transplant list), and CABG (10 years ago) who presents to the emergency department after having an episode of lightheadedness and disorientation this morning. Patients translated most of the patients history, she states for the past two weeks the patients abdomen has been distended and he has been in the midst of changing some of his medications. Patients notes this morning the patient stated he was feeling lightheaded and then he became disoriented and began slurring his speech. Patients denies any LOC. The patient denies chest pain, shortness of breath, and headache. Denies fever, chills, nausea, vomiting, diarrhea and constipation. Denies dysuria, frequency, urgency and hematuria. Allergies: Sitagliptin Past surgical history: As noted above Social history: None reported PCP: Dr. Waldo Roque and Dr. 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 Shad Ricks at bedside would like to do urgent HD on pt, requests ICU bed Case signed out to Dr. Duong, ICU team
[2018-08-29] MEDS: INSULIN SLIDING SCALE (NOVOLOG) 1 VIAL SQ SCH ×2 (17:58→22:07)
--- NOTE | 2018-08-29 18:00 | HP ---
CHIEF COMPLAINT: Generalized weakness and abdominal distension x2 weeks and lightheadedness x1 day PCP: Dr Jude Chao ([facility] [place]- director of primary) HISTORY OF PRESENT ILLNESS: Pt is a 77 yo M with PMHx of NIDDM, HTN, HLD, Hypothyroidism, BPH, CKD, S/p CABG brought from home by for worsening abdominal distension and generalized weakness. Pt reports gradual abdominal distension over the past couple of days with no nausea, no vomiting, no diarrhea. There was associated generalized weakness with generalized itchiness, but no chills, no fever, no cough. Pt has noted reduced urinary output over the past couple of days which the pateitn attributes to BPH without hematuria or dysuria. This am the pt felt lightheaded while trying to ambulate to the bathroom but did not fall or have a seizure. He has been followed for the past 4 years for CKD and at sometime was on a transplant list. Because he kept improving with medical therapy, he did not get the transplant. He was last discharged from [facility] with BUN/cr -115/6.3, with last BUN/cr with Dr Kulkarni end of July documented as 99/6.9. Pt had started being prepared for dialysis but was still reluctant. He had some dialysis sessions in the distant past about 1.5 years ago. ED was in contact with Dr Kulkarni and patient has been accepted to the ICU for emergent dialysis. ER course was notable for: (1) H/H-9.0/26.9, Na-130, K-5.0, BUN/Cr-214.4/12.3, glu-111, HCO3- 18 (2) CXR--ve, CTAP -pending (3) Recent Travel: PAST MEDICAL HISTORY: PMHx of NIDDM, HTN, HLD, Hypothyroidism, CKD, PAST SURGICAL HISTORY: CABG- with 5 vessel repair about 10 years ago Social History: Lives with Smoking: Alcohol: Drugs: Family History: Mother with DM Allergies sitagliptin [From Januvia] Allergy (Verified 07/02/18 20:06) HOME MEDICATIONS: Home Medications Medication Instructions Recorded Amlodipine Besylate [Norvasc -] 10 mg PO DAILY 08/02/13 Glipizide [Glipizide ER] 2.5 mg PO DAILY 08/02/13 Levothyroxine [Synthroid -] 75 mcg PO DAILY 08/02/13 Rosuvastatin Calcium [Crestor] 7.5 mg PO DAILY 08/02/13 Tamsulosin HCl [Flomax -] 0.4 mg PO DAILY 08/02/13 Aspirin [ASA -] 81 mg PO DAILY 10/04/17 Finasteride [Proscar -] 5 mg PO DAILY #30 tablet 10/16/17 Allopurinol [Zyloprim -] 100 mg PO DAILY 07/02/18 Carvedilol [Coreg -] 12.5 mg PO BID 07/02/18 Gabapentin [Neurontin] 100 mg PO DAILY 07/02/18 REVIEW OF SYSTEMS CONSTITUTIONAL: Absent: fever, chills, diaphoresis, generalized weakness, malaise, loss of appetite, weight change HEENT: Absent: rhinorrhea, nasal congestion, throat pain, throat swelling, difficulty swallowing, mouth swelling, ear pain, eye pain, visual changes CARDIOVASCULAR: Absent: chest pain, syncope, palpitations, irregular heart rate, lightheadedness , peripheral edema RESPIRATORY: Absent: cough, shortness of breath, dyspnea with exertion, orthopnea, wheezing, stridor, hemoptysis GASTROINTESTINAL:abdominal distension+ Absent: abdominal pain, nausea, vomiting, diarrhea, constipation, melena, hematochezia GENITOURINARY: hesitancy+, oliguria Absent: dysuria, frequency, urgency, hematuria, flank pain, genital pain MUSCULOSKELETAL: Absent: myalgia, arthralgia, joint swelling, back pain, neck pain SKIN: Absent: rash, itching, pallor HEMATOLOGIC/IMMUNOLOGIC: Absent: easy bleeding, easy bruising, lymphadenopathy, frequent infections ENDOCRINE: Absent: unexplained weight gain, unexplained weight loss, heat intolerance, cold intolerance NEUROLOGIC: Absent: headache, focal weakness or paresthesias, dizziness, unsteady gait, seizure, mental status changes, bladder or bowel incontinence PSYCHIATRIC: Absent: anxiety, depression, suicidal or homicidal ideation, hallucinations. PHYSICAL EXAMINATION Vital Signs - 24 hr 08/29/18 08/29/18 08/29/18 12:03 13:54 15:07 Temperature 97.2 F L Pulse Rate 51 L Pulse Rate [ 50 L Left] Pulse Rate [ 50 L Sitting] Pulse Rate [ 51 L Standing] Pulse Rate [ 48 L Supine] Respiratory 20 18 Rate Blood Pressure 122/55 L Blood Pressure 115/56 L [Left Arm] Blood Pressure 121/52 L [Sitting] Blood Pressure 111/49 L [Standing] Blood Pressure 118/57 L [Supine] O2 Sat by Pulse 100 97 Oximetry (%) 08/29/18 08/29/18 08/29/18 15:24 15:30 16:30 Temperature 94.6 F L 95.0 F L Pulse Rate 48 L 47 L Pulse Rate [ Left] Pulse Rate [ Sitting] Pulse Rate [ Standing] Pulse Rate [ Supine] Respiratory 18 20 Rate Blood Pressure 113/62 112/47 L Blood Pressure [Left Arm] Blood Pressure [Sitting] Blood Pressure [Standing] Blood Pressure [Supine] O2 Sat by Pulse 95 Oximetry (%) 08/29/18 17:19 Temperature 95.0 F L Pulse Rate 47 L Pulse Rate [ Left] Pulse Rate [ Sitting] Pulse Rate [ Standing] Pulse Rate [ Supine] Respiratory 20 Rate Blood Pressure 112/47 L Blood Pressure [Left Arm] Blood Pressure [Sitting] Blood Pressure [Standing] Blood Pressure [Supine] O2 Sat by Pulse Oximetry (%) GENERAL: Awake, alert, and fully oriented, in no acute distress. EYES: Pupils equal, round and reactive to light LUNGS: B/l basal crackles. HEART: Bradycardia, S1 and S2 ABDOMEN: Soft, distended, hypoactive bowel sounds MUSCULOSKELETAL: Normal range of motion at all joints. No bony deformities or tenderness. No CVA tenderness. LOWER EXTREMITIES: 2+ pulses, warm, well-perfused. No calf tenderness. No peripheral edema. NEUROLOGICAL: Cranial nerves II-XII intact. Normal speech. No lateralizing signs, strength 5/5 Laboratory Results - last 24 hr 08/29/18 08/29/18 08/29/18 12:20 12:20 12:20 WBC 7.3 RBC 3.09 L Hgb 9.0 L Hct 26.9 L D MCV 87.1 MCH 29.0 MCHC 33.3 RDW 16.9 H Plt Count 161 MPV 11.2 H Absolute Neuts (auto) 6.2 Neutrophils % 84.9 H Lymphocytes % 8.0 Monocytes % 4.1 Eosinophils % 2.5 Basophils % 0.5 Nucleated RBC % 0 PT with INR 14.70 H INR 1.24 H Sodium 130 L Potassium 5.0 Chloride 89 L Carbon Dioxide 18 L Anion Gap 22 H BUN 214.4 H* Creatinine 12.3 H* Est GFR (CKD-EPI)AfAm 4.03 Est GFR (CKD-EPI)NonAf 3.48 Random Glucose 117 H Calcium 8.0 L Total Bilirubin 1.0 AST 12 L ALT 21 Alkaline Phosphatase 134 H Creatine Kinase 164 Creatine Kinase Index 2.1 CK-MB (CK-2) 3.6 Troponin I < 0.02 Total Protein 6.8 Albumin 3.8 Triglycerides Cholesterol Total LDL Cholesterol HDL Cholesterol Blood Type Antibody Screen 08/29/18 08/29/18 12:20 12:20 WBC RBC Hgb Hct MCV MCH MCHC RDW Plt Count MPV Absolute Neuts (auto) Neutrophils % Lymphocytes % Monocytes % Eosinophils % Basophils % Nucleated RBC % PT with INR INR Sodium Potassium Chloride Carbon Dioxide Anion Gap BUN Creatinine Est GFR (CKD-EPI)AfAm Est GFR (CKD-EPI)NonAf Random Glucose Calcium Total Bilirubin AST ALT Alkaline Phosphatase Creatine Kinase Creatine Kinase Index CK-MB (CK-2) Troponin I Total Protein Albumin Triglycerides 173 H Cholesterol 124 Total LDL Cholesterol 75 HDL Cholesterol 28 L Blood Type A POSITIVE Antibody Screen Negative Ambulatory Orders Amlodipine Besylate [Norvasc -] 10 mg PO DAILY 08/02/13 Glipizide [Glipizide ER] 2.5 mg PO DAILY 08/02/13 Levothyroxine [Synthroid -] 75 mcg PO DAILY 08/02/13 Rosuvastatin Calcium [Crestor] 7.5 mg PO DAILY 08/02/13 Tamsulosin HCl [Flomax -] 0.4 mg PO DAILY 08/02/13 Aspirin [ASA -] 81 mg PO DAILY 10/04/17 Finasteride [Proscar -] 5 mg PO DAILY #30 tablet 10/16/17 Allopurinol [Zyloprim -] 100 mg PO DAILY 07/02/18 Carvedilol [Coreg -] 12.5 mg PO BID 07/02/18 Gabapentin [Neurontin] 100 mg PO DAILY 07/02/18 Current Medications Albumin Human (Albumin Human 25%) 12.5 gm IVPB Q30M [facility] Allopurinol (Zyloprim -) 100 mg PO DAILY [facility] Last Admin: 08/29/18 17:06 Dose: 100 mg Amlodipine Besylate (Norvasc -) 10 mg PO DAILY [facility] Last Admin: 08/29/18 17:07 Dose: Not Given Aspirin (Asa -) 81 mg PO DAILY [facility] Last Admin: 08/29/18 17:06 Dose: 81 mg Carvedilol (Coreg -) 12.5 mg PO BID [facility] Chlorhexidine Gluconate (Hibiclens For Decolonization -) 1 applic TP HS [facility] Epoetin Sam (Epogen -) 20,000 unit IVPUSH ONCE ONE Stop: 08/29/18 14:15 Finasteride (Proscar -) 5 mg PO DAILY [facility] Last Admin: 08/29/18 17:06 Dose: 5 mg Sodium Chloride (Normal Saline -) 250 mls @ 3,000 mls/hr IV PRN PRN PRN Reason: Hypotension during Dialysis Stop: 08/30/18 14:12 Sodium Chloride (Normal Saline -) 250 mls @ 3,000 mls/hr IV PRN PRN PRN Reason: Hypotension during Dialysis Stop: 08/30/18 14:14 Sodium Chloride (Normal Saline -) 250 mls @ 3,000 mls/hr IV PRN PRN PRN Reason: Hypotension during Dialysis Stop: 08/30/18 18:26 Insulin Aspart (Novolog Vial Sliding Scale -) 1 vial SQ ACHS [facility]; Protocol Last Admin: 08/29/18 17:58 Dose: Not Given Levothyroxine Sodium (Synthroid -) 75 mcg PO DAILY@0700 [facility] Mupirocin (Bactroban Ointment (For Decolonization) -) 1 applic NS BID [facility] Stop: 09/03/18 21:59 Rosuvastatin Calcium (Crestor -) 7.5 mg PO HS [facility] Tamsulosin HCl (Flomax -) 0.4 mg PO DAILY@0830 [facility] ASSESSMENT/PLAN: Pt is a 77 yo M with PMHx of NIDDM, HTN, HLD, Hypothyroidism, BPH, CKD, S/p CABG brought from home by for worsening abdominal distension and generalized weakness with lightheadedness today, found to have anion gap metabolic acidosis and uremia and admitted to ICU for emergent dialysis #ESRD- GFR- 5ml/min Cockcroft-Gault- pt to get temporary catheter and get emergent dialysis today Dr Kulkarni on board Epoetin #Anion gap metabolic acidosis 23- in setting of uremia, correct with emergent dialysis Anemia- Normocytic, likely in setting of CKD, receiving epoeitin hyponatremia- Likely in setting of volume overload in ESRD, dialysis NIDDM, Glu -111, cannot account for AGMA or hyponatremia Pt with NIDDM On home glipizide- will stop ISS- ACHS BGM ACHS HTN BP soft at this time Will hold BP meds HLD Cont moderate intensity crestor Hypothyroidism, Cont levothyroxine 0.175 BPH On flomax and proscar R/O urinary obstruction Bladder scan Pt may benefit from menchaca S/p CABG Cont ASA ICU d/w Nephro about DVT ppx Case D/W Dr Duong [facility] PGY 3 Visit type - Emergency Visit Emergency Visit: Yes ED Registration Date: 08/29/18 Care time: The patient presented to the Emergency Department on the above date and was hospitalized for further evaluation of their emergent condition. - New Patient This patient is new to me today: Yes Date on this admission: 08/29/18 - Critical Care Critical Care patient: Yes Total Critical Care Time (in minutes): 38 Critical Care Statement: The care of this patient involved high complexity decision making to prevent further life threatening deterioration of the patient 's condition and/or to evaluate & treat vital organ system(s) failure or risk of failure. ATTENDING PHYSICIAN STATEMENT I saw and evaluated the patient. I reviewed the resident's note and discussed the case with the resident. I agree with the resident's findings and plan as documented. SUBJECTIVE: OBJECTIVE: ASSESSMENT AND PLAN:
[2018-08-29 18:32] LABS: EPI CELLS 1.4 /HPF (0-5/HPF); HYALINE CASTS 3 /lpf (0-8); URINE APPEARANCE CLOUDY; URINE BACTERIA 1.2 /hpf (NEGATIVE); URINE BILIRUBIN NEGATIVE (NEGATIVE); URINE COLOR YELLOW; URINE GLUCOSE (UA) NEGATIVE (NEGATIVE); URINE KETONE TRACE (NEGATIVE); URINE LEUK ESTERASE 1+ (NEGATIVE); URINE NITRITE NEGATIVE (NEGATIVE); URINE PROTEIN 2+ (NEGATIVE); URINE WBC 6 /hpf (0-5)
[2018-08-29 18:57] LABS: URINE RBC 8 /hpf (0-4)
--- NOTE | 2018-08-29 19:26 | PN ---
Teaching Attending Note Name of Resident: Liza Weinberg ATTENDING PHYSICIAN STATEMENT I saw and evaluated the patient. I reviewed the resident's note and discussed the case with the resident. I agree with the resident's findings and plan as documented. CC: I feel good HPI: Mr Harry is a very pleasant 77 year old male who comes in with ESRD. He was recently here for fluid overload secondary to ESRD and diuresed. At that time he was stable and discharged home. He was baseline, however over the past 3 days he has felt tired and noticed his stomach has swollen. He also notes that he is urinating a lot less. He was seen and labs were checked and his BUN was above 200 and Creatinine was 12. He presented for emergent dialysis. He otherwise is without complaint and denies fevers, chills, lightheadedness, dizziness, passing out, chest pain or pressure, shortness of breath, nausea, vomiting, diarrhea, constipation, or swelling. Past Medical History Cardio/Vascular CAD,HTN,Hyperlipdemia Renal/ Renal Inusuff,Renal Failure,BPH,Renal Calculi Heme/Onc Anemia Rheumatology Gout Endocrine Diabetes Mellitus,Hypothyroidism Past Surgical History Past Surgical History CABG Home Medications Medication Instructions Recorded Amlodipine Besylate [Norvasc -] 10 mg PO DAILY 08/02/13 Glipizide [Glipizide ER] 2.5 mg PO DAILY 08/02/13 Levothyroxine [Synthroid -] 75 mcg PO DAILY 08/02/13 Rosuvastatin Calcium [Crestor] 7.5 mg PO DAILY 08/02/13 Tamsulosin HCl [Flomax -] 0.4 mg PO DAILY 08/02/13 Aspirin [ASA -] 81 mg PO DAILY 10/04/17 Finasteride [Proscar -] 5 mg PO DAILY #30 tablet 10/16/17 Allopurinol [Zyloprim -] 100 mg PO DAILY 07/02/18 Carvedilol [Coreg -] 12.5 mg PO BID 07/02/18 Gabapentin [Neurontin] 100 mg PO DAILY 07/02/18 Social History Smoking history Former smoker Have you smoked in the past 12 No months Hx Alcohol Use No History of Substance Use None ADL Independent 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 ESRD requiring emergent HD 2. Metabolic gap acidosis secondary to uremia 3. Hyponatremia 4. CAD 5. HTN 6. BPH 7. HLD 8. DM 9. Gout Plan: 1. admit to ICU for emergent HD 2. temporary catheter placement, initiate HD today 3. hold antihypertensives currently, follow up in am if can restart 4. renal/diabetic diet 5. FSBS and SSI 6. can continue allopurinol and gabapentin 7. continue crestor 8. expect sodium to correct with HD 9. head and abd/pelvis ct read reviewed 10. check bladder scan for possible retention, may need menchaca case d/w Dr Kulkarni and ICU team
[2018-08-29] MEDS ORDERED: EPOETIN ALFA 20,000 UNIT/1 ML VIAL IVPUSH ONE (19:30)
[2018-08-29] MEDS: ALBUMIN HUMAN 25% 12.5 GM/50 ML VIAL IVPB SCH ×2 (20:15→20:57)
[2018-08-29] MEDS ORDERED: INSULIN (NOVOLOG) ASPART 100 UNITS/ML 10ML VIAL ONE (21:00)
[2018-08-29] MEDS: MUPIROCIN 2% TOPICAL OINTMENT FOR DECOLONIZATION NS SCH (21:53)
[2018-08-29] MEDS ORDERED: CHLORHEXIDINE GLUCONATE 4% CLEANSER FOR DECOLONIZATION TP SCH (22:00)
[2018-08-29] MEDS ORDERED: CARVEDILOL 12.5 MG TABLET (FP) PO SCH (22:00)
[2018-08-29] MEDS ORDERED: ROSUVASTATIN CA 5 MG TABLET (FP) PO SCH (22:00)
[2018-08-30 06:43] LABS: BASO % 0.4 % (0-2.0); EOS % 2.2 % (0-4.5); HEMATOCRIT 22.8 % (35.4-49); HEMOGLOBIN 7.7 GM/dL (11.7-16.9); LYMPH % 6.3 % (8-40); MCH 28.9 pg (25.7-33.7); MCHC 33.5 g/dl (32.0-35.9); MEAN CELL VOLUME 86.3 fl (80-96); MEAN PLT VOLUME 11.1 fl (7.5-11.1); NEUT % 84.1 % (42.8-82.8); PLATELET COUNT 134 K/MM3 (134-434); RBC 2.65 M/mm3 (4.00-5.60); RDW 17.4 % (11.9-15.9); WHITE BLOOD COUNT 6.7 K/mm3 (4.0-10.0)
[2018-08-30] MEDS: INSULIN SLIDING SCALE (NOVOLOG) 1 VIAL SQ SCH ×4 (06:52→21:45)
[2018-08-30] MEDS ORDERED: LEVOTHYROXINE NA 75 MCG TABLET (FP) PO SCH (07:00)
[2018-08-30 07:36] LABS: ALBUMIN 3.3 g/dl (3.4-5.0); ALK PHOS 120 U/L (45-117); ANION GAP 16 MMOL/L (8-16); BILIRUBIN,TOTAL 1.2 mg/dL (0.2-1); CALCIUM 7.5 mg/dL (8.5-10.1); CHLORIDE 95 mmol/L (98-107); CO2 23 mmol/L (21-32); GLUCOSE,RANDOM 97 mg/dL (74-106); PHOSPHOROUS 6.7 mg/dL (2.5-4.9); SGOT/AST 9 U/L (15-37); SGPT/ALT 18 U/L (13-61); SODIUM 135 mmol/L (136-145)
[2018-08-30 08:14] LABS: BLOOD UREA NITROGEN > 150.0 mg/dL (7-18)
--- NOTE | 2018-08-30 08:15 | EKG ---
Test Reason : Blood Pressure : / mmHG Vent. Rate : 051 BPM Atrial Rate : 051 BPM P-R Int : 158 ms QRS Dur : 086 ms QT Int : 490 ms P-R-T Axes : 067 053 070 degrees QTc Int : 451 ms SINUS BRADYCARDIA POSSIBLE LEFT ATRIAL ENLARGEMENT BORDERLINE ECG WHEN COMPARED WITH ECG OF 02-JUL-2018 15:43, NO SIGNIFICANT CHANGE WAS FOUND Confirmed by RICHMOND HAYWARD, RORO ([id number]) on 08/30/2018 8:14:57 AM Referred By: Confirmed By:RORO FRAGOSO MD
[2018-08-30] MEDS ORDERED: TAMSULOSIN HCL 0.4 MG CAP PO SCH (08:30)
[2018-08-30] MEDS ORDERED: PT OWN MED DRAWER 7, Y5N ONE (09:37)
[2018-08-30] MEDS: ASPIRIN 81 MG CHEWABLE TABLETS PO SCH (09:44)
[2018-08-30] MEDS: FINASTERIDE 5 MG TABLET (FP) PO SCH (09:44)
[2018-08-30] MEDS: ALLOPURINOL 100 MG TABLET (FP) PO SCH (09:44)
--- NOTE | 2018-08-30 09:46 | PN ---
Progress Note (short form) - Note Progress Note: PULMONARY/CRITICAL CARE PROGRESS NOTE: EVENTS: -HD yesterday -Oliguric -No complaints, stable -No longer uremic Current Medications Allopurinol (Zyloprim -) 100 mg PO DAILY [facility] Last Admin: 08/29/18 17:06 Dose: 100 mg Aspirin (Asa -) 81 mg PO DAILY [facility] Last Admin: 08/29/18 17:06 Dose: 81 mg Chlorhexidine Gluconate (Hibiclens For Decolonization -) 1 applic TP HS [facility] Last Admin: 08/29/18 21:53 Dose: 1 applic Finasteride (Proscar -) 5 mg PO DAILY [facility] Last Admin: 08/29/18 17:06 Dose: 5 mg Sodium Chloride (Normal Saline -) 250 mls @ 3,000 mls/hr IV PRN PRN PRN Reason: Hypotension during Dialysis Stop: 08/30/18 14:12 Sodium Chloride (Normal Saline -) 250 mls @ 3,000 mls/hr IV PRN PRN PRN Reason: Hypotension during Dialysis Stop: 08/30/18 14:14 Sodium Chloride (Normal Saline -) 250 mls @ 3,000 mls/hr IV PRN PRN PRN Reason: Hypotension during Dialysis Stop: 08/30/18 18:26 Insulin Aspart (Novolog Vial Sliding Scale -) 1 vial SQ [facility]; Protocol Last Admin: 08/30/18 06:52 Dose: Not Given Levothyroxine Sodium (Synthroid -) 75 mcg PO DAILY@0700 [facility] Last Admin: 08/30/18 06:52 Dose: 75 mcg Mupirocin (Bactroban Ointment (For Decolonization) -) 1 applic NS BID [facility] Stop: 09/03/18 21:59 Last Admin: 08/29/18 21:53 Dose: 1 applic Rosuvastatin Calcium (Crestor -) 7.5 mg PO [facility] Last Admin: 08/29/18 21:52 Dose: 7.5 mg Tamsulosin HCl (Flomax -) 0.4 mg PO DAILY@0830 [facility] Vital Signs Temp 98.0 F 08/30/18 02:00 Pulse 56 L 08/30/18 06:00 Resp 13 08/30/18 06:00 BP 134/55 L 08/30/18 06:00 Pulse Ox 98 08/29/18 21:00 Intake & Output 08/29/18 08/30/18 08/30/18 18:59 06:59 18:59 Intake Total 1250 180 Output Total 50 400 Balance 1200 -220 Weight 69.626 kg 70.624 kg Intake: IV 1000 Normal Saline - 1,000 ml 1000 @ 1000 mls/hr IV ASDIR STA Rx#:[id number] IVPB 50 Oral 200 180 Output: Urine 50 400 Johnston 50 400 Other: Voiding Method Indwelling Catheter Indwelling Catheter Bowel Movement No Height 5 ft 5 in Body Mass Index (BMI) 25.5 Weight Measurement Method [facility] Built in [facility] Weight Measurement Method Estimated by Staff Constitutional: awake and alert Eyes: WNL HENT: Yes: Atraumatic Neck: R IJ trialysis catheter Cardiovascular: Yes: Regular Rate and Rhythm Respiratory: Yes: Clear. No: Cough, SOB, SOB on Exertion Gastrointestinal: Yes: (+) Bowel Sounds, (+) ascites ...Rectal Exam: Yes: Deferred Renal/: Yes: WNL Breast(s): Yes: WNL Musculoskeletal: Yes: WNL Edema: Yes Edema: LLE: 1+, RLE: 1+ Integumentary: Yes: WNL Neurological: Yes: Alert, Oriented Psychiatric: Yes: Alert, Oriented Labs: CBC, BMP 08/30/18 05:00 08/30/18 05:00 IMPRESSION: Acute on chronic renal failure History of CKD 5 Anemia of CKD Uremic pruritus CAD CABG HTN HLD Hypothermia DM PLAN: -HD per renal -Will need senior care access -Johnston catheter for strict I & O -Normal transfusion threshold -f/u Echo Transfer to the floor if able to go with temporary HD catheter Lee Quiñonse Pulm/Critical Care UTILIZATION REVIEW NURSE
[2018-08-30] MEDS: MUPIROCIN 2% TOPICAL OINTMENT FOR DECOLONIZATION NS SCH (10:01)
--- NOTE | 2018-08-30 11:00 | PN ---
Progress Note, Physician Chief Complaint: Mr Harry says he is feeling better today. No cp, sob, n/v. - Current Medication List Current Medications: Active Medications Allopurinol (Zyloprim -) 100 mg PO DAILY [facility] Last Admin: 08/30/18 09:44 Dose: 100 mg Aspirin (Asa -) 81 mg PO DAILY [facility] Last Admin: 08/30/18 09:44 Dose: 81 mg Chlorhexidine Gluconate (Hibiclens For Decolonization -) 1 applic TP [facility] Last Admin: 08/29/18 21:53 Dose: 1 applic Finasteride (Proscar -) 5 mg PO DAILY [facility] Last Admin: 08/30/18 09:44 Dose: 5 mg Sodium Chloride (Normal Saline -) 250 mls @ 3,000 mls/hr IV PRN PRN PRN Reason: Hypotension during Dialysis Stop: 08/30/18 14:12 Sodium Chloride (Normal Saline -) 250 mls @ 3,000 mls/hr IV PRN PRN PRN Reason: Hypotension during Dialysis Stop: 08/30/18 14:14 Sodium Chloride (Normal Saline -) 250 mls @ 3,000 mls/hr IV PRN PRN PRN Reason: Hypotension during Dialysis Stop: 08/30/18 18:26 Insulin Aspart (Novolog Vial Sliding Scale -) 1 vial SQ [facility]; Protocol Last Admin: 08/30/18 06:52 Dose: Not Given Levothyroxine Sodium (Synthroid -) 75 mcg PO DAILY@0700 [facility] Last Admin: 08/30/18 06:52 Dose: 75 mcg Mupirocin (Bactroban Ointment (For Decolonization) -) 1 applic NS BID [facility] Stop: 09/03/18 21:59 Last Admin: 08/30/18 10:01 Dose: 1 applic Rosuvastatin Calcium (Crestor -) 7.5 mg PO [facility] Last Admin: 08/29/18 21:52 Dose: 7.5 mg Tamsulosin HCl (Flomax -) 0.4 mg PO DAILY@0830 [facility] Last Admin: 08/30/18 09:44 Dose: 0.4 mg - Objective Vital Signs: Vital Signs Temperature 36.6 C 08/30/18 10:00 Pulse Rate 57 L 08/30/18 10:00 Respiratory Rate 14 08/30/18 10:00 Blood Pressure 140/67 08/30/18 10:00 O2 Sat by Pulse Oximetry (%) 98 08/30/18 09:00 Constitutional: Yes: Well Nourished, No Distress, Calm Cardiovascular: Yes: Regular Rate and Rhythm. No: Gallop, Murmur, Rub Respiratory: Yes: Regular, CTA Bilaterally. No: Rales, Rhonchi, Wheezes Gastrointestinal: Yes: Normal Bowel Sounds, Soft. No: Distention, Tenderness Extremities: Yes: WNL Edema: No Labs: CBC, BMP 08/30/18 05:00 08/30/18 05:00 INR, PTT INR 1.24 (0.83-1.09) H 08/29/18 12:20 Problem List - Problems (1) ESRD needing dialysis Assessment/Plan: -received HD yesterday -improved today -nephrology to see and determine if will receive HD again today Code(s): N18.6 - END STAGE RENAL DISEASE; Z99.2 - DEPENDENCE ON RENAL DIALYSIS (2) Anemia Assessment/Plan: -receiving epogen Code(s): D64.9 - ANEMIA, UNSPECIFIED (3) CAD (coronary artery disease) Assessment/Plan: -quiescent -continue home regimen Code(s): I25.10 - ATHSCL HEART DISEASE OF [place] CORONARY ARTERY W/O ANG PCTRS (4) Diabetes mellitus Assessment/Plan: -diabetic diet -FSBS and SSI Code(s): E11.9 - TYPE 2 DIABETES MELLITUS WITHOUT COMPLICATIONS (5) Gout Assessment/Plan: -continue allopurinol Code(s): M10.9 - GOUT, UNSPECIFIED (6) HLD (hyperlipidemia) Assessment/Plan: -continue crestor Code(s): E78.5 - HYPERLIPIDEMIA, UNSPECIFIED (7) HTN (hypertension) Assessment/Plan: -normally on coreg but now bradycardic -will start lisinopril since now on HD -nephrology following Code(s): I10 - ESSENTIAL (PRIMARY) HYPERTENSION
[2018-08-30 11:38] VITALS: BMI 25.7
[2018-08-30] MEDS: LISINOPRIL 10 MG TABLET (FP) PO SCH (13:25)
--- NOTE | 2018-08-30 14:32 | PN ---
Progress Note (short form) - Note Progress Note: covering dr hankins waiting for hd later today denies sob or discomfort 77 year old gentleman with hx of CKD stage 5 (eGFR 7), CAD s/p CABG, Hypertension, HLD, DM who presented with weakness and dizziness and found to have BUN/Cr of 214/12.9. #Acute on chronic renal insufficiency with uremia #Anemia #Metabolic acidosis #Hyponatremia #Weakness from uremia #Uremic pruritus Current Medications Allopurinol (Zyloprim -) 100 mg PO DAILY [facility] Last Admin: 08/30/18 09:44 Dose: 100 mg Aspirin (Asa -) 81 mg PO DAILY [facility] Last Admin: 08/30/18 09:44 Dose: 81 mg Chlorhexidine Gluconate (Hibiclens For Decolonization -) 1 applic TP HS [facility] Last Admin: 08/29/18 21:53 Dose: 1 applic Finasteride (Proscar -) 5 mg PO DAILY [facility] Last Admin: 08/30/18 09:44 Dose: 5 mg Sodium Chloride (Normal Saline -) 250 mls @ 3,000 mls/hr IV PRN PRN PRN Reason: Hypotension during Dialysis Stop: 08/30/18 18:26 Insulin Aspart (Novolog Vial Sliding Scale -) 1 vial SQ ACHS [facility]; Protocol Last Admin: 08/30/18 12:00 Dose: Not Given Levothyroxine Sodium (Synthroid -) 75 mcg PO DAILY@0700 [facility] Last Admin: 08/30/18 06:52 Dose: 75 mcg Lisinopril (Prinivil) 10 mg PO DAILY [facility] Last Admin: 08/30/18 13:25 Dose: Not Given Mupirocin (Bactroban Ointment (For Decolonization) -) 1 applic NS BID [facility] Stop: 09/03/18 21:59 Last Admin: 08/30/18 10:01 Dose: 1 applic Rosuvastatin Calcium (Crestor -) 7.5 mg PO HS [facility] Last Admin: 08/29/18 21:52 Dose: 7.5 mg Tamsulosin HCl (Flomax -) 0.4 mg PO DAILY@0830 [facility] Last Admin: 08/30/18 09:44 Dose: 0.4 mg Last Vital Signs Temp Pulse Resp BP Pulse Ox 98 F 56 L 17 122/56 L 98 08/30/18 10:00 08/30/18 12:00 08/30/18 12:00 08/30/18 12:00 08/30/18 09:00 Lungs clear heart reg abd soft nontender ext no edema CBC, BMP 08/30/18 05:00 08/30/18 05:00 IMP-alison on chronic requires hd for now Plan HD as schedule
[2018-08-30] MEDS ORDERED: INSULIN (NOVOLOG) ASPART 100 UNITS/ML 10ML VIAL ONE (21:27)
[2018-08-30] MEDS: ROSUVASTATIN CA 5 MG TABLET (FP) PO SCH (21:43)
[2018-08-30] MEDS ORDERED: MUPIROCIN 2% TOPICAL OINTMENT FOR DECOLONIZATION NS SCH (22:00)
[2018-08-30] MEDS ORDERED: CHLORHEXIDINE GLUCONATE 4% CLEANSER FOR DECOLONIZATION TP SCH (22:00)
[2018-08-31] MEDS: LEVOTHYROXINE NA 75 MCG TABLET (FP) PO SCH (06:45)
[2018-08-31] MEDS: INSULIN SLIDING SCALE (NOVOLOG) 1 VIAL SQ SCH ×4 (08:02→21:32)
[2018-08-31] MEDS: ASPIRIN 81 MG CHEWABLE TABLETS PO SCH (09:03)
[2018-08-31] MEDS: LISINOPRIL 10 MG TABLET (FP) PO SCH (09:03)
[2018-08-31] MEDS: ALLOPURINOL 100 MG TABLET (FP) PO SCH (09:03)
[2018-08-31] MEDS: TAMSULOSIN HCL 0.4 MG CAP PO SCH (09:03)
[2018-08-31] MEDS: FINASTERIDE 5 MG TABLET (FP) PO SCH (09:03)
--- NOTE | 2018-08-31 15:55 | PN ---
Progress Note, Physician Chief Complaint: Mr Harry is without complaint. No cp, sob, n/v. - Current Medication List Current Medications: Active Medications Allopurinol (Zyloprim -) [address] [facility] Last Admin: 08/31/18 09:03 Dose: 100 mg Aspirin (Asa -) [address] [facility] Last Admin: 08/31/18 09:03 Dose: 81 mg Epoetin Sam (Procrit -) 20,000 unit IVPUSH ONCE ONE Stop: 08/30/18 20:02 Finasteride (Proscar -) [address] [facility] Last Admin: 08/31/18 09:03 Dose: 5 mg Insulin Aspart (Novolog Vial Sliding Scale -) [address] [facility]; Protocol Last Admin: 08/31/18 11:37 Dose: Not Given Levothyroxine Sodium (Synthroid -) 75 mcg PO DAILY@0700 [facility] Last Admin: 08/31/18 06:45 Dose: 75 mcg Lisinopril (Prinivil) [address] [facility] Last Admin: 08/31/18 09:03 Dose: 10 mg Rosuvastatin Calcium (Crestor -) 7.[address] [facility] Last Admin: 08/30/18 21:43 Dose: 7.5 mg Tamsulosin HCl (Flomax -) 0.4 mg PO DAILY@0830 [facility] Last Admin: 08/31/18 09:03 Dose: 0.4 mg - Objective Vital Signs: Vital Signs Temperature 36.9 C 08/31/18 12:00 Pulse Rate 58 L 08/31/18 12:00 Respiratory Rate 18 08/31/18 12:00 Blood Pressure 136/58 L 08/31/18 12:00 O2 Sat by Pulse Oximetry (%) 95 08/31/18 09:00 Constitutional: Yes: Well Nourished, No Distress, Calm Cardiovascular: Yes: Regular Rate and Rhythm. No: Gallop, Murmur, Rub Respiratory: Yes: Regular, CTA Bilaterally. No: Rales, Rhonchi, Wheezes Gastrointestinal: Yes: Normal Bowel Sounds, Soft. No: Distention, Tenderness Extremities: Yes: WNL Edema: No Labs: CBC, BMP 08/30/18 05:00 08/30/18 05:00 INR, PTT INR 1.24 (0.83-1.09) H 08/29/18 12:20 Problem List - Problems (1) ESRD needing dialysis Code(s): N18.6 - END STAGE RENAL DISEASE; Z99.2 - DEPENDENCE ON RENAL DIALYSIS (2) Anemia Code(s): D64.9 - ANEMIA, UNSPECIFIED (3) CAD (coronary artery disease) Code(s): I25.10 - ATHSCL HEART DISEASE OF [place] CORONARY ARTERY W/O ANG PCTRS (4) Diabetes mellitus Code(s): E11.9 - TYPE 2 DIABETES MELLITUS WITHOUT COMPLICATIONS (5) Gout Code(s): M10.9 - GOUT, UNSPECIFIED (6) HLD (hyperlipidemia) Code(s): E78.5 - HYPERLIPIDEMIA, UNSPECIFIED (7) HTN (hypertension) Code(s): I10 - ESSENTIAL (PRIMARY) HYPERTENSION Assessment/Plan (1) ESRD needing dialysis Assessment/Plan: -appreciate nephrology assistance -much improved -HD per nephrology Code(s): N18.6 - END STAGE RENAL DISEASE; Z99.2 - DEPENDENCE ON RENAL DIALYSIS (2) Anemia Assessment/Plan: -receiving epogen Code(s): D64.9 - ANEMIA, UNSPECIFIED (3) CAD (coronary artery disease) Assessment/Plan: -quiescent -continue home regimen Code(s): I25.10 - ATHSCL HEART DISEASE OF [place] CORONARY ARTERY W/O ANG PCTRS (4) Diabetes mellitus Assessment/Plan: -diabetic diet -FSBS and SSI Code(s): E11.9 - TYPE 2 DIABETES MELLITUS WITHOUT COMPLICATIONS (5) Gout Assessment/Plan: -continue allopurinol Code(s): M10.9 - GOUT, UNSPECIFIED (6) HLD (hyperlipidemia) Assessment/Plan: -continue crestor Code(s): E78.5 - HYPERLIPIDEMIA, UNSPECIFIED (7) HTN (hypertension) Assessment/Plan: -improving on lisinopril -monitor Code(s): I10 - ESSENTIAL (PRIMARY) HYPERTENSION
--- NOTE | 2018-08-31 20:34 | PN ---
Progress Note (short form) - Note Progress Note: covering dr hankins CKD stage 5 (eGFR 7), CAD s/p CABG, Hypertension, HLD, DM P/W BUN/Cr of 214/12.9. #Acute on chronic renal insufficiency with uremia #Anemia #Metabolic acidosis #Hyponatremia #Weakness from uremia #Uremic pruritus Current Medications Allopurinol (Zyloprim -) 100 mg PO DAILY [facility] Last Admin: 08/31/18 09:03 Dose: 100 mg Aspirin (Asa -) 81 mg PO DAILY [facility] Last Admin: 08/31/18 09:03 Dose: 81 mg Epoetin Sam (Procrit -) 20,000 unit IVPUSH ONCE ONE Stop: 08/30/18 20:02 Finasteride (Proscar -) 5 mg PO DAILY [facility] Last Admin: 08/31/18 09:03 Dose: 5 mg Insulin Aspart (Novolog Vial Sliding Scale -) 1 vial SQ [facility]; Protocol Last Admin: 08/31/18 16:58 Dose: Not Given Levothyroxine Sodium (Synthroid -) 75 mcg PO DAILY@0700 [facility] Last Admin: 08/31/18 06:45 Dose: 75 mcg Lisinopril (Prinivil) 10 mg PO DAILY [facility] Last Admin: 08/31/18 09:03 Dose: 10 mg Rosuvastatin Calcium (Crestor -) 7.5 mg PO HS [facility] Last Admin: 08/30/18 21:43 Dose: 7.5 mg Tamsulosin HCl (Flomax -) 0.4 mg PO DAILY@0830 [facility] Last Admin: 08/31/18 09:03 Dose: 0.4 mg Last Vital Signs Temp Pulse Resp BP Pulse Ox 98.2 F 62 18 130/60 95 08/31/18 17:00 08/31/18 17:00 08/31/18 17:00 08/31/18 17:00 08/31/18 09:00 Lungs clear heart reg abd soft nontender ext no edema CBC, BMP 08/30/18 05:00 08/30/18 05:00 IMP-alison on chronic requires hd for now Plan HD as schedule
[2018-08-31] MEDS: ROSUVASTATIN CA 5 MG TABLET (FP) PO SCH (21:30)
[2018-09-01] MEDS: LEVOTHYROXINE NA 75 MCG TABLET (FP) PO SCH (06:39)
[2018-09-01] MEDS: INSULIN SLIDING SCALE (NOVOLOG) 1 VIAL SQ SCH ×4 (06:39→22:00)
[2018-09-01] MEDS: TAMSULOSIN HCL 0.4 MG CAP PO SCH (08:07)
[2018-09-01 08:24] LABS: BASO % 0.6 % (0-2.0); HEMATOCRIT 23.7 % (35.4-49); HEMOGLOBIN 7.9 GM/dL (11.7-16.9); LYMPH % 8.8 % (8-40); MCH 29.2 pg (25.7-33.7); MCHC 33.2 g/dl (32.0-35.9); MEAN CELL VOLUME 87.7 fl (80-96); MONO % 8.5 % (3.8-10.2); NEUT % 78.1 % (42.8-82.8); PLATELET COUNT 132 K/MM3 (134-434); RDW 17.2 % (11.9-15.9); WHITE BLOOD COUNT 9.2 K/mm3 (4.0-10.0)
--- NOTE | 2018-09-01 08:24 | PN ---
Teaching Attending Note Name of Resident: Liza Weinberg ATTENDING PHYSICIAN STATEMENT I saw and evaluated the patient. I reviewed the resident's note and discussed the case with the resident. I agree with the resident's findings and plan as documented. SUBJECTIVE: Mr Harry is without complaint. No cp, sob, n/v OBJECTIVE: Last Vital Signs Temp Pulse Resp BP Pulse Ox 36.8 C 62 20 136/70 98 09/01/18 07:26 09/01/18 07:26 09/01/18 07:26 09/01/18 07:26 08/31/18 21:00 Gen: nad Pulm: ctab w/o w/r/r CV: rrr w/o m/r/g Abd: +bs, s/nt/nd Ext: no c/c/e Labs pending ASSESSMENT AND PLAN: (1) ESRD needing dialysis Assessment/Plan: -appreciate nephrology assistance -much improved -HD per nephrology -nephrology to begin outpatient planning -patient will be going to [facility] in Oct for extended time -instructed to d/w nephrology to assist in planning Code(s): N18.6 - END STAGE RENAL DISEASE; Z99.2 - DEPENDENCE ON RENAL DIALYSIS (2) Anemia Assessment/Plan: -receiving epogen -monitor Code(s): D64.9 - ANEMIA, UNSPECIFIED (3) CAD (coronary artery disease) Assessment/Plan: -quiescent -continue home regimen Code(s): I25.10 - ATHSCL HEART DISEASE OF [place] CORONARY ARTERY W/O ANG PCTRS (4) Diabetes mellitus Assessment/Plan: -diabetic diet -FSBS and SSI Code(s): E11.9 - TYPE 2 DIABETES MELLITUS WITHOUT COMPLICATIONS (5) Gout Assessment/Plan: -continue allopurinol Code(s): M10.9 - GOUT, UNSPECIFIED (6) HLD (hyperlipidemia) Assessment/Plan: -continue crestor Code(s): E78.5 - HYPERLIPIDEMIA, UNSPECIFIED (7) HTN (hypertension) Assessment/Plan: -continue lisinopril Code(s): I10 - ESSENTIAL (PRIMARY) HYPERTENSION Problem List - Problems (1) ESRD needing dialysis Code(s): N18.6 - END STAGE RENAL DISEASE; Z99.2 - DEPENDENCE ON RENAL DIALYSIS (2) Anemia Code(s): D64.9 - ANEMIA, UNSPECIFIED (3) CAD (coronary artery disease) Code(s): I25.10 - ATHSCL HEART DISEASE OF [place] CORONARY ARTERY W/O ANG PCTRS (4) Diabetes mellitus Code(s): E11.9 - TYPE 2 DIABETES MELLITUS WITHOUT COMPLICATIONS (5) Gout Code(s): M10.9 - GOUT, UNSPECIFIED (6) HLD (hyperlipidemia) Code(s): E78.5 - HYPERLIPIDEMIA, UNSPECIFIED (7) HTN (hypertension) Code(s): I10 - ESSENTIAL (PRIMARY) HYPERTENSION
[2018-09-01] MEDS ORDERED: SODIUM CHLORIDE 250 ML IV PRN (08:43)
[2018-09-01 09:07] LABS: BLOOD UREA NITROGEN 84.9 mg/dL (7-18); CALCIUM 7.8 mg/dL (8.5-10.1); CREATININE 5.7 mg/dL (0.55-1.3); MAGNESIUM 1.6 mg/dL (1.8-2.4); PHOSPHOROUS 3.7 mg/dL (2.5-4.9); POTASSIUM 3.4 mmol/L (3.5-5.1)
[2018-09-01] MEDS ORDERED: EPOETIN ALFA 20,000 UNIT/1 ML VIAL IVPUSH ONE (09:30)
--- NOTE | 2018-09-01 10:54 | PN ---
Physical Exam: SUBJECTIVE: Patient seen and examined. At dialysis. Having 3rd session. Per SW, pt intends to travel to [facility] for a month during which time he will be off dialysis. No chest pain, no SOB. OBJECTIVE: Vital Signs Period Temp Pulse Resp BP Sys/Ramos Pulse Ox Last 24 Hr 97.8 F-98.4 F 58-66 18-20 130-153/58-70 98 Vital Signs Temp 98.3 F 09/01/18 13:00 Pulse 67 09/01/18 13:00 Resp 18 09/01/18 13:00 BP 132/59 L 09/01/18 13:00 Pulse Ox 94 L 09/01/18 13:00 Intake & Output 08/31/18 09/01/18 09/01/18 23:59 11:59 23:59 Intake Total 925 0 Output Total 350 650 Balance 575 0 -650 Intake: IV 0 0 saline lock 0 0 Oral 925 Output: Urine 350 650 Johnston 350 650 Other: Voiding Method Indwelling Catheter Indwelling Catheter Bowel Movement No No No # Bowel Movements 1 GENERAL: The patient is awake, alert, and fully oriented, in no acute distress. NECK: RIJ LUNGS: Fine crackles HEART: S1, S2 ABDOMEN: Soft, nontender, nondistended, normoactive bowel sounds EXTREMITIES: 2+ pulses, warm, well-perfused, no edema. NEUROLOGICAL: AAO x3. Cranial nerves II through XII grossly intact. Normal speech, gait not observed. CBC, BMP 09/01/18 07:53 09/01/18 11:30 Laboratory Results - last 24 hr 08/29/18 08/29/18 08/29/18 12:31 17:56 22:00 WBC RBC Hgb Hct MCV MCH MCHC RDW Plt Count MPV Absolute Neuts (auto) Neutrophils % Lymphocytes % Monocytes % Eosinophils % Basophils % Nucleated RBC % Sodium Potassium Chloride Carbon Dioxide Anion Gap BUN Creatinine Est GFR (CKD-EPI)AfAm Est GFR (CKD-EPI)NonAf POC Glucometer 120 142 180 Random Glucose Calcium Phosphorus Magnesium 08/30/18 08/30/18 08/30/18 06:00 11:54 18:43 WBC RBC Hgb Hct MCV MCH MCHC RDW Plt Count MPV Absolute Neuts (auto) Neutrophils % Lymphocytes % Monocytes % Eosinophils % Basophils % Nucleated RBC % Sodium Potassium Chloride Carbon Dioxide Anion Gap BUN Creatinine Est GFR (CKD-EPI)AfAm Est GFR (CKD-EPI)NonAf POC Glucometer 100 125 171 Random Glucose Calcium Phosphorus Magnesium 08/30/18 08/31/18 08/31/18 21:42 06:44 11:36 WBC RBC Hgb Hct MCV MCH MCHC RDW Plt Count MPV Absolute Neuts (auto) Neutrophils % Lymphocytes % Monocytes % Eosinophils % Basophils % Nucleated RBC % Sodium Potassium Chloride Carbon Dioxide Anion Gap BUN Creatinine Est GFR (CKD-EPI)AfAm Est GFR (CKD-EPI)NonAf POC Glucometer 183 80 148 Random Glucose Calcium Phosphorus Magnesium 08/31/18 08/31/18 09/01/18 16:49 21:28 06:37 WBC RBC Hgb Hct MCV MCH MCHC RDW Plt Count MPV Absolute Neuts (auto) Neutrophils % Lymphocytes % Monocytes % Eosinophils % Basophils % Nucleated RBC % Sodium Potassium Chloride Carbon Dioxide Anion Gap BUN Creatinine Est GFR (CKD-EPI)AfAm Est GFR (CKD-EPI)NonAf POC Glucometer 120 136 80 Random Glucose Calcium Phosphorus Magnesium 09/01/18 09/01/18 07:53 07:53 WBC 9.2 RBC 2.70 L Hgb 7.9 L Hct 23.7 L MCV 87.7 MCH 29.2 MCHC 33.2 RDW 17.2 H Plt Count 132 L MPV 11.0 Absolute Neuts (auto) 7.2 Neutrophils % 78.1 Lymphocytes % 8.8 D Monocytes % 8.5 Eosinophils % 4.0 D Basophils % 0.6 Nucleated RBC % 0 Sodium 141 Potassium 3.4 L Chloride 104 Carbon Dioxide 28 Anion Gap 8 BUN 84.9 H Creatinine 5.7 H Est GFR (CKD-EPI)AfAm 10.22 Est GFR (CKD-EPI)NonAf 8.81 POC Glucometer Random Glucose 83 Calcium 7.8 L Phosphorus 3.7 Magnesium 1.6 L Active Medications Generic Name Dose Route Start Last Admin Trade Name Freq PRN Reason Stop Dose Admin Allopurinol 100 mg 08/31/18 10:00 08/31/18 09:03 Zyloprim - PO 100 mg DAILY [facility] Administration Aspirin 81 mg 08/31/18 10:00 08/31/18 09:03 Asa - PO 81 mg DAILY [facility] Administration Finasteride 5 mg 08/31/18 10:00 08/31/18 09:03 Proscar - PO 5 mg DAILY [facility] Administration Insulin Aspart 1 vial 08/30/18 22:00 09/01/18 06:39 Novolog Vial Sliding Scale - SQ Not Given [facility] Protocol Levothyroxine Sodium 75 mcg 08/31/18 07:00 09/01/18 06:39 Synthroid - PO 75 mcg DAILY@0700 [facility] Administration Lisinopril 10 mg 08/30/18 11:00 08/31/18 09:03 Prinivil PO 10 mg DAILY [facility] Administration Rosuvastatin Calcium 7.5 mg 08/30/18 22:00 08/31/18 21:30 Crestor - PO 7.5 mg HS [facility] Administration Tamsulosin HCl 0.4 mg 08/31/18 08:30 09/01/18 08:07 Flomax - PO 0.4 mg DAILY@0830 [facility] Administration Current Medications Allopurinol (Zyloprim -) 100 mg PO DAILY [facility] Last Admin: 09/01/18 12:32 Dose: 100 mg Aspirin (Asa -) 81 mg PO DAILY [facility] Last Admin: 09/01/18 12:32 Dose: 81 mg Finasteride (Proscar -) 5 mg PO DAILY [facility] Last Admin: 09/01/18 12:32 Dose: 5 mg Insulin Aspart (Novolog Vial Sliding Scale -) 1 vial SQ [facility]; Protocol Last Admin: 09/01/18 17:21 Dose: 2 units Levothyroxine Sodium (Synthroid -) 75 mcg PO DAILY@0700 [facility] Last Admin: 09/01/18 06:39 Dose: 75 mcg Rosuvastatin Calcium (Crestor -) 7.5 mg PO HS [facility] Last Admin: 08/31/18 21:30 Dose: 7.5 mg Tamsulosin HCl (Flomax -) 0.4 mg PO DAILY@0830 [facility] Last Admin: 09/01/18 08:07 Dose: 0.4 mg Ambulatory Orders Amlodipine Besylate [Norvasc -] 10 mg PO DAILY 08/02/13 Glipizide [Glipizide ER] 2.5 mg PO DAILY 08/02/13 Levothyroxine [Synthroid -] 75 mcg PO DAILY 08/02/13 Rosuvastatin Calcium [Crestor] 7.5 mg PO DAILY 08/02/13 Tamsulosin HCl [Flomax -] 0.4 mg PO DAILY 06/15/14 Aspirin [ASA -] 81 mg PO DAILY 10/04/17 Finasteride [Proscar -] 5 mg PO DAILY #30 tablet 10/16/17 Allopurinol [Zyloprim -] 100 mg PO DAILY 07/02/18 Carvedilol [Coreg -] 12.5 mg PO BID 07/02/18 Gabapentin [Neurontin] 100 mg PO DAILY 07/02/18 ASSESSMENT/PLAN: Pt is a 77 yo M with PMHx of NIDDM, HTN, HLD, Hypothyroidism, BPH, CKD, S/p CABG brought from home by for worsening abdominal distension and generalized weakness with lightheadedness today, found to have anion gap metabolic acidosis and uremia and admitted to ICU for emergent dialysis #ESRD- GFR- 5ml/min Cockcroft-Gault- pt to get temporary catheter and get emergent dialysis today Dr Kulkarni on board-trend BUN/Cr, consult vascular surgery for temporary HD catheter removal and possible tunneled catheter placement hold ACEi for now Dose all meds for CrCL < 10 Epoetin Hepatitis panel pending For outpt dialysis planning #Anion gap metabolic acidosis 23- in setting of uremia, Resolved on dialysis Anemia- Normocytic, epoeitin hyponatremia- Likely in setting of volume overload in ESRD, dialysis NIDDM, On home glipizide- hold ISS- ACHS BGM ACHS HTN BP soft at this time Will hold BP meds HLD Cont moderate intensity crestor Hypothyroidism, Cont levothyroxine 0.175 BPH On flomax and proscar Dispo Follow renal recs-possible outpt dialysis Visit type - Emergency Visit Emergency Visit: Yes ED Registration Date: 08/29/18 Care time: The patient presented to the Emergency Department on the above date and was hospitalized for further evaluation of their emergent condition. - New Patient This patient is new to me today: No - Critical Care Critical Care patient: No - Discharge Referral Referred to [facility] Med P.C.: No ATTENDING PHYSICIAN STATEMENT I saw and evaluated the patient. I reviewed the resident's note and discussed the case with the resident. I agree with the resident's findings and plan as documented. SUBJECTIVE: OBJECTIVE: ASSESSMENT AND PLAN:
[2018-09-01] MEDS: ASPIRIN 81 MG CHEWABLE TABLETS PO SCH (12:32)
[2018-09-01] MEDS: LISINOPRIL 10 MG TABLET (FP) PO SCH (12:32)
[2018-09-01] MEDS: FINASTERIDE 5 MG TABLET (FP) PO SCH (12:32)
[2018-09-01] MEDS: ALLOPURINOL 100 MG TABLET (FP) PO SCH (12:32)
[2018-09-01 12:36] LABS: BLOOD UREA NITROGEN 34.4 mg/dL (7-18); CREATININE 2.7 mg/dL (0.55-1.3)
--- NOTE | 2018-09-01 16:20 | PN ---
Progress Note (short form) - Note Progress Note: Renal follow up for ROBIN/CKD Pt seen and examined at the bedside s/p dialysis this am tolerated it well denies any sob, cp, abd pain appetite is improved leg swelling is improved Vital Signs Temperature 98.3 F 09/01/18 13:00 Pulse Rate 67 09/01/18 13:00 Respiratory Rate 18 09/01/18 13:00 Blood Pressure 132/59 L 09/01/18 13:00 O2 Sat by Pulse Oximetry (%) 94 L 09/01/18 13:00 Intake & Output 08/29/18 08/30/18 08/31/18 09/01/18 23:59 23:59 23:59 23:59 Intake Total 1330 440 925 0 Output Total 50 700 650 650 Balance 1280 -260 275 -650 Weight 69.626 kg 70.307 kg awake and alert RRR, no M/R Dec BS trace ascities no LE edema CBC, BMP 09/01/18 07:53 09/01/18 11:30 Current Medications Allopurinol (Zyloprim -) 100 mg PO DAILY [facility] Last Admin: 09/01/18 12:32 Dose: 100 mg Aspirin (Asa -) 81 mg PO DAILY [facility] Last Admin: 09/01/18 12:32 Dose: 81 mg Finasteride (Proscar -) 5 mg PO DAILY [facility] Last Admin: 09/01/18 12:32 Dose: 5 mg Insulin Aspart (Novolog Vial Sliding Scale -) 1 vial SQ [facility]; Protocol Last Admin: 09/01/18 12:32 Dose: Not Given Levothyroxine Sodium (Synthroid -) 75 mcg PO DAILY@0700 [facility] Last Admin: 09/01/18 06:39 Dose: 75 mcg Lisinopril (Prinivil) 10 mg PO DAILY [facility] Last Admin: 09/01/18 12:32 Dose: 10 mg Rosuvastatin Calcium (Crestor -) 7.5 mg PO HS [facility] Last Admin: 08/31/18 21:30 Dose: 7.5 mg Tamsulosin HCl (Flomax -) 0.4 mg PO DAILY@0830 [facility] Last Admin: 09/01/18 08:07 Dose: 0.4 mg 77 year old gentleman with hx of CKD stage 5 (eGFR 7), CAD s/p CABG, Hypertension, HLD, DM who presented with weakness and dizziness and found to have BUN/Cr of 214/12.9. #Acute on chronic renal insufficiency with uremia #Anemia #Metabolic acidosis #Hyponatremia #Weakness from uremia #Uremic pruritus tolerated HD x 3 with improvement in clinical status no planned dialysis tomorrow will trend BUN/Cr post HD to determine if there is any imporvement in renal function will consult vascular surgery for temporary HD catheter removal and possible tunneled catheter placement hold ACEi for now Dose all meds for CrCL < 10 Thank you Rambo Kulkarni DO
[2018-09-01] MEDS ORDERED: MAGNESIUM SULF 50% (8.12 MEQ/2 ML-1 GM VIAL) IVPB ONE (16:24)
[2018-09-01] MEDS: ROSUVASTATIN CA 5 MG TABLET (FP) PO SCH (22:32)
[2018-09-02] MEDS: INSULIN SLIDING SCALE (NOVOLOG) 1 VIAL SQ SCH ×4 (06:19→21:38)
[2018-09-02] MEDS: LEVOTHYROXINE NA 75 MCG TABLET (FP) PO SCH (06:20)
[2018-09-02 07:55] LABS: BASO % 0.5 % (0-2.0); EOS % 2.9 % (0-4.5); HEMATOCRIT 25.6 % (35.4-49); HEMOGLOBIN 8.5 GM/dL (11.7-16.9); LYMPH % 6.4 % (8-40); MEAN CELL VOLUME 87.9 fl (80-96); MEAN PLT VOLUME 11.1 fl (7.5-11.1); MONO % 8.8 % (3.8-10.2); NEUT % 81.4 % (42.8-82.8); RBC 2.92 M/mm3 (4.00-5.60); RDW 17.4 % (11.9-15.9); WHITE BLOOD COUNT 10.4 K/mm3 (4.0-10.0)
[2018-09-02 08:17] LABS: ALBUMIN 2.9 g/dl (3.4-5.0); BILIRUBIN,TOTAL 1.3 mg/dL (0.2-1); CALCIUM 7.8 mg/dL (8.5-10.1); CREATININE 3.7 mg/dL (0.55-1.3); MAGNESIUM 1.7 mg/dL (1.8-2.4); PHOSPHOROUS 2.4 mg/dL (2.5-4.9); POTASSIUM 3.5 mmol/L (3.5-5.1); TOT PROT 5.6 g/dl (6.4-8.2)
[2018-09-02] MEDS: TAMSULOSIN HCL 0.4 MG CAP PO SCH (08:51)
--- NOTE | 2018-09-02 09:11 | PN ---
Physical Exam: SUBJECTIVE: Patient seen and examined. Pt had breakfast, drank out of straw and had drink go wrong way. Was coughing, but able to speak afterwards. No chest pain or SOB. OBJECTIVE: Vital Signs Period Temp Pulse Resp BP Sys/Ramos Pulse Ox Last 24 Hr 97.9 F-99.5 F 61-88 18-20 132-149/56-69 94-94 Vital Signs Temp 99.0 F 09/02/18 18:29 Pulse 71 09/02/18 18:29 Resp 20 09/02/18 18:29 BP 150/76 09/02/18 18:29 Pulse Ox 94 L 09/02/18 09:00 Intake & Output 09/01/18 09/02/18 09/02/18 23:59 11:59 23:59 Intake Total 700 0 Output Total 1150 400 400 Balance -450 -400 -400 Intake: IVPB 100 Oral 600 0 Output: Urine 1150 400 400 Johnston 1150 400 400 Other: Voiding Method Indwelling Catheter Indwelling Catheter Urinal Bowel Movement No Yes Yes # Bowel Movements 1 2 GENERAL: The patient is awake, alert, and fully oriented, in no acute distress. ENT: Ears normal, nares patent, oropharynx clear without exudates, moist mucous membranes. NECK: RIJ removed, dressing placed oversite LUNGS: Breath sounds equal, clear to auscultation bilaterally HEART: S1, S2 ABDOMEN: Soft, nontender, nondistended, normoactive bowel sounds, EXTREMITIES: 2+ pulses, warm, well-perfused, no edema. NEUROLOGICAL: Cranial nerves II through XII grossly intact. Normal speech, gait not observed. CBC, BMP 09/02/18 06:20 09/02/18 06:20 Laboratory Results - last 24 hr 09/01/18 09/01/18 09/01/18 11:00 11:30 12:21 Sodium Potassium Chloride Carbon Dioxide Anion Gap BUN 34.4 H Creatinine 2.7 H Est GFR (CKD-EPI)AfAm 25.21 Est GFR (CKD-EPI)NonAf 21.75 POC Glucometer 87 Random Glucose Calcium Phosphorus Magnesium Total Bilirubin AST ALT Alkaline Phosphatase Total Protein Albumin Hep A IgM Ab Confirm Negative Hep Bs Antigen Negative Hep B Core IgM Ab Negative Hepatitis C Ab (EIA) <0.1 09/01/18 09/01/18 09/02/18 16:46 21:58 06:18 Sodium Potassium Chloride Carbon Dioxide Anion Gap BUN Creatinine Est GFR (CKD-EPI)AfAm Est GFR (CKD-EPI)NonAf POC Glucometer 155 150 111 Random Glucose Calcium Phosphorus Magnesium Total Bilirubin AST ALT Alkaline Phosphatase Total Protein Albumin Hep A IgM Ab Confirm Hep Bs Antigen Hep B Core IgM Ab Hepatitis C Ab (EIA) 09/02/18 06:20 Sodium 145 Potassium 3.5 Chloride 106 Carbon Dioxide 29 Anion Gap 10 BUN 46.0 H Creatinine 3.7 H Est GFR (CKD-EPI)AfAm 17.22 Est GFR (CKD-EPI)NonAf 14.86 POC Glucometer Random Glucose 108 H Calcium 7.8 L Phosphorus 2.4 L Magnesium 1.7 L Total Bilirubin 1.3 H AST 16 ALT 18 Alkaline Phosphatase 123 H Total Protein 5.6 L Albumin 2.9 L Hep A IgM Ab Confirm Hep Bs Antigen Hep B Core IgM Ab Hepatitis C Ab (EIA) Active Medications Generic Name Dose Route Start Last Admin Trade Name Freq PRN Reason Stop Dose Admin Allopurinol 100 mg 08/31/18 10:00 09/01/18 12:32 Zyloprim - PO 100 mg DAILY [facility] Administration Aspirin 81 mg 08/31/18 10:00 09/01/18 12:32 Asa - PO 81 mg DAILY [facility] Administration Finasteride 5 mg 08/31/18 10:00 09/01/18 12:32 Proscar - PO 5 mg DAILY [facility] Administration Insulin Aspart 1 vial 08/30/18 22:00 09/02/18 06:19 Novolog Vial Sliding Scale - SQ Not Given ACHS [facility] Protocol Levothyroxine Sodium 75 mcg 08/31/18 07:00 09/02/18 06:20 Synthroid - PO 75 mcg DAILY@0700 [facility] Administration Rosuvastatin Calcium 7.5 mg 08/30/18 22:00 09/01/18 22:32 Crestor - PO 7.5 mg HS [facility] Administration Tamsulosin HCl 0.4 mg 08/31/18 08:30 09/02/18 08:51 Flomax - PO 0.4 mg DAILY@0830 [facility] Administration Current Medications Allopurinol (Zyloprim -) 100 mg PO DAILY [facility] Last Admin: 09/02/18 09:58 Dose: 100 mg Aspirin (Asa -) 81 mg PO DAILY [facility] Last Admin: 09/02/18 09:58 Dose: 81 mg Carvedilol (Coreg -) 12.5 mg PO BID [facility] Epoetin Sam (Procrit -) 20,000 unit IVPUSH ONCE ONE Stop: 09/03/18 12:01 Finasteride (Proscar -) 5 mg PO DAILY [facility] Last Admin: 09/02/18 09:58 Dose: 5 mg Sodium Chloride (Normal Saline -) 250 mls @ 3,000 mls/hr IV PRN PRN PRN Reason: Hypotension during Dialysis Stop: 09/03/18 22:00 Insulin Aspart (Novolog Vial Sliding Scale -) 1 vial SQ ACHS [facility]; Protocol Last Admin: 09/02/18 17:58 Dose: 2 units Levothyroxine Sodium (Synthroid -) 75 mcg PO DAILY@0700 [facility] Last Admin: 09/02/18 06:20 Dose: 75 mcg Rosuvastatin Calcium (Crestor -) 7.5 mg PO HS [facility] Last Admin: 09/01/18 22:32 Dose: 7.5 mg Tamsulosin HCl (Flomax -) 0.4 mg PO DAILY@0830 [facility] Last Admin: 09/02/18 08:51 Dose: 0.4 mg Ambulatory Orders Amlodipine Besylate [Norvasc -] 10 mg PO DAILY 08/02/13 Glipizide [Glipizide ER] 2.5 mg PO DAILY 08/02/13 Levothyroxine [Synthroid -] 75 mcg PO DAILY 08/02/13 Rosuvastatin Calcium [Crestor] 7.5 mg PO DAILY 08/02/13 Tamsulosin HCl [Flomax -] 0.4 mg PO DAILY 08/02/13 Aspirin [ASA -] 81 mg PO DAILY 10/04/17 Finasteride [Proscar -] 5 mg PO DAILY #30 tablet 10/16/17 Allopurinol [Zyloprim -] 100 mg PO DAILY 07/02/18 Carvedilol [Coreg -] 12.5 mg PO BID 07/02/18 Gabapentin [Neurontin] 100 mg PO DAILY 07/02/18 ASSESSMENT/PLAN: Pt is a 77 yo M with PMHx of NIDDM, HTN, HLD, Hypothyroidism, BPH, CKD, S/p CABG brought from home by for worsening abdominal distension and generalized weakness with lightheadedness today, found to have anion gap metabolic acidosis and uremia and admitted to ICU for emergent dialysis #ESRD- Shiley removed, for permacath and AVF/graft tomorrow- Dr Judith Kulkarni on board-No need for urgent HD today, repeat BMP pm cont coreg Dose all meds for CrCL < 10 Epoetin per nephro Hepatitis panel negative For outpt dialysis planning Pt NPO after midnight Am labs #Anion gap metabolic acidosis 23- in setting of uremia, Resolved on dialysis Anemia- Normocytic, epoeitin hyponatremia- Likely in setting of volume overload in ESRD, dialysis NIDDM, On home glipizide- hold ISS- ACHS BGM ACHS HTN Cont coreg, amlodipine on hold HLD Cont moderate intensity crestor Hypothyroidism, Cont levothyroxine 75 BPH On flomax and proscar Dispo Pending permacath/ AVF/graft Follow renal recs-possible outpt dialysis Visit type - Emergency Visit Emergency Visit: Yes ED Registration Date: 08/29/18 Care time: The patient presented to the Emergency Department on the above date and was hospitalized for further evaluation of their emergent condition. - New Patient This patient is new to me today: No - Critical Care Critical Care patient: No - Discharge Referral Referred to [facility] Med P.C.: No ATTENDING PHYSICIAN STATEMENT I saw and evaluated the patient. I reviewed the resident's note and discussed the case with the resident. I agree with the resident's findings and plan as documented. SUBJECTIVE: OBJECTIVE: ASSESSMENT AND PLAN:
[2018-09-02 09:33] LABS: PLATELET COUNT 167 K/MM3 (134-434)
[2018-09-02] MEDS: ASPIRIN 81 MG CHEWABLE TABLETS PO SCH (09:58)
[2018-09-02] MEDS: ALLOPURINOL 100 MG TABLET (FP) PO SCH (09:58)
[2018-09-02] MEDS: FINASTERIDE 5 MG TABLET (FP) PO SCH (09:58)
[2018-09-02] MEDS ORDERED: MAGNESIUM OXIDE 400 MG TABLET (FP) PO ONE (10:00)
--- NOTE | 2018-09-02 12:06 | CONSULT ---
<Praveen Garza - Last Filed: 09/02/18 12:14> - Consultation REQUESTING PROVIDER: CONSULT REQUEST: We have been asked to surgically evaluate this patient for removal of shiley/HD access. PCP:Brittany Cummings MD HISTORY OF PRESENT ILLNESS: 77 y/o M w/ PMHx NIDDM, HTN, HLD, Hypothyroidism, BPH, CKD stage V, CAD S/p CABG ([facility], 2008) admitted for abdominal distension and generalized weakness. Pt found have BUN/creat 214/12.3, admitted for urgent HD. Vascular consulted for removal of shiley and permanent HD access. Pt is R hand dominant, denies prior surgeries on LUE. Denies prior chest catheters. PMHx: as above PSHx: as above Home Medications Medication Instructions Recorded Amlodipine Besylate [Norvasc -] 10 mg PO DAILY 08/02/13 Glipizide [Glipizide ER] 2.5 mg PO DAILY 08/02/13 Levothyroxine [Synthroid -] 75 mcg PO DAILY 08/02/13 Rosuvastatin Calcium [Crestor] 7.5 mg PO DAILY 08/02/13 Tamsulosin HCl [Flomax -] 0.4 mg PO DAILY 08/02/13 Aspirin [ASA -] 81 mg PO DAILY 10/04/17 Finasteride [Proscar -] 5 mg PO DAILY #30 tablet 10/16/17 Allopurinol [Zyloprim -] 100 mg PO DAILY 07/02/18 Carvedilol [Coreg -] 12.5 mg PO BID 07/02/18 Gabapentin [Neurontin] 100 mg PO DAILY 07/02/18 Allergies Allergy/AdvReac Type Severity Reaction Status Date / Time sitagliptin [From ] Allergy Verified 07/02/18 20:06 REVIEW OF SYSTEMS: CONSTITUTIONAL: Absent: fever, chills CARDIOVASCULAR: Absent: chest pain RESPIRATORY: Absent: cough PHYSICAL EXAM: GENERAL: Awake, alert, and fully oriented, in no acute distress. HEAD: Normal with no signs of trauma. NECK: R shiley in place LUNGS: Unlabored on RA. No accessory muscle use. UPPER EXTREMITIES: 2+ b/l radial pulses, warm, well-perfused. No edema. Recent venipuncture L antecubital, no ecchymosis or surgical scars visible. Vital Signs Temperature 99.5 F 07/16/19 06:00 Pulse Rate 68 09/02/18 06:00 Respiratory Rate 20 09/02/18 06:00 Blood Pressure 147/60 09/02/18 06:00 O2 Sat by Pulse Oximetry (%) 94 L 09/01/18 21:00 Lab Results WBC 10.4 K/mm3 (4.0-10.0) H 09/02/18 06:20 RBC 2.92 M/mm3 (4.00-5.60) L 09/02/18 06:20 Hgb 8.5 GM/dL (11.7-16.9) L 09/02/18 06:20 Hct 25.6 % (35.4-49) L 09/02/18 06:20 MCV 87.9 fl (80-96) 09/02/18 06:20 MCHC 33.0 g/dl (32.0-35.9) 09/02/18 06:20 RDW 17.4 % (11.9-15.9) H 09/02/18 06:20 Plt Count 167 K/MM3 (134-434) D 09/02/18 06:20 Sodium 145 mmol/L (136-145) 09/02/18 06:20 Potassium 3.5 mmol/L (3.5-5.1) 09/02/18 06:20 Chloride 106 mmol/L (98-107) 09/02/18 06:20 Carbon Dioxide 29 mmol/L (21-32) 09/02/18 06:20 Anion Gap 10 MMOL/L (8-16) 09/02/18 06:20 BUN 46.0 mg/dL (7-18) H 09/02/18 06:20 Creatinine 3.7 mg/dL (0.55-1.3) H 09/02/18 06:20 Random Glucose 108 mg/dL (74-106) H 09/02/18 06:20 Calcium 7.8 mg/dL (8.5-10.1) L 09/02/18 06:20 Blood Type A POSITIVE 08/29/18 12:20 Antibody Screen Negative 08/29/18 12:20 INR 1.24 (0.83-1.09) H 08/29/18 12:20 A/P: 77 y/o M w/ PMHx NIDDM, HTN, HLD, Hypothyroidism, BPH, CKD stage V, CAD S/ p CABG ([facility], 2008) admitted for abdominal distension and generalized weakness, found to have progressive renal disease in need of urgent HD. R IJ shiley removed without issue, tip intact. Pressure held x 10minutes, no bleeding or hematoma noted. Small pressure dressing applied. -Pt is on the schedule tomorrow, 09/[address] Wong for LUE AVF creation and PC placement -NPO aftermidnight -Labs in AM (CBC, Chem, Coags, T&S) -CXR and EKG completed (08/29/18) -Save LUE (no blood draws, IVs, blood pressure cuffs) above d/w attending Dr Wong <Moo Wong - Last Filed: 09/02/18 13:27> - Consultation REQUESTING PROVIDER: CONSULT REQUEST: We have been asked to surgically evaluate this patient for ( specify). PCP:Brittany Cummings MD HISTORY OF PRESENT ILLNESS: PMHx: PSHx: Home Medications Medication Instructions Recorded Amlodipine Besylate [Norvasc -] 10 mg PO DAILY 08/02/13 Glipizide [Glipizide ER] 2.5 mg PO DAILY 08/02/13 Levothyroxine [Synthroid -] 75 mcg PO DAILY 08/02/13 Rosuvastatin Calcium [Crestor] 7.5 mg PO DAILY 08/02/13 Tamsulosin HCl [Flomax -] 0.4 mg PO DAILY 08/02/13 Aspirin [ASA -] 81 mg PO DAILY 10/04/17 Finasteride [Proscar -] 5 mg PO DAILY #30 tablet 10/16/17 Allopurinol [Zyloprim -] 100 mg PO DAILY 07/02/18 Carvedilol [Coreg -] 12.5 mg PO BID 07/02/18 Gabapentin [Neurontin] 100 mg PO DAILY 07/02/18 Allergies Allergy/AdvReac Type Severity Reaction Status Date / Time sitagliptin [From ] Allergy Verified 07/02/18 20:06 REVIEW OF SYSTEMS: CONSTITUTIONAL: Absent: fever, chills, diaphoresis, generalized weakness, malaise, loss of appetite, weight change CARDIOVASCULAR: Absent: chest pain, syncope, palpitations, irregular heart rate, lightheadedness , peripheral edema RESPIRATORY: Absent: cough, shortness of breath, dyspnea with exertion, wheezing, stridor, hemoptysis GASTROINTESTINAL: Absent: abdominal pain, abdominal distension, nausea, vomiting, diarrhea, constipation, melena, hematochezia GENITOURINARY: Absent: dysuria, frequency, urgency, hesitancy, hematuria, flank pain, genital pain MUSCULOSKELETAL: Absent: myalgia, arthralgia, joint swelling, back pain, neck pain SKIN: Absent: rash, itching, pallor HEMATOLOGIC/IMMUNOLOGIC: Absent: easy bleeding, easy bruising, lymphadenopathy NEUROLOGIC: Absent: headache, focal weakness, paresthesias, dizziness, unsteady gait, seizure, mental status changes, bladder or bowel incontinence PSYCHIATRIC: Absent: anxiety, depression, suicidal or homicidal ideation, hallucinations. PHYSICAL EXAM: GENERAL: Awake, alert, and fully oriented, in no acute distress. HEAD: Normal with no signs of trauma. EYES: PERRL, sclera anicteric, conjunctiva clear. NECK: Normal ROM, supple without lymphadenopathy, JVD, or masses. LUNGS: Clear to auscultation bilat anteriorly. No wheezes, and no crackles. No accessory muscle use. HEART: Regular rate and rhythm. No murmurs ABDOMEN: Soft, nontender, not distended, normoactive bowel sounds, no guarding, no rebound, no masses. No organomegaly. MUSCULOSKELETAL: Normal ROM at all joints. No bony deformities or tenderness. No CVA tenderness. UPPER EXTREMITIES: 2+ pulses, warm, well-perfused. No cyanosis. Cap refill <2 seconds. No peripheral edema. LOWER EXTREMITIES: 2+ pulses, warm, well-perfused. No calf tenderness. No peripheral edema. NEUROLOGICAL: Normal speech, gait not observed. PSYCH: Cooperative. Good eye contact. Appropriate mood and affect. SKIN: Warm, dry, normal turgor, no rashes or lesions noted. Vital Signs Temperature 99.5 F 09/02/18 06:00 Pulse Rate 68 09/02/18 06:00 Respiratory Rate 20 09/02/18 06:00 Blood Pressure 147/60 09/02/18 06:00 O2 Sat by Pulse Oximetry (%) 94 L 09/01/18 21:00 Lab Results WBC 10.4 K/mm3 (4.0-10.0) H 09/02/18 06:20 RBC 2.92 M/mm3 (4.00-5.60) L 09/02/18 06:20 Hgb 8.5 GM/dL (11.7-16.9) L 09/02/18 06:20 Hct 25.6 % (35.4-49) L 09/02/18 06:20 MCV 87.9 fl (80-96) 09/02/18 06:20 MCHC 33.0 g/dl (32.0-35.9) 09/02/18 06:20 RDW 17.4 % (11.9-15.9) H 09/02/18 06:20 Plt Count 167 K/MM3 (134-434) D 09/02/18 06:20 Sodium 145 mmol/L (136-145) 09/02/18 06:20 Potassium 3.5 mmol/L (3.5-5.1) 09/02/18 06:20 Chloride 106 mmol/L (98-107) 09/02/18 06:20 Carbon Dioxide 29 mmol/L (21-32) 09/02/18 06:20 Anion Gap 10 MMOL/L (8-16) 09/02/18 06:20 BUN 46.0 mg/dL (7-18) H 09/02/18 06:20 Creatinine 3.7 mg/dL (0.55-1.3) H 09/02/18 06:20 Random Glucose 108 mg/dL (74-106) H 09/02/18 06:20 Calcium 7.8 mg/dL (8.5-10.1) L 09/02/18 06:20 Blood Type A POSITIVE 08/29/18 12:20 Antibody Screen Negative 08/29/18 12:20 INR 1.24 (0.83-1.09) H 08/29/18 12:20 History reviewed and patient examined. Left cephalic vein patent with 2+ radial pulse. Scheduled for Permacath insertion and AVF creation tomorrow 8 AM.
[2018-09-02] MEDS ORDERED: MAGNESIUM SULF 50% (8.12 MEQ/2 ML-1 GM VIAL) IVPB ONE (16:33)
[2018-09-02] MEDS ORDERED: NAPH,MB-DB/K PH,MBDB POWDER PACKET PO ONE (16:33)
--- NOTE | 2018-09-02 16:36 | PN ---
Progress Note (short form) - Note Progress Note: Renal follow up for ROBIN/CKD Pt seen and examined at the bedside awake and alert feels better no appetite today no sob, cp, abd pain, fever or chills IJ catheter removed today Vital Signs Temperature 98.3 F 09/02/18 14:00 Pulse Rate 68 09/02/18 14:00 Respiratory Rate 20 09/02/18 14:00 Blood Pressure 141/53 L 09/02/18 14:00 O2 Sat by Pulse Oximetry (%) 94 L 09/01/18 21:00 awake and alert RRR, no M/R Dec BS trace ascities no LE edema CBC, BMP 09/02/18 06:20 09/02/18 06:20 Current Medications Allopurinol (Zyloprim -) 100 mg PO DAILY [facility] Last Admin: 09/02/18 09:58 Dose: 100 mg Aspirin (Asa -) 81 mg PO DAILY [facility] Last Admin: 09/02/18 09:58 Dose: 81 mg Finasteride (Proscar -) 5 mg PO DAILY [facility] Last Admin: 09/02/18 09:58 Dose: 5 mg Insulin Aspart (Novolog Vial Sliding Scale -) 1 vial SQ [facility]; Protocol Last Admin: 09/02/18 12:30 Dose: 2 units Levothyroxine Sodium (Synthroid -) 75 mcg PO DAILY@0700 [facility] Last Admin: 09/02/18 06:20 Dose: 75 mcg Magnesium Sulfate (Magnesium Sulfate) 1 gm IVPB ONCE ONE Stop: 09/02/18 16:34 Potassium Phos/Sodium Phos (Phos-Nak Packet -) 1 packet PO ONCE ONE Stop: 09/02/18 16:34 Rosuvastatin Calcium (Crestor -) 7.5 mg PO [facility] Last Admin: 09/01/18 22:32 Dose: 7.5 mg Tamsulosin HCl (Flomax -) 0.4 mg PO DAILY@0830 [facility] Last Admin: 09/02/18 08:51 Dose: 0.4 mg 77 year old gentleman with hx of CKD stage 5 (eGFR 7), CAD s/p CABG, Hypertension, HLD, DM who presented with weakness and dizziness and found to have BUN/Cr of 214/12.9. #Acute on chronic renal insufficiency with uremia #Anemia #Metabolic acidosis #Hyponatremia #Weakness from uremia #Uremic pruritus no emergent indication for LOCK FITTER BUN/Cr trending up off HD, will repeat BMP tonight as well planned for tunneled HD catheter and AVF creation tomorrow can d/c Johnston supplement Phos and Mg will give NAYLA with HD tomorrow for anemia Thank you Rambo Kulkarni DO
--- NOTE | 2018-09-02 17:38 | PN ---
Teaching Attending Note Name of Resident: Liza Weinberg ATTENDING PHYSICIAN STATEMENT I saw and evaluated the patient. I reviewed the resident's note and discussed the case with the resident. I agree with the resident's findings and plan as documented with exceptions below. SUBJECTIVE: Patient seen and examined. no complaints. OBJECTIVE: Vital Signs Period Temp Pulse Resp BP Sys/Ramos Pulse Ox Last 24 Hr 98.3 F-99.5 F 68-88 18-20 141-147/53-68 94 Intake & Output 08/30/18 08/31/18 09/01/18 09/02/18 23:59 23:59 23:59 23:59 Intake Total 440 925 700 0 Output Total 864 477 2596 800 Balance -260 275 -450 -800 Weight 155 lb General: sitting in bed in no acute distress Neck: soft, supple, no JVD CVS:S1S2 regular Abdomen:soft, NT, ND Extremities:no edema Home Medications Medication Instructions Recorded Amlodipine Besylate [Norvasc -] 10 mg PO DAILY 08/02/13 Glipizide [Glipizide ER] 2.5 mg PO DAILY 08/02/13 Levothyroxine [Synthroid -] 75 mcg PO DAILY 08/02/13 Rosuvastatin Calcium [Crestor] 7.5 mg PO DAILY 08/02/13 Tamsulosin HCl [Flomax -] 0.4 mg PO DAILY 08/02/13 Aspirin [ASA -] 81 mg PO DAILY 10/04/17 Finasteride [Proscar -] 5 mg PO DAILY #30 tablet 10/16/17 Allopurinol [Zyloprim -] 100 mg PO DAILY 07/02/18 Carvedilol [Coreg -] 12.5 mg PO BID 07/02/18 Gabapentin [Neurontin] 100 mg PO DAILY 07/02/18 Active Medications Allopurinol (Zyloprim -) 100 mg PO DAILY [facility] Last Admin: 09/02/18 09:58 Dose: 100 mg Aspirin (Asa -) 81 mg PO DAILY [facility] Last Admin: 09/02/18 09:58 Dose: 81 mg Epoetin Sam (Procrit -) 20,000 unit IVPUSH ONCE ONE Stop: 09/03/18 12:01 Finasteride (Proscar -) 5 mg PO DAILY [facility] Last Admin: 09/02/18 09:58 Dose: 5 mg Sodium Chloride (Normal Saline -) 250 mls @ 3,000 mls/hr IV PRN PRN PRN Reason: Hypotension during Dialysis Stop: 09/03/18 22:00 Insulin Aspart (Novolog Vial Sliding Scale -) 1 vial SQ [facility]; Protocol Last Admin: 09/02/18 12:30 Dose: 2 units Levothyroxine Sodium (Synthroid -) 75 mcg PO DAILY@0700 [facility] Last Admin: 09/02/18 06:20 Dose: 75 mcg Rosuvastatin Calcium (Crestor -) 7.5 mg PO HS [facility] Last Admin: 09/01/18 22:32 Dose: 7.5 mg Tamsulosin HCl (Flomax -) 0.4 mg PO DAILY@0830 [facility] Last Admin: 09/02/18 08:51 Dose: 0.4 mg Laboratory Results - last 24 hr 09/01/18 09/01/18 09/02/18 11:00 21:58 06:18 WBC RBC Hgb Hct MCV MCH MCHC RDW Plt Count MPV Absolute Neuts (auto) Neutrophils % Lymphocytes % Monocytes % Eosinophils % Basophils % Nucleated RBC % Sodium Potassium Chloride Carbon Dioxide Anion Gap BUN Creatinine Est GFR (CKD-EPI)AfAm Est GFR (CKD-EPI)NonAf POC Glucometer 150 111 Random Glucose Calcium Phosphorus Magnesium Total Bilirubin AST ALT Alkaline Phosphatase Total Protein Albumin Hep A IgM Ab Confirm Negative Hep Bs Antigen Negative Hep B Core IgM Ab Negative Hepatitis C Ab (EIA) <0.1 09/02/18 09/02/18 09/02/18 06:20 06:20 12:22 WBC 10.4 H RBC 2.92 L Hgb 8.5 L Hct 25.6 L MCV 87.9 MCH 29.0 MCHC 33.0 RDW 17.4 H Plt Count 167 D MPV 11.1 Absolute Neuts (auto) 8.5 H Neutrophils % 81.4 Lymphocytes % 6.4 L D Monocytes % 8.8 Eosinophils % 2.9 Basophils % 0.5 Nucleated RBC % 0 Sodium 145 Potassium 3.5 Chloride 106 Carbon Dioxide 29 Anion Gap 10 BUN 46.0 H Creatinine 3.7 H Est GFR (CKD-EPI)AfAm 17.22 Est GFR (CKD-EPI)NonAf 14.86 POC Glucometer 159 Random Glucose 108 H Calcium 7.8 L Phosphorus 2.4 L Magnesium 1.7 L Total Bilirubin 1.3 H AST 16 ALT 18 Alkaline Phosphatase 123 H Total Protein 5.6 L Albumin 2.9 L Hep A IgM Ab Confirm Hep Bs Antigen Hep B Core IgM Ab Hepatitis C Ab (EIA) Microbiology 08/29/18 16:30 Urine - Urine Clean Catch Urine Culture - Final NO GROWTH OBTAINED ASSESSMENT AND PLAN: 77 yom with PMHx of ESRD, NIDDM, HTN, HLD, Hypothyroidism, BPH, S/p CABG admitted with fatigue, progressive abdominal distension s/p emergent HD. -ESRD started on HD -NIDDM -HTN -HLD -Hypothyroidism -BPH Plan: renal input noted, HD catheter removed Plan for tunnelled HD catheter and AV fistula in AM. D/c [place]. Replete Mg/Phos. Resume coreg. ISS, statin, levothyroxine DVTPPX SCDS, hold chemical DVTPPX pending surgical plans. Dispo plan for dc later this week pending above and HD arrangements.
[2018-09-02] MEDS: CARVEDILOL 12.5 MG TABLET (FP) PO SCH (21:25)
[2018-09-02] MEDS: ROSUVASTATIN CA 5 MG TABLET (FP) PO SCH (21:25)
[2018-09-03 02:01] LABS: BLOOD UREA NITROGEN 49.6 mg/dL (7-18); CALCIUM 7.7 mg/dL (8.5-10.1); CREATININE 3.8 mg/dL (0.55-1.3); POTASSIUM 3.5 mmol/L (3.5-5.1)
[2018-09-03] MEDS: INSULIN SLIDING SCALE (NOVOLOG) 1 VIAL SQ SCH ×4 (06:39→22:12)
[2018-09-03] MEDS: LEVOTHYROXINE NA 75 MCG TABLET (FP) PO SCH (06:39)
[2018-09-03] MEDS ORDERED: PAPAVERINE HCL 30 MG/1 ML 10 ML VIAL NR ONE (07:24)
[2018-09-03] MEDS ORDERED: HEPARIN NA (PORCINE) 5,000 UNITS/ML 1ML VIAL ONE (07:24)
[2018-09-03] MEDS ORDERED: POVIDONE-IODINE OINTMENT 10% - 28.4 GM TUBE ONE (07:24)
[2018-09-03] MEDS ORDERED: LIDOCAINE HCL 1%, 10 MG/ML (20ML VIAL) ONE ×2 (07:24→08:02)
--- NOTE | 2018-09-03 08:02 | PN ---
Physical Exam: SUBJECTIVE: Patient seen and examined after returning from OR. Pt now s/p AV fistula LUE, R permacath. Sitting up after meal. In no obvious distress. No chest pain, no SOB. Family by bedside OBJECTIVE: Vital Signs Period Temp Pulse Resp BP Sys/Ramos Pulse Ox Last 24 Hr 98.3 F-99.2 F 68-73 18-20 141-162/53-76 94-94 Vital Signs Temp 98.2 F 09/03/18 18:30 Pulse 73 09/03/18 18:30 Resp 18 09/03/18 18:30 BP 152/66 09/03/18 18:30 Pulse Ox 98 09/03/18 11:50 Intake & Output 09/02/18 09/03/18 09/03/18 23:59 11:59 23:59 Intake Total 400 300 240 Output Total 500 320 350 Balance -100 -20 -110 Intake: IV 300 Oral 400 240 Output: Urine 500 300 350 Johnston 500 350 Void 100 Estimated Blood Loss 20 Other: Voiding Method Urinal Urinal Urinal # Unmeasured Voids Void 1 Bowel Movement No Yes No # Bowel Movements 2 1 GENERAL: The patient is awake, alert, and fully oriented, in no acute distress. EYES: PERRL, extraocular movements intact ENT: moist mucous membranes. LUNGS: Reduced Breath sounds, no wheeze HEART: S1, S2 ABDOMEN: Soft, nontender, full, normoactive bowel sounds, no guarding, EXTREMITIES: 2+ pulses, warm, well-perfused, no edema. LUE AV fistula. RUE/ chest permacath NEUROLOGICAL: Alert and oriented. No facial droop. No lateralizing signs. Cranial nerves II through XII grossly intact. Normal speech, gait not observed. PSYCH: Normal mood, normal affect. CBC, BMP 09/03/18 14:30 09/03/18 01:30 Laboratory Results - last 24 hr 09/02/18 09/02/18 09/02/18 06:20 06:20 12:22 WBC 10.4 H RBC 2.92 L Hgb 8.5 L Hct 25.6 L MCV 87.9 MCH 29.0 MCHC 33.0 RDW 17.4 H Plt Count 167 D MPV 11.1 Absolute Neuts (auto) 8.5 H Neutrophils % 81.4 Lymphocytes % 6.4 L D Monocytes % 8.8 Eosinophils % 2.9 Basophils % 0.5 Nucleated RBC % 0 Sodium 145 Potassium 3.5 Chloride 106 Carbon Dioxide 29 Anion Gap 10 BUN 46.0 H Creatinine 3.7 H Est GFR (CKD-EPI)AfAm 17.22 Est GFR (CKD-EPI)NonAf 14.86 POC Glucometer 159 Random Glucose 108 H Calcium 7.8 L Phosphorus 2.4 L Magnesium 1.7 L Total Bilirubin 1.3 H AST 16 ALT 18 Alkaline Phosphatase 123 H Total Protein 5.6 L Albumin 2.9 L 09/02/18 09/02/18 09/03/18 17:56 21:33 01:30 WBC RBC Hgb Hct MCV MCH MCHC RDW Plt Count MPV Absolute Neuts (auto) Neutrophils % Lymphocytes % Monocytes % Eosinophils % Basophils % Nucleated RBC % Sodium 143 Potassium 3.5 Chloride 105 Carbon Dioxide 29 Anion Gap 9 BUN 49.6 H Creatinine 3.8 H Est GFR (CKD-EPI)AfAm 16.68 Est GFR (CKD-EPI)NonAf 14.39 POC Glucometer 193 164 Random Glucose 108 H Calcium 7.7 L Phosphorus Magnesium Total Bilirubin AST ALT Alkaline Phosphatase Total Protein Albumin Active Medications Generic Name Dose Route Start Last Admin Trade Name Freq PRN Reason Stop Dose Admin Allopurinol 100 mg 08/31/18 10:00 09/02/18 09:58 Zyloprim - PO 100 mg DAILY [facility] Administration Aspirin 81 mg 08/31/18 10:00 09/02/18 09:58 Asa - PO 81 mg DAILY [facility] Administration Carvedilol 12.5 mg 09/02/18 22:00 09/02/18 21:25 Coreg - PO 12.5 mg BID [facility] Administration Epoetin Sam 20,000 unit 09/03/18 12:00 Procrit - IVPUSH 09/03/18 12:01 ONCE ONE Finasteride 5 mg 08/31/18 10:00 09/02/18 09:58 Proscar - PO 5 mg DAILY [facility] Administration Sodium Chloride 250 mls @ 3,000 mls/hr 09/03/18 12:00 Normal Saline - IV 09/03/18 22:00 PRN PRN Hypotension during Dialysis Insulin Aspart 1 vial 08/30/18 22:00 09/03/18 06:39 Novolog Vial Sliding Scale - SQ Not Given ACHS [facility] Protocol Levothyroxine Sodium 75 mcg 08/31/18 07:00 09/03/18 06:39 Synthroid - PO Not Given DAILY@0700 [facility] Rosuvastatin Calcium 7.5 mg 08/30/18 22:00 09/02/18 21:25 Crestor - PO 7.5 mg HS [facility] Administration Tamsulosin HCl 0.4 mg 08/31/18 08:30 09/02/18 08:51 Flomax - PO 0.4 mg DAILY@0830 [facility] Administration Ambulatory Orders Amlodipine Besylate [Norvasc -] 10 mg PO DAILY 08/02/13 Glipizide [Glipizide ER] 2.5 mg PO DAILY 08/02/13 Levothyroxine [Synthroid -] 75 mcg PO DAILY 08/02/13 Rosuvastatin Calcium [Crestor] 7.5 mg PO DAILY 08/02/13 Tamsulosin HCl [Flomax -] 0.4 mg PO DAILY 08/02/13 Aspirin [ASA -] 81 mg PO DAILY 10/04/17 Finasteride [Proscar -] 5 mg PO DAILY #30 tablet 10/16/17 Allopurinol [Zyloprim -] 100 mg PO DAILY 07/02/18 Carvedilol [Coreg -] 12.5 mg PO BID 07/02/18 Gabapentin [Neurontin] 100 mg PO DAILY 07/02/18 Current Medications Acetaminophen (Tylenol -) 650 mg PO Q6H PRN PRN Reason: PAIN LEVEL 1-5 Allopurinol (Zyloprim -) 100 mg PO DAILY [facility] Aspirin (Asa -) 81 mg PO DAILY [facility] Carvedilol (Coreg -) 12.5 mg PO BID [facility] Finasteride (Proscar -) 5 mg PO DAILY [facility] Sodium Chloride (Normal Saline -) 250 mls @ 3,000 mls/hr IV PRN PRN PRN Reason: Hypotension during Dialysis Stop: 09/03/18 22:00 Sodium Chloride (Normal Saline -) 250 mls @ 3,000 mls/hr IV PRN PRN PRN Reason: Hypotension during Dialysis Stop: 09/04/18 17:17 Insulin Aspart (Novolog Vial Sliding Scale -) 1 vial SQ [facility]; Protocol Last Admin: 09/03/18 19:55 Dose: Not Given Levothyroxine Sodium (Synthroid -) 75 mcg PO DAILY@0700 [facility] Ondansetron HCl (Zofran Injection) 4 mg IVPUSH Q6H PRN PRN Reason: NAUSEA AND/OR VOMITING Oxycodone HCl (Roxicodone -) 5 mg PO Q4H PRN PRN Reason: PAIN LEVEL 1-5 Stop: 09/04/18 10:21 Rosuvastatin Calcium (Crestor -) 7.5 mg PO HS [facility] Tamsulosin HCl (Flomax -) 0.4 mg PO DAILY@0830 [facility] Torsemide (Demadex -) 40 mg PO DAILY [facility] ASSESSMENT/PLAN: Pt is a 77 yo M with PMHx of NIDDM, HTN, HLD, Hypothyroidism, BPH, CKD, S/p CABG brought from home by for worsening abdominal distension and generalized weakness with lightheadedness today, found to have anion gap metabolic acidosis and uremia and admitted to ICU for emergent dialysis #ESRD- s/p for permacath and AVF -09/03- Dr Judith Orta removed 09/02, Dr Kulkarni on board- cont coreg Dose all meds for CrCL < 10 Epoetin per nephro, started torsemide Hepatitis panel negative For outpt dialysis planning #Anion gap metabolic acidosis 23- in setting of uremia, Resolved on dialysis Anemia- Normocytic, epoeitin hyponatremia- Likely in setting of volume overload in ESRD, resolved with dialysis NIDDM, On home glipizide- hold ISS- ACHS BGM ACHS HTN Cont coreg, amlodipine on hold HLD Cont moderate intensity crestor Hypothyroidism, Cont levothyroxine 75 BPH On flomax and proscar Dispo Follow renal recs-possible outpt dialysis Visit type - Emergency Visit Emergency Visit: Yes ED Registration Date: 08/29/18 Care time: The patient presented to the Emergency Department on the above date and was hospitalized for further evaluation of their emergent condition. - New Patient This patient is new to me today: No - Critical Care Critical Care patient: No - Discharge Referral Referred to [facility] Med P.C.: No ATTENDING PHYSICIAN STATEMENT I saw and evaluated the patient. I reviewed the resident's note and discussed the case with the resident. I agree with the resident's findings and plan as documented. SUBJECTIVE: OBJECTIVE: ASSESSMENT AND PLAN:
[2018-09-03] MEDS ORDERED: MIDAZOLAM HCL 2 MG/2 ML SINGLE DOSE VIAL ONE ×2 (08:31)
[2018-09-03] MEDS ORDERED: ceFAZolin SODIUM 1 GM VIAL IVPB ONE (08:33)
[2018-09-03] MEDS ORDERED: LIDOCAINE HCL 1%, 10 MG/ML (20ML VIAL) NR ONE (08:39)
[2018-09-03] MEDS ORDERED: DEXAMETHASONE SOD PHOSPHATE 4 MG/1 ML VIAL ONE (09:07)
[2018-09-03] MEDS ORDERED: KETOROLAC TROMETHAMINE 30 MG/1 ML VIAL ONE (09:07)
[2018-09-03] MEDS ORDERED: ceFAZolin SODIUM 1 GM VIAL ONE (09:07)
[2018-09-03] MEDS ORDERED: HEPARIN NA (PORCINE) 5,000 UNITS/ML 1ML VIAL SQ ONE (09:10)
--- NOTE | 2018-09-03 09:57 | PN ---
Physical Exam: SUBJECTIVE: Patient seen and examined OBJECTIVE: Vital Signs Period Temp Pulse Resp BP Sys/Ramos Pulse Ox Last 24 Hr 98.3 F-99.2 F 68-73 18-20 141-162/53-76 94 GENERAL: The patient is awake, alert, and fully oriented, in no acute distress. HEAD: Normal with no signs of trauma. EYES: PERRL, extraocular movements intact, sclera anicteric, conjunctiva clear. No ptosis. ENT: Ears normal, nares patent, oropharynx clear without exudates, moist mucous membranes. NECK: Trachea midline, full range of motion, supple. LUNGS: Breath sounds equal, clear to auscultation bilaterally, no wheezes, no crackles, no accessory muscle use. HEART: Regular rate and rhythm, S1, S2 without murmur, rub or gallop. ABDOMEN: Soft, nontender, nondistended, normoactive bowel sounds, no guarding, no rebound, no hepatosplenomegaly, no masses. EXTREMITIES: 2+ pulses, warm, well-perfused, no edema. NEUROLOGICAL: Cranial nerves II through XII grossly intact. Normal speech, gait not observed. PSYCH: Normal mood, normal affect. SKIN: Warm, dry, normal turgor, no rashes or lesions noted Laboratory Results - last 24 hr 09/02/18 09/02/18 09/02/18 12:22 17:56 21:33 Sodium Potassium Chloride Carbon Dioxide Anion Gap BUN Creatinine Est GFR (CKD-EPI)AfAm Est GFR (CKD-EPI)NonAf POC Glucometer 159 193 164 Random Glucose Calcium 09/03/18 09/03/18 01:30 06:09 Sodium 143 Potassium 3.5 Chloride 105 Carbon Dioxide 29 Anion Gap 9 BUN 49.6 H Creatinine 3.8 H Est GFR (CKD-EPI)AfAm 16.68 Est GFR (CKD-EPI)NonAf 14.39 POC Glucometer 122 Random Glucose 108 H Calcium 7.7 L Active Medications Generic Name Dose Route Start Last Admin Trade Name Freq PRN Reason Stop Dose Admin Allopurinol 100 mg 08/31/18 10:00 09/02/18 09:58 Zyloprim - PO 100 mg DAILY FABIEN Administration Aspirin 81 mg 08/31/18 10:00 09/02/18 09:58 Asa - PO 81 mg DAILY FABIEN Administration Carvedilol 12.5 mg 09/02/18 22:00 09/02/18 21:25 Coreg - PO 12.5 mg BID FABIEN Administration Epoetin Sam 20,000 unit 09/03/18 12:00 Procrit - IVPUSH 09/03/18 12:01 ONCE ONE Finasteride 5 mg 08/31/18 10:00 09/02/18 09:58 Proscar - PO 5 mg DAILY FABIEN Administration Sodium Chloride 250 mls @ 3,000 mls/hr 09/03/18 12:00 Normal Saline - IV 09/03/18 22:00 PRN PRN Hypotension during Dialysis Insulin Aspart 1 vial 08/30/18 22:00 09/03/18 06:39 Novolog Vial Sliding Scale - SQ Not Given ACHS [facility] Protocol Levothyroxine Sodium 75 mcg 08/31/18 07:00 09/03/18 06:39 Synthroid - PO Not Given DAILY@0700 FABIEN Rosuvastatin Calcium 7.5 mg 08/30/18 22:00 09/02/18 21:25 Crestor - PO 7.5 mg HS FABIEN Administration Tamsulosin HCl 0.4 mg 08/31/18 08:30 09/02/18 08:51 Flomax - PO 0.4 mg DAILY@0830 FABIEN Administration ASSESSMENT/PLAN: ATTENDING PHYSICIAN STATEMENT I saw and evaluated the patient. I reviewed the resident's note and discussed the case with the resident. I agree with the resident's findings and plan as documented. SUBJECTIVE: OBJECTIVE: ASSESSMENT AND PLAN:
[2018-09-03] MEDS ORDERED: POVIDONE-IODINE OINTMENT 10% - 28.4 GM TUBE TP ONE ×2 (10:10)
--- NOTE | 2018-09-03 10:21 | OP ---
Operative Note - Note: Operative Date: 09/03/18 Pre-Operative Diagnosis: ESRD Operation: Placement permcath. Creation AV fistula left arm Findings: Patent right IJ Left cephalic vein and brachial artery patent Post-Operative Diagnosis: Same as Pre-op Surgeon: Moo Wong Process Coach: Carmel Schmidt Anesthesiologist/RESPITE WORKER: Lee Patel Anesthesia: Fractional Operative Report Dictated: Yes
[2018-09-03] MEDS ORDERED: oxyCODONE HCL 5 MG TABLET PO PRN (10:22)
[2018-09-03] MEDS ORDERED: PROMETHAZINE HCL 25 MG/1 ML VIAL IVPUSH PRN (10:22)
[2018-09-03] MEDS ORDERED: ONDANSETRON 4 MG/2 ML VIAL IVPUSH PRN (10:22)
[2018-09-03] MEDS ORDERED: ACETAMINOPHEN 325 MG TABLET (FP) PO PRN (10:24)
--- NOTE | 2018-09-03 10:27 | SURG ---
Surgery Spanish Linguist Note Spanish Linguist: Carmel Schmidt PA-C Date of Service: 09/03/18 Diagnosis: Esrd Procedure: Placement permaath. Creation AV fistula left arm I was present for the entirety of the operative procedure. For further detail, please refer to operative report. Visit type - Case Type Case Type: ED Admission - Emergency Emergency Visit: No - New patient This patient is new to me today: Yes Date on this admission: 09/03/18
[2018-09-03] MEDS ORDERED: SODIUM CHLORIDE 250 ML IV PRN ×3 (12:00→17:18)
[2018-09-03] MEDS ORDERED: EPOETIN ALFA 20,000 UNIT/1 ML VIAL IVPUSH ONE ×2 (12:00→17:30)
--- NOTE | 2018-09-03 13:22 | PN ---
Teaching Attending Note Name of Resident: Liza Weinberg ATTENDING PHYSICIAN STATEMENT I saw and evaluated the patient. I reviewed the resident's note and discussed the case with the resident. I agree with the resident's findings and plan as documented with exceptions below. SUBJECTIVE: patient seen and examined, no complaints. OBJECTIVE: Vital Signs Period Temp Pulse Resp BP Sys/Ramos Pulse Ox Last 24 Hr 98.1 F-99.2 F 60-73 12-20 132-162/44-76 94-99 Intake & Output 08/31/18 09/01/18 09/02/18 09/03/18 23:59 23:59 23:59 23:59 Intake Total 925 700 400 300 Output Total 650 1150 900 320 Balance 275 -450 -500 -20 General: sitting in bed in no acute distress Chest: bibasilar rales, right permacath placement Abdomen:soft, obese, NT Extremities: Left av fistula creation Home Medications Medication Instructions Recorded Amlodipine Besylate [Norvasc -] 10 mg PO DAILY 08/02/13 Glipizide [Glipizide ER] 2.5 mg PO DAILY 08/02/13 Levothyroxine [Synthroid -] 75 mcg PO DAILY 08/02/13 Rosuvastatin Calcium [Crestor] 7.5 mg PO DAILY 08/02/13 Tamsulosin HCl [Flomax -] 0.4 mg PO DAILY 08/02/13 Aspirin [ASA -] 81 mg PO DAILY 10/04/17 Finasteride [Proscar -] 5 mg PO DAILY #30 tablet 10/16/17 Allopurinol [Zyloprim -] 100 mg PO DAILY 07/02/18 Carvedilol [Coreg -] 12.5 mg PO BID 07/02/18 Gabapentin [Neurontin] 100 mg PO DAILY 07/02/18 Active Medications Acetaminophen (Tylenol -) 650 mg PO Q6H PRN PRN Reason: PAIN LEVEL 1-5 Allopurinol (Zyloprim -) 100 mg PO DAILY [facility]ABIEN Aspirin (Asa -) 81 mg PO DAILY [facility]IEN Carvedilol (Coreg -) 12.5 mg PO BID FABIEN Epoetin Sam (Procrit -) 20,000 unit IVPUSH ONCE ONE Stop: 09/03/18 12:01 Finasteride (Proscar -) 5 mg PO DAILY [facility]IEN Sodium Chloride (Normal Saline -) 250 mls @ 3,000 mls/hr IV PRN PRN PRN Reason: Hypotension during Dialysis Stop: 09/03/18 22:00 Insulin Aspart (Novolog Vial Sliding Scale -) 1 vial SQ [facility]; Protocol Levothyroxine Sodium (Synthroid -) 75 mcg PO DAILY@0700 [facility] Ondansetron HCl (Zofran Injection) 4 mg IVPUSH Q6H PRN PRN Reason: NAUSEA AND/OR VOMITING Oxycodone HCl (Roxicodone -) 5 mg PO Q4H PRN PRN Reason: PAIN LEVEL 1-5 Stop: 09/04/18 10:21 Rosuvastatin Calcium (Crestor -) 7.5 mg PO HS [facility] Tamsulosin HCl (Flomax -) 0.4 mg PO DAILY@0830 [facility] Laboratory Results - last 24 hr 09/02/18 09/02/18 09/03/18 17:56 21:33 01:30 Sodium 143 Potassium 3.5 Chloride 105 Carbon Dioxide 29 Anion Gap 9 BUN 49.6 H Creatinine 3.8 H Est GFR (CKD-EPI)AfAm 16.68 Est GFR (CKD-EPI)NonAf 14.39 POC Glucometer 193 164 Random Glucose 108 H Calcium 7.7 L 09/03/18 09/03/18 06:09 12:25 Sodium Potassium Chloride Carbon Dioxide Anion Gap BUN Creatinine Est GFR (CKD-EPI)AfAm Est GFR (CKD-EPI)NonAf POC Glucometer 122 129 Random Glucose Calcium 77 yom with PMHx of ESRD, NIDDM, HTN, HLD, Hypothyroidism, BPH, S/p CABG admitted with fatigue, progressive abdominal distension s/p emergent HD. -ESRD started on HD -NIDDM -HTN -HLD -Hypothyroidism -BPH Plan: s/p permacath placement/Av fistula creation today. Johnston d/lexi Continue coreg. ISS, statin, levothyroxine DVTPPX SCDS, heparin per surgery Dispo plan for dc in 24 hours if no concerns and HD arrangements made. Discussed with patient and family at bedside, all questions answered.
--- NOTE | 2018-09-03 13:30 | PN ---
Progress Note (short form) - Note Progress Note: Renal follow up for ROBIN/CKD Pt seen and examined at the bedside awake and alert no acute complaints no sob, cp, abd pain, fever, chills s/p tunneled catheter and AVF placement this am Vital Signs Temperature 98.1 F 09/03/18 11:50 Pulse Rate 62 09/03/18 11:50 Respiratory Rate 18 09/03/18 11:50 Blood Pressure 139/51 L 09/03/18 11:50 O2 Sat by Pulse Oximetry (%) 98 09/03/18 11:50 Intake & Output 08/31/18 09/01/18 09/02/18 09/03/18 23:59 23:59 23:59 23:59 Intake Total 925 700 400 300 Output Total 650 1150 900 320 Balance 275 -450 -500 -20 awake and alert RRR, no M/R Dec BS trace ascities no LE edema CBC, BMP 09/02/18 06:20 09/03/18 01:30 Current Medications Acetaminophen (Tylenol -) 650 mg PO Q6H PRN PRN Reason: PAIN LEVEL 1-5 Allopurinol (Zyloprim -) 100 mg PO DAILY [facility] Aspirin (Asa -) 81 mg PO DAILY [facility] Carvedilol (Coreg -) 12.5 mg PO BID [facility] Epoetin Sam (Procrit -) 20,000 unit IVPUSH ONCE ONE Stop: 09/03/18 12:01 Finasteride (Proscar -) 5 mg PO DAILY [facility] Sodium Chloride (Normal Saline -) 250 mls @ 3,000 mls/hr IV PRN PRN PRN Reason: Hypotension during Dialysis Stop: 09/03/18 22:00 Insulin Aspart (Novolog Vial Sliding Scale -) 1 vial SQ [facility]; Protocol Levothyroxine Sodium (Synthroid -) 75 mcg PO DAILY@0700 [facility] Ondansetron HCl (Zofran Injection) 4 mg IVPUSH Q6H PRN PRN Reason: NAUSEA AND/OR VOMITING Oxycodone HCl (Roxicodone -) 5 mg PO Q4H PRN PRN Reason: PAIN LEVEL 1-5 Stop: 09/04/18 10:21 Rosuvastatin Calcium (Crestor -) 7.5 mg PO HS [facility] Tamsulosin HCl (Flomax -) 0.4 mg PO DAILY@0830 FABIEN 77 year old gentleman with hx of CKD stage 5 (eGFR 7), CAD s/p CABG, Hypertension, HLD, DM who presented with weakness and dizziness and found to have BUN/Cr of 214/12.9. #CKD stage 5 now ESRD #Anemia #Metabolic acidosis #Hyponatremia #Weakness from uremia #Uremic pruritus pt is agreeable to ocean [employer] intermediary dialysis given up trend of BUN/Cr there is no significant recovery in renal function s/p tunneled catheter and AVF placement today for dialysis today as well will need outpatient HD placement will need NAYLA and IV iron with HD for anemia management Continue flomax and proscar start torsemide 40mg Daily Thank you Rambo Kulkarni DO
[2018-09-03 15:18] LABS: BASO % 0.3 % (0-2.0); EOS % 0.1 % (0-4.5); HEMATOCRIT 25.7 % (35.4-49); HEMOGLOBIN 8.4 GM/dL (11.7-16.9); LYMPH % 3.3 % (8-40); MCH 28.8 pg (25.7-33.7); MCHC 32.6 g/dl (32.0-35.9); MEAN CELL VOLUME 88.4 fl (80-96); MEAN PLT VOLUME 10.1 fl (7.5-11.1); MONO % 1.4 % (3.8-10.2); NEUT % 94.9 % (42.8-82.8); PLATELET COUNT 170 K/MM3 (134-434); RBC 2.91 M/mm3 (4.00-5.60); RDW 18.1 % (11.9-15.9); WHITE BLOOD COUNT 8.4 K/mm3 (4.0-10.0)
[2018-09-03 15:20] LABS: INR 1.27 (0.83-1.09)
[2018-09-03 16:36] LABS: PLATELET ESTIMATE ADEQUATE
[2018-09-03] MEDS ORDERED: IRON SUCROSE INJECTION 100 MG in SODIUM CHLORIDE 95 ML IVPB ONE (17:30)
[2018-09-03] MEDS ORDERED: INSULIN (NOVOLOG) ASPART 100 UNITS/ML 10ML VIAL ONE (21:13)
[2018-09-03] MEDS: CARVEDILOL 12.5 MG TABLET (FP) PO SCH (22:08)
[2018-09-03] MEDS: ROSUVASTATIN CA 5 MG TABLET (FP) PO SCH (22:09)
[2018-09-04] MEDS: INSULIN SLIDING SCALE (NOVOLOG) 1 VIAL SQ SCH ×4 (06:49→21:31)
[2018-09-04] MEDS: LEVOTHYROXINE NA 75 MCG TABLET (FP) PO SCH (06:50)
[2018-09-04 08:16] LABS: BASO % 0.2 % (0-2.0); EOS % 0.3 % (0-4.5); HEMATOCRIT 25.4 % (35.4-49); HEMOGLOBIN 8.2 GM/dL (11.7-16.9); LYMPH % 5.4 % (8-40); MCH 28.7 pg (25.7-33.7); MCHC 32.4 g/dl (32.0-35.9); MEAN CELL VOLUME 88.6 fl (80-96); MEAN PLT VOLUME 10.5 fl (7.5-11.1); MONO % 7.1 % (3.8-10.2); RBC 2.87 M/mm3 (4.00-5.60); RDW 18.3 % (11.9-15.9); WHITE BLOOD COUNT 11.6 K/mm3 (4.0-10.0)
[2018-09-04 08:30] LABS: ALBUMIN 2.7 g/dl (3.4-5.0); BILIRUBIN,TOTAL 1.4 mg/dL (0.2-1); BLOOD UREA NITROGEN 36.1 mg/dL (7-18); CALCIUM 7.8 mg/dL (8.5-10.1); CREATININE 3.1 mg/dL (0.55-1.3); MAGNESIUM 1.7 mg/dL (1.8-2.4); PHOSPHOROUS 2.6 mg/dL (2.5-4.9); POTASSIUM 3.6 mmol/L (3.5-5.1); TOT PROT 5.4 g/dl (6.4-8.2)
[2018-09-04] MEDS: TAMSULOSIN HCL 0.4 MG CAP PO SCH ×2 (08:49→09:49)
[2018-09-04] MEDS: ASPIRIN 81 MG CHEWABLE TABLETS PO SCH ×2 (08:50→09:49)
[2018-09-04] MEDS: FINASTERIDE 5 MG TABLET (FP) PO SCH ×2 (08:50→09:49)
[2018-09-04] MEDS: CARVEDILOL 12.5 MG TABLET (FP) PO SCH ×3 (08:50→21:30)
[2018-09-04] MEDS: ALLOPURINOL 100 MG TABLET (FP) PO SCH ×2 (08:50→09:49)
[2018-09-04 09:04] LABS: PLATELET COUNT 169 K/MM3 (134-434)
--- NOTE | 2018-09-04 09:08 | PN ---
Physical Exam: SUBJECTIVE: Patient seen and examined. Feels good, after meal. No chest pain, no SOB. Was dialyzed yesterday with permacath OBJECTIVE: Vital Signs Period Temp Pulse Resp BP Sys/Ramos Pulse Ox Last 24 Hr 98.1 F-99.2 F 60-73 12-18 132-161/44-72 95-99 Vital Signs Temp 98.7 F 09/04/18 18:30 Pulse 64 09/04/18 20:25 Resp 18 09/04/18 20:25 BP 148/60 09/04/18 20:25 Pulse Ox 99 09/04/18 10:00 Intake & Output 09/03/18 09/04/18 09/04/18 23:59 11:59 23:59 Intake Total 840 0 Output Total 650 Balance 190 0 Intake: IV 0 saline lock 0 Oral 840 Output: Urine 650 Johnston 350 Void 300 Other: Voiding Method Urinal Toilet Urinal # Unmeasured Voids Void 1 Bowel Movement No No No Body Mass Index (BMI) 25.7 GENERAL: The patient is awake, alert, and fully oriented, in no acute distress. LUNGS: Breath sounds equal, clear to auscultation bilaterally, no wheezes, no crackles HEART: S1, S2 ABDOMEN: Firm, nontender, nondistended, normoactive bowel sounds EXTREMITIES: 2+ pulses, warm, well-perfused, no edema. NEUROLOGICAL: Cranial nerves II through XII grossly intact. Normal speech, gait not observed. CBC, BMP 09/04/18 07:25 09/04/18 07:25 Laboratory Results - last 24 hr 09/03/18 09/03/18 09/03/18 06:09 12:25 14:30 WBC 8.4 RBC 2.91 L Hgb 8.4 L Hct 25.7 L MCV 88.4 MCH 28.8 MCHC 32.6 RDW 18.1 H Plt Count 170 MPV 10.1 Absolute Neuts (auto) 8.0 Neutrophils % 94.9 H Neutrophils % (Manual) 99.0 H Band Neutrophils % 0.0 Lymphocytes % 3.3 L D Lymphocytes % (Manual) 0.0 L Monocytes % 1.4 L D Monocytes % (Manual) 1 L Eosinophils % 0.1 D Eosinophils % (Manual) 0.0 D Basophils % 0.3 Basophils % (Manual) 0.0 Nucleated RBC % 0 Platelet Estimate Adequate PT with INR INR Sodium Potassium Chloride Carbon Dioxide Anion Gap BUN Creatinine Est GFR (CKD-EPI)AfAm Est GFR (CKD-EPI)NonAf POC Glucometer 122 129 Random Glucose Calcium Phosphorus Magnesium Total Bilirubin AST ALT Alkaline Phosphatase Total Protein Albumin Blood Type Antibody Screen 09/03/18 09/03/18 09/03/18 14:30 14:30 17:54 WBC RBC Hgb Hct MCV MCH MCHC RDW Plt Count MPV Absolute Neuts (auto) Neutrophils % Neutrophils % (Manual) Band Neutrophils % Lymphocytes % Lymphocytes % (Manual) Monocytes % Monocytes % (Manual) Eosinophils % Eosinophils % (Manual) Basophils % Basophils % (Manual) Nucleated RBC % Platelet Estimate PT with INR 15.00 H INR 1.27 H Sodium Potassium Chloride Carbon Dioxide Anion Gap BUN Creatinine Est GFR (CKD-EPI)AfAm Est GFR (CKD-EPI)NonAf POC Glucometer 218 Random Glucose Calcium Phosphorus Magnesium Total Bilirubin AST ALT Alkaline Phosphatase Total Protein Albumin Blood Type A POSITIVE Antibody Screen Negative 09/03/18 09/04/18 09/04/18 22:07 06:48 07:25 WBC 11.6 H RBC 2.87 L Hgb 8.2 L Hct 25.4 L MCV 88.6 MCH 28.7 MCHC 32.4 RDW 18.3 H Plt Count 169 MPV 10.5 Absolute Neuts (auto) 10.1 H Neutrophils % 87.0 H Neutrophils % (Manual) Band Neutrophils % Lymphocytes % 5.4 L D Lymphocytes % (Manual) Monocytes % 7.1 D Monocytes % (Manual) Eosinophils % 0.3 D Eosinophils % (Manual) Basophils % 0.2 Basophils % (Manual) Nucleated RBC % 0 Platelet Estimate PT with INR INR Sodium Potassium Chloride Carbon Dioxide Anion Gap BUN Creatinine Est GFR (CKD-EPI)AfAm Est GFR (CKD-EPI)NonAf POC Glucometer 245 158 Random Glucose Calcium Phosphorus Magnesium Total Bilirubin AST ALT Alkaline Phosphatase Total Protein Albumin Blood Type Antibody Screen 09/04/18 07:25 WBC RBC Hgb Hct MCV MCH MCHC RDW Plt Count MPV Absolute Neuts (auto) Neutrophils % Neutrophils % (Manual) Band Neutrophils % Lymphocytes % Lymphocytes % (Manual) Monocytes % Monocytes % (Manual) Eosinophils % Eosinophils % (Manual) Basophils % Basophils % (Manual) Nucleated RBC % Platelet Estimate PT with INR INR Sodium 141 Potassium 3.6 Chloride 103 Carbon Dioxide 31 Anion Gap 7 L BUN 36.1 H Creatinine 3.1 H Est GFR (CKD-EPI)AfAm 21.33 Est GFR (CKD-EPI)NonAf 18.40 POC Glucometer Random Glucose 157 H Calcium 7.8 L Phosphorus 2.6 Magnesium 1.7 L Total Bilirubin 1.4 H AST 16 ALT 17 Alkaline Phosphatase 115 Total Protein 5.4 L Albumin 2.7 L Blood Type Antibody Screen Active Medications Generic Name Dose Route Start Last Admin Trade Name Freq PRN Reason Stop Dose Admin Acetaminophen 650 mg 09/03/18 10:24 Tylenol - PO Q6H PRN PAIN LEVEL 1-5 Allopurinol 100 mg 09/04/18 10:00 Zyloprim - PO DAILY [facility] Aspirin 81 mg 09/04/18 10:00 Asa - PO DAILY [facility] Carvedilol 12.5 mg 09/03/18 22:00 09/03/18 22:08 Coreg - PO 12.5 mg BID [facility]ABIEN Administration Finasteride 5 mg 09/04/18 10:00 Proscar - PO DAILY [facility] Sodium Chloride 250 mls @ 3,000 mls/hr 09/03/18 17:18 Normal Saline - IV 09/04/18 17:17 PRN PRN Hypotension during Dialysis Insulin Aspart 1 vial 09/03/18 11:00 09/04/18 06:49 Novolog Vial Sliding Scale - SQ 2 units ACHS FABIEN Administration Protocol Levothyroxine Sodium 75 mcg 09/04/18 07:00 09/04/18 06:50 Synthroid - PO 75 mcg DAILY@0700 [facility] Administration Ondansetron HCl 4 mg 09/03/18 10:22 Zofran Injection IVPUSH Q6H PRN NAUSEA AND/OR VOMITING Oxycodone HCl 5 mg 09/03/18 10:22 Roxicodone - PO 09/04/18 10:21 Q4H PRN PAIN LEVEL 1-5 Rosuvastatin Calcium 7.5 mg 09/03/18 22:00 09/03/18 22:09 Crestor - PO 7.5 mg HS [facility]ABIEN Administration Tamsulosin HCl 0.4 mg 09/04/18 08:30 Flomax - PO DAILY@0830 [facility] Torsemide 40 mg 09/04/18 10:00 Demadex - PO DAILY [facility] Ambulatory Orders Amlodipine Besylate [Norvasc -] 10 mg PO DAILY 06/15/14 Glipizide [Glipizide ER] 2.5 mg PO DAILY 08/02/13 Levothyroxine [Synthroid -] 75 mcg PO DAILY 08/02/13 Rosuvastatin Calcium [Crestor] 7.5 mg PO DAILY 08/02/13 Tamsulosin HCl [Flomax -] 0.4 mg PO DAILY 08/02/13 Aspirin [ASA -] 81 mg PO DAILY 10/04/17 Finasteride [Proscar -] 5 mg PO DAILY #30 tablet 10/16/17 Allopurinol [Zyloprim -] 100 mg PO DAILY 07/02/18 Carvedilol [Coreg -] 12.5 mg PO BID 07/02/18 Gabapentin [Neurontin] 100 mg PO DAILY 07/02/18 Current Medications Acetaminophen (Tylenol -) 650 mg PO Q6H PRN PRN Reason: PAIN LEVEL 1-5 Allopurinol (Zyloprim -) 100 mg PO DAILY [facility] Last Admin: 09/04/18 09:49 Dose: 100 mg Aspirin (Asa -) 81 mg PO DAILY [facility] Last Admin: 09/04/18 09:49 Dose: 81 mg Carvedilol (Coreg -) 12.5 mg PO BID [facility] Last Admin: 09/04/18 09:49 Dose: 12.5 mg Epoetin Sam (Epogen -) 20,000 unit IVPUSH ONCE ONE Stop: 09/05/18 06:01 Finasteride (Proscar -) 5 mg PO DAILY [facility] Last Admin: 09/04/18 09:49 Dose: 5 mg Sodium Chloride (Normal Saline -) 250 mls @ 3,000 mls/hr IV PRN PRN PRN Reason: Hypotension during Dialysis Stop: 09/05/18 17:03 Iron Sucrose 100 mg/ Sodium (Chloride) 100 mls @ 200 mls/hr IVPB ONCE ONE Stop: 09/05/18 06:29 Insulin Aspart (Novolog Vial Sliding Scale -) 1 vial SQ ACHS [facility]; Protocol Last Admin: 09/04/18 17:23 Dose: 2 units Levothyroxine Sodium (Synthroid -) 75 mcg PO DAILY@0700 [facility] Last Admin: 09/04/18 06:50 Dose: 75 mcg Ondansetron HCl (Zofran Injection) 4 mg IVPUSH Q6H PRN PRN Reason: NAUSEA AND/OR VOMITING Rosuvastatin Calcium (Crestor -) 7.5 mg PO HS [facility] Last Admin: 09/03/18 22:09 Dose: 7.5 mg Tamsulosin HCl (Flomax -) 0.4 mg PO DAILY@0830 [facility] Last Admin: 09/04/18 09:49 Dose: 0.4 mg Torsemide (Demadex -) 40 mg PO DAILY [facility] Last Admin: 09/04/18 09:49 Dose: 40 mg ASSESSMENT/PLAN: Pt is a 77 yo M with PMHx of NIDDM, HTN, HLD, Hypothyroidism, BPH, CKD, S/p CABG brought from home by for worsening abdominal distension and generalized weakness with lightheadedness today, found to have anion gap metabolic acidosis and uremia and admitted to ICU for emergent dialysis #ESRD- s/p for permacath and AVF -09/03- Dr Judith Orta removed 09/02, cont coreg Dose all meds for CrCL < 10 Epoetin per nephro, Cont torsemide Hepatitis panel negative Dr Kulkarni on board- Pending outpt dialysis scheduling #Anion gap metabolic acidosis 23- in setting of uremia, Resolved on dialysis Anemia- Normocytic, epoeitin iv iron Leucocytosis Could be reactive No fever, no chills hyponatremia- Likely in setting of volume overload in ESRD, resolved with dialysis NIDDM, On home glipizide- hold ISS- ACHS BGM ACHS HTN Cont coreg, amlodipine on hold Torsemide added HLD Cont moderate intensity crestor Hypothyroidism, Cont levothyroxine 75 BPH On flomax and proscar Dispo Follow renal recs- Pending outpt dialysis scheduling Visit type - Emergency Visit Emergency Visit: Yes ED Registration Date: 08/29/18 Care time: The patient presented to the Emergency Department on the above date and was hospitalized for further evaluation of their emergent condition. - New Patient This patient is new to me today: No - Critical Care Critical Care patient: No - Discharge Referral Referred to [facility] Med P.C.: No ATTENDING PHYSICIAN STATEMENT I saw and evaluated the patient. I reviewed the resident's note and discussed the case with the resident. I agree with the resident's findings and plan as documented. SUBJECTIVE: OBJECTIVE: ASSESSMENT AND PLAN:
[2018-09-04] MEDS: TORSEMIDE 20 MG TABLET (FP) PO SCH (09:49)
--- NOTE | 2018-09-04 11:41 | PN ---
Progress Note (short form) - Note Progress Note: surgery POD #1 Placement permaath and creation AV fistula left arm. Patient seen and examined at bedside with no complaints. Vital Signs Temp 98.1 F 09/04/18 09:30 Pulse 66 09/04/18 09:30 Resp 18 09/04/18 09:30 BP 147/67 09/04/18 09:30 Pulse Ox 96 09/03/18 21:00 Intake & Output 09/03/18 09/03/18 09/04/18 11:59 23:59 11:59 Intake Total 300 840 0 Output Total 320 650 Balance -20 190 0 Intake: IV 300 0 saline lock 0 Oral 840 Output: Urine 300 650 Johnston 350 Void 100 300 Estimated Blood Loss 20 Other: Voiding Method Urinal Urinal # Unmeasured Voids Void 1 Bowel Movement Yes No No # Bowel Movements 1 CBC, BMP 09/04/18 07:25 09/04/18 07:25 PE: A&Ox3, NAD Unlabored resp on RA Right chest Permacath in place, dressings clean, dry intact with surrounding tissue intact, no tracking erythema or edema.. Left UE Dressing c/d/i with palpable thrill. Arm/hand and fingers warm and well perfused with palpable distal pulses. Full ROM at wrist/ hand/fingers. Problem List - Problems (1) ESRD needing dialysis Assessment/Plan: POD# 1 LEft AVF creation and permacath placement patient doing well. 1) Dialysis via permacath per renal 2) Keep dressing clean and dry 3) f/u with Dr Wong as outpatient Code(s): N18.6 - END STAGE RENAL DISEASE; Z99.2 - DEPENDENCE ON RENAL DIALYSIS
[2018-09-04] MEDS ORDERED: INSULIN (NOVOLOG) ASPART 100 UNITS/ML 10ML VIAL ONE ×2 (12:22→17:41)
--- NOTE | 2018-09-04 14:39 | PN ---
Teaching Attending Note Name of Resident: Liza Weinberg ATTENDING PHYSICIAN STATEMENT I saw and evaluated the patient. I reviewed the resident's note and discussed the case with the resident. I agree with the resident's findings and plan as documented with exceptions below. SUBJECTIVE: Patient seen and examined. no complaints, eager to go home. OBJECTIVE: Vital Signs Period Temp Pulse Resp BP Sys/Ramos Pulse Ox Last 24 Hr 98.1 F-99.2 F 65-73 18-18 139-161/53-72 96 Intake & Output 09/01/18 09/02/18 09/03/18 09/04/18 23:59 23:59 23:59 23:59 Intake Total 652 751 3952 0 Output Total 1150 900 970 Balance -450 -500 170 0 General: sitting in bed in no acute distress chest; improved basilar rales Abdomen: soft, NT Extremities: no edema Home Medications Medication Instructions Recorded Amlodipine Besylate [Norvasc -] 10 mg PO DAILY 08/02/13 Glipizide [Glipizide ER] 2.5 mg PO DAILY 08/02/13 Levothyroxine [Synthroid -] 75 mcg PO DAILY 08/02/13 Rosuvastatin Calcium [Crestor] 7.5 mg PO DAILY 08/02/13 Tamsulosin HCl [Flomax -] 0.4 mg PO DAILY 08/02/13 Aspirin [ASA -] 81 mg PO DAILY 10/04/17 Finasteride [Proscar -] 5 mg PO DAILY #30 tablet 10/16/17 Allopurinol [Zyloprim -] 100 mg PO DAILY 07/02/18 Carvedilol [Coreg -] 12.5 mg PO BID 07/02/18 Gabapentin [Neurontin] 100 mg PO DAILY 07/02/18 Active Medications Acetaminophen (Tylenol -) 650 mg PO Q6H PRN PRN Reason: PAIN LEVEL 1-5 Allopurinol (Zyloprim -) 100 mg PO DAILY [facility] Last Admin: 09/04/18 09:49 Dose: 100 mg Aspirin (Asa -) 81 mg PO DAILY [facility] Last Admin: 09/04/18 09:49 Dose: 81 mg Carvedilol (Coreg -) 12.5 mg PO BID [facility] Last Admin: 09/04/18 09:49 Dose: 12.5 mg Finasteride (Proscar -) 5 mg PO DAILY [facility] Last Admin: 09/04/18 09:49 Dose: 5 mg Sodium Chloride (Normal Saline -) 250 mls @ 3,000 mls/hr IV PRN PRN PRN Reason: Hypotension during Dialysis Stop: 09/04/18 17:17 Insulin Aspart (Novolog Vial Sliding Scale -) 1 vial SQ ACHS [facility]; Protocol Last Admin: 09/04/18 12:22 Dose: 2 units Levothyroxine Sodium (Synthroid -) 75 mcg PO DAILY@0700 [facility] Last Admin: 09/04/18 06:50 Dose: 75 mcg Ondansetron HCl (Zofran Injection) 4 mg IVPUSH Q6H PRN PRN Reason: NAUSEA AND/OR VOMITING Rosuvastatin Calcium (Crestor -) 7.5 mg PO HS [facility] Last Admin: 09/03/18 22:09 Dose: 7.5 mg Tamsulosin HCl (Flomax -) 0.4 mg PO DAILY@0830 [facility] Last Admin: 09/04/18 09:49 Dose: 0.4 mg Torsemide (Demadex -) 40 mg PO DAILY [facility] Last Admin: 09/04/18 09:49 Dose: 40 mg Laboratory Results - last 24 hr 09/03/18 09/03/18 09/03/18 14:30 14:30 14:30 WBC 8.4 RBC 2.91 L Hgb 8.4 L Hct 25.7 L MCV 88.4 MCH 28.8 MCHC 32.6 RDW 18.1 H Plt Count 170 MPV 10.1 Absolute Neuts (auto) 8.0 Neutrophils % 94.9 H Neutrophils % (Manual) 99.0 H Band Neutrophils % 0.0 Lymphocytes % 3.3 L D Lymphocytes % (Manual) 0.0 L Monocytes % 1.4 L D Monocytes % (Manual) 1 L Eosinophils % 0.1 D Eosinophils % (Manual) 0.0 D Basophils % 0.3 Basophils % (Manual) 0.0 Nucleated RBC % 0 Platelet Estimate Adequate PT with INR 15.00 H INR 1.27 H Sodium Potassium Chloride Carbon Dioxide Anion Gap BUN Creatinine Est GFR (CKD-EPI)AfAm Est GFR (CKD-EPI)NonAf POC Glucometer Random Glucose Calcium Phosphorus Magnesium Total Bilirubin AST ALT Alkaline Phosphatase Total Protein Albumin Blood Type A POSITIVE Antibody Screen Negative 09/03/18 09/03/18 09/04/18 17:54 22:07 06:48 WBC RBC Hgb Hct MCV MCH MCHC RDW Plt Count MPV Absolute Neuts (auto) Neutrophils % Neutrophils % (Manual) Band Neutrophils % Lymphocytes % Lymphocytes % (Manual) Monocytes % Monocytes % (Manual) Eosinophils % Eosinophils % (Manual) Basophils % Basophils % (Manual) Nucleated RBC % Platelet Estimate PT with INR INR Sodium Potassium Chloride Carbon Dioxide Anion Gap BUN Creatinine Est GFR (CKD-EPI)AfAm Est GFR (CKD-EPI)NonAf POC Glucometer 218 245 158 Random Glucose Calcium Phosphorus Magnesium Total Bilirubin AST ALT Alkaline Phosphatase Total Protein Albumin Blood Type Antibody Screen 09/04/18 09/04/18 09/04/18 07:25 07:25 12:17 WBC 11.6 H RBC 2.87 L Hgb 8.2 L Hct 25.4 L MCV 88.6 MCH 28.7 MCHC 32.4 RDW 18.3 H Plt Count 169 MPV 10.5 Absolute Neuts (auto) 10.1 H Neutrophils % 87.0 H Neutrophils % (Manual) Band Neutrophils % Lymphocytes % 5.4 L D Lymphocytes % (Manual) Monocytes % 7.1 D Monocytes % (Manual) Eosinophils % 0.3 D Eosinophils % (Manual) Basophils % 0.2 Basophils % (Manual) Nucleated RBC % 0 Platelet Estimate PT with INR INR Sodium 141 Potassium 3.6 Chloride 103 Carbon Dioxide 31 Anion Gap 7 L BUN 36.1 H Creatinine 3.1 H Est GFR (CKD-EPI)AfAm 21.33 Est GFR (CKD-EPI)NonAf 18.40 POC Glucometer 167 Random Glucose 157 H Calcium 7.8 L Phosphorus 2.6 Magnesium 1.7 L Total Bilirubin 1.4 H AST 16 ALT 17 Alkaline Phosphatase 115 Total Protein 5.4 L Albumin 2.7 L Blood Type Antibody Screen Microbiology 08/29/18 16:30 Urine - Urine Clean Catch Urine Culture - Final NO GROWTH OBTAINED ASSESSMENT AND PLAN: 77 yom with PMHx of ESRD, NIDDM, HTN, HLD, Hypothyroidism, BPH, S/p CABG admitted with fatigue, progressive abdominal distension s/p emergent HD. -ESRD started on HD -NIDDM -HTN -HLD -Hypothyroidism -BPH Plan: s/p permacath placement/Av fistula creation 09/03. [place] d/lexi Torsemide per renal Continue coreg. ISS, statin, levothyroxine DVTPPX SCDS, heparin per surgery Dispo d/c when HD arrangements made. Discussed with patient, all questions answered.
[2018-09-04] MEDS ORDERED: SODIUM CHLORIDE 250 ML IV PRN (17:02)
--- NOTE | 2018-09-04 17:02 | PN ---
Progress Note (short form) - Note Progress Note: Renal follow up for ROBIN/CKD Pt seen and examined at the bedside awake and alert no acute complaints no N/V, CP or sob had dialysis yesterday Vital Signs Temperature 98.6 F 09/04/18 14:00 Pulse Rate 67 09/04/18 14:00 Respiratory Rate 18 09/04/18 14:00 Blood Pressure 142/60 09/04/18 14:00 O2 Sat by Pulse Oximetry (%) 96 09/03/18 21:00 Intake & Output 09/01/18 09/02/18 09/03/18 09/04/18 23:59 23:59 23:59 23:59 Intake Total 455 967 5639 0 Output Total 1150 900 970 Balance -450 -500 170 0 awake and alert RRR, no M/R Dec BS trace ascities no LE edema CBC, BMP 09/04/18 07:25 09/04/18 07:25 Current Medications Acetaminophen (Tylenol -) 650 mg PO Q6H PRN PRN Reason: PAIN LEVEL 1-5 Allopurinol (Zyloprim -) 100 mg PO DAILY [facility] Last Admin: 09/04/18 09:49 Dose: 100 mg Aspirin (Asa -) 81 mg PO DAILY [facility] Last Admin: 09/04/18 09:49 Dose: 81 mg Carvedilol (Coreg -) 12.5 mg PO BID [facility] Last Admin: 09/04/18 09:49 Dose: 12.5 mg Finasteride (Proscar -) 5 mg PO DAILY [facility] Last Admin: 09/04/18 09:49 Dose: 5 mg Sodium Chloride (Normal Saline -) 250 mls @ 3,000 mls/hr IV PRN PRN PRN Reason: Hypotension during Dialysis Stop: 09/04/18 17:17 Insulin Aspart (Novolog Vial Sliding Scale -) 1 vial SQ ACHS [facility]; Protocol Last Admin: 09/04/18 12:22 Dose: 2 units Levothyroxine Sodium (Synthroid -) 75 mcg PO DAILY@0700 [facility] Last Admin: 09/04/18 06:50 Dose: 75 mcg Ondansetron HCl (Zofran Injection) 4 mg IVPUSH Q6H PRN PRN Reason: NAUSEA AND/OR VOMITING Rosuvastatin Calcium (Crestor -) 7.5 mg PO HS [facility] Last Admin: 09/03/18 22:09 Dose: 7.5 mg Tamsulosin HCl (Flomax -) 0.4 mg PO DAILY@0830 [facility] Last Admin: 09/04/18 09:49 Dose: 0.4 mg Torsemide (Demadex -) 40 mg PO DAILY [facility] Last Admin: 09/04/18 09:49 Dose: 40 mg 77 year old gentleman with hx of CKD stage 5 (eGFR 7), CAD s/p CABG, Hypertension, HLD, DM who presented with weakness and dizziness and found to have BUN/Cr of 214/12.9. #CKD stage 5 now ESRD #Anemia #Metabolic acidosis #Hyponatremia #Weakness from uremia #Uremic pruritus no acute need for dialysis today next planned treatment is tomorrow via tunneled catheter outpatient dialysis placement pending Continue NAYLA and IV iron with HD for anemia management Continue flomax and proscar Continue torsemide 40mg Daily hopefully can be discharged tomorrow once Hd placement is secured Thank you Rambo Kulkarni DO
[2018-09-04] MEDS ORDERED: PT OWN MED DRAWER 7, Y5N ONE (17:41)
[2018-09-04] MEDS: ROSUVASTATIN CA 5 MG TABLET (FP) PO SCH (21:31)
[2018-09-05] MEDS: LEVOTHYROXINE NA 75 MCG TABLET (FP) PO SCH (06:04)
[2018-09-05] MEDS: INSULIN SLIDING SCALE (NOVOLOG) 1 VIAL SQ SCH ×4 (06:06→21:12)
[2018-09-05 07:52] LABS: BASO % 0.6 % (0-2.0); EOS % 3.6 % (0-4.5); HEMATOCRIT 26.1 % (35.4-49); HEMOGLOBIN 8.6 GM/dL (11.7-16.9); LYMPH % 8.2 % (8-40); MCH 28.9 pg (25.7-33.7); MCHC 32.8 g/dl (32.0-35.9); MEAN CELL VOLUME 88.2 fl (80-96); MEAN PLT VOLUME 10.3 fl (7.5-11.1); MONO % 9.5 % (3.8-10.2); NEUT % 78.1 % (42.8-82.8); RBC 2.96 M/mm3 (4.00-5.60); RDW 18.3 % (11.9-15.9); WHITE BLOOD COUNT 10.2 K/mm3 (4.0-10.0)
[2018-09-05] MEDS: TAMSULOSIN HCL 0.4 MG CAP PO SCH (08:05)
[2018-09-05 08:15] LABS: BLOOD UREA NITROGEN 50.8 mg/dL (7-18); CALCIUM 7.7 mg/dL (8.5-10.1); CREATININE 3.8 mg/dL (0.55-1.3); MAGNESIUM 1.7 mg/dL (1.8-2.4); PHOSPHOROUS 2.4 mg/dL (2.5-4.9); POTASSIUM 3.8 mmol/L (3.5-5.1)
[2018-09-05 08:33] LABS: PLATELET COUNT 171 K/MM3 (134-434)
[2018-09-05] MEDS ORDERED: MAGNESIUM OXIDE 400 MG TABLET (FP) PO ONE (09:03)
[2018-09-05] MEDS ORDERED: EPOETIN ALFA 20,000 UNIT/1 ML VIAL IVPUSH ONE (09:15)
[2018-09-05] MEDS ORDERED: IRON SUCROSE INJECTION 100 MG in SODIUM CHLORIDE 95 ML IVPB ONE (09:30)
[2018-09-05] MEDS: FINASTERIDE 5 MG TABLET (FP) PO SCH (11:34)
[2018-09-05] MEDS: TORSEMIDE 20 MG TABLET (FP) PO SCH (11:35)
[2018-09-05] MEDS: ALLOPURINOL 100 MG TABLET (FP) PO SCH (11:35)
[2018-09-05] MEDS: ASPIRIN 81 MG CHEWABLE TABLETS PO SCH (11:35)
[2018-09-05] MEDS: CARVEDILOL 12.5 MG TABLET (FP) PO SCH ×2 (11:35→21:20)
--- NOTE | 2018-09-05 13:52 | PN ---
Progress Note (short form) - Note Progress Note: Renal follow up for ROBIN/CKD Pt seen and examined at the bedside awake and alert no sob, cp, abd pain, fever or chills s/p dialysis this am, tolerated it well no fever, chills, N/V/D awaiting outpatient Hd placement Vital Signs Temperature 98.3 F 09/05/18 08:10 Pulse Rate 65 09/05/18 11:20 Respiratory Rate 18 09/05/18 11:20 Blood Pressure 172/80 H 09/05/18 11:20 O2 Sat by Pulse Oximetry (%) 98 09/05/18 08:28 Intake & Output 09/02/18 09/03/18 09/04/18 09/05/18 23:59 23:59 23:59 23:59 Intake Total 400 1140 400 Output Total 900 970 350 Balance -500 170 50 awake and alert RRR, no M/R Dec BS trace ascities no LE edema CBC, BMP 09/05/18 07:20 09/05/18 07:20 Current Medications Acetaminophen (Tylenol -) 650 mg PO Q6H PRN PRN Reason: PAIN LEVEL 1-5 Allopurinol (Zyloprim -) 100 mg PO DAILY [facility] Last Admin: 09/05/18 11:35 Dose: 100 mg Aspirin (Asa -) 81 mg PO DAILY [facility] Last Admin: 09/05/18 11:35 Dose: 81 mg Carvedilol (Coreg -) 12.5 mg PO BID [facility] Last Admin: 09/05/18 11:35 Dose: 12.5 mg Finasteride (Proscar -) 5 mg PO DAILY [facility] Last Admin: 09/05/18 11:34 Dose: 5 mg Sodium Chloride (Normal Saline -) 250 mls @ 3,000 mls/hr IV PRN PRN PRN Reason: Hypotension during Dialysis Stop: 09/05/18 17:03 Insulin Aspart (Novolog Vial Sliding Scale -) 1 vial SQ ACHS [facility]; Protocol Last Admin: 09/05/18 11:54 Dose: 2 units Levothyroxine Sodium (Synthroid -) 75 mcg PO DAILY@0700 [facility] Last Admin: 09/05/18 06:04 Dose: 75 mcg Ondansetron HCl (Zofran Injection) 4 mg IVPUSH Q6H PRN PRN Reason: NAUSEA AND/OR VOMITING Rosuvastatin Calcium (Crestor -) 7.5 mg PO HS [facility] Last Admin: 09/04/18 21:31 Dose: 7.5 mg Tamsulosin HCl (Flomax -) 0.4 mg PO DAILY@0830 [facility] Last Admin: 09/05/18 08:05 Dose: 0.4 mg Torsemide (Demadex -) 40 mg PO DAILY [facility] Last Admin: 09/05/18 11:35 Dose: 40 mg 77 year old gentleman with hx of CKD stage 5 (eGFR 7), CAD s/p CABG, Hypertension, HLD, DM who presented with weakness and dizziness and found to have BUN/Cr of 214/12.9. #CKD stage 5 now ESRD on dialysis #Anemia #Metabolic acidosis (resolved) #Hyponatremia (resolved) #Weakness from uremia (resolved) #Uremic pruritus (resolved) tolerated HD via catheter well this am. patient and family deliberating scheduling of his outpatient dialysis. awaiting availability from [facility] dialysis will continue Epogen and iron with dialysis for anemia Thank you Rambo Kulkarni DO
--- NOTE | 2018-09-05 14:02 | PN ---
Physical Exam: SUBJECTIVE: Patient seen and examined, getting dialysis, no complaints. OBJECTIVE: Vital Signs Period Temp Pulse Resp BP Sys/Ramos Pulse Ox Last 24 Hr 98.2 F-98.9 F 58-67 18-18 142-172/56-80 96-98 Intake & Output 09/02/18 09/03/18 09/04/18 09/05/18 23:59 23:59 23:59 23:59 Intake Total 400 1140 400 Output Total 900 970 350 Balance -500 170 50 GENERAL: lying in bed, no acute distress Neck: soft, supple, no JVD Chest: improved basilar rales Abdomen:Soft, NT Extremities: no edema Psych: pleasant, co-operative Laboratory Results - last 24 hr 09/04/18 09/04/18 09/05/18 17:22 21:28 05:32 WBC RBC Hgb Hct MCV MCH MCHC RDW Plt Count MPV Absolute Neuts (auto) Neutrophils % Lymphocytes % Monocytes % Eosinophils % Basophils % Nucleated RBC % Sodium Potassium Chloride Carbon Dioxide Anion Gap BUN Creatinine Est GFR (CKD-EPI)AfAm Est GFR (CKD-EPI)NonAf POC Glucometer 159 168 107 Random Glucose Calcium Phosphorus Magnesium 09/05/18 09/05/18 09/05/18 07:20 07:20 11:51 WBC 10.2 H RBC 2.96 L Hgb 8.6 L Hct 26.1 L MCV 88.2 MCH 28.9 MCHC 32.8 RDW 18.3 H Plt Count 171 MPV 10.3 Absolute Neuts (auto) 7.9 Neutrophils % 78.1 Lymphocytes % 8.2 D Monocytes % 9.5 Eosinophils % 3.6 D Basophils % 0.6 Nucleated RBC % 0 Sodium 142 Potassium 3.8 Chloride 104 Carbon Dioxide 30 Anion Gap 8 BUN 50.8 H Creatinine 3.8 H Est GFR (CKD-EPI)AfAm 16.68 Est GFR (CKD-EPI)NonAf 14.39 POC Glucometer 161 Random Glucose 104 Calcium 7.7 L Phosphorus 2.4 L Magnesium 1.7 L Active Medications Generic Name Dose Route Start Last Admin Trade Name Freq PRN Reason Stop Dose Admin Acetaminophen 650 mg 09/03/18 10:24 Tylenol - PO Q6H PRN PAIN LEVEL 1-5 Allopurinol 100 mg 09/04/18 10:00 09/05/18 11:35 Zyloprim - PO 100 mg DAILY [facility] Administration Aspirin 81 mg 09/04/18 10:00 09/05/18 11:35 Asa - PO 81 mg DAILY [facility] Administration Carvedilol 12.5 mg 09/03/18 22:00 09/05/18 11:35 Coreg - PO 12.5 mg BID [facility] Administration Finasteride 5 mg 09/04/18 10:00 09/05/18 11:34 Proscar - PO 5 mg DAILY [facility] Administration Sodium Chloride 250 mls @ 3,000 mls/hr 09/04/18 17:02 Normal Saline - IV 09/05/18 17:03 PRN PRN Hypotension during Dialysis Insulin Aspart 1 vial 09/03/18 11:00 09/05/18 11:54 Novolog Vial Sliding Scale - SQ 2 units ACHS [facility] Administration Protocol Levothyroxine Sodium 75 mcg 09/04/18 07:00 09/05/18 06:04 Synthroid - PO 75 mcg DAILY@0700 [facility] Administration Ondansetron HCl 4 mg 09/03/18 10:22 Zofran Injection IVPUSH Q6H PRN NAUSEA AND/OR VOMITING Rosuvastatin Calcium 7.5 mg 09/03/18 22:00 09/04/18 21:31 Crestor - PO 7.5 mg HS [facility] Administration Tamsulosin HCl 0.4 mg 09/04/18 08:30 09/05/18 08:05 Flomax - PO 0.4 mg DAILY@0830 [facility] Administration Torsemide 40 mg 09/04/18 10:00 09/05/18 11:35 Demadex - PO 40 mg DAILY [facility] Administration Microbiology 08/29/18 16:30 Urine - Urine Clean Catch Urine Culture - Final NO GROWTH OBTAINED ASSESSMENT/PLAN: 77 yom with PMHx of ESRD, NIDDM, HTN, HLD, Hypothyroidism, BPH, S/p CABG admitted with fatigue, progressive abdominal distension s/p emergent HD. -ESRD started on HD -NIDDM -HTN -HLD -Hypothyroidism -BPH Plan: s/p permacath placement/Av fistula creation 09/03. Ongoing HD [place] d/lexi Torsemide per renal Continue coreg. ISS, statin, levothyroxine DVTPPX SCDS, heparin per surgery Dispo d/c when HD arrangements made. Discussed with patient, all questions answered. Visit type - Emergency Visit Emergency Visit: Yes ED Registration Date: 08/29/18 Care time: The patient presented to the Emergency Department on the above date and was hospitalized for further evaluation of their emergent condition. - New Patient This patient is new to me today: No - Critical Care Critical Care patient: No - Discharge Referral Referred to [facility] Med P.C.: No
[2018-09-05] MEDS: ROSUVASTATIN CA 5 MG TABLET (FP) PO SCH (21:20)
[2018-09-06] MEDS: INSULIN SLIDING SCALE (NOVOLOG) 1 VIAL SQ SCH ×4 (06:02→22:03)
[2018-09-06] MEDS: LEVOTHYROXINE NA 75 MCG TABLET (FP) PO SCH (06:02)
[2018-09-06] MEDS: TAMSULOSIN HCL 0.4 MG CAP PO SCH (08:43)
[2018-09-06] MEDS: ASPIRIN 81 MG CHEWABLE TABLETS PO SCH (09:07)
[2018-09-06] MEDS: TORSEMIDE 20 MG TABLET (FP) PO SCH (09:07)
[2018-09-06] MEDS: FINASTERIDE 5 MG TABLET (FP) PO SCH (09:07)
[2018-09-06] MEDS: ALLOPURINOL 100 MG TABLET (FP) PO SCH (09:07)
[2018-09-06] MEDS: CARVEDILOL 12.5 MG TABLET (FP) PO SCH ×2 (09:07→22:04)
--- NOTE | 2018-09-06 09:48 | PN ---
Physical Exam: SUBJECTIVE: Patient seen and examined, no complaints. OBJECTIVE: Vital Signs Period Temp Pulse Resp BP Sys/Ramso Pulse Ox Last 24 Hr 98.4 F-99.7 F 59-66 18-20 141-172/53-96 98 GENERAL: sitting in bed in no acute distress CVS:S1S2 regular Chest: Few scattered basilar rales, improved exam Abdomen:soft, obese, NT Extremities: no edema Psych: pleasant, co-operative Laboratory Results - last 24 hr 09/05/18 09/05/18 09/05/18 11:51 16:32 21:11 POC Glucometer 161 175 112 09/06/18 05:34 POC Glucometer 100 Active Medications Generic Name Dose Route Start Last Admin Trade Name Freq PRN Reason Stop Dose Admin Acetaminophen 650 mg 09/03/18 10:24 Tylenol - PO Q6H PRN PAIN LEVEL 1-5 Allopurinol 100 mg 09/04/18 10:00 09/06/18 09:07 Zyloprim - PO 100 mg DAILY [facility] Administration Aspirin 81 mg 09/04/18 10:00 09/06/18 09:07 Asa - PO 81 mg DAILY [facility] Administration Carvedilol 12.5 mg 09/03/18 22:00 09/06/18 09:07 Coreg - PO 12.5 mg BID [facility] Administration Finasteride 5 mg 09/04/18 10:00 09/06/18 09:07 Proscar - PO 5 mg DAILY [facility] Administration Insulin Aspart 1 vial 09/03/18 11:00 09/06/18 06:02 Novolog Vial Sliding Scale - SQ Not Given ACHS [facility] Protocol Levothyroxine Sodium 75 mcg 09/04/18 07:00 09/06/18 06:02 Synthroid - PO 75 mcg DAILY@0700 [facility] Administration Ondansetron HCl 4 mg 09/03/18 10:22 Zofran Injection IVPUSH Q6H PRN NAUSEA AND/OR VOMITING Rosuvastatin Calcium 7.5 mg 09/03/18 22:00 09/05/18 21:20 Crestor - PO 7.5 mg HS [facility] Administration Tamsulosin HCl 0.4 mg 09/04/18 08:30 09/06/18 08:43 Flomax - PO 0.4 mg DAILY@0830 [facility] Administration Torsemide 40 mg 09/04/18 10:00 09/06/18 09:07 Demadex - PO 40 mg DAILY [facility] Administration ASSESSMENT/PLAN: 77 yom with PMHx of ESRD, NIDDM, HTN, HLD, Hypothyroidism, BPH, S/p CABG admitted with fatigue, progressive abdominal distension s/p emergent HD. -ESRD started on HD -NIDDM -HTN -HLD -Hypothyroidism -BPH Plan: s/p permacath placement/Av fistula creation 09/03. Ongoing HD [place] d/lexi Torsemide per renal Continue coreg. ISS, statin, levothyroxine DVTPPX SCDS, heparin per surgery Dispo d/c when HD arrangements made. Discussed with patient and social work, all questions answered. Visit type - Emergency Visit Emergency Visit: Yes ED Registration Date: 08/29/18 Care time: The patient presented to the Emergency Department on the above date and was hospitalized for further evaluation of their emergent condition. - New Patient This patient is new to me today: No - Critical Care Critical Care patient: No - Discharge Referral [facility]erred [facility] Med P.C.: No
--- NOTE | 2018-09-06 12:27 | PN ---
Progress Note (short form) - Note Progress Note: Renal follow up for ROBIN/CKD Pt seen and examined at the bedside awake and alert no acute complaints s/p dialysis yesterday was not discharged as HD placement was not arranged Vital Signs Temperature 99.7 F H 09/06/18 08:24 Pulse Rate 61 09/06/18 08:24 Respiratory Rate 20 09/06/18 08:24 Blood Pressure 158/55 L 09/06/18 08:24 O2 Sat by Pulse Oximetry (%) 98 09/05/18 21:00 Intake & Output 09/03/18 09/04/18 09/05/18 09/06/18 23:59 23:59 23:59 23:59 Intake Total 1140 400 500 Output Total 970 350 500 150 Balance 170 50 0 -150 awake and alert RRR, no M/R Dec BS trace ascities no LE edema CBC, BMP 09/05/18 07:20 09/05/18 07:20 Current Medications Acetaminophen (Tylenol -) 650 mg PO Q6H PRN PRN Reason: PAIN LEVEL 1-5 Allopurinol (Zyloprim -) 100 mg PO DAILY [facility] Last Admin: 09/06/18 09:07 Dose: 100 mg Aspirin (Asa -) 81 mg PO DAILY [facility] Last Admin: 09/06/18 09:07 Dose: 81 mg Carvedilol (Coreg -) 12.5 mg PO BID [facility] Last Admin: 09/06/18 09:07 Dose: 12.5 mg Finasteride (Proscar -) 5 mg PO DAILY [facility] Last Admin: 09/06/18 09:07 Dose: 5 mg Insulin Aspart (Novolog Vial Sliding Scale -) 1 vial SQ [facility]; Protocol Last Admin: 09/06/18 06:02 Dose: Not Given Levothyroxine Sodium (Synthroid -) 75 mcg PO DAILY@0700 [facility] Last Admin: 09/06/18 06:02 Dose: 75 mcg Ondansetron HCl (Zofran Injection) 4 mg IVPUSH Q6H PRN PRN Reason: NAUSEA AND/OR VOMITING Rosuvastatin Calcium (Crestor -) 7.5 mg PO HS [facility] Last Admin: 09/05/18 21:20 Dose: 7.5 mg Tamsulosin HCl (Flomax -) 0.4 mg PO DAILY@0830 [facility] Last Admin: 09/06/18 08:43 Dose: 0.4 mg Torsemide (Demadex -) 40 mg PO DAILY [facility] Last Admin: 09/06/18 09:07 Dose: 40 mg 77 year old gentleman with hx of CKD stage 5 (eGFR 7), CAD s/p CABG, Hypertension, HLD, DM who presented with weakness and dizziness and found to have BUN/Cr of 214/12.9. #CKD stage 5 now ESRD on dialysis #Anemia #Metabolic acidosis (resolved) #Hyponatremia (resolved) #Weakness from uremia (resolved) #Uremic pruritus (resolved) awaiting outpatient HD unit placement. no acute need for PHYSICIAN ANESTHESIOLOGIST today, next dialysis planned for saturday Renal diet, 1.2L fluid restriction can start ARB for hypertension if BP remains above goal will continue NAYLA/Venofer with dialysis Thank you Rambo Kulkarni DO
[2018-09-06] MEDS: LOSARTAN POTASSIUM 50 MG TABLET (FP) PO SCH (14:15)
--- NOTE | 2018-09-06 16:48 | OP ---
DATE OF OPERATION: 09/03/2018 SURGEON: Moo Stoner MD ORNAMENTAL IRON WORKER: SIMA Cruz PROCEDURE: Creation of arteriovenous fistula, left arm and placement of PermCath. PREOPERATIVE DIAGNOSIS: End-stage renal disease. POSTOPERATIVE DIAGNOSIS: End-stage renal disease. ANESTHESIA: Fractional. ANESTHESIOLOGIST: Lee Patel MD OPERATIVE FINDINGS: The left cephalic vein and brachial artery were patent. OPERATIVE PROCEDURE: Following routine patient identification with site and side verification, intravenous sedation was established. The left arm was prepped with ChloraPrep. Timeout was performed. Next, 1% Xylocaine was infiltrated over the antecubital fossa and a longitudinal incision made. The antecubital portion of the cephalic vein was mobilized and secured with vessel loops. Cautery was used for hemostasis. Side branches of the vein were ligated and divided. The wound was deepened through the muscle fascia and the brachial artery mobilized. It was secured with vessel loops. The vein was then ligated distally and incised. It was distended with heparin and papaverine solution. Number 5 and number 8 feeding tubes were passed proximally without resistance. The vein was then freed and laid down next to the artery. The artery was occluded with vessel loops, and a longitudinal arteriotomy measuring approximately 6 mm was made. The end of the vein was anastomosed to the side of the artery with running suture of 6-0 Prolene. Prior to completion of the suture line, the artery was allowed to back bleed and flush, and the vein was flushed with heparin solution. Suture line was completed, and all vessels were released. There was good flow through the anastomosis with a palpable thrill in the proximal vein. Bleeding from the suture line was controlled with Surgicel. The wound was then closed with interrupted suture of 3-0 Vicryl and skin clark. Sterile dressing was applied. Attention was then turned to the right neck which was prepped with ChloraPrep. The right internal jugular vein was identified with ultrasound and lidocaine infiltrated in the skin and subcutaneous tissues lateral to the vein. The vein was then cannulated under ultrasound guidance with a micropuncture needle. A wire was passed proximally under fluoroscopic guidance into the superior vena cava. The needle was exchanged for a 5-Latvian catheter, and the wire was exchanged for a J-tip wire which was advanced through the right atrium into the inferior vena cava. Additional Xylocaine was infiltrated in the chest wall and a stab wound made. A 19-cm tip-to-cuff PermCath was advanced with a tunneler between the 2 incisions. The tract around the wire was dilated, and the introducer was placed over the wire. The wire and the dilator were removed. The PermCath was advanced through the introducer into the superior vena cava and the introducer peeled away, leaving the tip in the right atrium. Each limb was aspirated for blood and flushed with saline and heparin solution. The neck wound was closed with a subcuticular suture of 3-0 Vicryl, and the catheter was sutured to the skin at the exit site with 3-0 nylon. A sterile dressing was applied, and the patient was taken to the recovery room in stable condition. MOO STONER M.D. [id number]
[2018-09-06] MEDS ORDERED: INSULIN (NOVOLOG) ASPART 100 UNITS/ML 10ML VIAL ONE (22:01)
[2018-09-06] MEDS: ROSUVASTATIN CA 5 MG TABLET (FP) PO SCH (22:04)
[2018-09-07] MEDS: INSULIN SLIDING SCALE (NOVOLOG) 1 VIAL SQ SCH ×4 (06:29→22:09)
[2018-09-07] MEDS: LEVOTHYROXINE NA 75 MCG TABLET (FP) PO SCH (06:30)
[2018-09-07 08:48] LABS: BLOOD UREA NITROGEN 51.1 mg/dL (7-18); CALCIUM 7.8 mg/dL (8.5-10.1); CREATININE 3.6 mg/dL (0.55-1.3); POTASSIUM 3.3 mmol/L (3.5-5.1)
--- NOTE | 2018-09-07 09:57 | PN ---
Physical Exam: SUBJECTIVE: Patient seen and examined, no complaints. OBJECTIVE: Vital Signs Period Temp Pulse Resp BP Sys/Ramos Pulse Ox Last 24 Hr 98.3 F-98.9 F 59-64 20-20 146-151/59-64 99 Intake & Output 09/04/18 09/05/18 09/06/18 09/07/18 23:59 23:59 23:59 23:59 Intake Total 562 897 4028 100 Output Total 843 447 3680 250 Balance 50 0 150 -150 GENERAL: sitting in bed in no acute distress CVS: S1S2 regular Chest: few occasional basilar rales, pos air entry Abdomen:soft, NT Extremities: no edema Neck: soft supple Laboratory Results - last 24 hr 09/06/18 09/06/18 09/06/18 11:42 16:58 21:58 Sodium Potassium Chloride Carbon Dioxide Anion Gap BUN Creatinine Est GFR (CKD-EPI)AfAm Est GFR (CKD-EPI)NonAf POC Glucometer 157 225 157 Random Glucose Calcium 09/07/18 09/07/18 06:19 07:41 Sodium 143 Potassium 3.3 L Chloride 102 Carbon Dioxide 31 Anion Gap 10 BUN 51.1 H Creatinine 3.6 H Est GFR (CKD-EPI)AfAm 17.80 Est GFR (CKD-EPI)NonAf 15.36 POC Glucometer 111 Random Glucose 113 H Calcium 7.8 L Active Medications Generic Name Dose Route Start Last Admin Trade Name Freq PRN Reason Stop Dose Admin Acetaminophen 650 mg 09/03/18 10:24 Tylenol - PO Q6H PRN PAIN LEVEL 1-5 Allopurinol 100 mg 09/04/18 10:00 09/06/18 09:07 Zyloprim - PO 100 mg DAILY FABIEN Administration Aspirin 81 mg 09/04/18 10:00 09/06/18 09:07 Asa - PO 81 mg DAILY FABIEN Administration Carvedilol 12.5 mg 09/03/18 22:00 09/06/18 22:04 Coreg - PO 12.5 mg BID FAIBEN Administration Finasteride 5 mg 09/04/18 10:00 09/06/18 09:07 Proscar - PO 5 mg DAILY FABIEN Administration Insulin Aspart 1 vial 09/03/18 11:00 09/07/18 06:29 Novolog Vial Sliding Scale - SQ Not Given ACHS [facility] Protocol Levothyroxine Sodium 75 mcg 09/04/18 07:00 09/07/18 06:30 Synthroid - PO 75 mcg DAILY@0700 FABIEN Administration Losartan Potassium 50 mg 09/06/18 13:30 09/06/18 14:15 Cozaar - PO 50 mg DAILY FABIEN Administration Ondansetron HCl 4 mg 09/03/18 10:22 Zofran Injection IVPUSH Q6H PRN NAUSEA AND/OR VOMITING Rosuvastatin Calcium 7.5 mg 09/03/18 22:00 09/06/18 22:04 Crestor - PO 7.5 mg HS FABIEN Administration Tamsulosin HCl 0.4 mg 09/04/18 08:30 09/06/18 08:43 Flomax - PO 0.4 mg DAILY@0830 FABIEN Administration Torsemide 40 mg 09/04/18 10:00 09/06/18 09:07 Demadex - PO 40 mg DAILY FABIEN Administration ASSESSMENT/PLAN: 77 yom with PMHx of ESRD, NIDDM, HTN, HLD, Hypothyroidism, BPH, S/p CABG admitted with fatigue, progressive abdominal distension s/p emergent HD. -ESRD started on HD -NIDDM -HTN -HLD -Hypothyroidism -BPH Plan: s/p permacath placement/Av fistula creation 09/03. Ongoing HD [place] d/lexi Torsemide per renal Continue coreg. ISS, statin, levothyroxine DVTPPX SCDS, heparin per surgery Dispo d/c when HD arrangements made. Discussed with patient and social work, all questions answered. Visit type - Emergency Visit Emergency Visit: Yes ED Registration Date: 08/29/18 Care time: The patient presented to the Emergency Department on the above date and was hospitalized for further evaluation of their emergent condition. - New Patient This patient is new to me today: No - Critical Care Critical Care patient: No - Discharge Referral Referred to [facility] Med P.C.: No
[2018-09-07] MEDS: ASPIRIN 81 MG CHEWABLE TABLETS PO SCH (10:03)
[2018-09-07] MEDS: ALLOPURINOL 100 MG TABLET (FP) PO SCH (10:03)
[2018-09-07] MEDS: CARVEDILOL 12.5 MG TABLET (FP) PO SCH ×2 (10:03→22:08)
[2018-09-07] MEDS: LOSARTAN POTASSIUM 50 MG TABLET (FP) PO SCH (10:03)
[2018-09-07] MEDS: TORSEMIDE 20 MG TABLET (FP) PO SCH (10:03)
[2018-09-07] MEDS: TAMSULOSIN HCL 0.4 MG CAP PO SCH (10:03)
[2018-09-07] MEDS ORDERED: INSULIN (NOVOLOG) ASPART 100 UNITS/ML 10ML VIAL ONE (11:46)
[2018-09-07] MEDS: FINASTERIDE 5 MG TABLET (FP) PO SCH (12:06)
[2018-09-07] MEDS: ROSUVASTATIN CA 5 MG TABLET (FP) PO SCH (22:08)
[2018-09-08] MEDS ORDERED: INSULIN (NOVOLOG) ASPART 100 UNITS/ML 10ML VIAL ONE (05:51)
[2018-09-08] MEDS: LEVOTHYROXINE NA 75 MCG TABLET (FP) PO SCH (06:18)
[2018-09-08] MEDS: INSULIN SLIDING SCALE (NOVOLOG) 1 VIAL SQ SCH ×4 (06:19→21:47)
[2018-09-08] MEDS ORDERED: PT OWN MED DRAWER 7, Y5N ONE (06:46)
[2018-09-08] MEDS ORDERED: SODIUM CHLORIDE 250 ML IV PRN (09:10)
[2018-09-08 09:17] LABS: HEMATOCRIT 28.1 % (35.4-49); MCH 29.3 pg (25.7-33.7); MCHC 32.1 g/dl (32.0-35.9); MEAN CELL VOLUME 91.3 fl (80-96); MEAN PLT VOLUME 9.8 fl (7.5-11.1); PLATELET COUNT 141 K/MM3 (134-434); RBC 3.08 M/mm3 (4.00-5.60); RDW 19.6 % (11.9-15.9); WHITE BLOOD COUNT 8.2 K/mm3 (4.0-10.0)
[2018-09-08 09:42] LABS: BLOOD UREA NITROGEN 62.1 mg/dL (7-18); CALCIUM 7.8 mg/dL (8.5-10.1); CREATININE 3.9 mg/dL (0.55-1.3); PHOSPHOROUS 2.6 mg/dL (2.5-4.9); POTASSIUM 3.3 mmol/L (3.5-5.1)
[2018-09-08] MEDS ORDERED: EPOETIN ALFA 20,000 UNIT/1 ML VIAL IVPUSH ONE (10:00)
[2018-09-08] MEDS: ALLOPURINOL 100 MG TABLET (FP) PO SCH (12:27)
[2018-09-08] MEDS: TAMSULOSIN HCL 0.4 MG CAP PO SCH (12:27)
[2018-09-08] MEDS: LOSARTAN POTASSIUM 50 MG TABLET (FP) PO SCH (12:27)
[2018-09-08] MEDS: CARVEDILOL 12.5 MG TABLET (FP) PO SCH ×2 (12:27→21:46)
[2018-09-08] MEDS: TORSEMIDE 20 MG TABLET (FP) PO SCH (12:27)
[2018-09-08] MEDS: ASPIRIN 81 MG CHEWABLE TABLETS PO SCH (12:28)
[2018-09-08] MEDS: FINASTERIDE 5 MG TABLET (FP) PO SCH (12:28)
--- NOTE | 2018-09-08 13:55 | PN ---
Physical Exam: SUBJECTIVE: Patient seen and examined, no complaints, getting HD. OBJECTIVE: Vital Signs Period Temp Pulse Resp BP Sys/Ramos Pulse Ox Last 24 Hr 98.2 F-98.8 F 57-80 18-20 119-168/49-80 98 Intake & Output 09/05/18 09/06/18 09/07/18 09/08/18 23:59 23:59 23:59 23:59 Intake Total 500 1300 900 Output Total 500 1150 1100 Balance 0 150 -200 GENERAL:sitting in bed in no acute distress Chest: occasional basilar rales Abdomen:soft, obese, NT Extremities: no edema Psych: pleasant, co-operative Laboratory Results - last 24 hr 09/07/18 09/07/18 09/08/18 17:02 21:43 05:48 WBC RBC Hgb Hct MCV MCH MCHC RDW Plt Count MPV Sodium Potassium Chloride Carbon Dioxide Anion Gap BUN Creatinine Est GFR (CKD-EPI)AfAm Est GFR (CKD-EPI)NonAf POC Glucometer 142 222 110 Random Glucose Calcium Phosphorus 09/08/18 09/08/18 09/08/18 08:15 08:15 12:31 WBC 8.2 RBC 3.08 L Hgb 9.0 L Hct 28.1 L MCV 91.3 MCH 29.3 MCHC 32.1 RDW 19.6 H Plt Count 141 MPV 9.8 Sodium 141 Potassium 3.3 L Chloride 101 Carbon Dioxide 31 Anion Gap 9 BUN 62.1 H Creatinine 3.9 H Est GFR (CKD-EPI)AfAm 16.16 Est GFR (CKD-EPI)NonAf 13.94 POC Glucometer 241 Random Glucose 130 H Calcium 7.8 L Phosphorus 2.6 Active Medications Generic Name Dose Route Start Last Admin Trade Name Freq PRN Reason Stop Dose Admin Acetaminophen 650 mg 09/03/18 10:24 Tylenol - PO Q6H PRN PAIN LEVEL 1-5 Allopurinol 100 mg 09/04/18 10:00 09/08/18 12:27 Zyloprim - PO 100 mg DAILY FABIEN Administration Aspirin 81 mg 09/04/18 10:00 09/08/18 12:28 Asa - PO 81 mg DAILY FABIEN Administration Carvedilol 12.5 mg 09/03/18 22:00 09/08/18 12:27 Coreg - PO 12.5 mg BID FABIEN Administration Finasteride 5 mg 09/04/18 10:00 09/08/18 12:28 Proscar - PO 5 mg DAILY FABIEN Administration Insulin Aspart 1 vial 09/03/18 11:00 09/08/18 12:35 Novolog Vial Sliding Scale - SQ 4 units ACHS FABIEN Administration Protocol Levothyroxine Sodium 75 mcg 09/04/18 07:00 09/08/18 06:18 Synthroid - PO 75 mcg DAILY@0700 FABIEN Administration Losartan Potassium 50 mg 09/06/18 13:30 09/08/18 12:27 Cozaar - PO 50 mg DAILY FABIEN Administration Ondansetron HCl 4 mg 09/03/18 10:22 Zofran Injection IVPUSH Q6H PRN NAUSEA AND/OR VOMITING Rosuvastatin Calcium 7.5 mg 09/03/18 22:00 09/07/18 22:08 Crestor - PO 7.5 mg HS FABIEN Administration Tamsulosin HCl 0.4 mg 09/04/18 08:30 09/08/18 12:27 Flomax - PO 0.4 mg DAILY@0830 FABIEN Administration Torsemide 40 mg 09/04/18 10:00 09/08/18 12:27 Demadex - PO 40 mg DAILY FABIEN Administration ASSESSMENT/PLAN: 77 yom with PMHx of ESRD, NIDDM, HTN, HLD, Hypothyroidism, BPH, S/p CABG admitted with fatigue, progressive abdominal distension s/p emergent HD. -ESRD started on HD -NIDDM -HTN -HLD -Hypothyroidism -BPH Plan: s/p permacath placement/Av fistula creation 09/03. Ongoing HD [place] d/lexi Torsemide per renal Continue coreg. ISS, statin, levothyroxine DVTPPX SCDS, heparin per surgery Dispo d/c when HD arrangements made. Discussed with patient and social work, all questions answered. Visit type - Emergency Visit Emergency Visit: Yes ED Registration Date: 08/29/18 Care time: The patient presented to the Emergency Department on the above date and was hospitalized for further evaluation of their emergent condition. - New Patient This patient is new to me today: No - Critical Care Critical Care patient: No - Discharge Referral Referred to [facility] Med P.C.: No
--- NOTE | 2018-09-08 15:16 | PN ---
Progress Note (short form) - Note Progress Note: Renal follow up for ROBIN/CKD Pt seen and examined at the bedside awake and alert tolerated dialysis this am with 2kg UF no sob, cp, abd pain Vital Signs Temperature 98.6 F 09/08/18 08:05 Pulse Rate 60 09/08/18 11:47 Respiratory Rate 18 09/08/18 11:47 Blood Pressure 165/73 09/08/18 11:47 O2 Sat by Pulse Oximetry (%) 98 09/07/18 21:00 Intake & Output 09/05/18 09/06/18 09/07/18 09/08/18 23:59 23:59 23:59 23:59 Intake Total 500 1300 900 Output Total 500 1150 1100 Balance 0 150 -200 awake and alert RRR, no M/R Dec BS trace ascities no LE edema CBC, BMP 09/08/18 08:15 09/08/18 08:15 Current Medications Acetaminophen (Tylenol -) 650 mg PO Q6H PRN PRN Reason: PAIN LEVEL 1-5 Allopurinol (Zyloprim -) 100 mg PO DAILY [facility] Last Admin: 09/08/18 12:27 Dose: 100 mg Aspirin (Asa -) 81 mg PO DAILY [facility] Last Admin: 09/08/18 12:28 Dose: 81 mg Carvedilol (Coreg -) 12.5 mg PO BID [facility] Last Admin: 09/08/18 12:27 Dose: 12.5 mg Finasteride (Proscar -) 5 mg PO DAILY [facility] Last Admin: 09/08/18 12:28 Dose: 5 mg Insulin Aspart (Novolog Vial Sliding Scale -) [address] [facility]; Protocol Last Admin: 09/08/18 12:35 Dose: 4 units Levothyroxine Sodium (Synthroid -) 75 mcg PO DAILY@0700 [facility] Last Admin: 09/08/18 06:18 Dose: 75 mcg Losartan Potassium (Cozaar -) 50 mg PO DAILY [facility] Last Admin: 09/08/18 12:27 Dose: 50 mg Ondansetron HCl (Zofran Injection) 4 mg IVPUSH Q6H PRN PRN Reason: NAUSEA AND/OR VOMITING Rosuvastatin Calcium (Crestor -) 7.5 mg PO HS [facility] Last Admin: 09/07/18 22:08 Dose: 7.5 mg Tamsulosin HCl (Flomax -) 0.4 mg PO DAILY@0830 [facility] Last Admin: 09/08/18 12:27 Dose: 0.4 mg Torsemide (Demadex -) 40 mg PO DAILY [facility] Last Admin: 09/08/18 12:27 Dose: 40 mg 77 year old gentleman with hx of CKD stage 5 (eGFR 7), CAD s/p CABG, Hypertension, HLD, DM who presented with weakness and dizziness and found to have BUN/Cr of 214/12.9. 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
[2018-09-08] MEDS: ROSUVASTATIN CA 5 MG TABLET (FP) PO SCH (21:46)
[2018-09-09] MEDS: LEVOTHYROXINE NA 75 MCG TABLET (FP) PO SCH (06:48)
[2018-09-09] MEDS: INSULIN SLIDING SCALE (NOVOLOG) 1 VIAL SQ SCH ×4 (06:48→21:33)
[2018-09-09] MEDS: TAMSULOSIN HCL 0.4 MG CAP PO SCH (08:14)
[2018-09-09] MEDS: ASPIRIN 81 MG CHEWABLE TABLETS PO SCH (09:46)
[2018-09-09] MEDS: LOSARTAN POTASSIUM 50 MG TABLET (FP) PO SCH (09:46)
[2018-09-09] MEDS: FINASTERIDE 5 MG TABLET (FP) PO SCH (09:46)
[2018-09-09] MEDS: CARVEDILOL 12.5 MG TABLET (FP) PO SCH ×2 (09:46→21:33)
[2018-09-09] MEDS: ALLOPURINOL 100 MG TABLET (FP) PO SCH (09:47)
[2018-09-09] MEDS: TORSEMIDE 20 MG TABLET (FP) PO SCH (09:47)
--- NOTE | 2018-09-09 13:21 | PN ---
Progress Note (short form) - Note Progress Note: Renal follow up for ROBIN/CKD Pt seen and examined at the bedside no acute complaints s/p dialysis yesterday awaiting outpatient dialysis placement Vital Signs Temperature 99.3 F 09/09/18 09:54 Pulse Rate 63 09/09/18 09:54 Respiratory Rate 20 09/09/18 09:54 Blood Pressure 154/65 09/09/18 09:54 O2 Sat by Pulse Oximetry (%) 98 09/09/18 09:00 Intake & Output 09/06/18 09/07/18 09/08/18 09/09/18 23:59 23:59 23:59 23:59 Intake Total 5722 684 7045 240 Output Total 1150 1100 650 Balance 150 -200 1280 240 awake and alert RRR, no M/R Dec BS trace ascities no LE edema CBC, BMP 09/08/18 08:15 09/08/18 08:15 Current Medications Acetaminophen (Tylenol -) 650 mg PO Q6H PRN PRN Reason: PAIN LEVEL 1-5 Allopurinol (Zyloprim -) 100 mg PO DAILY [facility] Last Admin: 09/09/18 09:47 Dose: 100 mg Aspirin (Asa -) 81 mg PO DAILY [facility] Last Admin: 09/09/18 09:46 Dose: 81 mg Carvedilol (Coreg -) 12.5 mg PO BID [facility] Last Admin: 09/09/18 09:46 Dose: 12.5 mg Finasteride (Proscar -) 5 mg PO DAILY [facility] Last Admin: 09/09/18 09:46 Dose: 5 mg Insulin Aspart (Novolog Vial Sliding Scale -) 1 vial SQ [facility]; Protocol Last Admin: 09/09/18 12:10 Dose: 4 units Levothyroxine Sodium (Synthroid -) 75 mcg PO DAILY@0700 [facility] Last Admin: 09/09/18 06:48 Dose: 75 mcg Losartan Potassium (Cozaar -) 50 mg PO DAILY [facility] Last Admin: 09/09/18 09:46 Dose: 50 mg Ondansetron HCl (Zofran Injection) 4 mg IVPUSH Q6H PRN PRN Reason: NAUSEA AND/OR VOMITING Rosuvastatin Calcium (Crestor -) 7.5 mg PO HS [facility] Last Admin: 09/08/18 21:46 Dose: 7.5 mg Tamsulosin HCl (Flomax -) 0.4 mg PO DAILY@0830 [facility] Last Admin: 09/09/18 08:14 Dose: 0.4 mg Torsemide (Demadex -) 40 mg PO DAILY [facility] Last Admin: 09/09/18 09:47 Dose: 40 mg 77 year old gentleman with hx of CKD stage 5 (eGFR 7), CAD s/p CABG, Hypertension, HLD, DM who presented with weakness and dizziness and found to have BUN/Cr of 214/12.9. 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
--- NOTE | 2018-09-09 13:53 | PN ---
Physical Exam: SUBJECTIVE: Patient seen and examined, no complaints. OBJECTIVE: Vital Signs Period Temp Pulse Resp BP Sys/Ramos Pulse Ox Last 24 Hr 97.5 F-99.4 F 61-66 20-20 141-154/59-65 98-98 Intake & Output 09/06/18 09/07/18 09/08/18 09/09/18 23:59 23:59 23:59 23:59 Intake Total 3390 157 6806 240 Output Total 1150 1100 650 Balance 150 -200 1280 240 GENERAL:sitting in bed in no acute distress Chest: occasional basilar rales Abdomen:soft, obese, NT Extremities: no edema Psych: pleasant, co-operative HEENT: normocephalic, atraumatic Laboratory Results - last 24 hr 09/08/18 09/08/18 09/09/18 17:36 21:44 06:47 POC Glucometer 182 116 123 09/09/18 12:08 POC Glucometer 245 Active Medications Generic Name Dose Route Start Last Admin Trade Name Freq PRN Reason Stop Dose Admin Acetaminophen 650 mg 09/03/18 10:24 Tylenol - PO Q6H PRN PAIN LEVEL 1-5 Allopurinol 100 mg 09/04/18 10:00 09/09/18 09:47 Zyloprim - PO 100 mg DAILY FABIEN Administration Aspirin 81 mg 09/04/18 10:00 09/09/18 09:46 Asa - PO 81 mg DAILY FABIEN Administration Carvedilol 12.5 mg 09/03/18 22:00 09/09/18 09:46 Coreg - PO 12.5 mg BID FABIEN Administration Finasteride 5 mg 09/04/18 10:00 09/09/18 09:46 Proscar - PO 5 mg DAILY FABIEN Administration Insulin Aspart 1 vial 09/03/18 11:00 09/09/18 12:10 Novolog Vial Sliding Scale - SQ 4 units ACHS FABIEN Administration Protocol Levothyroxine Sodium 75 mcg 09/04/18 07:00 09/09/18 06:48 Synthroid - PO 75 mcg DAILY@0700 FABIEN Administration Losartan Potassium 50 mg 09/06/18 13:30 09/09/18 09:46 Cozaar - PO 50 mg DAILY FABIEN Administration Ondansetron HCl 4 mg 09/03/18 10:22 Zofran Injection IVPUSH Q6H PRN NAUSEA AND/OR VOMITING Rosuvastatin Calcium 7.5 mg 09/03/18 22:00 09/08/18 21:46 Crestor - PO 7.5 mg HS FABIEN Administration Tamsulosin HCl 0.4 mg 09/04/18 08:30 09/09/18 08:14 Flomax - PO 0.4 mg DAILY@0830 FABIEN Administration Torsemide 40 mg 09/04/18 10:00 09/09/18 09:47 Demadex - PO 40 mg DAILY FABIEN Administration Microbiology 08/29/18 16:30 Urine - Urine Clean Catch Urine Culture - Final NO GROWTH OBTAINED ASSESSMENT/PLAN: 77 yom with PMHx of ESRD, NIDDM, HTN, HLD, Hypothyroidism, BPH, S/p CABG admitted with fatigue, progressive abdominal distension s/p emergent HD. -ESRD started on HD -NIDDM -HTN -HLD -Hypothyroidism -BPH Plan: s/p permacath placement/Av fistula creation 09/03. Ongoing HD [place] d/lexi Torsemide per renal Continue coreg. ISS, statin, levothyroxine DVTPPX SCDS, heparin per surgery Dispo d/c when HD arrangements made. Discussed with patient and social work, all questions answered. Visit type - Emergency Visit Emergency Visit: Yes ED Registration Date: 08/29/18 Care time: The patient presented to the Emergency Department on the above date and was hospitalized for further evaluation of their emergent condition. - New Patient This patient is new to me today: No - Critical Care Critical Care patient: No - Discharge Referral Referred to [facility] Med P.C.: No
[2018-09-09] MEDS ORDERED: INSULIN (NOVOLOG) ASPART 100 UNITS/ML 10ML VIAL ONE (21:24)
[2018-09-09] MEDS: ROSUVASTATIN CA 5 MG TABLET (FP) PO SCH (21:33)
[2018-09-10] MEDS: INSULIN SLIDING SCALE (NOVOLOG) 1 VIAL SQ SCH ×4 (06:18→21:56)
[2018-09-10] MEDS: LEVOTHYROXINE NA 75 MCG TABLET (FP) PO SCH (06:18)
[2018-09-10] MEDS ORDERED: SODIUM CHLORIDE 250 ML IV PRN ×2 (06:55→07:05)
[2018-09-10] MEDS: TAMSULOSIN HCL 0.4 MG CAP PO SCH ×2 (08:20→12:31)
[2018-09-10] MEDS ORDERED: EPOETIN ALFA 20,000 UNIT/1 ML VIAL IVPUSH ONE (08:30)
[2018-09-10 09:07] LABS: BLOOD UREA NITROGEN 44.2 mg/dL (7-18); CALCIUM 7.5 mg/dL (8.5-10.1); CREATININE 3.1 mg/dL (0.55-1.3); POTASSIUM 3.1 mmol/L (3.5-5.1)
[2018-09-10 09:09] LABS: HEMATOCRIT 28.3 % (35.4-49); HEMOGLOBIN 9.3 GM/dL (11.7-16.9); MCH 29.3 pg (25.7-33.7); MCHC 32.7 g/dl (32.0-35.9); MEAN CELL VOLUME 89.4 fl (80-96); MEAN PLT VOLUME 10.5 fl (7.5-11.1); PLATELET COUNT 155 K/MM3 (134-434); RBC 3.17 M/mm3 (4.00-5.60); RDW 20.2 % (11.9-15.9); WHITE BLOOD COUNT 7.9 K/mm3 (4.0-10.0)
--- NOTE | 2018-09-10 12:21 | PN ---
Progress Note, Physician Chief Complaint: Mr Harry is without complaint today. No cp, sob, n/v. - Current Medication List Current Medications: Active Medications Acetaminophen (Tylenol -) 650 mg PO Q6H PRN PRN Reason: PAIN LEVEL 1-5 Allopurinol (Zyloprim -) 100 mg PO DAILY [facility] Last Admin: 09/09/18 09:47 Dose: 100 mg Aspirin (Asa -) 81 mg PO DAILY [facility] Last Admin: 09/09/18 09:46 Dose: 81 mg Carvedilol (Coreg -) 12.5 mg PO BID [facility] Last Admin: 09/09/18 21:33 Dose: 12.5 mg Finasteride (Proscar -) 5 mg PO DAILY [facility] Last Admin: 09/09/18 09:46 Dose: 5 mg Sodium Chloride (Normal Saline -) 250 mls @ 3,000 mls/hr IV PRN PRN PRN Reason: Hypotension during Dialysis Insulin Aspart (Novolog Vial Sliding Scale -) 1 vial SQ ACHS [facility]; Protocol Last Admin: 09/10/18 06:18 Dose: Not Given Levothyroxine Sodium (Synthroid -) 75 mcg PO DAILY@0700 [facility] Last Admin: 09/10/18 06:18 Dose: 75 mcg Losartan Potassium (Cozaar -) 50 mg PO DAILY [facility] Last Admin: 09/09/18 09:46 Dose: 50 mg Ondansetron HCl (Zofran Injection) 4 mg IVPUSH Q6H PRN PRN Reason: NAUSEA AND/OR VOMITING Rosuvastatin Calcium (Crestor -) 7.5 mg PO HS [facility] Last Admin: 09/09/18 21:33 Dose: 7.5 mg Tamsulosin HCl (Flomax -) 0.4 mg PO DAILY@0830 [facility] Last Admin: 09/10/18 08:20 Dose: Not Given Torsemide (Demadex -) 40 mg PO DAILY [facility] Last Admin: 09/09/18 09:47 Dose: 40 mg - Objective Vital Signs: Vital Signs Temperature 36.8 C 09/10/18 11:41 Pulse Rate 69 09/10/18 11:41 Respiratory Rate 18 09/10/18 11:41 Blood Pressure 152/62 09/10/18 11:41 O2 Sat by Pulse Oximetry (%) 98 09/09/18 21:00 Constitutional: Yes: Well Nourished, No Distress, Calm Cardiovascular: Yes: Regular Rate and Rhythm. No: Gallop, Murmur, Rub Respiratory: Yes: Regular, CTA Bilaterally. No: Rales, Rhonchi, Wheezes Gastrointestinal: Yes: Normal Bowel Sounds, Soft. No: Distention, Tenderness Extremities: Yes: WNL Edema: No Labs: CBC, BMP 09/10/18 08:00 09/10/18 08:00 INR, PTT INR 1.27 (0.83-1.09) H 09/03/18 14:30 Problem List - Problems (1) ESRD needing dialysis Code(s): N18.6 - END STAGE RENAL DISEASE; Z99.2 - DEPENDENCE ON RENAL DIALYSIS (2) Anemia Code(s): D64.9 - ANEMIA, UNSPECIFIED (3) CAD (coronary artery disease) Code(s): I25.10 - ATHSCL HEART DISEASE OF [place] CORONARY ARTERY W/O ANG PCTRS (4) Diabetes mellitus Code(s): E11.9 - TYPE 2 DIABETES MELLITUS WITHOUT COMPLICATIONS (5) Gout Code(s): M10.9 - GOUT, UNSPECIFIED (6) HLD (hyperlipidemia) Code(s): E78.5 - HYPERLIPIDEMIA, UNSPECIFIED (7) HTN (hypertension) Code(s): I10 - ESSENTIAL (PRIMARY) HYPERTENSION Assessment/Plan -continue current management -awaiting outpatient HD placement -can discharge once HD set up
[2018-09-10] MEDS: ALLOPURINOL 100 MG TABLET (FP) PO SCH (12:31)
[2018-09-10] MEDS: TORSEMIDE 20 MG TABLET (FP) PO SCH (12:31)
[2018-09-10] MEDS: ASPIRIN 81 MG CHEWABLE TABLETS PO SCH (12:31)
[2018-09-10] MEDS: CARVEDILOL 12.5 MG TABLET (FP) PO SCH ×2 (12:31→21:49)
[2018-09-10] MEDS: FINASTERIDE 5 MG TABLET (FP) PO SCH (12:31)
[2018-09-10] MEDS: LOSARTAN POTASSIUM 50 MG TABLET (FP) PO SCH (12:32)
--- NOTE | 2018-09-10 15:53 | PN ---
Progress Note (short form) - Note Progress Note: Renal follow up for ROBIN/CKD Pt seen and examined at the bedside awake and alert no acute complaints s/p dialysis this am, tolerated it well. 2kg UF removed Vital Signs Temperature 98.3 F 09/10/18 14:00 Pulse Rate 61 09/10/18 14:00 Respiratory Rate 20 09/10/18 14:00 Blood Pressure 143/62 09/10/18 14:00 O2 Sat by Pulse Oximetry (%) 98 09/09/18 21:00 Intake & Output 09/07/18 09/08/18 09/09/18 09/10/18 23:59 23:59 23:59 23:59 Intake Total 900 1930 580 Output Total 1100 650 600 Balance -200 1280 -20 awake and alert RRR, no M/R RRR CTA no LE edema CBC, BMP 09/10/18 08:00 09/10/18 08:00 Current Medications Acetaminophen (Tylenol -) 650 mg PO Q6H PRN PRN Reason: PAIN LEVEL 1-5 Allopurinol (Zyloprim -) 100 mg PO DAILY [facility] Last Admin: 09/10/18 12:31 Dose: 100 mg Aspirin (Asa -) 81 mg PO DAILY [facility] Last Admin: 09/10/18 12:31 Dose: 81 mg Carvedilol (Coreg -) 12.5 mg PO BID [facility] Last Admin: 09/10/18 12:31 Dose: 12.5 mg Finasteride (Proscar -) 5 mg PO DAILY [facility] Last Admin: 09/10/18 12:31 Dose: 5 mg Sodium Chloride (Normal Saline -) 250 mls @ 3,000 mls/hr IV PRN PRN PRN Reason: Hypotension during Dialysis Insulin Aspart (Novolog Vial Sliding Scale -) 1 vial SQ ACHS [facility]; Protocol Last Admin: 09/10/18 12:32 Dose: 4 units Levothyroxine Sodium (Synthroid -) 75 mcg PO DAILY@0700 [facility] Last Admin: 09/10/18 06:18 Dose: 75 mcg Losartan Potassium (Cozaar -) 50 mg PO DAILY [facility] Last Admin: 09/10/18 12:32 Dose: 50 mg Ondansetron HCl (Zofran Injection) 4 mg IVPUSH Q6H PRN PRN Reason: NAUSEA AND/OR VOMITING Rosuvastatin Calcium (Crestor -) 7.5 mg PO HS [facility] Last Admin: 09/09/18 21:33 Dose: 7.5 mg Tamsulosin HCl (Flomax -) 0.4 mg PO DAILY@0830 [facility] Last Admin: 09/10/18 12:31 Dose: 0.4 mg Torsemide (Demadex -) 40 mg PO DAILY [facility] Last Admin: 09/10/18 12:31 Dose: 40 mg 77 year old gentleman with hx of CKD stage 5 (eGFR 7), CAD s/p CABG, Hypertension, HLD, DM who presented with weakness and dizziness and found to have BUN/Cr of 214/12.9. #CKD stage 5 now ESRD on dialysis #Anemia #Metabolic acidosis (resolved) #Hyponatremia (resolved) #Weakness from uremia (resolved) #Uremic pruritus (resolved) tolerated dialysis well this am. outpatient dialysis placement still pending as they are awaiting insurance authorization Renal diet, 1.2L fluid restriction continue losartan and torsemide will continue NAYLA/Venofer with dialysis for anemia management Thank you Rambo Kulkarni DO
[2018-09-10] MEDS: ROSUVASTATIN CA 5 MG TABLET (FP) PO SCH (21:49)
[2018-09-11] MEDS: LEVOTHYROXINE NA 75 MCG TABLET (FP) PO SCH (06:22)
[2018-09-11] MEDS: INSULIN SLIDING SCALE (NOVOLOG) 1 VIAL SQ SCH (06:23)
[2018-09-11] MEDS: TAMSULOSIN HCL 0.4 MG CAP PO SCH (07:59)
[2018-09-11 08:11] VITALS: TEMP 99.4
[2018-09-11 08:34] VITALS: BP 133/50; PULSE 61
[2018-09-11] MEDS: ALLOPURINOL 100 MG TABLET (FP) PO SCH (09:52)
[2018-09-11] MEDS: LOSARTAN POTASSIUM 50 MG TABLET (FP) PO SCH (09:52)
[2018-09-11] MEDS: TORSEMIDE 20 MG TABLET (FP) PO SCH (09:52)
[2018-09-11] MEDS: ASPIRIN 81 MG CHEWABLE TABLETS PO SCH (09:52)
[2018-09-11] MEDS: CARVEDILOL 12.5 MG TABLET (FP) PO SCH (09:52)
[2018-09-11] MEDS: FINASTERIDE 5 MG TABLET (FP) PO SCH (09:52)
--- NOTE | 2018-09-11 17:04 | DS ---
Physical Examination Vital Signs: Vital Signs Temperature 37.4 C 09/11/18 08:33 Pulse Rate 61 09/11/18 08:33 Respiratory Rate 20 09/11/18 08:35 Blood Pressure 133/50 L 09/11/18 08:33 O2 Sat by Pulse Oximetry (%) 98 09/11/18 08:35 Constitutional: Yes: Well Nourished, No Distress, Calm Cardiovascular: Yes: Regular Rate and Rhythm. No: Gallop, Murmur, Rub Respiratory: Yes: Regular, CTA Bilaterally. No: Rales, Rhonchi, Wheezes Gastrointestinal: Yes: Normal Bowel Sounds, Soft. No: Distention, Tenderness Extremities: Yes: WNL Edema: No Labs: CBC, BMP 09/10/18 08:00 09/10/18 08:00 Discharge Summary Reason For Visit: ASCITES,UREMIA,ACUTE RENAL SUPERIMPOSED ON CHRONIC Hospital Course: Mr Harry is a very pleasant 77 year old male who comes in with CKD requiring emergent HD. He was admitted to the hospital and started on HD. He tolerated it well. He was seen by nephrology during this stay as well. His other medical problems remained well controlled. He is currently set up for outpatient HD and is safe for discharge today. He will have his next dialysis on Saturday at 10: 30am. Condition: Good - Instructions Diet, Activity, Other Instructions: You came in with worsening kidney function requiring emergency dialysis You had a perm cath placed Keep incision and permcath clean/dry and covered. You are being set up for outpatient dialysis Dr. Wong's Discharge Instructions Post Operative Instructions Physical activity Resume your normal everyday activity as tolerated no heavy lifting or exercise until seen by your surgeon. You may walk unlimited amounts of and climb stairs. You may resume driving the car when you feel safe and comfortable behind the wheel and are no longer taking narcotics. Wound care If you have a bandage, leave it on, and keep left arm dry for 72 hours. After that time, discard the outer bandage and you may wash with regular soap and water. DO NOT submerge the incision. Keep Permacath site clean and dry. Do not apply lotion or ointments to incision. Diet There are no dietary restrictions. Eat healthy, high-fiber foods. Drink 6 to 8 glasses of liquid each day. This will assist in keeping your bowels are regular. Pain management You may take Tylenol or acetaminophen or Ibuprofen (for example, Motrin, Advil etc.) Any pain prescription medication ordered should be taken as prescribed for moderate to severe pain. Call Dr. Wong for any of the following: Severe pain not relieved by medication Fever of 101 or higher Excessive bleeding or drainage on dressing Inability to urinate If you experience any chest pain or shortness of breath please seek emergency treatment immediately. Call the office to make a follow up appointment for 2 weeks post op. Referrals: Rambo Kulkarni MD [Staff Physician] - 2 Weeks Waldo Roque MD [Primary Care Provider] - 1 Week Moo Wong MD [Staff Physician] - Disposition: HOME - Home Medications Comprehensive Discharge Medication List: Ambulatory Orders Amlodipine Besylate [Norvasc -] 10 mg PO DAILY 08/02/13 Glipizide [Glipizide ER] 2.5 mg PO DAILY 08/02/13 Levothyroxine [Synthroid -] 75 mcg PO DAILY 08/02/13 Rosuvastatin Calcium [Crestor] 7.5 mg PO DAILY 08/02/13 Aspirin [ASA -] 81 mg PO DAILY 10/04/17 Allopurinol [Zyloprim -] 100 mg PO DAILY 07/02/18 Carvedilol [Coreg -] 12.5 mg PO BID 07/02/18 Losartan Potassium [Cozaar -] 50 mg PO DAILY #30 tablet 09/10/18 Torsemide [Demadex -] 40 mg PO DAILY #30 tablet 09/10/18 Finasteride [Proscar -] 5 mg PO DAILY #30 tablet 09/11/18 Tamsulosin HCl [Flomax -] 0.4 mg PO DAILY #30 cap.er.24h 09/11/18
== END 2018-09-11 12:11 | disposition home or self-care (01) | DRG 674 ==
LOC: JER 11:51 → JERBED 14:14 → JICU 15:06 → J5S 08-30 20:17
PROVIDERS: ADMIT Internal Medicine; ATTEND Hospitalist
PROC: 05HM33Z Insertion of Infusion Device into Right Internal Jugular Vein, Percutaneous Approach (ICD-10-PCS; principal; 2018-08-29)
PROC: 5A1D70Z Performance of Urinary Filtration, Intermittent, Less than 6 Hours Per Day (ICD-10-PCS; 2018-08-29)
PROC: 5A1D70Z Performance of Urinary Filtration, Intermittent, Less than 6 Hours Per Day (ICD-10-PCS; 2018-08-30)
PROC: 5A1D70Z Performance of Urinary Filtration, Intermittent, Less than 6 Hours Per Day (ICD-10-PCS; 2018-09-01)
PROC: B513ZZA Fluoroscopy of Right Jugular Veins, Guidance (ICD-10-PCS; 2018-09-03)
PROC: 5A1D70Z Performance of Urinary Filtration, Intermittent, Less than 6 Hours Per Day (ICD-10-PCS; 2018-09-03)
PROC: 03180AD Bypass Left Brachial Artery to Upper Arm Vein with Autologous Arterial Tissue, Open Approach (ICD-10-PCS; 2018-09-03 08:00)
PROC: 5A1D70Z Performance of Urinary Filtration, Intermittent, Less than 6 Hours Per Day (ICD-10-PCS; 2018-09-05)
PROC: 5A1D70Z Performance of Urinary Filtration, Intermittent, Less than 6 Hours Per Day (ICD-10-PCS; 2018-09-08)
DX: N17.9 Acute kidney failure, unspecified (principal); E87.1 Hypo-osmolality and hyponatremia; E87.2 Acidosis; I12.0 Hypertensive chronic kidney disease with stage 5 chronic kidney disease or end stage renal disease; R18.8 Other ascites; J98.11 Atelectasis; E03.9 Hypothyroidism, unspecified; N18.6 End stage renal disease; E11.9 Type 2 diabetes mellitus without complications; I10 Essential (primary) hypertension; E78.5 Hyperlipidemia, unspecified; I25.10 Atherosclerotic heart disease of native coronary artery without angina pectoris; D64.9 Anemia, unspecified; E11.22 Type 2 diabetes mellitus with diabetic chronic kidney disease; R68.0 Hypothermia, not associated with low environmental temperature; L29.8 Other pruritus; N40.0 Benign prostatic hyperplasia without lower urinary tract symptoms; R33.9 Retention of urine, unspecified; M10.9 Gout, unspecified; Z99.2 Dependence on renal dialysis; Z95.1 Presence of aortocoronary bypass graft
CPT/HCPCS: 36415; 70450-TC; 71045-TC-FY; 74176-TC; 80048; 80053; 80061; 80074; 81003; 82550; 82553; 82565; 82962; 83721; 83735; 84100; 84484; 84520; 85025; 85027; 85610; 86803; 86850; 86900; 86901; 87086; 87340; 87902; 90670; 93005; 93010; 94760; 97116-GP; 97161-GP; 99284-25; J0885; J1644; J1756; J2597; J7030